=== PATIENT | female | born 1945 | race Caucasian/White ===

== ENCOUNTER → 2016-12-06 | Outpatient (CLI) | payer MEDICARE | LOC: RAD 08:20 | PROVIDERS: ATTEND Physician Assistant | DX: M25.511 Pain in right shoulder (principal) ==

== ENCOUNTER → 2017-01-04 | Day surgery (SDC) | payer MEDICARE | LOC: RAD 14:47 | PROVIDERS: ATTEND Orthopaedic Surgery | PROC: 0R9J3ZZ Drainage of Right Shoulder Joint, Percutaneous Approach (ICD-10-PCS; principal; 2017-01-04) | DX: M87.811 Other osteonecrosis, right shoulder (principal) | CPT/HCPCS: 20610; 77002; 87070; 87075; 87205 ==

== ENCOUNTER 2017-01-29 04:39 | Inpatient (IN) | payer OTHER, MEDICARE ==
[2017-01-29] MEDS ORDERED: NORMAL SALINE 1000 ML 500 ML IV ONE (05:29)
--- NOTE | 2017-01-29 05:32 | ER Document Report ---
Doctor's Note Notes: 01/29/17 05:30 I performed a quick triage evaluation the patient. Patient is a 71-year-old female presents with flulike symptoms. Her has had the same symptoms. She's had some vomiting. She's not been eating or drinking. She's had a lot of coughing congestion. She has body aches throughout. In triage her blood pressure was 80 systolic. They brought her back immediately. We immediately rechecked her blood pressure and it is 116/76. Patient is nontoxic-appearing. I will order blood work as well as chest x-ray in urine. I will give her some IV fluids being that she has been vomiting over last will days. She has no pain to palpation or abdomen. Her lung parmar are clear. She has a dry cough on exam. Dictation of this chart was performed using voice recognition software; therefore, there may be some unintended grammatical errors.
[2017-01-29 06:46] LABS: ABSOLUTE EOSINOPHILS # (AUTO) 0.1 10^3/uL (0.0-0.6); ABSOLUTE LYMPHOCYTES (AUTO) 1.3 10^3/uL (0.5-4.7); ABSOLUTE MONOCYTES (AUTO) 1.3 10^3/uL (0.1-1.4); ABSOLUTE NEUT (AUTO) 13.7 10^3/uL (1.7-8.2); BASOPHILS % (AUTO) 0.2 % (0-2); EOSINOPHILS % (AUTO) 0.6 % (0-6); HEMATOCRIT 33.2 % (36.0-47.0); HEMOGLOBIN 11.4 g/dL (12.0-15.5); LYMPHOCYTES % (AUTO) 7.8 % (13-45); MEAN CORPUSCULAR HEMOGLOBIN 29.3 pg (27.0-33.4); MEAN CORPUSCULAR HGB CONC 34.3 g/dL (32.0-36.0); MEAN CORPUSCULAR VOLUME 86 fl (80-97); MONOCYTES % (AUTO) 8.1 % (3-13); RED BLOOD COUNT 3.88 10^6/uL (3.72-5.28); RED CELL DISTRIBUTION WIDTH 13.6 % (11.5-14.0); SEGMENTED NEUTROPHILS % (AUTO) 83.3 % (42-78); WHITE BLOOD COUNT 16.4 10^3/uL (4.0-10.5)
[2017-01-29] MEDS ORDERED: IPRATROPIUM/ALBUTEROL 0.5-2.5 MG/3 ML AMPUL NEB ONE (06:46)
[2017-01-29] MEDS ORDERED: LEVOFLOXACIN 500 MG/D5W RTU 100 ML IV ONE (07:17)
[2017-01-29 07:41] LABS: ANION GAP 15 (5-19); BLOOD UREA NITROGEN 35 mg/dL (7-20); CALCIUM 8.7 mg/dL (8.4-10.2); CARBON DIOXIDE 24 mmol/L (22-30); CHLORIDE 82 mmol/L (98-107); CREATININE RESULT 1.79 mg/dL (0.52-1.25); GLUCOSE 103 mg/dL (75-110); SODIUM 121.3 mmol/L (137-145)
[2017-01-29 08:14] LABS: POTASSIUM 2.9 mmol/L (3.6-5.0)
[2017-01-29] MEDS ORDERED: MAGNESIUM SULFATE/D5W 100 ML IV ONE (09:06)
[2017-01-29 09:51] LABS: APPEARANCE,URINE CLEAR; BILIRUBIN,URINE NEGATIVE (NEGATIVE); GLUCOSE, URINE NEGATIVE (NEGATIVE); KETONES,URINE NEGATIVE (NEGATIVE); LEUKOCYTE ESTERASE,URINE NEGATIVE (NEGATIVE); NITRITE,URINE NEGATIVE (NEGATIVE); PROTEIN,URINE NEGATIVE (NEGATIVE); URINE SPECIFIC GRAVITY 1.004; UROBILINOGEN,URINE NEGATIVE mg/dL (<2.0)
[2017-01-29 10:11] LABS: URINE BARBITURATES SCREEN NEGATIVE; URINE METHADONE SCREEN NEGATIVE; URINE OPIATES LOW NEGATIVE; URINE PHENCYCLIDINE SCREEN NEGATIVE
--- NOTE | 2017-01-29 10:18 | ER Document Report ---
ED General - General Chief Complaint: Flu Symptoms Stated Complaint: COUGH,FEVER TRAVEL OUTSIDE OF THE [place] IN LAST 30 DAYS: No - HPI Patient complains to provider of: fevers cough Notes: Patient coming in for evaluation of fevers call feeling well for approximately 2 weeks. Patient also your been seen with her . States that was recently treated for fluid to Tamiflu with no relief. Patient states she does smoke patient upon further evaluation does have a history of marijuana abuse and cocaine use. Patient denies this at this time. Patient denies any pain. Upon initial evaluation as noted patient was mildly hypotensive however whenever checked by the night provider blood pressure a normal. Patient denies chest pain abdominal pain nausea vomiting diarrhea at this time. - Related Data Allergies/Adverse Reactions: No Known Allergies Allergy (Verified 01/29/17 06:55) Past Medical History - Social History Smoking Status: Current Every Day Smoker Chew tobacco use (# tins/day): No Frequency of alcohol use: None Drug Abuse: None Family History: Reviewed & Not Pertinent Patient has suicidal ideation: No Patient has homicidal ideation: No - Past Medical History Cardiac Medical History: Reports: Hx Hypertension Pulmonary Medical History: Denies: Hx Tuberculosis Renal/ Medical History: Denies: Hx Peritoneal Dialysis Musculoskeltal Medical History: Reports Hx Arthritis Psychiatric Medical History: Reports: Hx Depression Past Surgical History: Reports: Hx Breast Surgery - left breast, Hx Hysterectomy , Hx Orthopedic Surgery - back, neck - Immunizations Immunizations up to date: No Hx Diphtheria, Pertussis, Tetanus Vaccination: No Hx Pneumococcal Vaccination: 11/20/12 Review of Systems - Review of Systems Constitutional: Fever EENT: No symptoms reported Cardiovascular: No symptoms reported Respiratory: Cough, Short of breath, Wheezing Gastrointestinal: No symptoms reported Genitourinary: No symptoms reported Female Genitourinary: No symptoms reported Musculoskeletal: No symptoms reported Skin: No symptoms reported Hematologic/Lymphatic: No symptoms reported Neurological/Psychological: No symptoms reported -: Yes All other systems reviewed and negative Physical Exam - Vital signs Vitals: Temp Pulse Resp BP Pulse Ox 97.5 F 60 20 80/56 L 93 01/29/17 04:52 01/29/17 04:52 01/29/17 04:52 01/29/17 04:52 01/29/17 04:52 Interpretation: Normal - General General appearance: Appears well, Alert - HEENT Head: Normocephalic, Atraumatic Eyes: Normal Pupils: PERRL - Respiratory Respiratory status: No respiratory distress Chest status: Nontender Breath sounds: Rhonchi, Wheezing Chest palpation: Normal - Cardiovascular Rhythm: Regular Heart sounds: Normal auscultation Murmur: No - Abdominal Inspection: Normal Distension: No distension Bowel sounds: Normal Tenderness: Nontender Organomegaly: No organomegaly - Back Back: Normal, Nontender - Extremities General upper extremity: Normal inspection, Nontender, Normal color, Normal ROM , Normal temperature General lower extremity: Normal inspection, Nontender, Normal color, Normal ROM , Normal temperature, Normal weight bearing. No: Vladimir's sign - Neurological Neuro grossly intact: Yes Cognition: Normal Orientation: AAOx4 [place] Coma Scale Eye Opening: Spontaneous [place] Coma Scale Verbal: Oriented Dayana Coma Scale Motor: Obeys Commands Dayana Coma Scale Total: 15 Speech: Normal Motor strength normal: LUE, RUE, LLE, RLE Sensory: Normal - Psychological Associated symptoms: Normal affect, Normal mood - Skin Skin Temperature: Warm Skin Moisture: Dry Skin Color: Normal Course - Re-evaluation Re-evalutation: 01/29/17 13:22 Patient lab for studies showed hypomagnesemia hypokalemia dehydration with hyponatremia positive for cocaine leukocytosis with signs of pneumonia. Patient was given a dose of Levaquin. Patient is a large clots were replaced here in ER. Patient's case was referred to hospitals for further evaluation and admission. - Vital Signs Vital signs: Temp Pulse Resp BP Pulse Ox 98.8 F 82 20 146/97 H 98 01/29/17 11:18 01/29/17 07:56 01/29/17 12:01 01/29/17 12:01 01/29/17 12:01 - Laboratory Result Diagrams: 01/29/17 05:57 01/29/17 07:00 Laboratory results interpreted by me: 01/29/17 01/29/17 01/29/17 05:57 07:00 07:00 WBC 16.4 H Hgb 11.4 L Hct 33.2 L Seg Neutrophils % 83.3 H Lymphocytes % 7.8 L Absolute Neutrophils 13.7 H Sodium 121.3 L Potassium 2.9 L* Chloride 82 L BUN 35 H Creatinine 1.79 H Est GFR ( Amer) 34 L Est GFR (Non-Af Amer) 28 L Magnesium 1.5 L Critical Care Note - Critical Care Note Total time excluding time spent on procedures (mins): 35 Comments: Multiple evaluations for abnormal lab values Discharge - Discharge Clinical Impression: Cocaine abuse, Hypokalemia, Hypomagnesemia, Hyponatremia Pneumonia Qualifiers: Pneumonia type: due to unspecified organism Laterality: unspecified laterality Lung location: unspecified part of lung Qualified Code(s): J18.9 - Pneumonia, unspecified organism Acute renal failure Qualifiers: Acute renal failure type: unspecified Qualified Code(s): N17.9 - Acute kidney failure, unspecified Condition: Fair Disposition: ADMITTED INPATIENT Admitting Provider: Bee Mccracken Unit Admitted: Telemetry
[2017-01-29] MEDS ORDERED: LEVALBUTEROL HCL NEB 1.25 MG/3 ML AMPUL NEB PRN (11:53)
[2017-01-29] MEDS: NORMAL SALINE 1000 ML 1,000 ML IV PRN (13:18)
[2017-01-29] MEDS: METHYLPREDNISOLONE INJ 125 MG/2 ML SDV IV SCH ×2 (13:19→22:35)
[2017-01-29] MEDS: POTASSI CL 20 MEQ/50 ML RIDER 20 MEQ/50 ML RTUPB IV SCH ×3 (13:27→16:39)
[2017-01-29] MEDS ORDERED: CEFEPIME 2 GM/D5W RTU 2 GM/50 ML RTUPB IV SCH (14:00)
[2017-01-29] MEDS: IPRATROPIUM BROMIDE 0.02% NEB 0.5 MG/2.5 ML AMPUL NEB SCH ×2 (14:22→19:49)
[2017-01-29] MEDS: LEVALBUTEROL HCL NEB 1.25 MG/3 ML AMPUL NEB SCH ×2 (14:22→19:49)
[2017-01-29] MEDS: NORMAL SALINE 1000 ML 1,000 ML with THIAMINE HCL 100 MG, MVI, ADULT NO.1 WITH VIT K 10 ... IV PRN ×4 (14:39)
--- NOTE | 2017-01-29 16:14 | PDOC H&P ---
History of Present Illness Admission Date/PCP: 01/29/17 11:53 Patient complains of: Fever, shortness of breath History of Present Illness: NARENDRA ALBERT is a 71 year old female, chronic smoker, chronic alcoholic beverage drinker, last drink was about 1 week ago presents to the hospital because of shortness of breath of about 1 week duration. Patient reports started feeling sick and unwell about a week ago with cough and yellowish phlegm , low-grade fever, and mild shortness of breath. There is likewise associated intermittent wheezing. Symptoms were only mild so no consultation was made and patient took [id number] medication with some relief of symptoms. Patient started to progressively getting weak. She is a chronic smoker and continues to smoke and her symptoms started to get worse and therefore she stopped smoking yesterday. Earlier today her shortness of breath got worse as well as the wheezing and coughing therefore she presents to the hospital for evaluation. Serum sodium was low as well as potassium, WBC was elevated. Chest x-ray shows infiltrate retrocardiac area. Patient was given antibiotic and referred for admission. Patient however is a very poor historian. Past Medical History Past Medical History: Medication reconcillation pending verification, from the patient's pharmacist. Cardiac Medical History: Reports: Hypertension Pulmonary Medical History: Denies: Tuberculosis GI Medical History: Reports: Peptic Ulcer Disease Musculoskeltal Medical History: Reports: Arthritis, Other - Chronic pain syndrome Psychiatric Medical History: Reports: Depression, Substance Abuse - Cocaine and alcohol, Tobacco Dependency Past Surgical History Past Surgical History: Reports: Hysterectomy, Orthopedic Surgery - back, neck, Other - Lumpectomy, Exploratory laparotomy, Social History Information Source: Patient Smoking Status: Current Every Day Smoker Number of Years Smokin Last Time Smoked: COUPLE OF DAYS AGO Frequency of Alcohol Use: Heavy Hx Recreational Drug Use: Yes Drugs: Cocaine, Marijuana Hx Prescription Drug Abuse: No - Advance Directive Resuscitation Status: - Exploratory laparotomy,lumpectomy Family History Family History: CAD Parental Family History Reviewed: Yes Children Family History Reviewed: Yes Sibling(s) Family History Reviewed.: Yes Medication/Allergy Home Medications: Esomeprazole Magnesium [Nexium] 40 mg PO DAILY 01/29/17 Hydralazine HCl [Apresoline 50 mg Tablet] 100 mg PO Q8 01/29/17 Losartan/Hydrochlorothiazide [Hyzaar 100-25 Tablet] 1 each PO DAILY 01/29/17 Oxycodone HCl/Acetaminophen [Endocet 5-325 Tablet] 1 each PO TIDP PRN 01/29/17 Tizanidine HCl [Zanaflex 4 mg Tablet] 4 mg PO TIDP PRN 01/29/17 Allergies/Adverse Reactions: No Known Allergies Allergy (Verified 01/29/17 06:55) Review of Systems Constitutional: PRESENT: chills, fever(s), weakness - Generalized. ABSENT: headache(s), weight gain, weight loss Eyes: ABSENT: visual disturbances Ears: ABSENT: hearing changes Nose, Mouth, and Throat: PRESENT: sore throat. ABSENT: mouth pain Cardiovascular: PRESENT: chest pain - Pleuritic, dyspnea on exertion. ABSENT: edema, orthropnea, palpitations Respiratory: PRESENT: cough, dyspnea. ABSENT: hemoptysis Gastrointestinal: PRESENT: constipation. ABSENT: abdominal pain, diarrhea, hematemesis, hematochezia, melena, nausea, vomiting Genitourinary: ABSENT: dysuria, hematuria Musculoskeletal: ABSENT: joint swelling Integumentary: ABSENT: pruritus, rash, wounds Neurological: ABSENT: abnormal gait, abnormal speech, confusion, dizziness, focal weakness, syncope Psychiatric: ABSENT: anxiety, depression, homidical ideation, suicidal ideation Endocrine: ABSENT: cold intolerance, heat intolerance, polydipsia, polyuria Hematologic/Lymphatic: ABSENT: easy bleeding, easy bruising Physical Exam Vital Signs: Temp Pulse Resp BP Pulse Ox 98.8 F 89 20 152/83 H 21 L 01/29/17 11:18 01/29/17 14:22 01/29/17 15:01 01/29/17 15:01 01/29/17 15:12 General appearance: PRESENT: cooperative, mild distress Head exam: PRESENT: atraumatic, normocephalic Eye exam: PRESENT: conjunctiva pink, EOMI, PERRLA. ABSENT: scleral icterus Ear exam: PRESENT: normal external ear exam. ABSENT: drainage Mouth exam: PRESENT: dry mucosa, neck supple, tongue midline Throat exam: ABSENT: post pharyngeal erythema, tonsillar erythema, tonsillar exudate Neck exam: ABSENT: carotid bruit, JVD, lymphadenopathy, thyromegaly Respiratory exam: PRESENT: decreased breath sounds - Anteriorly bilateral, wheezes - Mild posteriorly bilateral, expiratory. ABSENT: rales, rhonchi Cardiovascular exam: PRESENT: RRR, +S1, +S2. ABSENT: diastolic murmur, gallop, rubs, systolic murmur Pulses: PRESENT: normal dorsalis pedis pul Vascular exam: PRESENT: normal capillary refill GI/Abdominal exam: PRESENT: normal bowel sounds, soft. ABSENT: distended, guarding, mass, organolmegaly, rebound, tenderness Rectal exam: PRESENT: deferred Extremities exam: PRESENT: full ROM. ABSENT: calf tenderness, clubbing, pedal edema Neurological exam: PRESENT: alert, awake, oriented to situation Psychiatric exam: PRESENT: appropriate affect, normal mood. ABSENT: agitated, homicidal ideation, suicidal ideation Focused psych exam: ABSENT: restlessness Skin exam: PRESENT: dry, intact, warm. ABSENT: cyanosis, rash Results Impressions: Chest X-Ray 01/29/17 05:29 IMPRESSION: Findings suggestive underlying COPD. There appear to be chronic parenchymal changes noted in both lung bases. There is increased density seen in the retrocardiac region which could represent atelectasis, superimposed infiltrate, or edema. Correlate clinically. Assessment & Plan - Diagnosis (1) Pneumonia Qualifiers: Pneumonia type: due to unspecified organism Laterality: unspecified laterality Lung location: unspecified part of lung Qualified Code(s): J18.9 - Pneumonia, unspecified organism Is this a current diagnosis for this admission?: Yes (2) COPD exacerbation Is this a current diagnosis for this admission?: Yes (3) Hypomagnesemia Is this a current diagnosis for this admission?: Yes (4) Hyponatremia Is this a current diagnosis for this admission?: Yes (5) Cocaine abuse Is this a current diagnosis for this admission?: Yes (6) Alcohol abuse Is this a current diagnosis for this admission?: Yes (7) Anemia of chronic disease Is this a current diagnosis for this admission?: Yes (8) Peptic ulcer disease Is this a current diagnosis for this admission?: Yes (9) Essential hypertension Is this a current diagnosis for this admission?: Yes (10) Depression Qualifiers: Depression Type: unspecified Qualified Code(s): F32.9 - Major depressive disorder, single episode, unspecified Is this a current diagnosis for this admission?: Yes (11) Bipolar disorder Qualifiers: Active/Remission status: remission status unspecified Qualified Code (s): F31.9 - Bipolar disorder, unspecified Is this a current diagnosis for this admission?: Yes (12) Chronic pain Qualifiers: Chronic pain type: other chronic pain Qualified Code(s): G89.29 - Other chronic pain Is this a current diagnosis for this admission?: Yes - Time Time Spent: 50 to 70 Minutes - Inpatient Certification Based on my medical assessment, after consideration of the patient's comorbidities, presenting symptoms, or acuity I expect that the services needed warrant INPATIENT care.: Yes I certify that my determination is in accordance with my understanding of Medicare's requirements for reasonable and necessary INPATIENT services [42 CFR 412.3e].: Yes Medical Necessity: Significant Comorbidiites Make Outpatient Treatment Too Risky , Need For IV Fluids, Need for Nebulizer Therapy and Monitoring of Response, Need for IV Antibiotics, Risk of Diagnosis Which Will Require Inpatient Eval/ Care/Monitoring Post 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 We will culture the blood in the sputum. We will replace electrolytes and monitor accordingly. Begin broad- spectrum antibiotic and give supplemental oxygen. DVT prophylaxis with Lovenox will be placed. We will hydrate the patient with normal saline. We will monitor creatinine. Patient counseled about substance abuse with cocaine and alcohol and she understood. We will give supplemental thiamine and folic acid and multivitamin. As needed Ativan for withdrawal symptoms if it occurs. Patient reports that she has not drank alcohol since last week.
[2017-01-29] MEDS: LORAZEPAM INJ 2 MG/1 ML VIAL IV PRN (16:56)
[2017-01-29] MEDS: LANSOPRAZOLE 30 MG TAB.RAP.DR PO SCH (16:57)
--- NOTE | 2017-01-29 20:05 | EKG REPORT ---
SEVERITY:- ABNORMAL ECG - SINUS RHYTHM PROBABLE LEFT ATRIAL ABNORMALITY LEFT VENTRICULAR HYPERTROPHY ST DEPRESSION, CONSIDER ISCHEMIA, LAT LEADS ABNORMAL T, CONSIDER ISCHEMIA, LATERAL LEADS : Confirmed by: Luther Oliveros 29-Jan-2017 20:05:23
[2017-01-29] MEDS ORDERED: CEFEPIME 2 GM/D5W RTU 50 ML IV SCH (22:00)
[2017-01-29] MEDS: GUAIFENESIN 600 MG TABLET.SA PO SCH (22:36)
[2017-01-30] MEDS: LEVALBUTEROL HCL NEB 1.25 MG/3 ML AMPUL NEB SCH ×4 (02:12→19:30)
[2017-01-30] MEDS: IPRATROPIUM BROMIDE 0.02% NEB 0.5 MG/2.5 ML AMPUL NEB SCH ×4 (02:12→19:30)
[2017-01-30] MEDS: LANSOPRAZOLE 30 MG TAB.RAP.DR PO SCH ×2 (05:08→17:15)
[2017-01-30] MEDS: ACETAMINOPHEN 325 MG TABLET PO PRN ×3 (05:08→18:06)
[2017-01-30] MEDS: METHYLPREDNISOLONE INJ 125 MG/2 ML SDV IV SCH ×3 (05:09→22:16)
[2017-01-30 07:43] LABS: HEMOGLOBIN 9.9 g/dL (12.0-15.5); HGB HCT DIFFERENCE 0.7; MEAN CORPUSCULAR HEMOGLOBIN 29.3 pg (27.0-33.4); MEAN CORPUSCULAR HGB CONC 34.1 g/dL (32.0-36.0); MEAN CORPUSCULAR VOLUME 86 fl (80-97); RED BLOOD COUNT 3.36 10^6/uL (3.72-5.28); RED CELL DISTRIBUTION WIDTH 13.8 % (11.5-14.0); WHITE BLOOD COUNT 13.8 10^3/uL (4.0-10.5)
[2017-01-30] MEDS ORDERED: ENOXAPARIN SODIUM INJ 40 MG/0.4 ML DISP.SYRIN SUBCUT SCH (08:00)
[2017-01-30 08:03] LABS: ANION GAP 17 (5-19); BLOOD UREA NITROGEN 19 mg/dL (7-20); CALCIUM 8.6 mg/dL (8.4-10.2); CARBON DIOXIDE 19 mmol/L (22-30); CHLORIDE 92 mmol/L (98-107); CREATININE RESULT 0.86 mg/dL (0.52-1.25); GLUCOSE 217 mg/dL (75-110); MAGNESIUM 1.6 mg/dL (1.6-2.3); SODIUM 127.8 mmol/L (137-145)
[2017-01-30 08:08] LABS: POTASSIUM 2.9 mmol/L (3.6-5.0)
[2017-01-30 08:13] LABS: BASOPHILS % (MANUAL) 0 % (0-2); EOSINOPHILS % (MANUAL) 0 % (0-6); LYMPHOCYTES % (MANUAL) 2 % (13-45); TOTAL CELLS COUNTED 100
[2017-01-30 08:14] LABS: HYPOCHROMASIA SLIGHT; TOXIC GRANULATION SLIGHT
[2017-01-30] MEDS: ENOXAPARIN SODIUM INJ 30 MG/0.3 ML DISP.SYRIN SUBCUT SCH (09:33)
[2017-01-30] MEDS: POTASSIUM CHLORIDE 10 MEQ TABLET.SA PO SCH ×2 (09:34→14:30)
[2017-01-30] MEDS: GUAIFENESIN 600 MG TABLET.SA PO SCH ×2 (09:35→22:13)
[2017-01-30] MEDS ORDERED: LEVOFLOXACIN 750 MG/D5W RTU 150 ML IV SCH (10:00)
--- NOTE | 2017-01-30 13:00 | PDOC PROGRESS REPORT ---
Subjective Progress Note for:: 01/30/17 Subjective:: Patient is feeling better this morning. Coughing is less, shortness of breath is better, wheezing is less. No diarrhea. Patient reports that pain medication and muscle relaxant make her drowsy and therefore she does not want to take them. Denies any aches and pain at this time. Physical Exam Vital Signs: Temp Pulse Resp BP Pulse Ox 98.5 F 88 28 H 157/78 H 98 01/30/17 10:49 01/30/17 10:49 01/30/17 10:49 01/30/17 10:49 01/30/17 10:49 Intake & Output 01/29/17 01/30/17 01/31/17 06:59 06:59 06:59 Intake Total 980 Output Total 900 Balance 80 Weight 51.4 kg General appearance: PRESENT: no acute distress, cooperative Head exam: PRESENT: normocephalic Mouth exam: PRESENT: neck supple Neck exam: ABSENT: JVD Respiratory exam: PRESENT: decreased breath sounds - Bilateral, rhonchi - few bilateral. ABSENT: wheezes Cardiovascular exam: PRESENT: RRR. ABSENT: gallop GI/Abdominal exam: PRESENT: soft. ABSENT: distended, tenderness Extremities exam: ABSENT: pedal edema Neurological exam: PRESENT: alert, awake, oriented to situation Skin exam: PRESENT: dry, warm. ABSENT: cyanosis Results Laboratory Results: 01/30/17 06:42 01/30/17 06:42 01/30/17 01/30/17 06:42 06:42 WBC 13.8 H RBC 3.36 L Hgb 9.9 L Hct 29.0 L MCV 86 MCH 29.3 MCHC 34.1 RDW 13.8 Plt Count 374 Seg Neutrophils % Not Reportable Lymphocytes % Not Reportable Monocytes % Not Reportable Eosinophils % Not Reportable Basophils % Not Reportable Absolute Neutrophils Not Reportable Absolute Lymphocytes Not Reportable Absolute Monocytes Not Reportable Absolute Eosinophils Not Reportable Absolute Basophils Not Reportable Sodium 127.8 L Potassium 2.9 L* Chloride 92 L Carbon Dioxide 19 L Anion Gap 17 BUN 19 Creatinine 0.86 Est GFR ( Amer) > 60 Est GFR (Non-Af Amer) > 60 Glucose 217 H Calcium 8.6 Magnesium 1.6 Impressions: Chest X-Ray 01/29/17 05:29 IMPRESSION: Findings suggestive underlying COPD. There appear to be chronic parenchymal changes noted in both lung bases. There is increased density seen in the retrocardiac region which could represent atelectasis, superimposed infiltrate, or edema. Correlate clinically. Assessment & Plan - Diagnosis (1) Pneumonia Qualifiers: Pneumonia type: due to unspecified organism Laterality: unspecified laterality Lung location: unspecified part of lung Qualified Code(s): J18.9 - Pneumonia, unspecified organism Is this a current diagnosis for this admission?: Yes (2) COPD exacerbation Is this a current diagnosis for this admission?: Yes (3) Hypomagnesemia Is this a current diagnosis for this admission?: Yes (4) Hyponatremia Is this a current diagnosis for this admission?: Yes (5) Cocaine abuse Is this a current diagnosis for this admission?: Yes (6) Alcohol abuse Is this a current diagnosis for this admission?: Yes (7) Anemia of chronic disease Is this a current diagnosis for this admission?: Yes (8) Peptic ulcer disease Is this a current diagnosis for this admission?: Yes (9) Essential hypertension Is this a current diagnosis for this admission?: Yes (10) Depression Qualifiers: Depression Type: unspecified Qualified Code(s): F32.9 - Major depressive disorder, single episode, unspecified Is this a current diagnosis for this admission?: Yes (11) Bipolar disorder Qualifiers: Active/Remission status: remission status unspecified Qualified Code (s): F31.9 - Bipolar disorder, unspecified Is this a current diagnosis for this admission?: Yes (12) Chronic pain Qualifiers: Chronic pain type: other chronic pain Qualified Code(s): G89.29 - Other chronic pain Is this a current diagnosis for this admission?: Yes - Time Time Spent with patient: 25-34 minutes - Plan Summary Plan Summary: Continue steroids, nebulizers, and Levaquin intravenously. Discontinue cefepime. Sputum culture growing Haemophilus influenza. Replace electrolytes and recheck level in the morning. We will resume the patient's antihypertensive medication as blood pressure started to increase. We will continue to monitor.
[2017-01-30] MEDS ORDERED: CEFEPIME HCL 2 GM in DEXTROSE 5%-WATER 50 ML IV SCH (14:00)
[2017-01-30] MEDS: NORMAL SALINE 1000 ML 1,000 ML IV PRN (14:31)
[2017-01-30] MEDS: NORMAL SALINE 1000 ML 1,000 ML with THIAMINE HCL 100 MG, MVI, ADULT NO.1 WITH VIT K 10 ... IV PRN ×4 (17:24)
[2017-01-31] MEDS: IPRATROPIUM BROMIDE 0.02% NEB 0.5 MG/2.5 ML AMPUL NEB SCH ×4 (01:59→19:43)
[2017-01-31] MEDS: LEVALBUTEROL HCL NEB 1.25 MG/3 ML AMPUL NEB SCH ×4 (01:59→19:43)
[2017-01-31] MEDS: NORMAL SALINE 1000 ML 1,000 ML IV PRN (03:55)
[2017-01-31] MEDS: LORAZEPAM INJ 2 MG/1 ML VIAL IV PRN (05:14)
[2017-01-31] MEDS: LANSOPRAZOLE 30 MG TAB.RAP.DR PO SCH ×2 (05:14→17:28)
[2017-01-31] MEDS: METHYLPREDNISOLONE INJ 125 MG/2 ML SDV IV SCH ×3 (05:15→22:32)
[2017-01-31 05:47] LABS: ANION GAP 13 (5-19); BLOOD UREA NITROGEN 15 mg/dL (7-20); CALCIUM 8.9 mg/dL (8.4-10.2); CARBON DIOXIDE 21 mmol/L (22-30); CHLORIDE 97 mmol/L (98-107); CREATININE RESULT 0.61 mg/dL (0.52-1.25); GLUCOSE 131 mg/dL (75-110); POTASSIUM 3.6 mmol/L (3.6-5.0); SODIUM 130.9 mmol/L (137-145)
[2017-01-31] MEDS ORDERED: (PENDING PHARMACY ID) (Losartan/Hydrochlorothiazide [Hyzaar 100-25 Tablet] 1 EACH) PO SCH (10:00)
[2017-01-31] MEDS ORDERED: LEVOFLOXACIN 750 MG/D5W RTU 750 MG/150 ML RTUPB IV SCH (10:00)
[2017-01-31] MEDS: ENOXAPARIN SODIUM INJ 30 MG/0.3 ML DISP.SYRIN SUBCUT SCH (10:31)
[2017-01-31] MEDS: GUAIFENESIN 600 MG TABLET.SA PO SCH ×2 (10:32→22:32)
[2017-01-31] MEDS: HYDROCHLOROTHIAZIDE 25 MG TABLET PO SCH (10:33)
[2017-01-31] MEDS: OXYCODONE HCL IR 5 MG TABLET PO PRN ×2 (10:33→22:32)
[2017-01-31] MEDS: LOSARTAN POTASSIUM 50 MG TABLET PO SCH (10:33)
--- NOTE | 2017-01-31 15:40 | PDOC PROGRESS REPORT ---
Subjective Progress Note for:: 01/31/17 Subjective:: Patient complains of cough. Physical Exam Vital Signs: Temp Pulse Resp BP Pulse Ox 98.1 F 93 20 151/84 H 100 01/31/17 11:23 01/31/17 14:00 01/31/17 13:29 01/31/17 11:23 01/31/17 13:29 Intake & Output 01/30/17 01/31/17 02/01/17 06:59 06:59 06:59 Intake Total 980 3313 330 Output Total 900 2102 1000 Balance 80 1211 -670 Weight 51.4 kg 57.1 kg General appearance: PRESENT: no acute distress Eye exam: PRESENT: conjunctiva pink. ABSENT: scleral icterus Teeth exam: PRESENT: poor dentation Neck exam: ABSENT: JVD Respiratory exam: PRESENT: rhonchi - Coarse rhonchi bilaterally., wheezes - A few scattered respiratory wheezes. ABSENT: rales Cardiovascular exam: PRESENT: RRR. ABSENT: diastolic murmur, rubs, systolic murmur GI/Abdominal exam: PRESENT: normal bowel sounds, soft. ABSENT: distended, guarding, mass, organolmegaly, rebound, tenderness Extremities exam: ABSENT: calf tenderness, clubbing, pedal edema Neurological exam: PRESENT: alert, awake, oriented to person, oriented to place , oriented to time, oriented to situation Psychiatric exam: PRESENT: appropriate affect Skin exam: PRESENT: dry, intact, warm. ABSENT: cyanosis, rash Results Laboratory Results: 01/30/17 06:42 01/31/17 04:23 01/31/17 04:23 Sodium 130.9 L Potassium 3.6 Chloride 97 L Carbon Dioxide 21 L Anion Gap 13 BUN 15 Creatinine 0.61 Est GFR ( Amer) > 60 Est GFR (Non-Af Amer) > 60 Glucose 131 H Calcium 8.9 Impressions: Chest X-Ray 01/29/17 05:29 IMPRESSION: Findings suggestive underlying COPD. There appear to be chronic parenchymal changes noted in both lung bases. There is increased density seen in the retrocardiac region which could represent atelectasis, superimposed infiltrate, or edema. Correlate clinically. Assessment & Plan - Diagnosis (1) Pneumonia Qualifiers: Pneumonia type: due to unspecified organism Laterality: unspecified laterality Lung location: unspecified part of lung Qualified Code(s): J18.9 - Pneumonia, unspecified organism Is this a current diagnosis for this admission?: YesPlan: Patient is growing Haemophilus influenza from her sputum culture. We'll continue with the Levaquin. (2) COPD exacerbation Is this a current diagnosis for this admission?: YesPlan: Continue with steroids and nebulizers. (3) Hypomagnesemia Is this a current diagnosis for this admission?: YesPlan: Resolved (4) Hyponatremia Is this a current diagnosis for this admission?: YesPlan: Improving with IV fluids. (5) Anemia of chronic disease Is this a current diagnosis for this admission?: YesPlan: Hemoglobin has remained stable (6) Peptic ulcer disease Is this a current diagnosis for this admission?: YesPlan: Continue with Prevacid (7) HTN (hypertension) Is this a current diagnosis for this admission?: YesPlan: Continue hydrochlorothiazide (8) Depression Qualifiers: Depression Type: unspecified Qualified Code(s): F32.9 - Major depressive disorder, single episode, unspecified Is this a current diagnosis for this admission?: Yes (9) Bipolar disorder Qualifiers: Active/Remission status: remission status unspecified Qualified Code (s): F31.9 - Bipolar disorder, unspecified Is this a current diagnosis for this admission?: Yes (10) Chronic pain Qualifiers: Chronic pain type: other chronic pain Qualified Code(s): G89.29 - Other chronic pain Is this a current diagnosis for this admission?: YesPlan: Patient has been restarted on oxycodone. (11) Cocaine abuse Is this a current diagnosis for this admission?: Yes (12) Alcohol abuse Is this a current diagnosis for this admission?: YesPlan: No evidence for delirium tremens - Time Time Spent with patient: 25-34 minutes - Inpatient Certification Medical Necessity: Need Close Monitoring Due to Risk of Patient Decompensation
[2017-01-31] MEDS: NORMAL SALINE 1000 ML 1,000 ML with THIAMINE HCL 100 MG, MVI, ADULT NO.1 WITH VIT K 10 ... IV PRN ×4 (15:56)
[2017-02-01] MEDS: LEVALBUTEROL HCL NEB 1.25 MG/3 ML AMPUL NEB SCH ×4 (02:29→20:12)
[2017-02-01] MEDS: IPRATROPIUM BROMIDE 0.02% NEB 0.5 MG/2.5 ML AMPUL NEB SCH ×4 (02:29→20:11)
[2017-02-01] MEDS: NORMAL SALINE 1000 ML 1,000 ML IV PRN (02:49)
[2017-02-01 04:55] LABS: HEMATOCRIT 25.4 % (36.0-47.0); HEMOGLOBIN 8.7 g/dL (12.0-15.5); HGB HCT DIFFERENCE 0.7; MEAN CORPUSCULAR HEMOGLOBIN 29.4 pg (27.0-33.4); MEAN CORPUSCULAR HGB CONC 34.5 g/dL (32.0-36.0); MEAN CORPUSCULAR VOLUME 85 fl (80-97); RED BLOOD COUNT 2.97 10^6/uL (3.72-5.28); RED CELL DISTRIBUTION WIDTH 14.1 % (11.5-14.0); WHITE BLOOD COUNT 17.2 10^3/uL (4.0-10.5)
[2017-02-01 05:20] LABS: ANION GAP 14 (5-19); BLOOD UREA NITROGEN 15 mg/dL (7-20); CALCIUM 8.6 mg/dL (8.4-10.2); CARBON DIOXIDE 22 mmol/L (22-30); CHLORIDE 93 mmol/L (98-107); CREATININE RESULT 0.61 mg/dL (0.52-1.25); GLUCOSE 149 mg/dL (75-110); SODIUM 128.8 mmol/L (137-145)
[2017-02-01 05:23] LABS: BAND NEUTROPHILS % (MANUAL) 3 % (3-5); BASOPHILS % (MANUAL) 0 % (0-2); EOSINOPHILS % (MANUAL) 0 % (0-6); LYMPHOCYTES % (MANUAL) 3 % (13-45); TOTAL CELLS COUNTED 100
[2017-02-01 05:24] LABS: ROULEAUX SLIGHT; TOXIC GRANULATION SLIGHT; TOXIC VACUOLATION PRESENT
[2017-02-01 05:34] LABS: MAGNESIUM 1.2 mg/dL (1.6-2.3)
[2017-02-01] MEDS: METHYLPREDNISOLONE INJ 125 MG/2 ML SDV IV SCH ×3 (06:37→22:25)
[2017-02-01] MEDS: LANSOPRAZOLE 30 MG TAB.RAP.DR PO SCH ×2 (06:37→16:54)
[2017-02-01] MEDS: ENOXAPARIN SODIUM INJ 30 MG/0.3 ML DISP.SYRIN SUBCUT SCH (08:12)
[2017-02-01] MEDS: GUAIFENESIN 600 MG TABLET.SA PO SCH ×2 (10:17→22:25)
[2017-02-01] MEDS: HYDROCHLOROTHIAZIDE 25 MG TABLET PO SCH (10:18)
[2017-02-01] MEDS: LOSARTAN POTASSIUM 50 MG TABLET PO SCH (10:20)
[2017-02-01] MEDS: OXYCODONE HCL IR 5 MG TABLET PO PRN ×2 (10:22→20:20)
[2017-02-01] MEDS ORDERED: MAGNESIUM SULFATE/D5W 1 GM/100 ML RTUPB IV SCH (11:00)
[2017-02-01] MEDS ORDERED: LIDOCAINE 5% (700 MG) TRANSDERMAL ADH..PATCH TP ONE (11:00)
--- NOTE | 2017-02-01 11:22 | PDOC PROGRESS REPORT ---
Subjective Progress Note for:: 02/01/17 Subjective:: Complaints of pain in her right shoulder and right neck. Physical Exam Vital Signs: Temp Pulse Resp BP Pulse Ox 98.2 F 94 30 H 158/97 H 99 02/01/17 11:04 02/01/17 11:04 02/01/17 11:04 02/01/17 11:04 02/01/17 11:04 Intake & Output 01/31/17 02/01/17 02/02/17 06:59 06:59 06:59 Intake Total 3313 3754 450 Output Total 2102 1950 550 Balance 1211 1804 -100 Weight 57.1 kg 58.4 kg General appearance: PRESENT: no acute distress Eye exam: PRESENT: conjunctiva pink. ABSENT: scleral icterus Mouth exam: PRESENT: moist, tongue midline Teeth exam: PRESENT: poor dentation Neck exam: ABSENT: JVD Respiratory exam: PRESENT: rhonchi - Coarse rhonchi on the left.. ABSENT: rales , wheezes Cardiovascular exam: PRESENT: RRR. ABSENT: diastolic murmur, rubs, systolic murmur GI/Abdominal exam: PRESENT: normal bowel sounds, soft. ABSENT: distended, guarding, mass, organolmegaly, rebound, tenderness Extremities exam: ABSENT: calf tenderness, clubbing, pedal edema Neurological exam: PRESENT: alert, awake, oriented to person, oriented to place , oriented to time, oriented to situation Psychiatric exam: PRESENT: appropriate affect Skin exam: PRESENT: dry, intact, warm. ABSENT: cyanosis, rash Results Laboratory Results: 02/01/17 03:53 02/01/17 03:53 02/01/17 02/01/17 03:53 03:53 WBC 17.2 H RBC 2.97 L Hgb 8.7 L Hct 25.4 L MCV 85 MCH 29.4 MCHC 34.5 RDW 14.1 H Plt Count 394 Seg Neutrophils % Not Reportable Lymphocytes % Not Reportable Monocytes % Not Reportable Eosinophils % Not Reportable Basophils % Not Reportable Absolute Neutrophils Not Reportable Absolute Lymphocytes Not Reportable Absolute Monocytes Not Reportable Absolute Eosinophils Not Reportable Absolute Basophils Not Reportable Sodium 128.8 L Potassium 3.0 L* Chloride 93 L Carbon Dioxide 22 Anion Gap 14 BUN 15 Creatinine 0.61 Est GFR ( Amer) > 60 Est GFR (Non-Af Amer) > 60 Glucose 149 H Calcium 8.6 Magnesium 1.2 L* Impressions: Chest X-Ray 01/29/17 05:29 IMPRESSION: Findings suggestive underlying COPD. There appear to be chronic parenchymal changes noted in both lung bases. There is increased density seen in the retrocardiac region which could represent atelectasis, superimposed infiltrate, or edema. Correlate clinically. Assessment & Plan - Diagnosis (1) Pneumonia Qualifiers: Pneumonia type: due to unspecified organism Laterality: unspecified laterality Lung location: unspecified part of lung Qualified Code(s): J18.9 - Pneumonia, unspecified organism Is this a current diagnosis for this admission?: YesPlan: Patient is growing Haemophilus influenza from her sputum culture. We'll continue with the Levaquin. (2) COPD exacerbation Is this a current diagnosis for this admission?: YesPlan: Continue with steroids and nebulizers. (3) Hypomagnesemia Is this a current diagnosis for this admission?: YesPlan: We'll give IV magnesium today. (4) Hyponatremia Is this a current diagnosis for this admission?: YesPlan: Improving with IV fluids. (5) Anemia of chronic disease Is this a current diagnosis for this admission?: YesPlan: Hemoglobin has decreased somewhat however there is no evidence for active bleeding. (6) Peptic ulcer disease Is this a current diagnosis for this admission?: YesPlan: Continue with Prevacid (7) HTN (hypertension) Is this a current diagnosis for this admission?: YesPlan: Continue hydrochlorothiazide (8) Depression Qualifiers: Depression Type: unspecified Qualified Code(s): F32.9 - Major depressive disorder, single episode, unspecified Is this a current diagnosis for this admission?: Yes (9) Bipolar disorder Qualifiers: Active/Remission status: remission status unspecified Qualified Code (s): F31.9 - Bipolar disorder, unspecified Is this a current diagnosis for this admission?: Yes (10) Chronic pain Qualifiers: Chronic pain type: other chronic pain Qualified Code(s): G89.29 - Other chronic pain Is this a current diagnosis for this admission?: YesPlan: Patient has been restarted on oxycodone. She also has complaints of shoulder and neck pain and we will try a Lidoderm patch. (11) Cocaine abuse Is this a current diagnosis for this admission?: Yes (12) Alcohol abuse Is this a current diagnosis for this admission?: YesPlan: No evidence for delirium tremens - Time Time Spent with patient: 25-34 minutes - Inpatient Certification Medical Necessity: Need Close Monitoring Due to Risk of Patient Decompensation, Need for IV Antibiotics
[2017-02-01] MEDS ORDERED: LEVOFLOXACIN 750 MG/D5W RTU 750 MG/150 ML RTUPB IV ONE (11:30)
[2017-02-01] MEDS: MAGNESIUM SULFATE/D5W 1 GM/100 ML RTUPB IV SCH ×3 (14:11→16:53)
[2017-02-01] MEDS: NORMAL SALINE 1000 ML 1,000 ML with THIAMINE HCL 100 MG, MVI, ADULT NO.1 WITH VIT K 10 ... IV PRN ×4 (17:37)
[2017-02-01] MEDS: POTASSIUM CHLORIDE 10 MEQ TABLET.SA PO SCH (22:25)
[2017-02-02] MEDS: IPRATROPIUM BROMIDE 0.02% NEB 0.5 MG/2.5 ML AMPUL NEB SCH ×4 (02:19→20:22)
[2017-02-02] MEDS: LEVALBUTEROL HCL NEB 1.25 MG/3 ML AMPUL NEB SCH ×4 (02:19→20:22)
[2017-02-02 05:31] LABS: ANION GAP 11 (5-19); BLOOD UREA NITROGEN 17 mg/dL (7-20); CALCIUM 8.8 mg/dL (8.4-10.2); CARBON DIOXIDE 28 mmol/L (22-30); CHLORIDE 89 mmol/L (98-107); CREATININE RESULT 0.52 mg/dL (0.52-1.25); GLUCOSE 127 mg/dL (75-110); MAGNESIUM 1.7 mg/dL (1.6-2.3); POTASSIUM 3.1 mmol/L (3.6-5.0); SODIUM 128.2 mmol/L (137-145)
[2017-02-02 05:48] LABS: HEMATOCRIT 29.4 % (36.0-47.0); HGB HCT DIFFERENCE 0.6; MEAN CORPUSCULAR VOLUME 85 fl (80-97); RED BLOOD COUNT 3.45 10^6/uL (3.72-5.28); RED CELL DISTRIBUTION WIDTH 13.9 % (11.5-14.0); WHITE BLOOD COUNT 14.5 10^3/uL (4.0-10.5)
[2017-02-02 05:57] LABS: BAND NEUTROPHILS % (MANUAL) 3 % (3-5); BASOPHILS % (MANUAL) 0 % (0-2); BURR CELLS SLIGHT; EOSINOPHILS % (MANUAL) 0 % (0-6); LYMPHOCYTES % (MANUAL) 4 % (13-45); OVALOCYTES SLIGHT; POIKILOCYTOSIS SLIGHT; SCHISTOCYTES SLIGHT; TOTAL CELLS COUNTED 100; TOXIC GRANULATION SLIGHT; TOXIC VACUOLATION PRESENT
[2017-02-02] MEDS: METHYLPREDNISOLONE INJ 125 MG/2 ML SDV IV SCH ×3 (06:40→21:49)
[2017-02-02] MEDS: LANSOPRAZOLE 30 MG TAB.RAP.DR PO SCH ×2 (06:40→17:05)
[2017-02-02] MEDS: NORMAL SALINE 1000 ML 1,000 ML IV PRN (06:44)
[2017-02-02] MEDS ORDERED: ONDANSETRON HCL INJ/PF 4 MG/2 ML SDV IV PRN (08:48)
[2017-02-02] MEDS: ENOXAPARIN SODIUM INJ 30 MG/0.3 ML DISP.SYRIN SUBCUT SCH (08:50)
[2017-02-02] MEDS: POTASSI CL 20 MEQ/50 ML RIDER 20 MEQ/50 ML RTUPB IV SCH ×2 (08:54→10:35)
[2017-02-02] MEDS: GUAIFENESIN 600 MG TABLET.SA PO SCH ×2 (10:33→21:49)
[2017-02-02] MEDS: MULTIVITAMIN TABLET PO SCH (10:33)
[2017-02-02] MEDS: HYDROCHLOROTHIAZIDE 25 MG TABLET PO SCH (10:34)
[2017-02-02] MEDS: THIAMINE HCL 100 MG TABLET PO SCH (10:34)
[2017-02-02] MEDS: LOSARTAN POTASSIUM 50 MG TABLET PO SCH (10:34)
[2017-02-02] MEDS: FOLIC ACID 1 MG TABLET PO SCH (10:34)
[2017-02-02] MEDS: LIDOCAINE 5% (700 MG) TRANSDERMAL ADH..PATCH TP SCH (10:35)
[2017-02-02] MEDS: POTASSIUM CHLORIDE 10 MEQ TABLET.SA PO SCH ×2 (10:35→21:49)
[2017-02-02] MEDS: LEVOFLOXACIN 750 MG/D5W RTU 750 MG/150 ML RTUPB IV SCH (13:11)
--- NOTE | 2017-02-02 14:12 | PDOC PROGRESS REPORT ---
Subjective Progress Note for:: 02/02/17 Subjective:: Complains of generalized aches and pains Physical Exam Vital Signs: Temp Pulse Resp BP Pulse Ox 97.3 F 87 20 172/90 H 100 02/02/17 11:23 02/02/17 11:23 02/02/17 11:23 02/02/17 11:23 02/02/17 11:23 Intake & Output 02/01/17 02/02/17 02/03/17 06:59 06:59 06:59 Intake Total 3754 2185 400 Output Total 1950 1950 Balance 1804 235 400 Weight 58.4 kg 56.6 kg General appearance: PRESENT: no acute distress Eye exam: PRESENT: conjunctiva pink. ABSENT: scleral icterus Mouth exam: PRESENT: moist, tongue midline Neck exam: ABSENT: carotid bruit, JVD, lymphadenopathy, thyromegaly Respiratory exam: PRESENT: rhonchi - Coarse rhonchi in the bases especially on the left.. ABSENT: rales, wheezes Cardiovascular exam: PRESENT: RRR. ABSENT: diastolic murmur, rubs, systolic murmur GI/Abdominal exam: PRESENT: normal bowel sounds, soft. ABSENT: distended, guarding, mass, organolmegaly, rebound, tenderness Extremities exam: ABSENT: calf tenderness, clubbing, pedal edema Neurological exam: PRESENT: alert, awake, oriented to person, oriented to place , oriented to time, oriented to situation, CN II-XII grossly intact. ABSENT: motor sensory deficit Psychiatric exam: PRESENT: appropriate affect Skin exam: PRESENT: dry, intact, warm. ABSENT: cyanosis, rash Results Laboratory Results: 02/02/17 03:54 02/02/17 03:54 02/02/17 02/02/17 03:54 03:54 WBC 14.5 H RBC 3.45 L Hgb 10.0 L Hct 29.4 L MCV 85 MCH 29.0 MCHC 34.0 RDW 13.9 Plt Count 459 H Seg Neutrophils % Not Reportable Lymphocytes % Not Reportable Monocytes % Not Reportable Eosinophils % Not Reportable Basophils % Not Reportable Absolute Neutrophils Not Reportable Absolute Lymphocytes Not Reportable Absolute Monocytes Not Reportable Absolute Eosinophils Not Reportable Absolute Basophils Not Reportable Sodium 128.2 L Potassium 3.1 L Chloride 89 L Carbon Dioxide 28 Anion Gap 11 BUN 17 Creatinine 0.52 Est GFR ( Amer) > 60 Est GFR (Non-Af Amer) > 60 Glucose 127 H Calcium 8.8 Magnesium 1.7 Impressions: Chest X-Ray 01/29/17 05:29 IMPRESSION: Findings suggestive underlying COPD. There appear to be chronic parenchymal changes noted in both lung bases. There is increased density seen in the retrocardiac region which could represent atelectasis, superimposed infiltrate, or edema. Correlate clinically. Assessment & Plan - Diagnosis (1) Pneumonia Qualifiers: Pneumonia type: due to unspecified organism Laterality: unspecified laterality Lung location: unspecified part of lung Qualified Code(s): J18.9 - Pneumonia, unspecified organism Is this a current diagnosis for this admission?: YesPlan: Patient is growing Haemophilus influenza from her sputum culture. We'll continue with the Levaquin. (2) COPD exacerbation Is this a current diagnosis for this admission?: YesPlan: Continue with steroids and nebulizers. (3) Hypomagnesemia Is this a current diagnosis for this admission?: YesPlan: Continue to monitor and replace as needed (4) Hyponatremia Is this a current diagnosis for this admission?: YesPlan: Improving with IV fluids. (5) Anemia of chronic disease Is this a current diagnosis for this admission?: YesPlan: Hemoglobin has decreased somewhat however there is no evidence for active bleeding. (6) Peptic ulcer disease Is this a current diagnosis for this admission?: YesPlan: Continue with Prevacid (7) HTN (hypertension) Is this a current diagnosis for this admission?: YesPlan: Continue hydrochlorothiazide (8) Depression Qualifiers: Depression Type: unspecified Qualified Code(s): F32.9 - Major depressive disorder, single episode, unspecified Is this a current diagnosis for this admission?: Yes (9) Bipolar disorder Qualifiers: Active/Remission status: remission status unspecified Qualified Code (s): F31.9 - Bipolar disorder, unspecified Is this a current diagnosis for this admission?: Yes (10) Chronic pain Qualifiers: Chronic pain type: other chronic pain Qualified Code(s): G89.29 - Other chronic pain Is this a current diagnosis for this admission?: YesPlan: Patient improving with oxycodone and lidocaine patch (11) Cocaine abuse Is this a current diagnosis for this admission?: Yes (12) Alcohol abuse Is this a current diagnosis for this admission?: YesPlan: No evidence for delirium tremens - Time Time Spent with patient: 25-34 minutes - Inpatient Certification Medical Necessity: Need Close Monitoring Due to Risk of Patient Decompensation
[2017-02-02] MEDS: OXYCODONE HCL IR 5 MG TABLET PO PRN ×2 (14:59→21:48)
[2017-02-02] MEDS: METOPROLOL TARTRATE 25 MG TABLET PO SCH (17:04)
[2017-02-03] MEDS: LEVALBUTEROL HCL NEB 1.25 MG/3 ML AMPUL NEB SCH ×4 (02:02→20:11)
[2017-02-03] MEDS: IPRATROPIUM BROMIDE 0.02% NEB 0.5 MG/2.5 ML AMPUL NEB SCH ×4 (02:02→20:10)
[2017-02-03] MEDS: METHYLPREDNISOLONE INJ 125 MG/2 ML SDV IV SCH (05:11)
[2017-02-03] MEDS: LANSOPRAZOLE 30 MG TAB.RAP.DR PO SCH ×2 (05:11→16:29)
[2017-02-03] MEDS: METOPROLOL TARTRATE 25 MG TABLET PO SCH ×2 (05:11→17:15)
[2017-02-03] MEDS: NORMAL SALINE 1000 ML 1,000 ML IV PRN (05:57)
[2017-02-03 06:50] LABS: ANION GAP 14 (5-19); BLOOD UREA NITROGEN 19 mg/dL (7-20); CALCIUM 8.4 mg/dL (8.4-10.2); CARBON DIOXIDE 29 mmol/L (22-30); CHLORIDE 85 mmol/L (98-107); CREATININE RESULT 0.54 mg/dL (0.52-1.25); GLUCOSE 122 mg/dL (75-110); MAGNESIUM 1.3 mg/dL (1.6-2.3); POTASSIUM 3.3 mmol/L (3.6-5.0); SODIUM 127.9 mmol/L (137-145)
[2017-02-03 07:02] LABS: HEMATOCRIT 33.2 % (36.0-47.0); HEMOGLOBIN 11.1 g/dL (12.0-15.5); HGB HCT DIFFERENCE 0.1; MEAN CORPUSCULAR HEMOGLOBIN 28.6 pg (27.0-33.4); MEAN CORPUSCULAR HGB CONC 33.3 g/dL (32.0-36.0); MEAN CORPUSCULAR VOLUME 86 fl (80-97); RED BLOOD COUNT 3.86 10^6/uL (3.72-5.28)
[2017-02-03 07:09] LABS: BAND NEUTROPHILS % (MANUAL) 1 % (3-5); BASOPHILS % (MANUAL) 0 % (0-2); EOSINOPHILS % (MANUAL) 0 % (0-6); LYMPHOCYTES % (MANUAL) 8 % (13-45); TOTAL CELLS COUNTED 100
[2017-02-03 07:11] LABS: ANISOCYTOSIS SLIGHT; HYPOCHROMASIA SLIGHT; POLYCHROMASIA SLIGHT; TARGET CELLS 1+; TOXIC GRANULATION SLIGHT; TOXIC VACUOLATION PRESENT
[2017-02-03] MEDS: ENOXAPARIN SODIUM INJ 30 MG/0.3 ML DISP.SYRIN SUBCUT SCH (07:53)
[2017-02-03] MEDS: MAGNESIUM SULFATE/D5W 1 GM/100 ML RTUPB IV SCH ×2 (08:21→12:55)
[2017-02-03] MEDS: MULTIVITAMIN TABLET PO SCH (09:13)
[2017-02-03] MEDS: LEVOFLOXACIN 750 MG/D5W RTU 750 MG/150 ML RTUPB IV SCH (09:13)
[2017-02-03] MEDS: LOSARTAN POTASSIUM 50 MG TABLET PO SCH (09:13)
[2017-02-03] MEDS: FOLIC ACID 1 MG TABLET PO SCH (09:13)
[2017-02-03] MEDS: HYDROCHLOROTHIAZIDE 25 MG TABLET PO SCH (09:13)
[2017-02-03] MEDS: GUAIFENESIN 600 MG TABLET.SA PO SCH ×2 (09:13→21:45)
[2017-02-03] MEDS: THIAMINE HCL 100 MG TABLET PO SCH (09:13)
[2017-02-03] MEDS: POTASSIUM CHLORIDE 10 MEQ TABLET.SA PO SCH ×2 (09:14→21:45)
[2017-02-03] MEDS: OXYCODONE HCL IR 5 MG TABLET PO PRN ×2 (09:17→16:30)
[2017-02-03] MEDS: LIDOCAINE 5% (700 MG) TRANSDERMAL ADH..PATCH TP SCH (09:18)
[2017-02-03] MEDS: POTASSI CL 20 MEQ/50 ML RIDER 20 MEQ/50 ML RTUPB IV SCH ×2 (11:11→14:04)
[2017-02-03] MEDS: HALOPERIDOL 2 MG TABLET PO PRN ×2 (11:37→21:45)
--- NOTE | 2017-02-03 13:55 | PDOC PROGRESS REPORT ---
Subjective Progress Note for:: 02/03/17 Subjective:: Reports she feels much better but does feel anxious. Physical Exam Vital Signs: Temp Pulse Resp BP Pulse Ox 97.7 F 82 22 H 133/85 H 100 02/03/17 12:08 02/03/17 12:08 02/03/17 12:08 02/03/17 12:08 02/03/17 12:08 Intake & Output 02/02/17 02/03/17 02/04/17 06:59 06:59 06:59 Intake Total 2185 2738 Output Total 1950 2300 Balance 235 438 Weight 56.6 kg 56.8 kg General appearance: PRESENT: no acute distress Eye exam: PRESENT: conjunctiva pink. ABSENT: scleral icterus Mouth exam: PRESENT: moist, tongue midline Neck exam: ABSENT: carotid bruit, JVD, lymphadenopathy, thyromegaly Respiratory exam: PRESENT: clear to auscultation waylon. ABSENT: rales, rhonchi, wheezes Cardiovascular exam: PRESENT: RRR. ABSENT: diastolic murmur, rubs, systolic murmur GI/Abdominal exam: PRESENT: normal bowel sounds, soft. ABSENT: distended, guarding, mass, organolmegaly, rebound, tenderness Extremities exam: ABSENT: calf tenderness, clubbing, pedal edema Neurological exam: PRESENT: alert, awake, oriented to person, oriented to place , oriented to time, oriented to situation, CN II-XII grossly intact. ABSENT: motor sensory deficit Psychiatric exam: PRESENT: appropriate affect Skin exam: PRESENT: dry, intact, warm. ABSENT: cyanosis, rash Results Laboratory Results: 02/03/17 05:30 02/03/17 05:30 02/03/17 02/03/17 05:30 05:30 WBC 13.0 H RBC 3.86 Hgb 11.1 L Hct 33.2 L MCV 86 MCH 28.6 MCHC 33.3 RDW 14.0 Plt Count 532 H Seg Neutrophils % Not Reportable Lymphocytes % Not Reportable Monocytes % Not Reportable Eosinophils % Not Reportable Basophils % Not Reportable Absolute Neutrophils Not Reportable Absolute Lymphocytes Not Reportable Absolute Monocytes Not Reportable Absolute Eosinophils Not Reportable Absolute Basophils Not Reportable Sodium 127.9 L Potassium 3.3 L Chloride 85 L Carbon Dioxide 29 Anion Gap 14 BUN 19 Creatinine 0.54 Est GFR ( Amer) > 60 Est GFR (Non-Af Amer) > 60 Glucose 122 H Calcium 8.4 Magnesium 1.3 L Impressions: Chest X-Ray 01/29/17 05:29 IMPRESSION: Findings suggestive underlying COPD. There appear to be chronic parenchymal changes noted in both lung bases. There is increased density seen in the retrocardiac region which could represent atelectasis, superimposed infiltrate, or edema. Correlate clinically. Assessment & Plan - Diagnosis (1) Pneumonia Qualifiers: Pneumonia type: due to unspecified organism Laterality: unspecified laterality Lung location: unspecified part of lung Qualified Code(s): J18.9 - Pneumonia, unspecified organism Is this a current diagnosis for this admission?: YesPlan: Patient is growing Haemophilus influenza from her sputum culture. Will change the Levaquin to by mouth she is improving. (2) COPD exacerbation Is this a current diagnosis for this admission?: YesPlan: Continue with steroids and nebulizers. Will change to oral prednisone. (3) Hypomagnesemia Is this a current diagnosis for this admission?: YesPlan: Continue to monitor and replace as needed (4) Hyponatremia Is this a current diagnosis for this admission?: YesPlan: Stable (5) Anemia of chronic disease Is this a current diagnosis for this admission?: YesPlan: Hemoglobin has decreased somewhat however there is no evidence for active bleeding. (6) Peptic ulcer disease Is this a current diagnosis for this admission?: YesPlan: Continue with Prevacid (7) HTN (hypertension) Is this a current diagnosis for this admission?: YesPlan: Continue hydrochlorothiazide (8) Depression Qualifiers: Depression Type: unspecified Qualified Code(s): F32.9 - Major depressive disorder, single episode, unspecified Is this a current diagnosis for this admission?: Yes (9) Bipolar disorder Qualifiers: Active/Remission status: remission status unspecified Qualified Code (s): F31.9 - Bipolar disorder, unspecified Is this a current diagnosis for this admission?: Yes (10) Chronic pain Qualifiers: Chronic pain type: other chronic pain Qualified Code(s): G89.29 - Other chronic pain Is this a current diagnosis for this admission?: YesPlan: Patient improving with oxycodone and lidocaine patch (11) Cocaine abuse Is this a current diagnosis for this admission?: Yes (12) Alcohol abuse Is this a current diagnosis for this admission?: YesPlan: No evidence for delirium tremens. We'll give Haldol as needed for anxiety. - Time Time Spent with patient: 25-34 minutes - Plan Summary Plan Summary: If she continues to improve we will hopefully discharge home tomorrow.
[2017-02-03] MEDS ORDERED: MAGNESIUM SULFATE/D5W 1 GM/100 ML RTUPB IV ONE (15:45)
[2017-02-04] MEDS: LEVALBUTEROL HCL NEB 1.25 MG/3 ML AMPUL NEB SCH ×3 (02:19→15:04)
[2017-02-04] MEDS: IPRATROPIUM BROMIDE 0.02% NEB 0.5 MG/2.5 ML AMPUL NEB SCH ×3 (02:20→15:04)
[2017-02-04 05:38] LABS: HEMOGLOBIN 10.9 g/dL (12.0-15.5); HGB HCT DIFFERENCE 0.7; MEAN CORPUSCULAR HEMOGLOBIN 28.9 pg (27.0-33.4); MEAN CORPUSCULAR VOLUME 85 fl (80-97); RED BLOOD COUNT 3.77 10^6/uL (3.72-5.28); RED CELL DISTRIBUTION WIDTH 13.8 % (11.5-14.0); WHITE BLOOD COUNT 13.4 10^3/uL (4.0-10.5)
[2017-02-04 05:54] LABS: ANION GAP 12 (5-19); BLOOD UREA NITROGEN 19 mg/dL (7-20); CALCIUM 8.5 mg/dL (8.4-10.2); CARBON DIOXIDE 29 mmol/L (22-30); CHLORIDE 87 mmol/L (98-107); CREATININE RESULT 0.61 mg/dL (0.52-1.25); GLUCOSE 86 mg/dL (75-110); POTASSIUM 3.3 mmol/L (3.6-5.0); SODIUM 128.4 mmol/L (137-145)
[2017-02-04] MEDS: LANSOPRAZOLE 30 MG TAB.RAP.DR PO SCH ×2 (05:55→16:15)
[2017-02-04] MEDS: METOPROLOL TARTRATE 25 MG TABLET PO SCH (05:55)
[2017-02-04 06:21] LABS: BASOPHILS % (MANUAL) 0 % (0-2); EOSINOPHILS % (MANUAL) 0 % (0-6); LYMPHOCYTES % (MANUAL) 8 % (13-45); TOTAL CELLS COUNTED 100
[2017-02-04 06:27] LABS: OVALOCYTES 1+; POIKILOCYTOSIS 1+; POLYCHROMASIA SLIGHT; TARGET CELLS SLIGHT; TOXIC GRANULATION 1+; TOXIC VACUOLATION PRESENT
[2017-02-04] MEDS: HYDROCHLOROTHIAZIDE 25 MG TABLET PO SCH (09:16)
[2017-02-04] MEDS: GUAIFENESIN 600 MG TABLET.SA PO SCH (09:16)
[2017-02-04] MEDS: THIAMINE HCL 100 MG TABLET PO SCH (09:16)
[2017-02-04] MEDS: LOSARTAN POTASSIUM 50 MG TABLET PO SCH (09:17)
[2017-02-04] MEDS: FOLIC ACID 1 MG TABLET PO SCH (09:17)
[2017-02-04] MEDS: MULTIVITAMIN TABLET PO SCH (09:17)
[2017-02-04] MEDS: OXYCODONE HCL IR 5 MG TABLET PO PRN (09:18)
[2017-02-04] MEDS: POTASSIUM CHLORIDE 10 MEQ TABLET.SA PO SCH (09:18)
[2017-02-04] MEDS: LIDOCAINE 5% (700 MG) TRANSDERMAL ADH..PATCH TP SCH (09:19)
[2017-02-04] MEDS: ENOXAPARIN SODIUM INJ 30 MG/0.3 ML DISP.SYRIN SUBCUT SCH (09:23)
[2017-02-04] MEDS ORDERED: PREDNISONE 20 MG TABLET PO SCH (10:00)
[2017-02-04] MEDS ORDERED: LEVOFLOXACIN 750 MG TABLET PO SCH (10:00)
[2017-02-04 13:59] VITALS: BP 155/100
--- NOTE | 2017-02-04 16:03 | PDOC DISCHARGE SUMMARY ---
General - Admit/Disc Date/PCP Admission Date/Primary Care Provider: 01/29/17 11:53 Discharge Date: 02/04/17 - Discharge Diagnosis (1) Pneumonia Is this a current diagnosis for this admission?: YesSummary: Secondary to Haemophilus influenza recovered from cultures. (2) COPD exacerbation Is this a current diagnosis for this admission?: Yes (3) Hypomagnesemia Is this a current diagnosis for this admission?: Yes (4) Hyponatremia Is this a current diagnosis for this admission?: Yes (5) Anemia of chronic disease Is this a current diagnosis for this admission?: Yes (6) Peptic ulcer disease Is this a current diagnosis for this admission?: Yes (7) HTN (hypertension) Is this a current diagnosis for this admission?: Yes (8) Depression Is this a current diagnosis for this admission?: Yes (9) Bipolar disorder Is this a current diagnosis for this admission?: Yes (10) Chronic pain Is this a current diagnosis for this admission?: Yes (11) Cocaine abuse Is this a current diagnosis for this admission?: YesSummary: Has been encouraged to quit using cocaine (12) Alcohol abuse Is this a current diagnosis for this admission?: Yes - Additional Information Resuscitation Status: Full Code Discharge Diet: Cardiac Discharge Activity: Activity As Tolerated Home Medications: Esomeprazole Magnesium [Nexium] 40 mg PO DAILY 01/29/17 Hydralazine HCl [Apresoline 50 mg Tablet] 100 mg PO Q8 01/29/17 Losartan/Hydrochlorothiazide [Hyzaar 100-25 Tablet] 1 each PO DAILY 01/29/17 Oxycodone HCl/Acetaminophen [Endocet 5-325 Tablet] 1 each PO TIDP PRN 01/29/17 Tizanidine HCl [Zanaflex 4 mg Tablet] 4 mg PO TIDP PRN 01/29/17 Levofloxacin [Levaquin 750 mg Tablet] 750 mg PO DAILY #4 tablet 02/04/17 Lidocaine [Lidoderm 5% (700 mg) Transdermal Patch] 1 patch TP DAILY #30 adh..patch 02/04/17 Metoprolol Tartrate [Lopressor 25 mg Tablet] 25 mg PO Q12A #60 tablet 02/04/17 Potassium Chloride [Klor-Con 10 Meq Tablet.sa] 20 meq PO Q12 #60 tablet.sa 02/04 Prednisone [Deltasone 20 mg Tablet] 40 mg PO DAILY #21 tablet 02/04/17 History of Present Illness History of Present Illness: NARENDRA ALBERT is a 71 year old female who has been a chronic smoker as well as heavy alcohol drinker who presents with a one-week history shortness of breath as well as cough and low-grade fever and sputum. The patient was found to have hyponatremia as well as pneumonia. Patient also had a COPD exacerbation associated with her smoking. Hospital Course Hospital Course: 71-year-old female who has a history of alcohol, smoking as well as cocaine use who presented with a two-week history shortness of breath sound have pneumonia as well as an acute COPD exacerbation. Patient was treated with IV Levaquin and eventually grew out Haemophilus influenza from her sputum culture. The patient respiratory standpoint improved and she also was initially treated with IV steroids because of her acute COPD exacerbation. The patient's respiratory status improved and she was switched over to oral antibiotics as well as steroids and discharged home. She also was noted have elevated blood pressures and her antihypertensives were increased. Patient reports that she is not going to be doing cocaine anymore. The patient also had complaints of neck and shoulder pain and was started on lidocaine patch. The patient because the pain did have some elevation of blood pressures are blood pressure the time discharge is 150/100. Physical Exam Vital Signs: Temp Pulse Resp BP Pulse Ox 97.4 F 91 16 155/100 H 98 02/04/17 13:47 02/04/17 13:47 02/04/17 13:47 02/04/17 13:59 02/04/17 13:47 Intake & Output 02/03/17 02/04/17 02/05/17 06:59 06:59 06:59 Intake Total 2738 985 Output Total 2300 200 Balance 438 785 Weight 56.8 kg 54 kg General appearance: PRESENT: no acute distress Eye exam: PRESENT: conjunctiva pink. ABSENT: scleral icterus Mouth exam: PRESENT: moist, tongue midline Neck exam: ABSENT: carotid bruit, JVD, lymphadenopathy, thyromegaly Respiratory exam: PRESENT: clear to auscultation waylon. ABSENT: rales, rhonchi, wheezes Cardiovascular exam: PRESENT: RRR. ABSENT: diastolic murmur, rubs, systolic murmur GI/Abdominal exam: PRESENT: normal bowel sounds, soft. ABSENT: distended, guarding, mass, organolmegaly, rebound, tenderness Extremities exam: ABSENT: calf tenderness, clubbing, pedal edema Neurological exam: PRESENT: alert, awake, oriented to person, oriented to place , oriented to time, oriented to situation, CN II-XII grossly intact. ABSENT: motor sensory deficit Psychiatric exam: PRESENT: appropriate affect Skin exam: PRESENT: dry, intact, warm. ABSENT: cyanosis, rash Results Laboratory Results: 02/04/17 05:07 02/04/17 05:07 02/04/17 02/04/17 05:07 05:07 WBC 13.4 H RBC 3.77 Hgb 10.9 L Hct 32.0 L MCV 85 MCH 28.9 MCHC 34.0 RDW 13.8 Plt Count 490 H Seg Neutrophils % Not Reportable Lymphocytes % Not Reportable Monocytes % Not Reportable Eosinophils % Not Reportable Basophils % Not Reportable Absolute Neutrophils Not Reportable Absolute Lymphocytes Not Reportable Absolute Monocytes Not Reportable Absolute Eosinophils Not Reportable Absolute Basophils Not Reportable Sodium 128.4 L Potassium 3.3 L Chloride 87 L Carbon Dioxide 29 Anion Gap 12 BUN 19 Creatinine 0.61 Est GFR ( Amer) > 60 Est GFR (Non-Af Amer) > 60 Glucose 86 Calcium 8.5 Impressions: Chest X-Ray 01/29/17 05:29 IMPRESSION: Findings suggestive underlying COPD. There appear to be chronic parenchymal changes noted in both lung bases. There is increased density seen in the retrocardiac region which could represent atelectasis, superimposed infiltrate, or edema. Correlate clinically. Qualifiers PATEINT BEING DISCHARGED WITH ANY OF THE FOLLOWING DIAGNOSIS?: No Plan Discharge Plan: Patient is discharged home in stable condition with follow-up with her primary care doctor in 1 week. Time Spent: Greater than 30 Minutes
== END 2017-02-04 15:00 | disposition home or self-care (01) | DRG 190 ==
LOC: ER 04:39 → EH 10:33 → UNDOADMIN 10:33 → EH 11:53 → 4N 18:40
PROC: 3E0F73Z Introduction of Anti-inflammatory into Respiratory Tract, Via Natural or Artificial Opening (ICD-10-PCS; principal; 2017-01-29)
DX: J44.0 Chronic obstructive pulmonary disease with (acute) lower respiratory infection (principal); J18.9 Pneumonia, unspecified organism; E87.1 Hypo-osmolality and hyponatremia; N17.9 Acute kidney failure, unspecified; J44.1 Chronic obstructive pulmonary disease with (acute) exacerbation; E83.42 Hypomagnesemia; D63.8 Anemia in other chronic diseases classified elsewhere; K27.9 Peptic ulcer, site unspecified, unspecified as acute or chronic, without hemorrhage or perforation; I10 Essential (primary) hypertension; F31.9 Bipolar disorder, unspecified; F10.20 Alcohol dependence, uncomplicated; F14.10 Cocaine abuse, uncomplicated; F17.210 Nicotine dependence, cigarettes, uncomplicated; B96.3 Hemophilus influenzae [H. influenzae] as the cause of diseases classified elsewhere; G89.4 Chronic pain syndrome; M19.90 Unspecified osteoarthritis, unspecified site; E86.0 Dehydration; Z90.710 Acquired absence of both cervix and uterus; Z79.899 Other long term (current) drug therapy; Z82.49 Family history of ischemic heart disease and other diseases of the circulatory system
CPT/HCPCS: 36415; 71010; 80048; 80307; 81001; 82962; 83735; 85025; 87040; 87070; 87077; 87205; 87804; 93005; 93010; 94640; 96365; 96367; 99291; J0692; J1650; J1956; J2060; J2930; J3411; J3475; J3480; J3490; J7030; J7512; J7620

== ENCOUNTER 2017-02-25 09:54 | Inpatient (IN) | payer OTHER, MEDICARE ==
--- NOTE | 2017-02-25 10:07 | ER Document Report ---
ED Medical Screen (RME) - General Chief Complaint: Shortness Of Breath Stated Complaint: DIFFICULTY BREATHING TRAVEL OUTSIDE OF THE [place] IN LAST 30 DAYS: No - HPI Patient complains to provider of: shortness of breath Notes: 02/25/17 10:06 Patient with a history of COPD drug abuse recent admission to the hospital for pneumonia coming in for shortness of breath. Patient's current PCP is Dr. Lagunas , - Related Data Allergies/Adverse Reactions: No Known Allergies Allergy (Verified 02/25/17 10:03) Past Medical History - Past Medical History Cardiac Medical History: Reports: Hx Hypertension Pulmonary Medical History: Denies: Hx Tuberculosis Renal/ Medical History: Denies: Hx Peritoneal Dialysis Musculoskeltal Medical History: Reports Hx Arthritis Psychiatric Medical History: Reports: Hx Depression Past Surgical History: Reports: Hx Breast Surgery - left breast, Hx Hysterectomy , Hx Orthopedic Surgery - back, neck, Other - Lumpectomy, Exploratory laparotomy , - Immunizations Immunizations up to date: No Hx Diphtheria, Pertussis, Tetanus Vaccination: No Review of Systems - Review of Systems Respiratory: Short of breath Physical Exam - Vital signs Vitals: Temp Pulse Resp BP Pulse Ox 99 F 79 24 H 200/109 H 95 02/25/17 10:03 02/25/17 10:03 02/25/17 10:03 02/25/17 10:03 02/25/17 10:03 Interpretation: Hypertensive - Respiratory Breath sounds: Wheezing Course - Vital Signs Vital signs: Temp Pulse Resp BP Pulse Ox 99 F 79 24 H 200/109 H 95 02/25/17 10:03 02/25/17 10:03 02/25/17 10:03 02/25/17 10:03 02/25/17 10:03
--- NOTE | 2017-02-25 10:21 | ER Document Report ---
ED Respiratory Problem <LINCOLN BOWER - Last Filed: 02/25/17 14:14> - General Time seen by provider: 10:20 Mode of Arrival: Ambulatory Information source: Patient, Relative - spouse TRAVEL OUTSIDE OF THE [place] IN LAST 30 DAYS: No - HPI Patient complains to provider of: COPD, Short of breath Onset: Other - see HPI note Context: Hx COPD Short of Breath: Moderate Associated symptoms: Cough, Difficulty breathing, Short of breath Similar symptoms previously: Yes Recently seen / treated by doctor: Yes - ED and PCP <JORGE LUIS BENITEZ - Last Filed: 02/25/17 14:37> - General Chief Complaint: Shortness Of Breath Stated Complaint: DIFFICULTY BREATHING Notes: Patient is a 71 year old female presenting to the emergency department for difficulty breathing. Patient has COPD and was recently discharged from [facility] for COPD and pneumonia. Patient states that she was doing better with her pneumonia until this morning when her breathing got worse. Patient's spouse states that he was sick with cold symptoms and passed it on to the patient. Patient states she has a slight cough. Patient saw Dr. Lira this week. Patient also complains of some shoulder pain however, the patient has chronic shoulder pain resulting from a fall and previous surgery. Patient uses marijuana and cocaine as well as heavy amounts of alcohol. Patient also complains of a ventral hernia and she has discussed treatment options for this with Dr. Lira; patient is being referred to a surgeon in [place] for her hernia. Patient has no known drug allergies. (JORGE LUIS BENITEZ) - Related Data Allergies/Adverse Reactions: No Known Allergies Allergy (Verified 02/25/17 14:32) Past Medical History - General Information source: Patient, Relative - spouse - Social History Smoking Status: Never Smoker Cigarette use (# per day): No Chew tobacco use (# tins/day): No Frequency of alcohol use: Heavy Drug Abuse: Cocaine, Marijuana Lives with: Spouse/Significant other Family History: CAD Patient has suicidal ideation: No Patient has homicidal ideation: No - Past Medical History Cardiac Medical History: Reports: Hx Hypertension Pulmonary Medical History: Reports: Hx COPD, Hx Pneumonia GI Medical History: Reports: Other - ventral hernia Musculoskeltal Medical History: Reports Hx Arthritis Psychiatric Medical History: Reports: Hx Depression Past Surgical History: Reports: Hx Breast Surgery - left breast, Hx Hysterectomy , Hx Orthopedic Surgery - back, neck, shoulder (03/24/15), Other - Lumpectomy, Exploratory laparotomy, - Immunizations Immunizations up to date: No Hx Diphtheria, Pertussis, Tetanus Vaccination: No Hx Pneumococcal Vaccination: 11/20/12 <JORGE LUIS BENITEZ - Last Filed: 02/25/17 14:37> Review of Systems - Review of Systems Constitutional: No symptoms reported EENT: No symptoms reported Cardiovascular: No symptoms reported Respiratory: See HPI, Cough, Short of breath Gastrointestinal: No symptoms reported Genitourinary: No symptoms reported Female Genitourinary: No symptoms reported Musculoskeletal: See HPI Skin: No symptoms reported Hematologic/Lymphatic: No symptoms reported Neurological/Psychological: No symptoms reported -: Yes All other systems reviewed and negative <JORGE LUIS BENITEZ - Last Filed: 02/25/17 14:37> Physical Exam <LINCOLN BOWER - Last Filed: 02/25/17 14:14> - Vital signs Interpretation: Hypertensive <JORGE LUIS BENITEZ - Last Filed: 02/25/17 14:37> - Vital signs Vitals: Temp Pulse Resp BP Pulse Ox 99 F 79 24 H 200/109 H 95 02/25/17 10:03 02/25/17 10:03 02/25/17 10:03 02/25/17 10:03 02/25/17 10:03 - Notes Notes: GENERAL: Well-appearing, well-nourished, mild-moderate respiratory distress. HEAD: Atraumatic, normocephalic. EYES: Pupils equal round and reactive to light, extraocular movements intact, sclera anicteric, conjunctiva are normal. ENT: Nares patent. Moist mucous membranes. Patent airway. NECK: Normal range of motion, supple without lymphadenopathy. LUNGS: Mild to moderate respiratory distress, expiratory grunting, coarse breath sounds bilaterally. HEART: Tachycardia, regular rhythm without murmurs. ABDOMEN: Soft, reproducible ventral hernia and associated tenderness, no guarding, no rebound. EXTREMITIES: Normal range of motion, no pitting or edema. NEUROLOGICAL: No focal neurological deficits. Moves all extremities spontaneously and on command. PSYCH: Normal affect. Normal mood. SKIN: Warm, Dry, normal turgor, no rashes or lesions noted. (JORGE LUIS BENITEZ) Course - Laboratory Result Diagrams: 02/25/17 10:40 02/25/17 10:40 - Diagnostic Test Radiology reviewed: Image reviewed, Reports reviewed - Small bilateral pleural effusions, CHF - EKG Interpretation by Me EKG shows normal: Sinus rhythm Rate: Normal Rhythm: NSR P Waves: No: SLIM, LAE, Absent, AV Dissociation, Other When compared to previous EKG there are: No significant change <LINCOLN BOWER - Last Filed: 02/25/17 14:14> - Laboratory Result Diagrams: 02/25/17 10:40 02/25/17 10:40 - Consults Dr. Lomax Time consulted: 14:10 <JORGE LUIS BENITEZ - Last Filed: 02/25/17 14:37> - Re-evaluation Re-evalutation: 02/25/17 12:24 Patient has continued elevated blood pressure so we will attempt to improve this with medication as she has already taken her home medications. She does continue cocaine abuse. With her elevated beta natruretic peptide there is consideration as well for CHF as well. She has become a little progressively more anemic as well. (LINCOLN BOWER) - Vital Signs Vital signs: Temp Pulse Resp BP Pulse Ox 98.6 F 84 36 H 196/100 H 97 02/25/17 13:32 02/25/17 13:32 02/25/17 14:31 02/25/17 14:31 02/25/17 14:31 - Laboratory Laboratory results interpreted by me: 02/25/17 02/25/17 02/25/17 10:40 10:40 10:40 RBC 3.34 L Hgb 9.6 L Hct 29.0 L RDW 15.3 H Sodium 133.3 L Magnesium 1.5 L Direct Bilirubin 0.5 H NT-Pro-B Natriuret Pep 5090 H - EKG Interpretation by Me Additional EKG results interpreted by me: 02/25/17 11:21 Similar to 01/29/2017 with persisting slightly peaked T waves (LINCOLN BOWER) - Consults Dr. Lomax Reason for consultation: 02/25/17 14:[address] Lomax for possible admission, patient will be admitted. (JORGE LUIS BENITEZ) Discharge - Discharge Admitting Provider: Hospitalist - Dr. Lomax Unit Admitted: IMCU <LINCOLN BOWER - Last Filed: 02/25/17 14:14> <JORGE LUIS BENITEZ - Last Filed: 02/25/17 14:37> - Discharge Clinical Impression: Dyspnea and respiratory abnormalities, Cocaine abuse, Anemia, Ventral hernia, Hypertensive emergency, CHF (congestive heart failure) Condition: Fair Disposition: ADMITTED INPATIENT Referrals: STEFFEN LIRA MD [Primary Care Provider] - Follow up as needed Scribe Documentation - Scribe Written by Scribe:: Jorge Luis Benitez 02/25/17 10:33 acting as scribe for :: Allyn <JORGE LUIS BENITEZ - Last Filed: 02/25/17 14:37>
[2017-02-25] MEDS ORDERED: IPRATROPIUM/ALBUTEROL 0.5-2.5 MG/3 ML AMPUL NEB ONE (10:31)
[2017-02-25] MEDS ORDERED: METHYLPREDNISOLONE INJ 125 MG/2 ML SDV IV ONE (10:31)
[2017-02-25 11:03] LABS: ABSOLUTE BASOPHILS # (AUTO) 0.1 10^3/uL (0.0-0.2); ABSOLUTE EOSINOPHILS # (AUTO) 0.4 10^3/uL (0.0-0.6); ABSOLUTE LYMPHOCYTES (AUTO) 1.3 10^3/uL (0.5-4.7); ABSOLUTE NEUT (AUTO) 7.1 10^3/uL (1.7-8.2); BASOPHILS % (AUTO) 0.9 % (0-2); EOSINOPHILS % (AUTO) 4.1 % (0-6); HEMOGLOBIN 9.6 g/dL (12.0-15.5); HGB HCT DIFFERENCE -0.2; LYMPHOCYTES % (AUTO) 13.3 % (13-45); MEAN CORPUSCULAR HEMOGLOBIN 28.7 pg (27.0-33.4); MEAN CORPUSCULAR HGB CONC 33.1 g/dL (32.0-36.0); MEAN CORPUSCULAR VOLUME 87 fl (80-97); RED BLOOD COUNT 3.34 10^6/uL (3.72-5.28); RED CELL DISTRIBUTION WIDTH 15.3 % (11.5-14.0); SEGMENTED NEUTROPHILS % (AUTO) 71.7 % (42-78); WHITE BLOOD COUNT 9.9 10^3/uL (4.0-10.5)
[2017-02-25 11:19] LABS: PROTHROMBIN TIME 12.6 SEC (11.4-15.4)
[2017-02-25] MEDS ORDERED: LABETALOL HCL INJ 20 MG/4 ML DISP.SYRIN IV ONE (11:21)
[2017-02-25 11:32] LABS: APPEARANCE,URINE CLEAR; BILIRUBIN,URINE NEGATIVE (NEGATIVE); GLUCOSE, URINE NEGATIVE (NEGATIVE); KETONES,URINE NEGATIVE (NEGATIVE); LEUKOCYTE ESTERASE,URINE NEGATIVE (NEGATIVE); NITRITE,URINE NEGATIVE (NEGATIVE); PROTEIN,URINE NEGATIVE (NEGATIVE); URINE SPECIFIC GRAVITY 1.005; UROBILINOGEN,URINE NEGATIVE mg/dL (<2.0)
[2017-02-25 11:34] LABS: ALANINE AMINOTRANSFERASE 32 U/L (9-52); ALBUMIN 4.1 g/dL (3.5-5.0); ALKALINE PHOSPHATASE 86 U/L (38-126); ANION GAP 10 (5-19); ASPARTATE AMINO TRANSFERASE 27 U/L (14-36); BILIRUBIN,DIRECT 0.5 mg/dL (0.0-0.4); BILIRUBIN,TOTAL 0.5 mg/dL (0.2-1.3); BLOOD UREA NITROGEN 13 mg/dL (7-20); CALCIUM 9.2 mg/dL (8.4-10.2); CARBON DIOXIDE 24 mmol/L (22-30); CHLORIDE 99 mmol/L (98-107); CREATINE KINASE 36 U/L (30-135); CREATININE RESULT 0.82 mg/dL (0.52-1.25); GLUCOSE 95 mg/dL (75-110); LIPASE 34.1 U/L (23-300); MAGNESIUM 1.5 mg/dL (1.6-2.3); SODIUM 133.3 mmol/L (137-145); TOTAL PROTEIN 7.2 g/dL (6.3-8.2)
[2017-02-25 11:36] LABS: ALCOHOL < 10 mg/dL (NONE DETECTED)
[2017-02-25 11:45] LABS: CREATINE KINASE MB 0.75 ng/mL (<4.55); TROPONIN I 0.012 ng/mL
[2017-02-25 11:56] LABS: URINE BARBITURATES SCREEN NEGATIVE; URINE METHADONE SCREEN NEGATIVE; URINE OPIATES LOW NEGATIVE; URINE PHENCYCLIDINE SCREEN NEGATIVE
[2017-02-25] MEDS ORDERED: HYDRALAZINE HCL INJ/PF 20 MG/1 ML SDV IV ONE (12:03)
[2017-02-25] MEDS ORDERED: HYDROCODONE/ACETAMINOPHEN 7.5-325 MG TABLET PO ONE (12:18)
[2017-02-25 12:20] LABS: VENOUS BLOOD BASE EXCESS -2.6 mmol/L; VENOUS BLOOD HCO3 22.2 mmol/L (20-32); VENOUS BLOOD PCO2 38.7 mmHg (35-63); VENOUS BLOOD PH 7.38 (7.30-7.42)
[2017-02-25] MEDS ORDERED: FUROSEMIDE INJ/PF 20 MG/2 ML SDV IV ONE (13:27)
[2017-02-25] MEDS ORDERED: ONDANSETRON HCL INJ/PF 4 MG/2 ML SDV IV PRN (14:32)
[2017-02-25] MEDS ORDERED: LORAZEPAM INJ 2 MG/1 ML VIAL IV PRN (14:37)
[2017-02-25] MEDS ORDERED: HYDRALAZINE HCL INJ/PF 20 MG/1 ML SDV IV PRN (14:40)
[2017-02-25] MEDS ORDERED: MORPHINE SULFATE 10 MG/ML INJ IV PRN (14:55)
--- NOTE | 2017-02-25 15:08 | PDOC H&P ---
History of Present Illness Admission Date/PCP: 02/25/17 14:32 STEFFEN LIRA Patient complains of: Shortness of breath History of Present Illness: LYN ALBERT is a 71 year old female with past medical history of polysubstance abuse, bipolar disorder, hypertension, chronic pain, peptic ulcer disease presents with several weeks swelling in both feet and increasing shortness of breath. She is also concerned about pain at the site of a hernia she has developed around previous exploratory laparotomy incision and mid upper abdomen. She has no prior cardiac history. She does not take any regular medications for blood pressure. She was recently hospitalized for pneumonia from 01/29/2017 317. Past Medical History Cardiac Medical History: Reports: Hypertension Pulmonary Medical History: Reports: Chronic Obstructive Pulmonary Disease (COPD) , Pneumonia Denies: Tuberculosis GI Medical History: Reports: Other - ventral hernia Musculoskeltal Medical History: Reports: Arthritis Psychiatric Medical History: Reports: Bipolar Disorder, Depression, Substance Abuse, Tobacco Dependency Past Surgical History Past Surgical History: Reports: Hysterectomy, Orthopedic Surgery - back, neck, shoulder (03/24/15), Other - Lumpectomy, Exploratory laparotomy, Social History Information Source: Patient Lives with: Spouse/Significant other Smoking Status: Never Smoker Frequency of Alcohol Use: Heavy Hx Recreational Drug Use: Yes Drugs: Cocaine, Marijuana Hx Prescription Drug Abuse: No - Advance Directive Resuscitation Status: Full Code Family History Family History: CAD Parental Family History Reviewed: Yes Children Family History Reviewed: Yes Sibling(s) Family History Reviewed.: Yes Medication/Allergy Allergies/Adverse Reactions: No Known Allergies Allergy (Verified 02/25/17 14:32) Review of Systems Constitutional: ABSENT: chills, fever(s), headache(s), weight gain, weight loss Eyes: ABSENT: visual disturbances Ears: ABSENT: hearing changes Cardiovascular: PRESENT: dyspnea on exertion, edema, orthropnea. ABSENT: chest pain, palpitations Respiratory: ABSENT: cough, hemoptysis Gastrointestinal: PRESENT: abdominal pain, other - Mid-upper abdominal hernia. ABSENT: constipation, diarrhea, hematemesis, hematochezia, nausea, vomiting Genitourinary: ABSENT: dysuria, hematuria Musculoskeletal: ABSENT: joint swelling Integumentary: ABSENT: rash, wounds Neurological: ABSENT: abnormal gait, abnormal speech, confusion, dizziness, focal weakness, syncope Psychiatric: ABSENT: anxiety, depression, homidical ideation, suicidal ideation Endocrine: ABSENT: cold intolerance, heat intolerance, polydipsia, polyuria Hematologic/Lymphatic: ABSENT: easy bleeding, easy bruising Physical Exam Vital Signs: Temp Pulse Resp BP Pulse Ox 98.6 F 84 36 H 196/100 H 97 02/25/17 13:32 02/25/17 13:32 02/25/17 14:31 02/25/17 14:31 02/25/17 14:31 PHYSICAL EXAM: GENERAL: Appears well, no acute distress, anxious and mildly agitated HEENT: Normocephalic, no scleral icterus, conjunctiva clear, EOEM intact, PERRLA , moist mucous membranes NECK: trachea midline, no thyromegally RESPIRATORY: Bilateral crackles CARDIAC: Regular rate and rhythm, no murmur/haja/rub ABDOMEN: Soft, mid-upper abdominal incisional hernia that is nonreducible, no guarding, normal bowel sounds, negative Millan sign RECTAL: deferred : deferred EXTREMITIES: Trace pedal edema. No cyanosis, clubbing MUSCULOSKELETAL: No joint swelling or deformity VASCULAR: normal peripheral pulses NEUROLOGIC: Alert, oriented to person/place/time, normal speech, cranial nerves grossly intact, 5/5 strength in all extremities, tactile sensation intact in all extremities SKIN: No rash, no wounds, no worrisome skin lesions PSYCHIATRIC: Unusual affect Results Laboratory Results: Labs- All tests 24 hr 02/25/17 02/25/17 02/25/17 10:40 10:40 10:40 WBC 9.9 RBC 3.34 L Hgb 9.6 L Hct 29.0 L MCV 87 MCH 28.7 MCHC 33.1 RDW 15.3 H Plt Count 434 Seg Neutrophils % 71.7 Lymphocytes % 13.3 Monocytes % 10.0 Eosinophils % 4.1 Basophils % 0.9 Absolute Neutrophils 7.1 Absolute Lymphocytes 1.3 Absolute Monocytes 1.0 Absolute Eosinophils 0.4 Absolute Basophils 0.1 PT 12.6 INR 0.92 VBG pH VBG pCO2 VBG HCO3 VBG Base Excess Sodium 133.3 L Potassium 5.0 Chloride 99 Carbon Dioxide 24 Anion Gap 10 BUN 13 Creatinine 0.82 Est GFR ( Amer) > 60 Est GFR (Non-Af Amer) > 60 Glucose 95 Lactic Acid Calcium 9.2 Magnesium 1.5 L Total Bilirubin 0.5 Direct Bilirubin 0.5 H Indirect Bilirubin Not Reportable Neonat Total Bilirubin Not Reportable AST 27 ALT 32 Alkaline Phosphatase 86 Creatine Kinase 36 CK-MB (CK-2) Troponin I NT-Pro-B Natriuret Pep Total Protein 7.2 Albumin 4.1 Lipase 34.1 Urine Color Urine Appearance Urine pH Ur Specific [place] Urine Protein Urine Glucose (UA) Urine Ketones Urine Blood Urine Nitrite Urine Bilirubin Urine Urobilinogen Ur Leukocyte Esterase Urine WBC (Auto) Squamous Epi Cells Auto Urine Ascorbic Acid Urine Opiates Screen Urine Methadone Screen Ur Barbiturates Screen Ur Phencyclidine Scrn Ur Amphetamines Screen U Benzodiazepines Scrn Urine Cocaine Screen U Marijuana (THC) Screen Serum Alcohol < 10 02/25/17 02/25/17 02/25/17 10:40 11:00 11:00 WBC RBC Hgb Hct MCV MCH MCHC RDW Plt Count Seg Neutrophils % Lymphocytes % Monocytes % Eosinophils % Basophils % Absolute Neutrophils Absolute Lymphocytes Absolute Monocytes Absolute Eosinophils Absolute Basophils PT INR VBG pH VBG pCO2 VBG HCO3 VBG Base Excess Sodium Potassium Chloride Carbon Dioxide Anion Gap BUN Creatinine Est GFR ( Amer) Est GFR (Non-Af Amer) Glucose Lactic Acid Calcium Magnesium Total Bilirubin Direct Bilirubin Indirect Bilirubin Neonat Total Bilirubin AST ALT Alkaline Phosphatase Creatine Kinase CK-MB (CK-2) 0.75 Troponin I 0.012 NT-Pro-B Natriuret Pep 5090 H Total Protein Albumin Lipase Urine Color STRAW Urine Appearance CLEAR Urine pH 8.0 Ur Specific [place] 1.005 Urine Protein NEGATIVE Urine Glucose (UA) NEGATIVE Urine Ketones NEGATIVE Urine Blood NEGATIVE Urine Nitrite NEGATIVE Urine Bilirubin NEGATIVE Urine Urobilinogen NEGATIVE Ur Leukocyte Esterase NEGATIVE Urine WBC (Auto) 1 Squamous Epi Cells Auto <1 Urine Ascorbic Acid NEGATIVE Urine Opiates Screen NEGATIVE Urine Methadone Screen NEGATIVE Ur Barbiturates Screen NEGATIVE Ur Phencyclidine Scrn NEGATIVE Ur Amphetamines Screen NEGATIVE U Benzodiazepines Scrn NEGATIVE Urine Cocaine Screen UNCONFIRMED POSITIVE U Marijuana (THC) Screen NEGATIVE Serum Alcohol 02/25/17 02/25/17 11:56 11:56 WBC RBC Hgb Hct MCV MCH MCHC RDW Plt Count Seg Neutrophils % Lymphocytes % Monocytes % Eosinophils % Basophils % Absolute Neutrophils Absolute Lymphocytes Absolute Monocytes Absolute Eosinophils Absolute Basophils PT INR VBG pH 7.38 VBG pCO2 38.7 VBG HCO3 22.2 VBG Base Excess -2.6 Sodium Potassium Chloride Carbon Dioxide Anion Gap BUN Creatinine Est GFR ( Amer) Est GFR (Non-Af Amer) Glucose Lactic Acid 1.1 Calcium Magnesium Total Bilirubin Direct Bilirubin Indirect Bilirubin Neonat Total Bilirubin AST ALT Alkaline Phosphatase Creatine Kinase CK-MB (CK-2) Troponin I NT-Pro-B Natriuret Pep Total Protein Albumin Lipase Urine Color Urine Appearance Urine pH Ur Specific [place] Urine Protein Urine Glucose (UA) Urine Ketones Urine Blood Urine Nitrite Urine Bilirubin Urine Urobilinogen Ur Leukocyte Esterase Urine WBC (Auto) Squamous Epi Cells Auto Urine Ascorbic Acid Urine Opiates Screen Urine Methadone Screen Ur Barbiturates Screen Ur Phencyclidine Scrn Ur Amphetamines Screen U Benzodiazepines Scrn Urine Cocaine Screen U Marijuana (THC) Screen Serum Alcohol Impressions: Chest X-Ray 02/25/17 10:03 IMPRESSION: CHF. Chest/Abdomen CTA 02/25/17 12:27 IMPRESSION: 1. Congestive heart failure. 2. No PE. Assessment & Plan - Diagnosis (1) Hypertensive emergency Is this a current diagnosis for this admission?: YesPlan: Polysubstance abuse not helping. Start nitroglycerin paste. Start Norvasc 5 mg daily. When necessary IV hydralazine. (2) CHF (congestive heart failure) Qualifiers: Congestive heart failure type: unspecified congestive heart failure type Congestive heart failure chronicity: acute Qualified Code(s): I50.9 - Heart failure, unspecified Is this a current diagnosis for this admission?: YesPlan: Patient has acutely decompensated congestive heart failure with unknown ejection fraction. She will be admitted to [facility]. Telemetry monitoring. Serial cardiac enzymes. Check echocardiogram. Start nitroglycerin paste. Start Lasix 20 mg IV every 12 hours. (3) Anemia Is this a current diagnosis for this admission?: YesPlan: Check Hemoccult of stool and iron studies. Monitor H&H for stability. (4) Ventral hernia Is this a current diagnosis for this admission?: YesPlan: I cannot reduce hernia on exam. I will consult surgery for their opinion. (5) Alcohol abuse Is this a current diagnosis for this admission?: YesPlan: Start IV thiamine. When necessary IV Ativan for signs or symptoms of withdrawal. (6) Bipolar disorder Qualifiers: Active/Remission status: remission status unspecified Qualified Code (s): F31.9 - Bipolar disorder, unspecified Is this a current diagnosis for this admission?: YesPlan: Polysubstance abuse not helping. Patient does not take routine psychiatric medications. (7) Hypomagnesemia Is this a current diagnosis for this admission?: YesPlan: Replace. Follow-up labs. (8) Peptic ulcer disease Is this a current diagnosis for this admission?: YesPlan: IV Protonix. (9) Tobacco abuse Is this a current diagnosis for this admission?: Yes (10) Cocaine abuse Is this a current diagnosis for this admission?: Yes - Time Time Spent: Greater than 70 Minutes - Inpatient Certification Based on my medical assessment, after consideration of the patient's comorbidities, presenting symptoms, or acuity I expect that the services needed warrant INPATIENT care.: Yes I certify that my determination is in accordance with my understanding of Medicare's requirements for reasonable and necessary INPATIENT services [42 CFR 412.3e].: Yes Medical Necessity: Need Close Monitoring Due to Risk of Patient Decompensation, Need For Continuous Telemetry Monitoring
[2017-02-25 15:38] LABS: CREATINE KINASE MB 0.71 ng/mL (<4.55); TROPONIN I 0.019 ng/mL
[2017-02-25] MEDS: NITROGLYCERIN 2% OINTMENT 1 GM PACKET TP SCH ×2 (15:53→23:17)
[2017-02-25] MEDS ORDERED: AMLODIPINE BESYLATE 5 MG TABLET PO ONE (16:00)
[2017-02-25] MEDS ORDERED: MAGNESIUM SULFATE/D5W 1 GM/100 ML RTUPB IV ONE (16:00)
[2017-02-25] MEDS: THIAMINE HCL 100 MG, FOLIC ACID 1 MG in NORMAL SALINE 50 ML IV SCH (18:25)
[2017-02-25 19:03] LABS: FOLATE > 20.00 ng/mL (>2.76)
--- NOTE | 2017-02-25 20:45 | EKG REPORT ---
SEVERITY:- NORMAL ECG - SINUS RHYTHM : Confirmed by: Luther Oliveros 25-Feb-2017 20:44:42
[2017-02-25 22:23] LABS: CREATINE KINASE MB 0.83 ng/mL (<4.55); TROPONIN I 0.016 ng/mL
[2017-02-25] MEDS: PANTOPRAZOLE SODIUM 40 MG VIAL IV SCH (23:16)
[2017-02-25] MEDS: HEPARIN SOD (PORCINE) 5,000 UNIT/ML 1 ML SYRINGE SUBCUT SCH (23:16)
[2017-02-25] MEDS: FUROSEMIDE INJ/PF 20 MG/2 ML SDV IV SCH (23:18)
[2017-02-26] MEDS: NITROGLYCERIN 2% OINTMENT 1 GM PACKET TP SCH ×4 (03:20→21:16)
[2017-02-26 03:43] LABS: ABSOLUTE LYMPHOCYTES (AUTO) 0.9 10^3/uL (0.5-4.7); ABSOLUTE MONOCYTES (AUTO) 0.5 10^3/uL (0.1-1.4); ABSOLUTE NEUT (AUTO) 5.2 10^3/uL (1.7-8.2); BASOPHILS % (AUTO) 0.4 % (0-2); EOSINOPHILS % (AUTO) 0.1 % (0-6); HEMATOCRIT 26.8 % (36.0-47.0); HEMOGLOBIN 9.2 g/dL (12.0-15.5); HGB HCT DIFFERENCE 0.8; LYMPHOCYTES % (AUTO) 13.4 % (13-45); MEAN CORPUSCULAR HEMOGLOBIN 29.4 pg (27.0-33.4); MEAN CORPUSCULAR HGB CONC 34.5 g/dL (32.0-36.0); MEAN CORPUSCULAR VOLUME 85 fl (80-97); MONOCYTES % (AUTO) 8.1 % (3-13); RED BLOOD COUNT 3.14 10^6/uL (3.72-5.28); RED CELL DISTRIBUTION WIDTH 15.2 % (11.5-14.0); WHITE BLOOD COUNT 6.7 10^3/uL (4.0-10.5)
[2017-02-26 03:57] LABS: ANION GAP 14 (5-19); BLOOD UREA NITROGEN 16 mg/dL (7-20); CARBON DIOXIDE 23 mmol/L (22-30); CHLORIDE 96 mmol/L (98-107); CHOLESTEROL 195.07 mg/dL (0-200); CREATINE KINASE 29 U/L (30-135); CREATININE RESULT 0.87 mg/dL (0.52-1.25); Direct HDL 70 mg/dL (>40); GLUCOSE 153 mg/dL (75-110); MAGNESIUM 1.4 mg/dL (1.6-2.3); SODIUM 132.8 mmol/L (137-145); TRIGLYCERIDES 56 mg/dL (<150)
[2017-02-26 04:09] LABS: DIRECT LDL 106 mg/dL (<100)
[2017-02-26 04:11] LABS: CREATINE KINASE MB 0.94 ng/mL (<4.55); TROPONIN I 0.015 ng/mL
[2017-02-26 04:24] LABS: POTASSIUM 3.7 mmol/L (3.6-5.0)
[2017-02-26 04:40] LABS: FREE T3 2.26 pg/mL (2.77-5.27)
[2017-02-26 04:54] LABS: THYROID STIMULATING HORMONE 0.48 uIU/mL (0.47-4.68)
[2017-02-26] MEDS: HEPARIN SOD (PORCINE) 5,000 UNIT/ML 1 ML SYRINGE SUBCUT SCH ×3 (06:36→21:17)
[2017-02-26] MEDS: ACETAMINOPHEN 325 MG TABLET PO PRN ×3 (06:38→21:17)
[2017-02-26] MEDS ORDERED: AMLODIPINE BESYLATE 5 MG TABLET PO SCH (10:00)
[2017-02-26] MEDS: FUROSEMIDE INJ/PF 20 MG/2 ML SDV IV SCH ×2 (10:35→21:16)
[2017-02-26] MEDS: FERROUS SULFATE 325 MG TABLET PO SCH (10:38)
[2017-02-26] MEDS: AMLODIPINE BESYLATE 5 MG TABLET PO SCH ×2 (10:38→21:16)
[2017-02-26] MEDS: PANTOPRAZOLE SODIUM 40 MG VIAL IV SCH ×2 (10:39→21:16)
--- NOTE | 2017-02-26 14:19 | PDOC PROGRESS REPORT ---
Subjective Progress Note for:: 02/26/17 Subjective:: No abd pain Physical Exam Vital Signs: Temp Pulse Resp BP Pulse Ox 98.3 F 87 16 174/91 H 99 02/26/17 11:48 02/26/17 11:48 02/26/17 11:48 02/26/17 11:48 02/26/17 11:48 Intake & Output 02/25/17 02/26/17 02/27/17 06:59 06:59 06:59 Intake Total 705 Output Total 1600 Balance -895 Weight 54.7 kg GI/Abdominal exam: PRESENT: other - Has incisional hernia reducible uncomplicated Results Laboratory Results: 02/26/17 03:14 02/26/17 03:14 02/26/17 02/26/17 02/26/17 03:14 03:14 03:14 WBC 6.7 RBC 3.14 L Hgb 9.2 L Hct 26.8 L MCV 85 MCH 29.4 MCHC 34.5 RDW 15.2 H Plt Count 374 Seg Neutrophils % 78.0 Lymphocytes % 13.4 Monocytes % 8.1 Eosinophils % 0.1 Basophils % 0.4 Absolute Neutrophils 5.2 Absolute Lymphocytes 0.9 Absolute Monocytes 0.5 Absolute Eosinophils 0.0 Absolute Basophils 0.0 Sodium 132.8 L Potassium 3.7 D Chloride 96 L Carbon Dioxide 23 Anion Gap 14 BUN 16 Creatinine 0.87 Est GFR ( Amer) > 60 Est GFR (Non-Af Amer) > 60 Glucose 153 H Calcium 9.0 Magnesium 1.4 L Triglycerides 56 Cholesterol 195.07 LDL Cholesterol Direct 106 H VLDL Cholesterol 11.0 HDL Cholesterol 70 TSH 0.48 Free T4 1.27 Free T3 pg/mL 2.26 L 02/25/17 02/25/17 02/25/17 14:52 14:52 21:26 Creatine Kinase 36 35 CK-MB (CK-2) 0.71 Troponin I 0.019 02/25/17 02/26/17 02/26/17 21:26 03:14 03:14 Creatine Kinase 29 L CK-MB (CK-2) 0.83 0.94 Troponin I 0.016 0.015 Impressions: Chest/Abdomen CTA 02/25/17 12:27 IMPRESSION: 1. Congestive heart failure. 2. No PE. Chest X-Ray 02/26/17 06:00 IMPRESSION: Minimally improved. Persistent findings as above. Assessment & Plan - Plan Summary Plan Summary: Patient admitted for SOB, CHF, COPD Exacerbation Incisional hernia - uncomplicated , no surgical intervention at this time Follow up in surgical clinia as out patient.
--- NOTE | 2017-02-26 15:25 | PDOC PROGRESS REPORT ---
Subjective Progress Note for:: 02/26/17 Subjective:: Patient's shortness of breath is a little bit better today. In discussion of her hypertension today she states that she normally takes medication for this prescribed by Dr. Lagunas and she is this medication filled at [facility] pharmacy. Medication reconciliation as well as hospital computer feet show the patient in fact has oxycodone, Zanaflex, and Mobic filled but does not have blood pressure medications filled. Patient denies fever, chills, headache, new focal weakness, chest pain, abdominal pain, nausea, vomiting, diarrhea, constipation. Physical Exam Vital Signs: Temp Pulse Resp BP Pulse Ox 98.3 F 87 16 174/91 H 99 02/26/17 11:48 02/26/17 11:48 02/26/17 11:48 02/26/17 11:48 02/26/17 11:48 Intake & Output 02/25/17 02/26/17 02/27/17 06:59 06:59 06:59 Intake Total 705 Output Total 1600 Balance -895 Weight 54.7 kg GENERAL: No acute distress HEENT: Conjunctiva clear, nonicteric, moist mucous membranes, no JVD, midline trachea RESPIRATORY: Clear to auscultation bilaterally, no wheezes, no rhonchi CARDIAC: Regular rate and rhythm, no murmurs/gallops/rubs ABDOMEN: Soft, nondistended, nontender, positive bowel sounds, no rebound, no guarding. Ventral hernia noted to be reducible EXTREMETIES: No edema, cyanosis, clubbing NEUROLOGIC: Alert, oriented to person/place/time, CN's grossly intact, no focal deficits SKIN: No rash, wounds PSYCH: Normal mood, normal affect Results Laboratory Results: 02/26/17 03:14 02/26/17 03:14 02/26/17 02/26/17 02/26/17 03:14 03:14 03:14 WBC 6.7 RBC 3.14 L Hgb 9.2 L Hct 26.8 L MCV 85 MCH 29.4 MCHC 34.5 RDW 15.2 H Plt Count 374 Seg Neutrophils % 78.0 Lymphocytes % 13.4 Monocytes % 8.1 Eosinophils % 0.1 Basophils % 0.4 Absolute Neutrophils 5.2 Absolute Lymphocytes 0.9 Absolute Monocytes 0.5 Absolute Eosinophils 0.0 Absolute Basophils 0.0 Sodium 132.8 L Potassium 3.7 D Chloride 96 L Carbon Dioxide 23 Anion Gap 14 BUN 16 Creatinine 0.87 Est GFR ( Amer) > 60 Est GFR (Non-Af Amer) > 60 Glucose 153 H Calcium 9.0 Magnesium 1.4 L Triglycerides 56 Cholesterol 195.07 LDL Cholesterol Direct 106 H VLDL Cholesterol 11.0 HDL Cholesterol 70 TSH 0.48 Free T4 1.27 Free T3 pg/mL 2.26 L 02/25/17 02/25/17 02/25/17 14:52 14:52 21:26 Creatine Kinase 36 35 CK-MB (CK-2) 0.71 Troponin I 0.019 02/25/17 02/26/17 02/26/17 21:26 03:14 03:14 Creatine Kinase 29 L CK-MB (CK-2) 0.83 0.94 Troponin I 0.016 0.015 Impressions: Chest/Abdomen CTA 02/25/17 12:27 IMPRESSION: 1. Congestive heart failure. 2. No PE. Chest X-Ray 02/26/17 06:00 IMPRESSION: Minimally improved. Persistent findings as above. Assessment & Plan - Diagnosis (1) Hypertensive emergency Is this a current diagnosis for this admission?: YesPlan: Polysubstance abuse not helping. Continue nitroglycerin paste. Increase Norvasc to 5 mg twice daily. When necessary IV hydralazine. (2) CHF (congestive heart failure) Qualifiers: Congestive heart failure type: unspecified congestive heart failure type Congestive heart failure chronicity: acute Qualified Code(s): I50.9 - Heart failure, unspecified Is this a current diagnosis for this admission?: YesPlan: Patient has acutely decompensated congestive heart failure with unknown ejection fraction. Serial cardiac enzymes negative. Check echocardiogram. Continue Lasix 20 mg IV every 12 hours. Hold off on beta cristi secondary to cocaine abuse. (3) Anemia Is this a current diagnosis for this admission?: YesPlan: Iron deficiency. Start iron supplementation. Check Hemoccult of stool. Patient does have history of peptic ulcer disease. (4) Ventral hernia Is this a current diagnosis for this admission?: YesPlan: Surgical evaluation appreciated. Hernia is reducible. This can be managed with outpatient surgical follow-up. (5) Alcohol abuse Is this a current diagnosis for this admission?: Yes (6) Bipolar disorder Qualifiers: Active/Remission status: remission status unspecified Qualified Code (s): F31.9 - Bipolar disorder, unspecified Is this a current diagnosis for this admission?: Yes (7) Hypomagnesemia Is this a current diagnosis for this admission?: Yes (8) Peptic ulcer disease Is this a current diagnosis for this admission?: Yes (9) Tobacco abuse Is this a current diagnosis for this admission?: Yes (10) Cocaine abuse Is this a current diagnosis for this admission?: Yes - Time Time Spent with patient: 35 or more minutes
--- NOTE | 2017-02-26 15:29 | CONSULTATION REPORT E ---
Consultation Report NAME: LYN ALBERT : 1945 AGE: 71Y DATE: 305 A TO: GENIE RODRIGUEZ M.D. FROM: VERONICA MCKNIGHT Requesting Physician HISTORY OF PRESENT ILLNESS: A 71-year-old female patient, consultation from hospitalist group or evaluation and management of possible recurrent ventral hernia or incisional hernia. The patient is being primarily admitted for history of shortness of breath, possible congestive cardiac failure and exacerbation of COPD, and also existing hernia which was felt during examination by the hospitalist. They want to evaluate whether it is incarcerated or not. The patient, at this point, does not complain of abdominal pain. She has no complaints whatsoever regarding her hernia. She is primarily concerned about her breathing and shortness of breath. PAST MEDICAL PROBLEMS: Significant for: 1. History of COPD. 2. Hypertension. 3. Bipolar disorder. 4. History of substance abuse. 5. History of congestive cardiac failure. 6. Arthritis. SURGICAL HISTORY: 1. History of C-sections. 2. Orthopedic surgery. 3. Also has a history of laparotomy in the past. PHYSICAL EXAMINATION: GENERAL: Does appear to be short of breath and mildly irritated. HEAD AND NECK: No lymphadenopathy, no masses, no thyromegaly. Normocephalic. RESPIRATORY: Both lungs with good air entry, but wheezes present bilaterally. CARDIOVASCULAR: Both heart sounds regular. ABDOMEN: No distention, soft. She has a long midline incision and upper midline incision supra-epigastric area. There is a palpable incisional hernia which is easily reducible. Abdomen has no other tenderness. EXTREMITIES: Warm and well perfused. 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 No acute complication, no incarceration, no obstruction. PLAN: Due to her medical problems, no intervention at this point necessary, and she needs more of a medical management of all exacerbation of shortness of breath, cardiac failure, COPD. From a surgical point of view, will follow as needed in the future. Thank you for allowing me to participate in the care of this patient. DICTATING PHYSICIAN: GENIE RODRIGUEZ M.D. [id number] PHY#: [id number] ID: [id number] JOB#: [id number] ACCT: [id number] cc:GENIE RODRIGUEZ M.D. >
[2017-02-26] MEDS: THIAMINE HCL 100 MG, FOLIC ACID 1 MG in NORMAL SALINE 50 ML IV SCH (17:25)
[2017-02-27] MEDS: NITROGLYCERIN 2% OINTMENT 1 GM PACKET TP SCH ×4 (03:32→21:25)
[2017-02-27 05:00] LABS: ABSOLUTE BASOPHILS # (AUTO) 0.1 10^3/uL (0.0-0.2); ABSOLUTE EOSINOPHILS # (AUTO) 0.2 10^3/uL (0.0-0.6); ABSOLUTE LYMPHOCYTES (AUTO) 1.8 10^3/uL (0.5-4.7); ABSOLUTE MONOCYTES (AUTO) 1.3 10^3/uL (0.1-1.4); ABSOLUTE NEUT (AUTO) 6.9 10^3/uL (1.7-8.2); BASOPHILS % (AUTO) 0.8 % (0-2); EOSINOPHILS % (AUTO) 2.1 % (0-6); HEMATOCRIT 27.7 % (36.0-47.0); HEMOGLOBIN 9.3 g/dL (12.0-15.5); HGB HCT DIFFERENCE 0.2; LYMPHOCYTES % (AUTO) 17.4 % (13-45); MEAN CORPUSCULAR HEMOGLOBIN 28.6 pg (27.0-33.4); MEAN CORPUSCULAR HGB CONC 33.4 g/dL (32.0-36.0); MEAN CORPUSCULAR VOLUME 86 fl (80-97); MONOCYTES % (AUTO) 12.4 % (3-13); RED BLOOD COUNT 3.23 10^6/uL (3.72-5.28); RED CELL DISTRIBUTION WIDTH 15.2 % (11.5-14.0); SEGMENTED NEUTROPHILS % (AUTO) 67.3 % (42-78); WHITE BLOOD COUNT 10.2 10^3/uL (4.0-10.5)
[2017-02-27 05:59] LABS: ANION GAP 13 (5-19); BLOOD UREA NITROGEN 15 mg/dL (7-20); CALCIUM 8.5 mg/dL (8.4-10.2); CARBON DIOXIDE 26 mmol/L (22-30); CHLORIDE 96 mmol/L (98-107); GLUCOSE 88 mg/dL (75-110); POTASSIUM 3.2 mmol/L (3.6-5.0); SODIUM 135.4 mmol/L (137-145)
[2017-02-27] MEDS: HEPARIN SOD (PORCINE) 5,000 UNIT/ML 1 ML SYRINGE SUBCUT SCH ×3 (06:00→21:23)
[2017-02-27] MEDS: ACETAMINOPHEN 325 MG TABLET PO PRN ×2 (06:03→19:46)
[2017-02-27] MEDS: FUROSEMIDE INJ/PF 20 MG/2 ML SDV IV SCH ×2 (09:13→22:04)
[2017-02-27] MEDS: FERROUS SULFATE 325 MG TABLET PO SCH (09:13)
[2017-02-27] MEDS: PANTOPRAZOLE SODIUM 40 MG VIAL IV SCH (09:13)
[2017-02-27] MEDS: AMLODIPINE BESYLATE 5 MG TABLET PO SCH (09:13)
--- NOTE | 2017-02-27 17:19 | PDOC PROGRESS REPORT ---
Subjective Progress Note for:: 02/27/17 Subjective:: She is is feeling better and less dyspnea. Her Potassium is 3.2.We will give her KCL 20 MEQ pox1. She had ECHO today. For possible discharge tomorrow. Physical Exam Vital Signs: Temp Pulse Resp BP Pulse Ox 97.4 F 101 H 18 148/87 H 92 02/27/17 12:00 02/27/17 14:00 02/27/17 12:00 02/27/17 12:00 02/27/17 12:00 Intake & Output 02/26/17 02/27/17 02/28/17 06:59 06:59 06:59 Intake Total 705 1075 1006 Output Total 1600 600 900 Balance -895 475 106 Weight 54.7 kg 54.4 kg General appearance: PRESENT: no acute distress, well-developed, well-nourished Head exam: PRESENT: atraumatic, normocephalic Eye exam: PRESENT: EOMI, PERRLA Ear exam: PRESENT: TM's normal bilaterally Mouth exam: PRESENT: moist, neck supple Respiratory exam: PRESENT: decreased breath sounds Cardiovascular exam: PRESENT: +S1, +S2 Pulses: PRESENT: +2 pedal pulses bilateral GI/Abdominal exam: PRESENT: normal bowel sounds, soft Rectal exam: PRESENT: deferred Extremities exam: PRESENT: full ROM Musculoskeletal exam: PRESENT: normal inspection Neurological exam: PRESENT: alert, oriented to person, oriented to place, oriented to time, CN II-XII grossly intact Psychiatric exam: PRESENT: normal mood Results Laboratory Results: 02/27/17 04:03 02/27/17 04:03 02/27/17 02/27/17 04:03 04:03 WBC 10.2 RBC 3.23 L Hgb 9.3 L Hct 27.7 L MCV 86 MCH 28.6 MCHC 33.4 RDW 15.2 H Plt Count 464 H Seg Neutrophils % 67.3 Lymphocytes % 17.4 Monocytes % 12.4 Eosinophils % 2.1 Basophils % 0.8 Absolute Neutrophils 6.9 Absolute Lymphocytes 1.8 Absolute Monocytes 1.3 Absolute Eosinophils 0.2 Absolute Basophils 0.1 Sodium 135.4 L Potassium 3.2 L Chloride 96 L Carbon Dioxide 26 Anion Gap 13 BUN 15 Creatinine 0.90 Est GFR ( Amer) > 60 Est GFR (Non-Af Amer) > 60 Glucose 88 Calcium 8.5 02/25/17 02/25/17 02/25/17 14:52 14:52 21:26 Creatine Kinase 36 35 CK-MB (CK-2) 0.71 Troponin I 0.019 NT-Pro-B Natriuret Pep 02/25/17 02/26/17 02/26/17 21:26 03:14 03:14 Creatine Kinase 29 L CK-MB (CK-2) 0.83 0.94 Troponin I 0.016 0.015 NT-Pro-B Natriuret Pep 02/27/17 04:03 Creatine Kinase CK-MB (CK-2) Troponin I NT-Pro-B Natriuret Pep 2130 H Impressions: Chest/Abdomen CTA 02/25/17 12:27 IMPRESSION: 1. Congestive heart failure. 2. No PE. Chest X-Ray 02/27/17 06:00 IMPRESSION: Cardiac enlargement. Resolution of the basilar opacities. Assessment & Plan - Diagnosis (1) Hypertensive emergency Is this a current diagnosis for this admission?: YesPlan: Ct with Norvasc 5 mg BID po; Losartan 100 mg qd po; NTG patch 1 g q6h; Hydralazine 10 mg q6h IV prn SBP>150 or DBP>100. 2 g sodium diet. (2) CHF (congestive heart failure) Qualifiers: Congestive heart failure type: unspecified congestive heart failure type Congestive heart failure chronicity: acute Qualified Code(s): I50.9 - Heart failure, unspecified Is this a current diagnosis for this admission?: YesPlan: Ct with Lasix 20 mg q12h IV; Daily weight; strict input/output chart; Monitor chemistry daily. (3) Hypokalemia Is this a current diagnosis for this admission?: YesPlan: KCL 20 MEQ POx1; Monitor chemistry daily. (4) Anemia Is this a current diagnosis for this admission?: YesPlan: Ct with FESO4 325 mg qd po. Monitor CBC daily. (5) Peptic ulcer disease Is this a current diagnosis for this admission?: YesPlan: Ct with Protonix 40 mg Q12H. (6) Cocaine abuse Is this a current diagnosis for this admission?: YesPlan: Pt was counseled on use of cocaine and risk/consequences of use of drugs.Hold Metoprolol due to use of cocaine. (7) Alcohol abuse Is this a current diagnosis for this admission?: YesPlan: Counseling on use of alcohol. (8) Tobacco abuse Is this a current diagnosis for this admission?: YesPlan: Counseling on smoking cessation (9) Bipolar disorder Qualifiers: Active/Remission status: remission status unspecified Qualified Code (s): F31.9 - Bipolar disorder, unspecified Is this a current diagnosis for this admission?: YesPlan: Ct with present mgt. (10) Depression Qualifiers: Depression Type: unspecified Qualified Code(s): F32.9 - Major depressive disorder, single episode, unspecified Is this a current diagnosis for this admission?: YesPlan: Ct with conservative mgt. (11) Anxiety disorder Is this a current diagnosis for this admission?: YesPlan: Ct with Ativan 1 mg Q4H prn IV. - Time Time Spent with patient: 35 or more minutes Smoking Cessation Education: 3 to 10 minutes Medications reviewed and adjusted accordingly: Yes Anticipated discharge: Home Within: within 36 hours
[2017-02-27] MEDS ORDERED: POTASSIUM CHLORIDE 20 MEQ/15 ML UDCUP PO ONE (17:30)
[2017-02-27] MEDS ORDERED: POTASSI CL 20 MEQ/50 ML RIDER 20 MEQ/50 ML RTUPB IV ONE (17:30)
[2017-02-27] MEDS: THIAMINE HCL 100 MG, FOLIC ACID 1 MG in NORMAL SALINE 50 ML IV SCH (18:03)
[2017-02-28] MEDS: OXYCODONE-ACETAMINOPHEN 5-325 MG TABLET PO SCH ×4 (00:45→21:06)
[2017-02-28] MEDS: POTASSIUM CHLORIDE 10 MEQ TABLET.SA PO SCH ×3 (00:45→21:06)
[2017-02-28] MEDS: AMLODIPINE BESYLATE 5 MG TABLET PO SCH ×3 (00:45→21:05)
[2017-02-28] MEDS: NITROGLYCERIN 2% OINTMENT 1 GM PACKET TP SCH ×4 (04:28→21:05)
[2017-02-28] MEDS: HEPARIN SOD (PORCINE) 5,000 UNIT/ML 1 ML SYRINGE SUBCUT SCH ×3 (05:49→21:07)
[2017-02-28 07:49] LABS: ABSOLUTE BASOPHILS # (AUTO) 0.1 10^3/uL (0.0-0.2); ABSOLUTE EOSINOPHILS # (AUTO) 0.5 10^3/uL (0.0-0.6); ABSOLUTE LYMPHOCYTES (AUTO) 1.5 10^3/uL (0.5-4.7); ABSOLUTE MONOCYTES (AUTO) 1.1 10^3/uL (0.1-1.4); ABSOLUTE NEUT (AUTO) 4.7 10^3/uL (1.7-8.2); BASOPHILS % (AUTO) 0.7 % (0-2); EOSINOPHILS % (AUTO) 6.1 % (0-6); HEMATOCRIT 26.9 % (36.0-47.0); HEMOGLOBIN 9.3 g/dL (12.0-15.5); LYMPHOCYTES % (AUTO) 19.6 % (13-45); MEAN CORPUSCULAR HEMOGLOBIN 29.4 pg (27.0-33.4); MEAN CORPUSCULAR HGB CONC 34.6 g/dL (32.0-36.0); MEAN CORPUSCULAR VOLUME 85 fl (80-97); MONOCYTES % (AUTO) 14.2 % (3-13); RED BLOOD COUNT 3.16 10^6/uL (3.72-5.28); RED CELL DISTRIBUTION WIDTH 15.2 % (11.5-14.0); SEGMENTED NEUTROPHILS % (AUTO) 59.4 % (42-78); WHITE BLOOD COUNT 7.9 10^3/uL (4.0-10.5)
[2017-02-28 08:08] LABS: ALANINE AMINOTRANSFERASE 31 U/L (9-52); ALBUMIN 3.3 g/dL (3.5-5.0); ALKALINE PHOSPHATASE 72 U/L (38-126); ANION GAP 12 (5-19); ASPARTATE AMINO TRANSFERASE 29 U/L (14-36); BILIRUBIN,DIRECT 0.1 mg/dL (0.0-0.4); BILIRUBIN,TOTAL 0.2 mg/dL (0.2-1.3); BLOOD UREA NITROGEN 16 mg/dL (7-20); CALCIUM 8.4 mg/dL (8.4-10.2); CARBON DIOXIDE 26 mmol/L (22-30); CHLORIDE 95 mmol/L (98-107); GLUCOSE 82 mg/dL (75-110); SODIUM 132.5 mmol/L (137-145); TOTAL PROTEIN 5.5 g/dL (6.3-8.2)
[2017-02-28 08:18] LABS: MAGNESIUM 1.1 mg/dL (1.6-2.3)
[2017-02-28] MEDS: LOSARTAN POTASSIUM 50 MG TABLET PO SCH (09:25)
[2017-02-28] MEDS: HYDRALAZINE HCL 50 MG TABLET PO SCH ×3 (09:26→21:06)
[2017-02-28] MEDS: FUROSEMIDE INJ/PF 20 MG/2 ML SDV IV SCH ×2 (09:26→21:05)
[2017-02-28] MEDS: MELOXICAM 7.5 MG TABLET PO SCH (09:27)
[2017-02-28] MEDS: FERROUS SULFATE 325 MG TABLET PO SCH (09:27)
[2017-02-28] MEDS: LANSOPRAZOLE 30 MG TAB.RAP.DR PO SCH (09:27)
[2017-02-28] MEDS: LIDOCAINE 5% (700 MG) TRANSDERMAL ADH..PATCH TOP SCH (09:28)
[2017-02-28] MEDS ORDERED: MAGNESIUM SULFATE INJ 8 MEQ/2 ML IM ONE (14:00)
--- NOTE | 2017-02-28 14:15 | XCELERA REPORT ---
[address] [address] Transthoracic Echocardiogram Report Name: LYN ALBERT Age: 71 yrs Gender: Female : 1945 Patient Status: Inpatient Patient Location: [id number]\305\S\A Study Date: 02/27/2017 09:58 AM Height: 64 in Weight: 123 lb BSA: 1.6 m2 Procedure: A two-dimensional transthoracic echocardiogram with color flow and Doppler was performed. Study Quality: Fair. Reason For Study: CHF History: CHF. Ordering Physician: VERONICA MCKNIGHT Performed By: Estefania Carrillo Interpretation Summary The left ventricle is normal in size. There is normal left ventricular wall thickness. LV EF is 60% Left ventricular systolic function is normal. Doppler measurements suggest impaired left ventricular relaxation, which is associated with grade I/IV or mild diastolic dysfunction The left ventricular wall motion is normal. There is no thrombus. There is no ventricular septal defect visualized. The right ventricle is normal in size and function. The left atrial size is normal. The interatrial septum is intact with no evidence for an atrial septal defect. There is mild mitral annular calcification. There is no evidence of mitral valve prolapse. There is no vegetation seen on the mitral valve. There is no mitral valve stenosis. There is a trace amount of mitral regurgitation There is no aortic valvular vegetation. There is no aortic valve stenosis There is no LVOT obstruction. There is a mild amount of aortic regurgitation There is no tricuspid stenosis. There is a trace to mild amount of tricuspid regurgitation Right ventricular systolic pressure is normal. RVSP is 28 mm of Hg , with RA mean of 5. There is no pulmonic valvular stenosis. There is a mild amount of pulmonic regurgitation The aortic root is mildly dilated There is no pericardial effusion. MMode/2D Measurements \T\ Calculations RVDd: 2.7 cm LVIDd: 4.4 cm FS: 33.0 % Ao root diam: 3.9 cm IVSd: 0.97 cm LVIDs: 3.0 cm EDV(Teich): 89.7 ml LVPWd: 0.96 cmESV(Teich): 34.3 mlAo root area: 11.8 cm2 EF(Teich): 61.7 % LA dimension: 3.2 cm LVOT diam: 2.2 cm LVOT area: 3.9 cm2 Doppler Measurements \T\ Calculations MV E max yadiel: MV P1/2t max yadiel: Ao V2 max: AI max yadiel: 42.3 cm/sec 42.0 cm/sec 167.7 cm/sec 512.9 cm/sec MV A max yadiel: MV P1/2t: 41.1 msec Ao max PG: AI max P.9 cm/sec MVA(P1/2t): 5.4 cm2 11.3 mmHg 105.3 mmHg MV E/A: 0.72 MV dec slope: NEVAEH(V,D): 3.3 cm2 AI dec slope: 299.2 cm/sec2 303.9 cm/sec2 AI P1/2t: 494.2 msec LV V1 max PG: PA V2 max: TR max yadiel: 8.2 mmHg 136.5 cm/sec 238.5 cm/sec LV V1 max: PA max P.5 mmHg TR max P.1 cm/sec 22.8 mmHg Left Ventricle The left ventricle is normal in size. There is normal left ventricular wall thickness. LV EF is 60%. Left ventricular systolic function is normal. Doppler measurements suggest impaired left ventricular relaxation, which is associated with grade I/IV or mild diastolic dysfunction. The left ventricular wall motion is normal. There is no thrombus. There is no ventricular septal defect visualized. Right Ventricle The right ventricle is normal in size and function. Atria The right atrium is normal. The left atrial size is normal. The interatrial septum is intact with no evidence for an atrial septal defect. Mitral Valve There is mild mitral annular calcification. There is no evidence of mitral valve prolapse. There is no vegetation seen on the mitral valve. There is no mitral valve stenosis. There is a trace amount of mitral regurgitation. Aortic Valve There is no aortic valvular vegetation. There is no aortic valve stenosis. There is no LVOT obstruction. There is a mild amount of aortic regurgitation. Tricuspid Valve There is no tricuspid stenosis. There is a trace to mild amount of tricuspid regurgitation. Right ventricular systolic pressure is normal. RVSP is 28 mm of Hg , with RA mean of 5. Pulmonic Valve There is no pulmonic valvular stenosis. There is a mild amount of pulmonic regurgitation. Great Vessels The aortic root is mildly dilated. Effusions There is no pericardial effusion. : VERONICA MCKNIGHT > Morenita Tariq
--- NOTE | 2017-02-28 15:17 | PDOC PROGRESS REPORT ---
Subjective Progress Note for:: 02/28/17 Subjective:: She is is feeling better and less dyspnea. Her Potassium is back to normal- 4.2. Her Magnesium is 1.1; she was given Mg sulfate 2 g IMx1; Mg oxide 400 mg BID po. Her ECHO showed EF of 60% and no regional wall abnormality. For possible discharge home tomorrow. Physical Exam Vital Signs: Temp Pulse Resp BP Pulse Ox 98.2 F 94 20 141/88 H 100 02/28/17 11:34 02/28/17 11:34 02/28/17 11:34 02/28/17 11:34 02/28/17 11:34 Intake & Output 02/27/17 02/28/17 03/01/17 06:59 06:59 06:59 Intake Total 1075 1516 250 Output Total 600 1600 1050 Balance 475 -84 -800 Weight 54.4 kg 55.8 kg General appearance: PRESENT: no acute distress, well-developed, well-nourished Head exam: PRESENT: atraumatic, normocephalic Eye exam: PRESENT: EOMI, PERRLA Ear exam: PRESENT: TM's normal bilaterally Mouth exam: PRESENT: neck supple, tongue midline Neck exam: PRESENT: full ROM Respiratory exam: PRESENT: decreased breath sounds, symmetrical Cardiovascular exam: PRESENT: +S1, +S2 Pulses: PRESENT: +2 pedal pulses bilateral Vascular exam: PRESENT: normal capillary refill GI/Abdominal exam: PRESENT: normal bowel sounds, soft Rectal exam: PRESENT: deferred Extremities exam: PRESENT: full ROM Neurological exam: PRESENT: alert, awake, oriented to person, oriented to place , oriented to time Psychiatric exam: PRESENT: normal mood Results Laboratory Results: 02/28/17 06:51 02/28/17 06:51 02/28/17 02/28/17 06:51 06:51 WBC 7.9 RBC 3.16 L Hgb 9.3 L Hct 26.9 L MCV 85 MCH 29.4 MCHC 34.6 RDW 15.2 H Plt Count 460 H Seg Neutrophils % 59.4 Lymphocytes % 19.6 Monocytes % 14.2 H Eosinophils % 6.1 H Basophils % 0.7 Absolute Neutrophils 4.7 Absolute Lymphocytes 1.5 Absolute Monocytes 1.1 Absolute Eosinophils 0.5 Absolute Basophils 0.1 Sodium 132.5 L Potassium 4.0 Chloride 95 L Carbon Dioxide 26 Anion Gap 12 BUN 16 Creatinine 0.90 Est GFR ( Amer) > 60 Est GFR (Non-Af Amer) > 60 Glucose 82 Calcium 8.4 Magnesium 1.1 L* Total Bilirubin 0.2 AST 29 ALT 31 Alkaline Phosphatase 72 Total Protein 5.5 L Albumin 3.3 L 02/25/17 02/25/17 02/25/17 14:52 14:52 21:26 Creatine Kinase 36 35 CK-MB (CK-2) 0.71 Troponin I 0.019 NT-Pro-B Natriuret Pep 02/25/17 02/26/17 02/26/17 21:26 03:14 03:14 Creatine Kinase 29 L CK-MB (CK-2) 0.83 0.94 Troponin I 0.016 0.015 NT-Pro-B Natriuret Pep 02/27/17 04:03 Creatine Kinase CK-MB (CK-2) Troponin I NT-Pro-B Natriuret Pep 2130 H Impressions: Chest/Abdomen CTA 02/25/17 12:27 IMPRESSION: 1. Congestive heart failure. 2. No PE. Chest X-Ray 02/28/17 06:00 IMPRESSION: NO ACUTE RADIOGRAPHIC FINDING IN THE CHEST. Assessment & Plan - Diagnosis (1) Hypertensive emergency Is this a current diagnosis for this admission?: YesPlan: Ct with Norvasc 5 mg BID po; Losartan 100 mg qd po; Hydralazine 50mg q8h po; NTG patch 1 g q6h; Hydralazine 10 mg q6h IV prn SBP>150 or DBP>100. 2 g sodium diet. (2) CHF (congestive heart failure) Qualifiers: Congestive heart failure type: diastolic Congestive heart failure chronicity: acute Qualified Code(s): I50.31 - Acute diastolic (congestive ) heart failure Is this a current diagnosis for this admission?: YesPlan: Ct with Lasix 20 mg q12h IV; Daily weight; strict input/output chart; Monitor chemistry daily. (3) Hypokalemia Is this a current diagnosis for this admission?: YesPlan: KCL 20 MEQ BID po; Monitor chemistry daily. (4) Hypomagnesemia Is this a current diagnosis for this admission?: YesPlan: Mg sulfate 2 g IMx1; ct with Mg oxide 400 mg BID po; F/u repeat mg level in am. (5) Lumbago Qualifiers: Chronicity: chronic Is this a current diagnosis for this admission?: YesPlan: Ct with Percocet 5/325 1 q8h po; Meloxicam 15 mg qd po; Zanaflex 4 mg q8h po prn (6) Anemia Is this a current diagnosis for this admission?: YesPlan: Ct with FESO4 325 mg qd po. Monitor CBC daily. (7) Peptic ulcer disease Is this a current diagnosis for this admission?: YesPlan: Ct with Protonix 40 mg Q12H. (8) Cocaine abuse Is this a current diagnosis for this admission?: YesPlan: Pt was counseled on use of cocaine and risk/consequences of use of drugs.Hold Metoprolol due to use of cocaine. (9) Alcohol abuse Is this a current diagnosis for this admission?: YesPlan: Counseling on use of alcohol. (10) Tobacco abuse Is this a current diagnosis for this admission?: YesPlan: Counseling on smoking cessation (11) Depression Qualifiers: Depression Type: unspecified Qualified Code(s): F32.9 - Major depressive disorder, single episode, unspecified Is this a current diagnosis for this admission?: YesPlan: Ct with conservative mgt. (12) Bipolar disorder Qualifiers: Active/Remission status: remission status unspecified Qualified Code (s): F31.9 - Bipolar disorder, unspecified Is this a current diagnosis for this admission?: YesPlan: Ct with present mgt. (13) Anxiety disorder Is this a current diagnosis for this admission?: YesPlan: Ct with Ativan 1 mg Q4H prn IV. (14) DVT prophylaxis Is this a current diagnosis for this admission?: YesPlan: Ct with Heparin 5000iu subcut q8h. - Time Time Spent with patient: 35 or more minutes Smoking Cessation Education: 3 to 10 minutes Medications reviewed and adjusted accordingly: Yes Anticipated discharge: Home Within: within 24 hours
[2017-02-28] MEDS: THIAMINE HCL 100 MG, FOLIC ACID 1 MG in NORMAL SALINE 50 ML IV SCH (18:34)
[2017-02-28] MEDS: MAGNESIUM OXIDE 400 MG TABLET PO SCH (18:34)
[2017-02-28] MEDS: TIZANIDINE HCL 4 MG TABLET PO PRN (22:25)
[2017-03-01] MEDS: NITROGLYCERIN 2% OINTMENT 1 GM PACKET TP SCH ×2 (03:31→08:57)
[2017-03-01] MEDS: ACETAMINOPHEN 325 MG TABLET PO PRN (03:31)
[2017-03-01 04:48] LABS: ABSOLUTE BASOPHILS # (AUTO) 0.1 10^3/uL (0.0-0.2); ABSOLUTE EOSINOPHILS # (AUTO) 0.5 10^3/uL (0.0-0.6); ABSOLUTE LYMPHOCYTES (AUTO) 1.2 10^3/uL (0.5-4.7); ABSOLUTE NEUT (AUTO) 4.3 10^3/uL (1.7-8.2); EOSINOPHILS % (AUTO) 6.8 % (0-6); HEMOGLOBIN 9.3 g/dL (12.0-15.5); HGB HCT DIFFERENCE 0.9; LYMPHOCYTES % (AUTO) 16.6 % (13-45); MEAN CORPUSCULAR HEMOGLOBIN 29.4 pg (27.0-33.4); MEAN CORPUSCULAR HGB CONC 34.6 g/dL (32.0-36.0); MEAN CORPUSCULAR VOLUME 85 fl (80-97); MONOCYTES % (AUTO) 13.9 % (3-13); RED BLOOD COUNT 3.17 10^6/uL (3.72-5.28); SEGMENTED NEUTROPHILS % (AUTO) 61.7 % (42-78)
[2017-03-01 05:08] LABS: ALANINE AMINOTRANSFERASE 26 U/L (9-52); ALBUMIN 3.3 g/dL (3.5-5.0); ALKALINE PHOSPHATASE 61 U/L (38-126); ANION GAP 11 (5-19); ASPARTATE AMINO TRANSFERASE 27 U/L (14-36); BILIRUBIN,DIRECT 0.2 mg/dL (0.0-0.4); BILIRUBIN,TOTAL 0.3 mg/dL (0.2-1.3); BLOOD UREA NITROGEN 22 mg/dL (7-20); CALCIUM 8.4 mg/dL (8.4-10.2); CARBON DIOXIDE 26 mmol/L (22-30); CHLORIDE 92 mmol/L (98-107); CREATININE RESULT 1.29 mg/dL (0.52-1.25); GLUCOSE 85 mg/dL (75-110); MAGNESIUM 1.8 mg/dL (1.6-2.3); POTASSIUM 4.7 mmol/L (3.6-5.0); SODIUM 129.4 mmol/L (137-145); TOTAL PROTEIN 5.4 g/dL (6.3-8.2)
[2017-03-01] MEDS: HEPARIN SOD (PORCINE) 5,000 UNIT/ML 1 ML SYRINGE SUBCUT SCH ×2 (06:42→13:10)
[2017-03-01] MEDS: HYDRALAZINE HCL 50 MG TABLET PO SCH ×2 (06:42→13:08)
[2017-03-01] MEDS: OXYCODONE-ACETAMINOPHEN 5-325 MG TABLET PO SCH ×2 (06:42→13:09)
[2017-03-01] MEDS: TIZANIDINE HCL 4 MG TABLET PO PRN (07:34)
[2017-03-01] MEDS: FUROSEMIDE INJ/PF 20 MG/2 ML SDV IV SCH (09:08)
[2017-03-01] MEDS: POTASSIUM CHLORIDE 10 MEQ TABLET.SA PO SCH (09:11)
[2017-03-01] MEDS: AMLODIPINE BESYLATE 5 MG TABLET PO SCH (09:12)
[2017-03-01] MEDS: LOSARTAN POTASSIUM 50 MG TABLET PO SCH (09:12)
[2017-03-01] MEDS: LANSOPRAZOLE 30 MG TAB.RAP.DR PO SCH (09:12)
[2017-03-01] MEDS: FERROUS SULFATE 325 MG TABLET PO SCH (09:12)
[2017-03-01] MEDS: MAGNESIUM OXIDE 400 MG TABLET PO SCH (09:12)
[2017-03-01] MEDS: MELOXICAM 7.5 MG TABLET PO SCH (09:13)
[2017-03-01] MEDS: LIDOCAINE 5% (700 MG) TRANSDERMAL ADH..PATCH TOP SCH (09:15)
--- NOTE | 2017-03-01 09:35 | PDOC DISCHARGE SUMMARY ---
General - Admit/Disc Date/PCP Admission Date/Primary Care Provider: 02/25/17 14:32 STEFFEN LIRA Discharge Date: 03/01/17 - Discharge Diagnosis (1) Hypertensive emergency Is this a current diagnosis for this admission?: Yes (2) CHF (congestive heart failure) Is this a current diagnosis for this admission?: Yes (3) Hypokalemia Is this a current diagnosis for this admission?: Yes (4) Hypomagnesemia Is this a current diagnosis for this admission?: Yes (5) Lumbago Is this a current diagnosis for this admission?: Yes (6) Anemia Is this a current diagnosis for this admission?: Yes (7) Peptic ulcer disease Is this a current diagnosis for this admission?: Yes (8) Cocaine abuse Is this a current diagnosis for this admission?: Yes (9) Alcohol abuse Is this a current diagnosis for this admission?: Yes (10) Tobacco abuse Is this a current diagnosis for this admission?: Yes (11) Depression Is this a current diagnosis for this admission?: Yes (12) Bipolar disorder Is this a current diagnosis for this admission?: Yes (13) Anxiety disorder Is this a current diagnosis for this admission?: Yes (14) DVT prophylaxis Is this a current diagnosis for this admission?: Yes - Additional Information Resuscitation Status: Full Code Discharge Activity: Activity As Tolerated, Balance Activity w/Rest, Weigh Daily Home Medications: Esomeprazole Magnesium [Nexium] 40 mg PO DAILY 02/27/17 Hydralazine HCl [Apresoline 50 mg Tablet] 50 mg PO MEALS 02/27/17 Lidocaine [Lidoderm 5% (700 mg) Transdermal Patch] 1 patch TOP DAILY 02/27/17 Meloxicam [Mobic 7.5 mg Tablet] 15 mg PO DAILY 02/27/17 Oxycodone HCl/Acetaminophen [Oxycodone-Acetaminophen 5-325] 1 each PO TID Potassium Chloride [Klor-Con 10 Meq Tablet.sa] 20 meq PO Q12 02/27/17 Tizanidine HCl [Zanaflex 4 mg Tablet] 4 mg PO TIDP PRN 02/27/17 History of Present Illness Patient complains of: Dyspnea. History of Present Illness: LYN ALBERT is a 71 year old female who was admitted by hospitalist.History and physical as on hospitalist domain. Hospital Course Hospital Course: 71 year old woman who was admitted for HTN emergency/ Acute CHF decompensation- diastolic dysfunction Vs acute pulmonary edema-resolved/ Polysubstance abuse( cocaine and alcohol). She was admitted at [facility] and had serial EKG and cardiac enzymes- normal; had ECHO- EF of 60% and no regional wall motion abnormalities. Had hypomagnesemia and hypokalemia that were corrected. She had extensive counseling on substance abuse and her BP as controlled. She is stable now and back to her baseline.She will be discharged home today to f/u with PCP within 1 week for transition of care. Physical Exam Vital Signs: Temp Pulse Resp BP Pulse Ox 97.5 F 81 18 155/77 H 100 03/01/17 07:17 03/01/17 07:17 03/01/17 07:17 03/01/17 07:17 03/01/17 07:17 Intake & Output 02/28/17 03/01/17 03/02/17 06:59 06:59 06:59 Intake Total 1516 1230 Output Total 1600 1050 Balance -84 180 Weight 55.8 kg 55.3 kg General appearance: PRESENT: no acute distress, well-developed, well-nourished Head exam: PRESENT: atraumatic, normocephalic Eye exam: PRESENT: EOMI, PERRLA Ear exam: PRESENT: TM's normal bilaterally Mouth exam: PRESENT: moist, tongue midline Neck exam: PRESENT: full ROM Respiratory exam: PRESENT: clear to auscultation waylon, symmetrical Cardiovascular exam: PRESENT: +S1, +S2 Pulses: PRESENT: +2 pedal pulses bilateral GI/Abdominal exam: PRESENT: normal bowel sounds, soft Rectal exam: PRESENT: deferred Extremities exam: PRESENT: full ROM Neurological exam: PRESENT: alert, oriented to person, oriented to place, oriented to time Psychiatric exam: PRESENT: normal mood Results Laboratory Results: 03/01/17 03:55 03/01/17 03:55 03/01/17 03/01/17 03:55 03:55 WBC 7.0 RBC 3.17 L Hgb 9.3 L Hct 27.0 L MCV 85 MCH 29.4 MCHC 34.6 RDW 15.0 H Plt Count 431 Seg Neutrophils % 61.7 Lymphocytes % 16.6 Monocytes % 13.9 H Eosinophils % 6.8 H Basophils % 1.0 Absolute Neutrophils 4.3 Absolute Lymphocytes 1.2 Absolute Monocytes 1.0 Absolute Eosinophils 0.5 Absolute Basophils 0.1 Sodium 129.4 L Potassium 4.7 Chloride 92 L Carbon Dioxide 26 Anion Gap 11 BUN 22 H Creatinine 1.29 H Est GFR ( Amer) 50 L Est GFR (Non-Af Amer) 41 L Glucose 85 Calcium 8.4 Magnesium 1.8 Total Bilirubin 0.3 AST 27 ALT 26 Alkaline Phosphatase 61 Total Protein 5.4 L Albumin 3.3 L 02/25/17 02/25/17 02/25/17 14:52 14:52 21:26 Creatine Kinase 36 35 CK-MB (CK-2) 0.71 Troponin I 0.019 NT-Pro-B Natriuret Pep 02/25/17 02/26/17 02/26/17 21:26 03:14 03:14 Creatine Kinase 29 L CK-MB (CK-2) 0.83 0.94 Troponin I 0.016 0.015 NT-Pro-B Natriuret Pep 02/27/17 04:03 Creatine Kinase CK-MB (CK-2) Troponin I NT-Pro-B Natriuret Pep 2130 H Impressions: Chest/Abdomen CTA 02/25/17 12:27 IMPRESSION: 1. Congestive heart failure. 2. No PE. Chest X-Ray 02/28/17 06:00 IMPRESSION: NO ACUTE RADIOGRAPHIC FINDING IN THE CHEST.
[2017-03-01 12:34] VITALS: BP 134/83
== END 2017-03-01 14:07 | disposition home or self-care (01) | DRG 304 ==
LOC: ER 09:54 → EH 14:32 → UNDOADMIN 14:32 → 3N 21:05
PROVIDERS: ADMIT Internal Medicine; ATTEND Internal Medicine
DX: I16.1 Hypertensive emergency (principal); I50.31 Acute diastolic (congestive) heart failure; I10 Essential (primary) hypertension; F14.10 Cocaine abuse, uncomplicated; F12.10 Cannabis abuse, uncomplicated; F10.10 Alcohol abuse, uncomplicated; E83.42 Hypomagnesemia; E87.6 Hypokalemia; J44.9 Chronic obstructive pulmonary disease, unspecified; D64.9 Anemia, unspecified; K43.9 Ventral hernia without obstruction or gangrene; F31.9 Bipolar disorder, unspecified; M54.5 Low back pain; F17.210 Nicotine dependence, cigarettes, uncomplicated; Y90.9 Presence of alcohol in blood, level not specified; Z72.89 Other problems related to lifestyle
CPT/HCPCS: 36415; 71010; 71275; 80048; 80053; 80061; 80307; 81001; 82550; 82553; 82607; 82728; 82746; 82803; 83540; 83550; 83605; 83690; 83735; 83880; 84439; 84443; 84466; 84481; 84484; 85025; 85045; 85610; 93005; 93010; 93306; 94640; 96374; 96375; 99285; J0360; J1644; J1940; J2060; J2930; J3411; J3475; J3490; J7620; S0164

== ENCOUNTER → 2017-03-07 | Outpatient (CLI) | payer OTHER, MEDICARE | LOC: SP 09:58 | PROVIDERS: ATTEND Internal Medicine | DX: R42 Dizziness and giddiness (principal) | CPT/HCPCS: 93880 ==

== ENCOUNTER → 2017-03-20 | Outpatient (CLI) | payer MEDICARE | LOC: RAD 20:10 | PROVIDERS: ATTEND Physician Assistant | DX: M25.511 Pain in right shoulder (principal) ==

== ENCOUNTER 2017-11-17 08:17 | Emergency (ER) | payer OTHER, MEDICARE ==
[2017-11-17 09:21] LABS: APPEARANCE,URINE CLEAR; BILIRUBIN,URINE NEGATIVE (NEGATIVE); COLOR,URINE YELLOW; GLUCOSE, URINE NEGATIVE (NEGATIVE); KETONES,URINE NEGATIVE (NEGATIVE); LEUKOCYTE ESTERASE,URINE NEGATIVE (NEGATIVE); NITRITE,URINE NEGATIVE (NEGATIVE); PROTEIN,URINE NEGATIVE (NEGATIVE); UROBILINOGEN,URINE NEGATIVE mg/dL (<2.0)
--- NOTE | 2017-11-17 09:22 | RADIOLOGY REPORT (SQ) ---
EXAM DESCRIPTION: KUB/ABDOMEN (SINGLE VIEW) COMPLETED DATE/TIME: 11/17/2017 9:05 am REASON FOR STUDY: constipation COMPARISON: KUB 10/03/2014 NUMBER OF VIEWS: One view. TECHNIQUE: Supine radiographic image of the abdomen acquired. LIMITATIONS: None. FINDINGS: BOWEL GAS PATTERN: Large amount of stool throughout the colon. No dilated small bowel loo ps worrisome for small bowel obstruction or ileus. Stomach decompressed. CALCIFICATIONS: No suspicious calcifications. SOFT TISSUES: No gross mass or suggestion of organomegaly. HARDWARE: None in the abdomen. BONES: Osteoporotic. No acute findings OTHER: No other significant finding. IMPRESSION: CONSTIPATION TECHNICAL DOCUMENTATION: JOB ID: [id number] [employer]- All Rights Reserved
[2017-11-17 09:28] LABS: ABSOLUTE BASOPHILS # (AUTO) 0.1 10^3/uL (0.0-0.2); ABSOLUTE EOSINOPHILS # (AUTO) 0.2 10^3/uL (0.0-0.6); ABSOLUTE LYMPHOCYTES (AUTO) 1.2 10^3/uL (0.5-4.7); ABSOLUTE MONOCYTES (AUTO) 1.1 10^3/uL (0.1-1.4); ABSOLUTE NEUT (AUTO) 11.7 10^3/uL (1.7-8.2); BASOPHILS % (AUTO) 0.9 % (0-2); EOSINOPHILS % (AUTO) 1.5 % (0-6); HEMATOCRIT 26.3 % (36.0-47.0); HEMOGLOBIN 8.8 g/dL (12.0-15.5); LYMPHOCYTES % (AUTO) 8.5 % (13-45); MEAN CORPUSCULAR HEMOGLOBIN 28.6 pg (27.0-33.4); MEAN CORPUSCULAR HGB CONC 33.3 g/dL (32.0-36.0); MEAN CORPUSCULAR VOLUME 86 fl (80-97); MONOCYTES % (AUTO) 7.6 % (3-13); PLATELET COUNT 633 10^3/uL (150-450); RED BLOOD COUNT 3.06 10^6/uL (3.72-5.28); RED CELL DISTRIBUTION WIDTH 13.4 % (11.5-14.0); SEGMENTED NEUTROPHILS % (AUTO) 81.5 % (42-78); TOTAL CELLS COUNTED % (AUTO) 100 %; WHITE BLOOD COUNT 14.4 10^3/uL (4.0-10.5)
[2017-11-17 09:57] LABS: ALANINE AMINOTRANSFERASE 18 U/L (9-52); ALBUMIN 3.7 g/dL (3.5-5.0); ALKALINE PHOSPHATASE 81 U/L (38-126); ANION GAP 16 (5-19); ASPARTATE AMINO TRANSFERASE 19 U/L (14-36); BILIRUBIN,DIRECT 0.4 mg/dL (0.0-0.4); BILIRUBIN,TOTAL 0.4 mg/dL (0.2-1.3); BLOOD UREA NITROGEN 31 mg/dL (7-20); CALCIUM 9.5 mg/dL (8.4-10.2); CARBON DIOXIDE 26 mmol/L (22-30); CHLORIDE 89 mmol/L (98-107); GLUCOSE 95 mg/dL (75-110); LIPASE 124.4 U/L (23-300); SODIUM 131.2 mmol/L (137-145); TOTAL PROTEIN 6.5 g/dL (6.3-8.2)
[2017-11-17 10:00] LABS: POTASSIUM 2.8 mmol/L (3.6-5.0)
--- NOTE | 2017-11-17 10:00 | ER Document Report ---
ED General - General Chief Complaint: Abdominal Pain Stated Complaint: ABDOMINAL PAIN Time Seen by Provider: 11/17/17 08:45 Mode of Arrival: Ambulatory Information source: Patient Notes: 72 yr old female with extremely poor diet reported by presents with complaints of constipation of 1 week. pt denies any vomiting, denies any signifcant abdominal pain. pt noted ot have history of hernia TRAVEL OUTSIDE OF THE [place] IN LAST 30 DAYS: No - HPI Onset: Last week Onset/Duration: Persistent Quality of pain: Cramping Severity: Mild Pain Level: 1 Associated symptoms: Other Exacerbated by: Denies Relieved by: Denies Similar symptoms previously: No Recently seen / treated by doctor: No - Related Data Allergies/Adverse Reactions: No Known Allergies Allergy (Verified 02/25/17 14:32) Past Medical History - Social History Smoking Status: Current Every Day Smoker Cigarette use (# per day): Yes Chew tobacco use (# tins/day): No Smoking Education Provided: No Frequency of alcohol use: Heavy Lives with: Spouse/Significant other Family History: CAD - Past Medical History Cardiac Medical History: Reports: Hx Hypertension Pulmonary Medical History: Reports: Hx COPD, Hx Pneumonia Denies: Hx Tuberculosis Renal/ Medical History: Denies: Hx Peritoneal Dialysis Musculoskeltal Medical History: Reports Hx Arthritis Psychiatric Medical History: Reports: Hx Bipolar Disorder, Hx Depression Past Surgical History: Reports: Hx Breast Surgery - left breast, Hx Hysterectomy , Hx Orthopedic Surgery - back, neck, shoulder (03/24/15), Other - Lumpectomy, Exploratory laparotomy, - Immunizations Immunizations up to date: No Hx Diphtheria, Pertussis, Tetanus Vaccination: No Hx Pneumococcal Vaccination: 11/20/12 Review of Systems - Review of Systems Notes: REVIEW OF SYSTEMS: CONSTITUTIONAL : Denies fever, chills, or sweats. Denies recent illness. EENT: Denies eye, ear, throat, or mouth pain or symptoms. Denies nasal or sinus congestion or discharge. Denies throat, tongue, or mouth swelling or difficulty swallowing. CARDIOVASCULAR: Denies chest pain. Denies palpitations or racing or irregular heart beat. Denies ankle edema. RESPIRATORY: Denies cough, cold, or chest congestion. Denies shortness of breath, difficulty breathing, or wheezing. GASTROINTESTINAL: Denies abdominal pain or distention. Denies nausea, vomiting , or diarrhea. Denies blood in vomitus, stools, or per rectum. Denies black, tarry stools. Denies constipation. GENITOURINARY: Denies difficulty urinating, painful urination, burning, frequency, blood in urine, or discharge. FEMALE GENITOURINARY: Denies vaginal bleeding, heavy or abnormal periods, irregular periods. Denies vaginal discharge or odor. MUSCULOSKELETAL: Denies back or neck pain or stiffness. Denies joint pain or swelling. SKIN: Denies rash, lesions or sores. HEMATOLOGIC : Denies easy bruising or bleeding. LYMPHATIC: Denies swollen, enlarged glands. NEUROLOGICAL: Denies confusion or altered mental status. Denies passing out or loss of consciousness. Denies dizziness or lightheadedness. Denies headache. Denies weakness or paralysis or loss of use of either side. Denies problems with gait or speech. Denies sensory loss, numbness, or tingling. Denies seizures. PSYCHIATRIC: Denies anxiety or stress. Denies depression, suicidal ideation, or homicidal ideation. ALL OTHER SYSTEMS REVIEWED AND NEGATIVE. PHYSICAL EXAMINATION: GENERAL: Well-appearing, well-nourished and in no acute distress. HEAD: Atraumatic, normocephalic. EYES: Pupils equal round and reactive to light, extraocular movements intact, conjunctiva are normal. ENT: Nares patent, oropharynx clear without exudates. Moist mucous membranes. NECK: Normal range of motion, supple without lymphadenopathy LUNGS: Breath sounds clear to auscultation bilaterally and equal. No wheezes rales or rhonchi. HEART: Regular rate and rhythm without murmurs ABDOMEN: Soft, nontender, nondistended abdomen. No guarding, no rebound. No masses appreciated. hernia noted Female : deferred Musculoskeletal: Normal range of motion, no pitting or edema. No cyanosis. NEUROLOGICAL: Cranial nerves grossly intact. Normal speech, normal gait. Normal sensory, motor exams PSYCH: Normal mood, normal affect. SKIN: Warm, Dry, normal turgor, no rashes or lesions noted. Dictation was performed using [employer] voice recognition software Physical Exam - Vital signs Vitals: Temp Pulse Resp BP Pulse Ox 97.6 F 68 20 107/62 99 11/17/17 08:26 11/17/17 08:26 11/17/17 08:26 11/17/17 08:26 11/17/17 08:26 Course - Re-evaluation Re-evalutation: 11/17/17 11:15 xray noted constipation, pt noted to have chronic anemia, no actve bleeding, pt will be treated with golytly. Patient is otherwise well-appearing no distress will be discharged home with very close follow-up After performing a Medical Screening Examination, I estimate there is LOW risk for ACUTE APPENDICITIS, BOWEL OBSTRUCTION, ACUTE CHOLECYSTITIS, PERFORATED DIVERTICULITIS, INCARCERATED HERNIA, PANCREATITIS, PELVIC INFLAMMATORY DISEASE, PERFORATED ULCER, ECTOPIC , or TUBO-OVARIAN ABSCESS, thus I consider the discharge disposition reasonable. Also, there is no evidence or peritonitis , sepsis, or toxicity. I have reevaluated this patient multiple times and no significant life threatening changes are noted. The patient and I have discussed the diagnosis and risks, and we agree with discharging home with close follow-up with the understanding that symptoms and presentations can change. We also discussed returning to the Emergency Department immediately if new or worsening symptoms occur. We have discussed the symptoms which are most concerning (e.g., bloody stool, fever, changing or worsening pain, vomiting) that necessitate immediate return. - Vital Signs Vital signs: Temp Pulse Resp BP Pulse Ox 97.9 F 56 L 16 96/56 L 95 11/17/17 10:17 11/17/17 10:17 11/17/17 10:17 11/17/17 10:17 11/17/17 10:17 - Laboratory Result Diagrams: 11/17/17 09:18 11/17/17 09:18 Laboratory results interpreted by me: 11/17/17 11/17/17 09:18 09:18 WBC 14.4 H RBC 3.06 L Hgb 8.8 L Hct 26.3 L Plt Count 633 H Seg Neutrophils % 81.5 H Lymphocytes % 8.5 L Absolute Neutrophils 11.7 H Sodium 131.2 L Potassium 2.8 L* Chloride 89 L BUN 31 H Creatinine 1.50 H Est GFR ( Amer) 42 L Est GFR (Non-Af Amer) 34 L - Diagnostic Test Radiology reviewed: Image reviewed, Reports reviewed Discharge - Discharge Clinical Impression: Hypokalemia, Peptic ulcer disease Constipation Qualifiers: Constipation type: unspecified constipation type Qualified Code(s): K59.00 - Constipation, unspecified Condition: Stable Disposition: HOME, SELF-CARE Instructions: Antispasmodics ([facility]) Prescriptions: Dicyclomine HCl [Bentyl 20 mg Tablet] 20 mg PO QID #40 tablet Peg 3350/Na Sulf,Bicarb,Cl/KCl [Golytely Solution 4000 ml] 4,000 ml PO DAILY #1 bottle Referrals: SADIA DORSEY PA [Primary Care Provider] - Follow up as needed
[2017-11-17] MEDS ORDERED: POTASSIUM CHLORIDE 10 MEQ TABLET.SA PO ONE (10:01)
[2017-11-17 10:19] VITALS: BP 96/56
--- NOTE | 2017-11-18 12:12 | EKG REPORT ---
SEVERITY:- NORMAL ECG - SINUS RHYTHM : Confirmed by: Morenita Tariq MD 18-Nov-2017 12:11:49
== END 2017-11-17 10:17 | disposition home or self-care (01) ==
LOC: ER 08:17
DX: K59.00 Constipation, unspecified (principal); K27.9 Peptic ulcer, site unspecified, unspecified as acute or chronic, without hemorrhage or perforation; D64.9 Anemia, unspecified; E87.6 Hypokalemia; I10 Essential (primary) hypertension; J44.9 Chronic obstructive pulmonary disease, unspecified; F17.210 Nicotine dependence, cigarettes, uncomplicated
CPT/HCPCS: 36415; 74000; 80053; 81001; 83690; 85025; 93005; 93010; 99284

== ENCOUNTER 2017-12-26 08:39 | Inpatient (IN) | payer OTHER, MEDICARE ==
[2017-12-26] MEDS ORDERED: NORMAL SALINE 500 ML IV ONE (09:03)
[2017-12-26 09:57] LABS: VENOUS BLOOD BASE EXCESS -4.1 mmol/L; VENOUS BLOOD HCO3 20.3 mmol/L (20-32); VENOUS BLOOD PCO2 33.8 mmHg (35-63); VENOUS BLOOD PH 7.4 (7.30-7.42)
--- NOTE | 2017-12-26 10:01 | RADIOLOGY REPORT (SQ) ---
EXAM DESCRIPTION: CHEST SINGLE VIEW COMPLETED DATE/TIME: 12/26/2017 9:45 am REASON FOR STUDY: hypotension COMPARISON: 2017. NUMBER OF VIEWS: One view. TECHNIQUE: Single frontal radiographic view of the chest acquired. LIMITATIONS: None. FINDINGS: LUNGS AND PLEURA: Slight hyperinflation with flattening of the hemidiaphragms. Generally clear lungs, however. No evidence of infiltrates, nodules or failure. MEDIASTINUM AND HILAR STRUCTURES: Stable contours. HEART AND VASCULAR STRUCTURES: Heart normal in size. Normal vasculature. BONES: Chronic deformity medial right humeral head with loss of the subacromial space. Scoliosis and spondylosis as before. Old right healed rib fractures. HARDWARE: None in the chest. OTHER: No other significant finding. IMPRESSION: 1. Stable chest. No acute cardiopulmonary disease. TECHNICAL DOCUMENTATION: JOB ID: [id number] [employer]- All Rights Reserved
[2017-12-26 10:06] LABS: INTERNATIONAL RATION (INR) 0.98; PROTHROMBIN TIME 13.6 SEC (11.4-15.4)
[2017-12-26 10:15] LABS: ALANINE AMINOTRANSFERASE 22 U/L (9-52); ALBUMIN 3.7 g/dL (3.5-5.0); ALKALINE PHOSPHATASE 62 U/L (38-126); ANION GAP 15 (5-19); ASPARTATE AMINO TRANSFERASE 17 U/L (14-36); BILIRUBIN,DIRECT 0.2 mg/dL (0.0-0.4); BILIRUBIN,TOTAL 0.2 mg/dL (0.2-1.3); BLOOD UREA NITROGEN 44 mg/dL (7-20); CALCIUM 9.5 mg/dL (8.4-10.2); CARBON DIOXIDE 22 mmol/L (22-30); CHLORIDE 90 mmol/L (98-107); CREATINE KINASE 63 U/L (30-135); GLUCOSE 103 mg/dL (75-110); LIPASE 186.7 U/L (23-300); SODIUM 126.5 mmol/L (137-145); TOTAL PROTEIN 6.3 g/dL (6.3-8.2)
[2017-12-26 10:26] LABS: APPEARANCE,URINE CLEAR; BILIRUBIN,URINE NEGATIVE (NEGATIVE); COLOR,URINE STRAW; GLUCOSE, URINE NEGATIVE (NEGATIVE); KETONES,URINE NEGATIVE (NEGATIVE); LEUKOCYTE ESTERASE,URINE NEGATIVE (NEGATIVE); NITRITE,URINE NEGATIVE (NEGATIVE); PROTEIN,URINE NEGATIVE (NEGATIVE); UROBILINOGEN,URINE NEGATIVE mg/dL (<2.0)
[2017-12-26 10:27] LABS: CREATINE KINASE MB 0.81 ng/mL (<4.55); NT PRO BNP 888 pg/mL (5-900); POTASSIUM 2.7 mmol/L (3.6-5.0)
[2017-12-26 10:29] LABS: TROPONIN I < 0.012 ng/mL
[2017-12-26] MEDS ORDERED: NORMAL SALINE 1000 ML 1,000 ML IV ONE (10:29)
[2017-12-26 10:37] LABS: A TYPE INFLUENZA AG NEGATIVE (NEGATIVE); B INFLUENZA AG NEGATIVE (NEGATIVE)
[2017-12-26 10:43] LABS: URINE AMPHETAMINES SCREEN NEGATIVE; URINE BARBITURATES SCREEN NEGATIVE; URINE BENZODIAZEPINES SCREEN NEGATIVE; URINE COCAINE SCREEN UNCONFIRMED POSITIVE; URINE MARIJUANA (THC) SCREEN UNCONFIRMED POSITIVE; URINE METHADONE SCREEN NEGATIVE; URINE PHENCYCLIDINE SCREEN NEGATIVE
[2017-12-26] MEDS: POTASSI CL 20 MEQ/50 ML RIDER 20 MEQ/50 ML RTUPB IV SCH ×2 (10:53→13:04)
[2017-12-26 10:59] LABS: MEAN CORPUSCULAR HGB CONC 33.8 g/dL (32.0-36.0); MEAN CORPUSCULAR VOLUME 83 fl (80-97); PLATELET COUNT 544 10^3/uL (150-450); RED BLOOD COUNT 1.56 10^6/uL (3.72-5.28); RED CELL DISTRIBUTION WIDTH 14.5 % (11.5-14.0); WHITE BLOOD COUNT 14.3 10^3/uL (4.0-10.5)
[2017-12-26 11:20] LABS: HEMOGLOBIN 4.4 g/dL (12.0-15.5)
[2017-12-26 11:28] LABS: ABSOLUTE LYMPHOCYTES# (MANUAL) 0.7 10^3/uL (0.5-4.7); ABSOLUTE MONOCYTES # (MANUAL) 0.7 10^3/uL (0.1-1.4); ABSOLUTE NEUTROPHILS# (MANUAL) 12.9 10^3/uL (1.7-8.2); BASOPHILS % (MANUAL) 0 % (0-2); EOSINOPHILS % (MANUAL) 0 % (0-6); HYPOCHROMASIA 2+; LYMPHOCYTES % (MANUAL) 5 % (13-45); MONOCYTES % (MANUAL) 5 % (3-13); PLATELET COMMENT INCREASED; POLYCHROMASIA 1+; ROULEAUX 1+; SEGMENTED NEUTROPHILS % (MAN) 90 % (42-78); TOTAL CELLS COUNTED 100; TOXIC GRANULATION 1+
[2017-12-26] MEDS ORDERED: NORMAL SALINE 250 ML IV PRN ×2 (11:29)
[2017-12-26] MEDS ORDERED: FUROSEMIDE INJ/PF 20 MG/2 ML SDV IV PRN ×2 (11:29→18:45)
[2017-12-26 12:15] LABS: ABSOLUTE RETICS # 0.101 10^6/uL (0.028-0.122); RETICULOCYTE COUNT (AUTO) 6.27 % (0.66-2.85)
[2017-12-26] MEDS ORDERED: PANTOPRAZOLE SODIUM 40 MG VIAL IV ONE ×2 (12:32→15:45)
--- NOTE | 2017-12-26 12:51 | ER Document Report ---
ED General - General Chief Complaint: Syncope Stated Complaint: POSSIBLE SYNCOPE Time Seen by Provider: 12/26/17 09:01 TRAVEL OUTSIDE OF THE [place] IN LAST 30 DAYS: No - HPI Patient complains to provider of: Multiple syncopal episodes Notes: Patient coming in for multiple syncopal episodes. states is been going on for quite some time is followed up with Dr. Lagunas 6 patient is on numerous blood pressure medications which she is taking approximately 2-3 times a day. Denies any head trauma with syncopal episodes. Patient upon triage found to have a blood pressure 97 her heart rate normal. Upon my evaluation patient does look pale however states no complaints except for some nausea and intermittent abdominal pain. Patient does have a history of COPD and admissions for pneumonia in the past. Patient also has a history of cocaine and marijuana abuse. Patient states she still uses cocaine and marijuana but nothing recently. Denies any opiates. Denies any other smoking denies any alcohol - Related Data Allergies/Adverse Reactions: No Known Allergies Allergy (Verified 12/26/17 08:40) Past Medical History - Social History Smoking Status: Unknown if Ever Smoked Chew tobacco use (# tins/day): No Drug Abuse: Cocaine, Marijuana Family History: CAD Patient has suicidal ideation: No Patient has homicidal ideation: No - Past Medical History Cardiac Medical History: Reports: Hx Hypertension Pulmonary Medical History: Reports: Hx COPD, Hx Pneumonia Denies: Hx Tuberculosis Renal/ Medical History: Denies: Hx Peritoneal Dialysis Musculoskeltal Medical History: Reports Hx Arthritis Psychiatric Medical History: Reports: Hx Bipolar Disorder, Hx Depression Past Surgical History: Reports: Hx Breast Surgery - left breast, Hx Hysterectomy , Hx Orthopedic Surgery - back, neck, shoulder (03/24/15), Other - Lumpectomy, Exploratory laparotomy, - Immunizations Immunizations up to date: No Hx Diphtheria, Pertussis, Tetanus Vaccination: No Hx Pneumococcal Vaccination: 11/20/12 Review of Systems - Review of Systems Constitutional: No symptoms reported EENT: No symptoms reported Cardiovascular: Syncope Respiratory: No symptoms reported Gastrointestinal: No symptoms reported Genitourinary: No symptoms reported Female Genitourinary: No symptoms reported Musculoskeletal: No symptoms reported Skin: No symptoms reported Hematologic/Lymphatic: No symptoms reported Neurological/Psychological: No symptoms reported -: Yes All other systems reviewed and negative Physical Exam - Vital signs Vitals: Temp Pulse Resp BP Pulse Ox 98.4 F 77 16 95/54 L 100 12/26/17 08:52 12/26/17 08:52 12/26/17 08:52 12/26/17 08:52 12/26/17 08:52 Interpretation: Hypotensive - General General appearance: Appears well, Alert - HEENT Head: Normocephalic, Atraumatic Eyes: Normal Pupils: PERRL - Respiratory Respiratory status: No respiratory distress Chest status: Nontender Breath sounds: Normal Chest palpation: Normal - Cardiovascular Rhythm: Regular Heart sounds: Normal auscultation Murmur: No - Abdominal Inspection: Normal Distension: No distension Bowel sounds: Normal Tenderness: Other - Patient with 2 incisional hernias that are easily reducible on examination. Organomegaly: No organomegaly - Rectal Stool: Heme positive, Black Hemorrhoids: External - Back Back: Normal, Nontender - Extremities General upper extremity: Normal inspection, Nontender, Normal color, Normal ROM , Normal temperature General lower extremity: Normal inspection, Nontender, Normal color, Normal ROM , Normal temperature, Normal weight bearing. No: Vladimir's sign - Neurological Neuro grossly intact: Yes Cognition: Normal Orientation: AAOx4 Dayana Coma Scale Eye Opening: Spontaneous Dayana Coma Scale Verbal: Oriented Dayana Coma Scale Motor: Obeys Commands Dayana Coma Scale Total: 15 Speech: Normal Motor strength normal: LUE, RUE, LLE, RLE Sensory: Normal - Psychological Associated symptoms: Normal affect, Normal mood - Skin Skin Temperature: Warm Skin Moisture: Dry Skin Color: Pale Course - Re-evaluation Re-evalutation: 12/26/17 12:48 Patient laboratory studies initially returned showing anemia rectal exam was performed showing black stool. Patient upon further questioning denies any bloody stools or black stool prior to the rectal examination. Low potassium which was replaced via IV. Patient does have 2 reducible incisional hernias on her abdomen. Otherwise abdominal exam is benign. Laboratory studies do show significant anemia slightly elevated BUN. More likely GI bleed. Rectal examination does show dark stool guaiac positive. Patient was given blood transfusion will transfuse 2 units with Lasix in between. Blood pressure has improved to a systolic of 107 at this time. I did discuss with Dr. Lagunas for admission requested I discussed with Dr. Ingram before putting admission, and if Dr. Ingram agrees with scoping and following the patient on consult to admit the patient to IMCU discussed with Dr. Ingram at this time agrees with the plan and also agrees with current treatment and agrees with following to scope. Per Dr. Lagunas after speaking with Dr. Ingram I did not return his phone call but I did admit the patient per our plan. 12/26/17 14:49 - Vital Signs Vital signs: Temp Pulse Resp BP Pulse Ox 98.3 F 77 20 102/57 L 100 12/26/17 12:15 12/26/17 08:52 12/26/17 14:31 12/26/17 14:31 12/26/17 13:46 - Laboratory Result Diagrams: 12/26/17 10:41 12/26/17 09:40 Laboratory results interpreted by me: 12/26/17 12/26/17 12/26/17 09:40 09:40 09:40 WBC RBC Hgb Hct RDW Plt Count Seg Neuts % (Manual) Lymphocytes % (Manual) Abs Neuts (Manual) Retic Count (auto) VBG pCO2 33.8 L Sodium 126.5 L Potassium 2.7 L* Chloride 90 L BUN 44 H Creatinine 1.37 H Est GFR ( Amer) 46 L Est GFR (Non-Af Amer) 38 L Iron Crossmatch See Detail 12/26/17 12/26/17 12/26/17 09:40 10:41 10:41 WBC 14.3 H RBC 1.56 L Hgb 4.4 L* Hct 13.0 L* RDW 14.5 H Plt Count 544 H Seg Neuts % (Manual) 90 H Lymphocytes % (Manual) 5 L Abs Neuts (Manual) 12.9 H Retic Count (auto) 6.27 H VBG pCO2 Sodium Potassium Chloride BUN Creatinine Est GFR ( Amer) Est GFR (Non-Af Amer) Iron < 10.1 L Crossmatch Critical Care Note - Critical Care Note Total time excluding time spent on procedures (mins): 35 Comments: Multiple evaluation patient with a GI bleed requiring blood transfusions Discharge - Discharge Clinical Impression: Cocaine abuse, Hypokalemia, Anemia requiring transfusions GI bleed Qualifiers: GI bleed type/associated pathology: unspecified gastrointestinal hemorrhage type Qualified Code(s): K92.2 - Gastrointestinal hemorrhage, unspecified Hypotension Qualifiers: Hypotension type: unspecified hypotension type Qualified Code(s): I95.9 - Hypotension, unspecified Condition: Stable Disposition: ADMITTED INPATIENT Admitting Provider: Janneth Unit Admitted: MILLIE
[2017-12-26 13:16] LABS: IRON(TIBC) < 10.1 ug/dL (37-170)
[2017-12-26] MEDS ORDERED: GLUCAGON,HUMAN RECOMB 1 MG INJ SUBCUT PRN (16:18)
[2017-12-26] MEDS ORDERED: ACETAMINOPHEN 325 MG TABLET PO PRN (16:18)
[2017-12-26] MEDS ORDERED: ZOLPIDEM TARTRATE 5 MG TABLET PO PRN (16:18)
[2017-12-26] MEDS ORDERED: DEXTROSE 50%-WATER 25 GM/50 ML DISP.SYRIN IV PRN ×2 (16:18)
[2017-12-26] MEDS ORDERED: DEXTROSE 40% GEL 15 GM TUBE PO PRN ×2 (16:18)
[2017-12-26] MEDS ORDERED: DEXTROSE 5%-NORMAL SALINE 1,000 ML IV PRN (16:18)
[2017-12-26] MEDS ORDERED: INFLUENZA ADLT QUAD (36MOS+) 2017-18 VAC 0.5 ML SYR IM PRN (16:48)
--- NOTE | 2017-12-26 17:06 | PDOC H&P ---
History of Present Illness Admission Date/PCP: 12/26/17 13:17 STEFFEN LIRA Patient complains of: Recurerrent syncopal episodes for the past couple of days. History of Present Illness: LYN ALBERT is a 72 year old female with hx of HTN/ chronic CHF- diastolic dysfunction/COPD/GERD/PUD/Fe def. anemia/Backpain/Osteoarthritis/ Right rotator cuff tear/Incisional hernia/Depression/Anxiety disorder/Chronic ETOH and substance abuse/Chronic smoker.She was D/C fro [facility], [facility] in 02/2017 for CHF decompensation. She has continued with cocaine, cannabis and ETOH abuse despite repeated outpatient REHAB and counseling. She started having recurrent syncopal episodes in the past couple of days.She denied abdominal pain, nausea/vomiting, hematemesis, hematochezia or passing darl stool or bright red blood per stool. On account of this persistent symptom, she was brought to ER by her . At ER, her BP was 95/54 despite not mumtaz taking her BP meds; HB/HCT - 4.4/13; K- 2.7 and Na- 126 ; WBC- 14; BUN/Cr- 44/1.37. She was started on IV fluids, transfusion of 2 units of PRBC, IV potassium and GI consult. She is being admitted to [facility]. Past Medical History Cardiac Medical History: Reports: Hypertension Pulmonary Medical History: Reports: Chronic Obstructive Pulmonary Disease (COPD) , Pneumonia Denies: Tuberculosis Musculoskeltal Medical History: Reports: Arthritis Psychiatric Medical History: Reports: Bipolar Disorder, Depression Past Surgical History Past Surgical History: Reports: Hysterectomy, Orthopedic Surgery - back, neck, shoulder (03/24/15), Other - Lumpectomy, Exploratory laparotomy, Social History Smoking Status: Unknown if Ever Smoked Frequency of Alcohol Use: Heavy Hx Recreational Drug Use: Yes Drugs: Cocaine, Marijuana Hx Prescription Drug Abuse: No - Advance Directive Resuscitation Status: Full Code Family History Family History: CAD Parental Family History Reviewed: Yes Children Family History Reviewed: Yes Sibling(s) Family History Reviewed.: Yes Medication/Allergy Home Medications: Amlodipine Besylate [Norvasc 10 mg Tablet] 10 mg PO DAILY 12/26/17 Ergocalciferol (Vitamin D2) [Vitamin D2] 50,000 unit PO MARINO@1000 12/26/17 Ferrous Sulfate [Feosol 325 mg Tablet] 325 mg PO DAILY 12/26/17 Furosemide [Lasix 40 mg Tablet] 40 mg PO DAILY 12/26/17 Hydralazine HCl [Apresoline 50 mg Tablet] 50 mg PO TID 12/26/17 Losartan/Hydrochlorothiazide [Losartan-Hctz 100-25 mg Tab] 1 tab PO DAILY Magnesium Oxide [Mag-Ox 400 mg Tablet] 400 mg PO DAILY 12/26/17 Metoprolol Tartrate [Lopressor 25 mg Tablet] 25 mg PO Q12 12/26/17 Potassium Chloride [Klor-Con 10 Meq Tablet.sa] 10 meq PO DAILY 12/26/17 Allergies/Adverse Reactions: No Known Allergies Allergy (Verified 12/26/17 08:40) Review of Systems All systems: as per PMH Constitutional: PRESENT: weakness Eyes: PRESENT: as per HPI Ears: PRESENT: as per HPI Nose, Mouth, and Throat: PRESENT: as per HPI Breasts: PRESENT: as per HPI Cardiovascular: PRESENT: as per HPI Respiratory: PRESENT: as per HPI Gastrointestinal: PRESENT: as per HPI Genitourinary: PRESENT: as per HPI Musculoskeletal: PRESENT: as per HPI Integumentary: PRESENT: as per HPI Neurological: PRESENT: as per HPI, syncope Psychiatric: PRESENT: as per HPI Endocrine: PRESENT: as per HPI Hematologic/Lymphatic: PRESENT: as per HPI Physical Exam Vital Signs: Temp Pulse Resp BP Pulse Ox 98.6 F 80 20 120/84 100 12/26/17 14:50 12/26/17 15:50 12/26/17 15:50 12/26/17 15:46 12/26/17 15:50 Intake & Output 12/25/17 12/26/17 12/27/17 06:59 06:59 06:59 Intake Total 300 Balance 300 General appearance: PRESENT: no acute distress, well-developed, well-nourished Additional Comments: Pale++ Eye exam: PRESENT: EOMI, PERRLA Ear exam: PRESENT: normal external ear exam, TM's normal bilaterally Mouth exam: PRESENT: moist, neck supple, tongue midline Neck exam: PRESENT: full ROM Respiratory exam: PRESENT: clear to auscultation waylon, symmetrical Cardiovascular exam: PRESENT: +S1, +S2 Pulses: PRESENT: +2 pedal pulses bilateral GI/Abdominal exam: PRESENT: normal bowel sounds, soft Rectal exam: PRESENT: heme (+) stool Extremities exam: PRESENT: full ROM Musculoskeletal exam: PRESENT: full ROM Neurological exam: PRESENT: alert, awake, oriented to person, oriented to place , oriented to time Psychiatric exam: PRESENT: normal mood Results Laboratory Results: 12/26/17 15:00 Troponin I < 0.012 Impressions: Chest X-Ray 12/26/17 09:02 IMPRESSION: 1. Stable chest. No acute cardiopulmonary disease. Assessment & Plan - Diagnosis (1) GI bleed Qualifiers: GI bleed type/associated pathology: unspecified gastrointestinal hemorrhage type Qualified Code(s): K92.2 - Gastrointestinal hemorrhage, unspecified Is this a current diagnosis for this admission?: Yes Plan: Ct with IV fluids D5 in saline at 125 cc/hr; Transfuse 2-3 units of PRBC and give Lasix 20 mg IV after each unit of PRBC. Protonix 40 mg q12H IV; F/u GI consult with Dr Brown. (2) Acute kidney injury Is this a current diagnosis for this admission?: Yes Plan: Ct with IV fluids D5 saline at 125 cc/hour; Strict input/output chart; Daily weight; avoid nephrotoxics. (3) Hypokalemia Is this a current diagnosis for this admission?: Yes Plan: Replace with KCL IV 20 MEQ x2 doses; check chemistries daily. (4) Hyponatremia Is this a current diagnosis for this admission?: Yes Plan: Ct with IV fluids D5 saline at 125cc/hour; Monitor chemistries daily. (5) CHF (congestive heart failure) Qualifiers: Congestive heart failure type: diastolic Congestive heart failure chronicity: chronic Qualified Code(s): I50.32 - Chronic diastolic (congestive ) heart failure Is this a current diagnosis for this admission?: Yes Plan: Hold Lasix 20 mg qd due to acute kidney injury.Strict input/output chart; Daily weight.Monitor chemistries daily. (6) COPD (chronic obstructive pulmonary disease) Qualifiers: COPD type: unspecified COPD Qualified Code(s): J44.9 - Chronic obstructive pulmonary disease, unspecified Is this a current diagnosis for this admission?: Yes Plan: Ct with Duonebs q6h prn; Smoking cessation counseling. (7) Essential hypertension Plan: Hold Amlodipine 10 mg qd; Hydralazine 50 mg TID; Losartan/HCTZ 100/25 1 qd; Metoprolol 25 mg BID; 2 G sodium when NPO is D/C. (8) Lumbago Qualifiers: Chronicity: chronic Is this a current diagnosis for this admission?: Yes Plan: Ct wit Tylenol 650 mg q6h prn po. (9) Cocaine abuse Is this a current diagnosis for this admission?: Yes Plan: Counseling on drug abuse. (10) Alcohol abuse Is this a current diagnosis for this admission?: Yes Plan: Counseling on ETOH abuse. (11) Anxiety disorder Is this a current diagnosis for this admission?: Yes Plan: Ct with Ativan 0.5 mg qd prn po. (12) DVT prophylaxis Is this a current diagnosis for this admission?: Yes Plan: Ct with SCD; Hold Lovenox due to GI bleed. (13) Tobacco abuse Is this a current diagnosis for this admission?: Yes Plan: Smoking cessation counseling; Nicotine patch 14 mg qd. - Time Time Spent: 30 to 50 Minutes Smoking Cessation Education: 3 to 10 minutes Medications reviewed and adjusted accordingly: Yes Anticipated discharge: Home Within: within 72 hours - Inpatient Certification Medical Necessity: Failure to Improve With Outpatient Therapy, Significant Comorbidiites Make Outpatient Treatment Too Risky, Need Close Monitoring Due to Risk of Patient Decompensation, Need For IV Fluids, Risk of Complication if Not Cared For in Hospital, Risk of Diagnosis Which Will Require Inpatient Eval/Care/ Monitoring
[2017-12-26] MEDS ORDERED: LORAZEPAM 0.5 MG TABLET PO PRN (17:07)
--- NOTE | 2017-12-26 18:56 | PDOC CONSULTATION ---
Consultation Consult Date: 12/26/17 Attending physician:: RANDY ETIENNE Consult reason:: chronic anemia History of Present Illness Admission Date/PCP: 12/26/17 13:17 STEFFEN LIRA History of Present Illness: asked to see this patient following admission from the ED with a Hgb of 4.4 patient states has been feeling very fatigued denies any chest pain or shortness of breath patient states does not any blood in urine has had a hysterectomy apparently patient may have history of possible illicit drug use denies any blood in her stools however has never had a GI work up in the past denies any nausea or vomiting there is no unintended weight loss denies any early satiety patient states she does not see any blood in her stool Past Medical History Cardiac Medical History: Reports: Hypertension Pulmonary Medical History: Reports: Chronic Obstructive Pulmonary Disease (COPD) , Pneumonia Denies: Tuberculosis Musculoskeltal Medical History: Reports: Arthritis Psychiatric Medical History: Reports: Bipolar Disorder, Depression Past Surgical History Past Surgical History: Reports: Hysterectomy, Orthopedic Surgery - back, neck, shoulder (03/24/15), Other - Lumpectomy, Exploratory laparotomy, Social History Smoking Status: Unknown if Ever Smoked Number of Years Smokin Last Time Smoked: 05/20/2017 Frequency of Alcohol Use: Heavy Hx Recreational Drug Use: Yes Drugs: Cocaine, Marijuana Hx Prescription Drug Abuse: No - Advance Directive Resuscitation Status: Full Code Family History Family History: CAD Parental Family History Reviewed: Yes Children Family History Reviewed: Unknown Sibling(s) Family History Reviewed.: Unknown Medication/Allergy Home Medications: Amlodipine Besylate [Norvasc 10 mg Tablet] 10 mg PO DAILY 12/26/17 Ergocalciferol (Vitamin D2) [Vitamin D2] 50,000 unit PO MARINO@1000 12/26/17 Ferrous Sulfate [Feosol 325 mg Tablet] 325 mg PO DAILY 12/26/17 Furosemide [Lasix 40 mg Tablet] 40 mg PO DAILY 12/26/17 Hydralazine HCl [Apresoline 50 mg Tablet] 50 mg PO TID 12/26/17 Losartan/Hydrochlorothiazide [Losartan-Hctz 100-25 mg Tab] 1 tab PO DAILY Magnesium Oxide [Mag-Ox 400 mg Tablet] 400 mg PO DAILY 12/26/17 Metoprolol Tartrate [Lopressor 25 mg Tablet] 25 mg PO Q12 02/06/18 Potassium Chloride [Klor-Con 10 Meq Tablet.sa] 10 meq PO DAILY 12/26/17 Allergies/Adverse Reactions: No Known Allergies Allergy (Verified 12/26/17 08:40) Review of Systems Constitutional: PRESENT: weakness. ABSENT: fever(s), headache(s), night sweats Eyes: ABSENT: visual disturbances Ears: ABSENT: hearing changes Nose, Mouth, and Throat: ABSENT: mouth pain, sore throat Cardiovascular: ABSENT: edema, orthropnea, palpitations Respiratory: ABSENT: dyspnea, hemoptysis Gastrointestinal: ABSENT: dysphagia, hematemesis, hematochezia, melena Genitourinary: ABSENT: dysuria, hematuria Integumentary: ABSENT: lesions, pruritus Neurological: PRESENT: weakness, other. ABSENT: syncope, tingling, tremor(s), vertigo Endocrine: ABSENT: polydipsia, polyphagia, polyuria Hematologic/Lymphatic: ABSENT: easy bruising Physical Exam Vital Signs: Temp Pulse Resp BP Pulse Ox 98.5 F 87 20 118/63 99 12/26/17 17:52 12/26/17 17:52 12/26/17 17:52 12/26/17 17:52 12/26/17 17:52 Intake & Output 12/25/17 12/26/17 12/27/17 06:59 06:59 06:59 Intake Total 310 Balance 310 Weight 51.9 kg General appearance: PRESENT: no acute distress, well-developed, well-nourished Head exam: PRESENT: atraumatic, normocephalic Eye exam: PRESENT: EOMI, PERRLA. ABSENT: nystagmus, periorbital swelling, scleral icterus Mouth exam: PRESENT: moist Throat exam: ABSENT: tonsillar exudate, tonsillogmegaly Neck exam: ABSENT: meningismus, tenderness, thyromegaly Respiratory exam: PRESENT: symmetrical, unlabored. ABSENT: tachypnea, wheezes Cardiovascular exam: PRESENT: RRR, +S1, +S2 GI/Abdominal exam: PRESENT: soft. ABSENT: rebound, rigid, tenderness Extremities exam: ABSENT: joint swelling Musculoskeletal exam: PRESENT: full ROM Neurological exam: PRESENT: alert, awake, oriented to time, oriented to situation, CN II-XII grossly intact Focused psych exam: ABSENT: restlessness Skin exam: PRESENT: normal color. ABSENT: mottled, pallor, urticaria, vesicles Results Laboratory Results: 12/26/17 15:00 Troponin I < 0.012 Impressions: Chest X-Ray 12/26/17 09:02 IMPRESSION: 1. Stable chest. No acute cardiopulmonary disease. Assessment & Plan - Diagnosis (1) GI bleed Qualifiers: GI bleed type/associated pathology: unspecified gastrointestinal hemorrhage type Qualified Code(s): K92.2 - Gastrointestinal hemorrhage, unspecified Is this a current diagnosis for this admission?: Yes Plan: associated with chronic anemia will need GI work up will need both EGD and colonoscopy would benefit from Propofol sedation Risks, benefits and alternatives are discussed with the patient in detail will proceed in the am will need to have PRBC transfusion supplement K patient is willing to proceed - Time Time Spent: 50 to 70 Minutes
[2017-12-26] MEDS ORDERED: PEG 3350/NA SULF,BICARB,CL/KCL 4000 ML PO PRN (19:00)
[2017-12-26] MEDS: IPRATROPIUM/ALBUTEROL 0.5-2.5 MG/3 ML AMPUL NEB SCH (19:51)
[2017-12-26] MEDS: PANTOPRAZOLE SODIUM 40 MG VIAL IV SCH (22:12)
--- NOTE | 2017-12-26 22:37 | EKG REPORT ---
SEVERITY:- ABNORMAL ECG - SINUS RHYTHM PROBABLE LVH WITH SECONDARY REPOL ABNRM ST DEPRESSION, CONSIDER ISCHEMIA, ANT-LAT LDS : Confirmed by: Luther Oliveros 26-Dec-2017 22:36:11
[2017-12-27] MEDS: FUROSEMIDE INJ/PF 20 MG/2 ML SDV IV PRN ×2 (01:58→05:10)
[2017-12-27 06:56] LABS: ABSOLUTE BASOPHILS # (AUTO) 0.1 10^3/uL (0.0-0.2); ABSOLUTE EOSINOPHILS # (AUTO) 0.1 10^3/uL (0.0-0.6); ABSOLUTE LYMPHOCYTES (AUTO) 1.1 10^3/uL (0.5-4.7); ABSOLUTE MONOCYTES (AUTO) 0.7 10^3/uL (0.1-1.4); ABSOLUTE NEUT (AUTO) 7.4 10^3/uL (1.7-8.2); BASOPHILS % (AUTO) 0.9 % (0-2); EOSINOPHILS % (AUTO) 0.7 % (0-6); HEMATOCRIT 30.5 % (36.0-47.0); LYMPHOCYTES % (AUTO) 11.5 % (13-45); MEAN CORPUSCULAR HEMOGLOBIN 29.7 pg (27.0-33.4); MEAN CORPUSCULAR HGB CONC 35.7 g/dL (32.0-36.0); MEAN CORPUSCULAR VOLUME 83 fl (80-97); MONOCYTES % (AUTO) 7.7 % (3-13); PLATELET COUNT 417 10^3/uL (150-450); RED BLOOD COUNT 3.66 10^6/uL (3.72-5.28); RED CELL DISTRIBUTION WIDTH 14.4 % (11.5-14.0); SEGMENTED NEUTROPHILS % (AUTO) 79.2 % (42-78); TOTAL CELLS COUNTED % (AUTO) 100 %; WHITE BLOOD COUNT 9.4 10^3/uL (4.0-10.5)
[2017-12-27 06:59] LABS: HEMOGLOBIN 10.9 g/dL (12.0-15.5)
[2017-12-27 07:04] LABS: ALANINE AMINOTRANSFERASE 18 U/L (9-52); ALBUMIN 3.8 g/dL (3.5-5.0); ALKALINE PHOSPHATASE 63 U/L (38-126); ANION GAP 15 (5-19); ASPARTATE AMINO TRANSFERASE 20 U/L (14-36); BILIRUBIN,DIRECT 0.1 mg/dL (0.0-0.4); BILIRUBIN,TOTAL 1.1 mg/dL (0.2-1.3); CALCIUM 8.9 mg/dL (8.4-10.2); CARBON DIOXIDE 25 mmol/L (22-30); CHLORIDE 94 mmol/L (98-107); CHOLESTEROL 180.44 mg/dL (0-200); GLUCOSE 96 mg/dL (75-110); MAGNESIUM 1.4 mg/dL (1.6-2.3); SODIUM 133.9 mmol/L (137-145); TRIGLYCERIDES 82 mg/dL (<150)
[2017-12-27 07:15] LABS: DIRECT LDL 117 mg/dL (<100)
[2017-12-27 07:32] LABS: BLOOD UREA NITROGEN 19 mg/dL (7-20)
[2017-12-27 07:33] LABS: POTASSIUM 2.7 mmol/L (3.6-5.0)
[2017-12-27] MEDS: IPRATROPIUM/ALBUTEROL 0.5-2.5 MG/3 ML AMPUL NEB SCH ×3 (08:37→19:28)
[2017-12-27] MEDS: POTASSIUM CHLORIDE 20 MEQ/50 ML RTU IV SCH ×4 (09:03→19:43)
[2017-12-27] MEDS ORDERED: PROPOFOL INJ 200 MG/20 ML VIAL IV ONE (09:53)
[2017-12-27] MEDS ORDERED: POTASSIUM CHLORIDE 10 MEQ TABLET.SA PO SCH (10:00)
[2017-12-27] MEDS: PANTOPRAZOLE SODIUM 40 MG VIAL IV SCH ×2 (10:39→21:51)
--- NOTE | 2017-12-27 11:20 | PDOC PROGRESS REPORT ---
Subjective Progress Note for:: 12/27/17 Subjective:: Pt is feeling better today; her Hb/HCT is 10.9/30.5 after 4 units of PRBC; Her potassium is 2.7 and we will give her KCL 20 MEQ IV x 2 doses and add KCL 20 MED qd po. The EGD and colonoscopy will be done tomorrow by Dr Brown and they were held due to hypokalemia.Pt has been on chronic use of Advil PM to help her sleep; she was counseled to discontinue that and never to use any NSAIDs again. Reason For Visit: GI BLEED,ACUTE KIDNEY INJURY,HYPOKALEMIA, Physical Exam Vital Signs: Temp Pulse Resp BP Pulse Ox 98.9 F 76 20 99/59 L 98 12/27/17 08:33 12/27/17 08:34 12/27/17 08:34 12/27/17 08:33 12/27/17 08:34 Intake & Output 12/26/17 12/27/17 12/28/17 06:59 06:59 06:59 Intake Total 1960 Output Total 4000 Balance -2039 Weight 52.3 kg General appearance: PRESENT: no acute distress, cooperative, well-developed, well-nourished Head exam: PRESENT: atraumatic, normocephalic Eye exam: PRESENT: conjunctiva pale, EOMI, PERRLA Ear exam: PRESENT: normal external ear exam, TM's normal bilaterally Mouth exam: PRESENT: moist, neck supple Respiratory exam: PRESENT: clear to auscultation waylon, symmetrical Cardiovascular exam: PRESENT: +S1, +S2 Pulses: PRESENT: +2 pedal pulses bilateral GI/Abdominal exam: PRESENT: normal bowel sounds, soft, tenderness Rectal exam: PRESENT: heme (+) stool Extremities exam: PRESENT: full ROM Musculoskeletal exam: PRESENT: full ROM Neurological exam: PRESENT: alert, awake, oriented to person, oriented to place , oriented to time Psychiatric exam: PRESENT: normal mood Results Laboratory Results: 12/27/17 06:22 12/27/17 06:22 12/27/17 12/27/17 12/27/17 06:22 06:22 06:22 WBC 9.4 RBC 3.66 L Hgb 10.9 L D Hct 30.5 L MCV 83 MCH 29.7 MCHC 35.7 RDW 14.4 H Plt Count 417 Seg Neutrophils % 79.2 H Lymphocytes % 11.5 L Monocytes % 7.7 Eosinophils % 0.7 Basophils % 0.9 Absolute Neutrophils 7.4 Absolute Lymphocytes 1.1 Absolute Monocytes 0.7 Absolute Eosinophils 0.1 Absolute Basophils 0.1 Sodium 133.9 L Potassium 2.7 L* Chloride 94 L Carbon Dioxide 25 Anion Gap 15 BUN 19 D Creatinine 0.85 Est GFR ( Amer) > 60 Est GFR (Non-Af Amer) > 60 Glucose 96 Calcium 8.9 Magnesium 1.4 L Total Bilirubin 1.1 AST 20 ALT 18 Alkaline Phosphatase 63 Total Protein 6.0 L Albumin 3.8 Triglycerides 82 Cholesterol 180.44 LDL Cholesterol Direct 117 H VLDL Cholesterol 16.0 HDL Cholesterol 45 TSH 3.18 12/26/17 15:00 Troponin I < 0.012 Impressions: Chest X-Ray 12/26/17 09:02 IMPRESSION: 1. Stable chest. No acute cardiopulmonary disease. Assessment & Plan - Diagnosis (1) GI bleed Qualifiers: GI bleed type/associated pathology: unspecified gastrointestinal hemorrhage type Qualified Code(s): K92.2 - Gastrointestinal hemorrhage, unspecified Is this a current diagnosis for this admission?: Yes Plan: Ct with IV fluids D5 in saline at 125 cc/hr; Transfuse 4 units of PRBC and give Lasix 20 mg IV after each unit of PRBC. Protonix 40 mg q12H IV; F/u GI consult with Dr Brown for EGD/Colonoscopy. (2) Acute kidney injury Is this a current diagnosis for this admission?: Yes Plan: Ct with IV fluids D5 saline at 125 cc/hour; Strict input/output chart; Daily weight; avoid nephrotoxics. (3) Hypokalemia Is this a current diagnosis for this admission?: Yes Plan: Replace with KCL IV 20 MEQ x2 doses again today; Add KCL 20 MEQ qd po; check chemistries daily. (4) Hyponatremia Is this a current diagnosis for this admission?: Yes Plan: Ct with IV fluids D5 saline at 125cc/hour; Monitor chemistries daily. (5) CHF (congestive heart failure) Qualifiers: Congestive heart failure type: diastolic Congestive heart failure chronicity: chronic Qualified Code(s): I50.32 - Chronic diastolic (congestive ) heart failure Is this a current diagnosis for this admission?: Yes Plan: Hold Lasix 20 mg qd due to acute kidney injury.Strict input/output chart; Daily weight.Monitor chemistries daily. (6) COPD (chronic obstructive pulmonary disease) Qualifiers: COPD type: unspecified COPD Qualified Code(s): J44.9 - Chronic obstructive pulmonary disease, unspecified Is this a current diagnosis for this admission?: Yes Plan: Ct with Duonebs q6h prn; Ct with oxygen by N/C 2 L/min to keep saturation >92% . Smoking cessation counseling. (7) Essential hypertension Plan: Hold Amlodipine 10 mg qd; Hydralazine 50 mg TID; Losartan/HCTZ 100/25 1 qd; Metoprolol 25 mg BID; 2 G sodium when NPO is D/C. (8) Lumbago Qualifiers: Chronicity: chronic Is this a current diagnosis for this admission?: Yes Plan: Ct wit Tylenol 650 mg q6h prn po. (9) Cocaine abuse Is this a current diagnosis for this admission?: Yes Plan: Counseling on drug abuse. (10) Alcohol abuse Is this a current diagnosis for this admission?: Yes Plan: Counseling on ETOH abuse. (11) Anxiety disorder Is this a current diagnosis for this admission?: Yes Plan: Ct with Ativan 0.5 mg qd prn po. (12) DVT prophylaxis Is this a current diagnosis for this admission?: Yes Plan: Ct with SCD; Hold Lovenox due to GI bleed. (13) Tobacco abuse Is this a current diagnosis for this admission?: Yes Plan: Smoking cessation counseling; Nicotine patch 14 mg qd.
[2017-12-27] MEDS: MAGNESIUM OXIDE 400 MG TABLET PO SCH (11:49)
[2017-12-27] MEDS: NICOTINE 14 MG/24 HR PATCH.TD24 TD SCH (11:50)
[2017-12-27] MEDS: FERROUS SULFATE 325 MG TABLET PO SCH (11:50)
[2017-12-27 12:43] LABS: PATH REVIEW PATHOLOGIST REVIEWED
--- NOTE | 2017-12-27 13:11 | PDOC PROGRESS REPORT ---
Subjective Progress Note for:: 12/27/17 Subjective:: Patient had been scheduled for EGD and colonoscopy today. However her hypokalemia had not been adequately treated yet. Anesthesia saw the patient for was not safe to proceed. She is getting potassium supplementation at this point. We will keep on clear liquids at this point and reschedule the procedure for tomorrow. She will probably need propofol sedation. No active bleeding noted. She has had blood transfusions. She denies any melena. Reason For Visit: GI BLEED,ACUTE KIDNEY INJURY,HYPOKALEMIA, Physical Exam Vital Signs: Temp Pulse Resp BP Pulse Ox 98.9 F 76 20 99/59 L 98 12/27/17 08:33 12/27/17 08:34 12/27/17 08:34 12/27/17 08:33 12/27/17 08:34 Intake & Output 12/26/17 12/27/17 12/28/17 06:59 06:59 06:59 Intake Total 1960 Output Total 4000 Balance -204 Weight 52.3 kg General appearance: PRESENT: no acute distress, well-developed, well-nourished Head exam: PRESENT: atraumatic, normocephalic Eye exam: PRESENT: EOMI, PERRLA. ABSENT: nystagmus, periorbital swelling, scleral icterus Mouth exam: PRESENT: moist, neck supple Throat exam: ABSENT: tonsillar exudate, tonsillogmegaly Neck exam: ABSENT: meningismus, tenderness, thyromegaly Respiratory exam: PRESENT: symmetrical, unlabored. ABSENT: tachypnea, wheezes Cardiovascular exam: PRESENT: RRR, +S1, +S2 GI/Abdominal exam: PRESENT: soft. ABSENT: rebound, rigid, tenderness Extremities exam: ABSENT: joint swelling Musculoskeletal exam: PRESENT: full ROM Neurological exam: PRESENT: alert, awake, oriented to time, oriented to situation, CN II-XII grossly intact Focused psych exam: ABSENT: restlessness Skin exam: PRESENT: normal color. ABSENT: mottled, pallor, petechiae, urticaria , vesicles Results Laboratory Results: 12/27/17 06:22 12/27/17 06:22 12/27/17 12/27/17 12/27/17 06:22 06:22 06:22 WBC 9.4 RBC 3.66 L Hgb 10.9 L D Hct 30.5 L MCV 83 MCH 29.7 MCHC 35.7 RDW 14.4 H Plt Count 417 Seg Neutrophils % 79.2 H Lymphocytes % 11.5 L Monocytes % 7.7 Eosinophils % 0.7 Basophils % 0.9 Absolute Neutrophils 7.4 Absolute Lymphocytes 1.1 Absolute Monocytes 0.7 Absolute Eosinophils 0.1 Absolute Basophils 0.1 Sodium 133.9 L Potassium 2.7 L* Chloride 94 L Carbon Dioxide 25 Anion Gap 15 BUN 19 D Creatinine 0.85 Est GFR ( Amer) > 60 Est GFR (Non-Af Amer) > 60 Glucose 96 Calcium 8.9 Magnesium 1.4 L Total Bilirubin 1.1 AST 20 ALT 18 Alkaline Phosphatase 63 Total Protein 6.0 L Albumin 3.8 Triglycerides 82 Cholesterol 180.44 LDL Cholesterol Direct 117 H VLDL Cholesterol 16.0 HDL Cholesterol 45 TSH 3.18 12/26/17 15:00 Troponin I < 0.012 Impressions: Chest X-Ray 12/26/17 09:02 IMPRESSION: 1. Stable chest. No acute cardiopulmonary disease. Assessment & Plan - Diagnosis (1) GI bleed Qualifiers: GI bleed type/associated pathology: unspecified gastrointestinal hemorrhage type Qualified Code(s): K92.2 - Gastrointestinal hemorrhage, unspecified Is this a current diagnosis for this admission?: Yes Plan: We will continue to supplement potassium. This will need correction prior to proceeding with GI workup. She will need propofol sedation. She will be kept on clear liquids today. If she is not clear will give her a little bit more prep. Spoke with nursing regarding her potassium levels and checking of a potassium level.
--- NOTE | 2017-12-27 14:09 | Physician Advisory Note ---
Physician Advisor ProgressNote .: Pursuant to the plan for [facility], I have reviewed the medical record for this patient. Physician Advisor Statement: great documentation of chronic diastolic CHF. Please consider documenting, if you agree: 1. "Acute GI Bleed, likely due to " 2. "SADAF, suspect due to " 3. "Anemia of acute blood loss, due to GI Bleed" 4. "Acute hyponatremia, suspect due to " Thanks! CK
[2017-12-27] MEDS ORDERED: POTASSIUM CHLORIDE 10 MEQ TABLET.SA PO ONE (16:30)
[2017-12-27] MEDS: POTASSI CL 20 MEQ/D5NS 1L 1000 ML IV PRN (16:31)
[2017-12-28] MEDS: POTASSI CL 20 MEQ/D5NS 1L 1000 ML IV PRN (00:27)
[2017-12-28 04:59] LABS: ABSOLUTE BASOPHILS # (AUTO) 0.1 10^3/uL (0.0-0.2); ABSOLUTE EOSINOPHILS # (AUTO) 0.2 10^3/uL (0.0-0.6); ABSOLUTE LYMPHOCYTES (AUTO) 1.2 10^3/uL (0.5-4.7); ABSOLUTE MONOCYTES (AUTO) 0.9 10^3/uL (0.1-1.4); ABSOLUTE NEUT (AUTO) 7.9 10^3/uL (1.7-8.2); BASOPHILS % (AUTO) 0.8 % (0-2); EOSINOPHILS % (AUTO) 1.5 % (0-6); HEMATOCRIT 26.7 % (36.0-47.0); HEMOGLOBIN 9.4 g/dL (12.0-15.5); LYMPHOCYTES % (AUTO) 11.7 % (13-45); MEAN CORPUSCULAR HEMOGLOBIN 29.7 pg (27.0-33.4); MEAN CORPUSCULAR HGB CONC 35.1 g/dL (32.0-36.0); MEAN CORPUSCULAR VOLUME 85 fl (80-97); MONOCYTES % (AUTO) 8.9 % (3-13); PLATELET COUNT 402 10^3/uL (150-450); RED BLOOD COUNT 3.16 10^6/uL (3.72-5.28); RED CELL DISTRIBUTION WIDTH 14.9 % (11.5-14.0); SEGMENTED NEUTROPHILS % (AUTO) 77.1 % (42-78); TOTAL CELLS COUNTED % (AUTO) 100 %; WHITE BLOOD COUNT 10.3 10^3/uL (4.0-10.5)
[2017-12-28] MEDS: POTASSIUM CHLORIDE 10 MEQ TABLET.SA PO SCH ×2 (05:15→17:54)
[2017-12-28 05:21] LABS: ALANINE AMINOTRANSFERASE 17 U/L (9-52); ALBUMIN 3.1 g/dL (3.5-5.0); ALKALINE PHOSPHATASE 50 U/L (38-126); ANION GAP 10 (5-19); ASPARTATE AMINO TRANSFERASE 18 U/L (14-36); BILIRUBIN,DIRECT 0.1 mg/dL (0.0-0.4); BILIRUBIN,TOTAL 0.3 mg/dL (0.2-1.3); BLOOD UREA NITROGEN 8 mg/dL (7-20); CARBON DIOXIDE 19 mmol/L (22-30); CHLORIDE 106 mmol/L (98-107); GLUCOSE 119 mg/dL (75-110); SODIUM 135.3 mmol/L (137-145); TOTAL PROTEIN 5.2 g/dL (6.3-8.2)
[2017-12-28] MEDS: IPRATROPIUM/ALBUTEROL 0.5-2.5 MG/3 ML AMPUL NEB SCH ×3 (08:33→19:35)
[2017-12-28] MEDS: NICOTINE 14 MG/24 HR PATCH.TD24 TD SCH (10:27)
[2017-12-28] MEDS: FERROUS SULFATE 325 MG TABLET PO SCH ×2 (10:27→17:54)
[2017-12-28] MEDS: MAGNESIUM OXIDE 400 MG TABLET PO SCH (10:27)
[2017-12-28] MEDS: PANTOPRAZOLE SODIUM 40 MG VIAL IV SCH ×2 (10:27→21:16)
[2017-12-28] MEDS ORDERED: PROPOFOL INJ 200 MG/20 ML VIAL IV ONE ×2 (11:12→12:39)
[2017-12-28] MEDS ORDERED: LIDOCAINE 2% INJ-PF (20 MG/ML) 10 ML AMPUL ONE (11:12)
[2017-12-28] MEDS ORDERED: MIDAZOLAM 2 MG/2 ML INJ ONE (11:12)
[2017-12-28] MEDS ORDERED: DIPHENHYDRAMINE HCL 50 MG/ML VIAL IV PRN (12:22)
[2017-12-28] MEDS ORDERED: MEPERIDINE HCL/PF INJ 25 MG/1 ML DISP.SYRIN IV PRN (12:22)
[2017-12-28] MEDS ORDERED: PROMETHAZINE HCL INJ 25 MG/1 ML VIAL IV PRN ×2 (12:22)
[2017-12-28] MEDS ORDERED: OXYCODONE-ACETAMINOPHEN 5-325 MG TABLET PO PRN ×2 (12:22)
[2017-12-28] MEDS ORDERED: ONDANSETRON HCL INJ/PF 4 MG/2 ML SDV IV PRN (12:22)
[2017-12-28] MEDS ORDERED: MORPHINE SULFATE 10 MG/ML INJ IV PRN (12:22)
[2017-12-28] MEDS ORDERED: FENTANYL CITRATE INJ/PF 100 MCG/2 ML AMPUL IV PRN ×3 (12:22)
--- NOTE | 2017-12-28 12:57 | PDOC PROGRESS REPORT ---
Subjective Progress Note for:: 12/28/17 Subjective:: Pt had EGD and colonoscopy today by Dr Brown.EGD showed peptic ulcer and hiatal hernia while colonoscopy showed hemorrhoids. The acute kidney injury has resolved. We will monitor her closely at [facility] and for possible discharge tomorrow if she is stable. Reason For Visit: GI BLEED,ACUTE KIDNEY INJURY,HYPOKALEMIA, Physical Exam Vital Signs: Temp Pulse Resp BP Pulse Ox 97.8 F 96 16 134/79 H 100 12/28/17 11:19 12/28/17 11:19 12/28/17 11:19 12/28/17 11:19 12/28/17 11:19 Intake & Output 12/27/17 12/28/17 12/29/17 06:59 06:59 06:59 Intake Total 1960 4740 Output Total 4000 800 Balance -2040 3940 Weight 52.3 kg 56.4 kg General appearance: PRESENT: no acute distress, cooperative, well-developed, well-nourished Head exam: PRESENT: atraumatic, normocephalic Eye exam: PRESENT: conjunctiva pale, EOMI, PERRLA Ear exam: PRESENT: normal external ear exam, TM's normal bilaterally Mouth exam: PRESENT: moist, neck supple Neck exam: PRESENT: full ROM Respiratory exam: PRESENT: clear to auscultation waylon, symmetrical Cardiovascular exam: PRESENT: +S1, +S2 Pulses: PRESENT: +2 pedal pulses bilateral GI/Abdominal exam: PRESENT: normal bowel sounds, soft, tenderness Rectal exam: PRESENT: heme (+) stool Extremities exam: PRESENT: full ROM Musculoskeletal exam: PRESENT: full ROM Neurological exam: PRESENT: alert, awake, oriented to person, oriented to place , oriented to time Psychiatric exam: PRESENT: normal mood Results Laboratory Results: 12/28/17 04:46 12/28/17 04:46 12/27/17 12/27/17 12/28/17 14:27 23:49 04:46 WBC 10.3 RBC 3.16 L Hgb 9.4 L Hct 26.7 L MCV 85 MCH 29.7 MCHC 35.1 RDW 14.9 H Plt Count 402 Seg Neutrophils % 77.1 Lymphocytes % 11.7 L Monocytes % 8.9 Eosinophils % 1.5 Basophils % 0.8 Absolute Neutrophils 7.9 Absolute Lymphocytes 1.2 Absolute Monocytes 0.9 Absolute Eosinophils 0.2 Absolute Basophils 0.1 Sodium Potassium 2.9 L* 3.8 Chloride Carbon Dioxide Anion Gap BUN Creatinine Est GFR ( Amer) Est GFR (Non-Af Amer) Glucose Calcium Total Bilirubin AST ALT Alkaline Phosphatase Total Protein Albumin 12/28/17 04:46 WBC RBC Hgb Hct MCV MCH MCHC RDW Plt Count Seg Neutrophils % Lymphocytes % Monocytes % Eosinophils % Basophils % Absolute Neutrophils Absolute Lymphocytes Absolute Monocytes Absolute Eosinophils Absolute Basophils Sodium 135.3 L Potassium 4.0 Chloride 106 Carbon Dioxide 19 L Anion Gap 10 BUN 8 Creatinine 0.66 Est GFR ( Amer) > 60 Est GFR (Non-Af Amer) > 60 Glucose 119 H Calcium 8.0 L Total Bilirubin 0.3 AST 18 ALT 17 Alkaline Phosphatase 50 Total Protein 5.2 L Albumin 3.1 L 12/26/17 15:00 Troponin I < 0.012 Impressions: Chest X-Ray 12/26/17 09:02 IMPRESSION: 1. Stable chest. No acute cardiopulmonary disease. Assessment & Plan - Diagnosis (1) GI bleed Qualifiers: GI bleed type/associated pathology: duodenal ulcer Qualified Code(s): K26.4 - Chronic or unspecified duodenal ulcer with hemorrhage Is this a current diagnosis for this admission?: Yes Plan: Ct with IV fluids D5 in saline at 125 cc/hr; Transfuse 4 units of PRBC and give Lasix 20 mg IV after each unit of PRBC. Protonix 40 mg q12H IV; She is s.p EGD/ colonoscopy by Dr Brown. (2) Acute blood loss anemia Is this a current diagnosis for this admission?: Yes Plan: This is due to acute GI bleed; she received 4 units of PRBC; we will add Ferrous sulfate 325 mg BID po; monitor CBC daily. (3) Acute kidney injury Is this a current diagnosis for this admission?: Yes Plan: Ct with IV fluids D5 saline at 50 cc/hour; Strict input/output chart; Daily weight; avoid nephrotoxics. (4) Hypokalemia Is this a current diagnosis for this admission?: Yes Plan: Replace with KCL IV 20 MEQ x4 doses again today; Add KCL 20 MEQ qd po; check chemistries daily. (5) Hyponatremia Is this a current diagnosis for this admission?: Yes Plan: Ct with IV fluids D5 saline at 125cc/hour; Monitor chemistries daily. (6) CHF (congestive heart failure) Qualifiers: Congestive heart failure type: diastolic Congestive heart failure chronicity: chronic Qualified Code(s): I50.32 - Chronic diastolic (congestive ) heart failure Is this a current diagnosis for this admission?: Yes Plan: Hold Lasix 20 mg qd due to acute kidney injury.Strict input/output chart; Daily weight.Monitor chemistries daily. (7) COPD (chronic obstructive pulmonary disease) Qualifiers: COPD type: unspecified COPD Qualified Code(s): J44.9 - Chronic obstructive pulmonary disease, unspecified Is this a current diagnosis for this admission?: Yes Plan: Ct with Duonebs q6h prn; Ct with oxygen by N/C 2 L/min to keep saturation >92% . Smoking cessation counseling. (8) Essential hypertension Plan: Hold Amlodipine 10 mg qd; Hydralazine 50 mg TID; Losartan/HCTZ 100/25 1 qd; Metoprolol 25 mg BID; 2 G sodium when NPO is D/C. (9) Lumbago Qualifiers: Chronicity: chronic Is this a current diagnosis for this admission?: Yes Plan: Ct wit Tylenol 650 mg q6h prn po. (10) Cocaine abuse Is this a current diagnosis for this admission?: Yes Plan: Counseling on drug abuse. (11) Alcohol abuse Is this a current diagnosis for this admission?: Yes Plan: Counseling on ETOH abuse. (12) Anxiety disorder Is this a current diagnosis for this admission?: Yes Plan: Ct with Ativan 0.5 mg qd prn po. (13) DVT prophylaxis Is this a current diagnosis for this admission?: Yes Plan: Ct with SCD; Hold Lovenox due to GI bleed. (14) Tobacco abuse Is this a current diagnosis for this admission?: Yes Plan: Smoking cessation counseling; Nicotine patch 14 mg qd.
[2017-12-28] MEDS ORDERED: DEXTROSE 5%-NORMAL SALINE 1,000 ML IV PRN (12:59)
--- NOTE | 2017-12-28 13:46 | Operative Report ---
Operative Report DATE OF SURGERY: 12/28/17 Operative Report: The risks, benefits and alternatives of the procedure including risks of bleeding, perforation requiring surgery are explained to the patient detail and informed consent was obtained. Patient was taken to the operating room and placed in the left, lateral decubital position. Timeout was called. Propofol medications administered. A rectal examination is done which did not reveal any masses, tears or fissures. An Olympus videoscope was inserted patient's rectum. It was carefully advanced all the way to the cecum. Prep was good. Cecum was identified by the usual anatomical landmarks including the ileocecal valve as well as appendiceal office. Photodocumentation is obtained. Scope was then sequentially pulled back via the various segments of the colon including the ascending colon, hepatic flexure, transverse colon, splenic flexure, descending colon and finding to the rectosigmoid portions of the colon. Retroflexion maneuvers performed. The risks benefits and alternatives of the procedure explained to the patient in detail and informed consent is obtained.A GIF Olympus video scope was inserted into the patient's mouth and hypopharynx, the esophagus is identified intubated and insufflated, the scope was then advanced through the esophagus stomach and duodenum, retroflexion maneuver is done, the esophagus stomach and first and second portions of the duodenum examined PREOPERATIVE DIAGNOSIS: Chronic anemia rule out GI bleed POSTOPERATIVE DIAGNOSIS: Mild right-sided inflammation status post biopsy. Internal hemorrhoids. Gastric mass/nodule status post biopsy. Large duodenal ulcer. Ulcers not actively bleeding. OPERATION: Colonoscopy with biopsy. EGD with biopsy SURGEON: RANDY ETIENNE ANESTHESIA: LMAC TISSUE REMOVED OR ALTERED: As noted above. COMPLICATIONS: None. ESTIMATED BLOOD LOSS: None. INTRAOPERATIVE FINDINGS: As described above. PROCEDURE: Patient.the procedure well. No immediate postprocedure complications are noted. Patient discharged back to her room in good condition. Monitor H&H. We will wait on biopsies. Continue PPI. Resume regular diet as tolerated. Resume previous activity level.
[2017-12-29] MEDS: POTASSIUM CHLORIDE 10 MEQ TABLET.SA PO SCH (05:12)
[2017-12-29 06:33] LABS: ABSOLUTE BASOPHILS # (AUTO) 0.1 10^3/uL (0.0-0.2); ABSOLUTE EOSINOPHILS # (AUTO) 0.3 10^3/uL (0.0-0.6); ABSOLUTE LYMPHOCYTES (AUTO) 1.4 10^3/uL (0.5-4.7); ABSOLUTE MONOCYTES (AUTO) 0.9 10^3/uL (0.1-1.4); ABSOLUTE NEUT (AUTO) 7.4 10^3/uL (1.7-8.2); BASOPHILS % (AUTO) 1.3 % (0-2); HEMATOCRIT 27.8 % (36.0-47.0); HEMOGLOBIN 9.5 g/dL (12.0-15.5); LYMPHOCYTES % (AUTO) 14.2 % (13-45); MEAN CORPUSCULAR HEMOGLOBIN 29.7 pg (27.0-33.4); MEAN CORPUSCULAR HGB CONC 34.3 g/dL (32.0-36.0); MEAN CORPUSCULAR VOLUME 87 fl (80-97); MONOCYTES % (AUTO) 8.6 % (3-13); PLATELET COUNT 438 10^3/uL (150-450); RED BLOOD COUNT 3.21 10^6/uL (3.72-5.28); RED CELL DISTRIBUTION WIDTH 15.6 % (11.5-14.0); SEGMENTED NEUTROPHILS % (AUTO) 72.9 % (42-78); TOTAL CELLS COUNTED % (AUTO) 100 %; WHITE BLOOD COUNT 10.2 10^3/uL (4.0-10.5)
[2017-12-29 06:56] LABS: ALANINE AMINOTRANSFERASE 25 U/L (9-52); ALKALINE PHOSPHATASE 52 U/L (38-126); ANION GAP 9 (5-19); ASPARTATE AMINO TRANSFERASE 28 U/L (14-36); BILIRUBIN,DIRECT 0.1 mg/dL (0.0-0.4); BILIRUBIN,TOTAL 0.4 mg/dL (0.2-1.3); BLOOD UREA NITROGEN 5 mg/dL (7-20); CALCIUM 8.2 mg/dL (8.4-10.2); CARBON DIOXIDE 20 mmol/L (22-30); CHLORIDE 104 mmol/L (98-107); GLUCOSE 85 mg/dL (75-110); POTASSIUM 4.7 mmol/L (3.6-5.0); SODIUM 132.6 mmol/L (137-145); TOTAL PROTEIN 5.2 g/dL (6.3-8.2)
[2017-12-29] MEDS: IPRATROPIUM/ALBUTEROL 0.5-2.5 MG/3 ML AMPUL NEB SCH ×2 (09:00→14:20)
[2017-12-29] MEDS: PANTOPRAZOLE SODIUM 40 MG VIAL IV SCH (10:17)
[2017-12-29] MEDS: FERROUS SULFATE 325 MG TABLET PO SCH (10:17)
[2017-12-29] MEDS: MAGNESIUM OXIDE 400 MG TABLET PO SCH (10:17)
--- NOTE | 2017-12-29 10:17 | PDOC PROGRESS REPORT ---
Subjective Progress Note for:: 12/29/17 Subjective:: Patient underwent EGD and colonoscopy yesterday. She required propofol sedation. Of concern is the large duodenal ulcer that likely bled in the past that caused her anemia. However it is not actively bleeding at this point in time However there is also a gastric lesion; whether or not it is part of the same process is unclear we are awaiting biopsies She is also being checked for Helicobacter pylori She should avoid all NSAIDs. She should be on a PPI. If negative she will need follow-up EGD in 6-8 weeks to document healing. No postprocedure complications. Awaiting biopsies at this point in time. Reason For Visit: GI BLEED,ACUTE KIDNEY INJURY,HYPOKALEMIA, Physical Exam Vital Signs: Temp Pulse Resp BP Pulse Ox 98.4 F 86 16 135/93 H 100 12/29/17 07:28 12/29/17 07:28 12/29/17 07:28 12/29/17 07:28 12/29/17 07:28 Intake & Output 12/28/17 12/29/17 12/30/17 06:59 06:59 06:59 Intake Total 4740 3201 Output Total 800 699 Balance 3940 2502 Weight 56.4 kg 59.2 kg General appearance: PRESENT: no acute distress, well-developed, well-nourished Head exam: PRESENT: atraumatic, normocephalic Eye exam: PRESENT: EOMI, PERRLA. ABSENT: nystagmus, periorbital swelling, scleral icterus Mouth exam: PRESENT: moist, neck supple Throat exam: ABSENT: tonsillar exudate, tonsillogmegaly Neck exam: ABSENT: meningismus, tenderness, thyromegaly Respiratory exam: PRESENT: symmetrical, unlabored. ABSENT: tachypnea, wheezes Cardiovascular exam: PRESENT: RRR, +S1, +S2 GI/Abdominal exam: PRESENT: soft. ABSENT: rebound, rigid, tenderness Extremities exam: ABSENT: joint swelling, tenderness Musculoskeletal exam: PRESENT: full ROM Neurological exam: PRESENT: alert, awake, oriented to time, oriented to situation, CN II-XII grossly intact Psychiatric exam: PRESENT: appropriate affect Focused psych exam: ABSENT: restlessness Skin exam: PRESENT: normal color. ABSENT: mottled, pallor, urticaria, vesicles Results Laboratory Results: 12/29/17 06:17 12/29/17 06:17 12/29/17 12/29/17 06:17 06:17 WBC 10.2 RBC 3.21 L Hgb 9.5 L Hct 27.8 L MCV 87 MCH 29.7 MCHC 34.3 RDW 15.6 H Plt Count 438 Seg Neutrophils % 72.9 Lymphocytes % 14.2 Monocytes % 8.6 Eosinophils % 3.0 Basophils % 1.3 Absolute Neutrophils 7.4 Absolute Lymphocytes 1.4 Absolute Monocytes 0.9 Absolute Eosinophils 0.3 Absolute Basophils 0.1 Sodium 132.6 L Potassium 4.7 Chloride 104 Carbon Dioxide 20 L Anion Gap 9 BUN 5 L Creatinine 0.64 Est GFR ( Amer) > 60 Est GFR (Non-Af Amer) > 60 Glucose 85 Calcium 8.2 L Total Bilirubin 0.4 AST 28 ALT 25 Alkaline Phosphatase 52 Total Protein 5.2 L Albumin 3.0 L 12/26/17 15:00 Troponin I < 0.012 Impressions: Chest X-Ray 12/26/17 09:02 IMPRESSION: 1. Stable chest. No acute cardiopulmonary disease. Assessment & Plan - Diagnosis (1) GI bleed Qualifiers: GI bleed type/associated pathology: duodenal ulcer Qualified Code(s): K26.4 - Chronic or unspecified duodenal ulcer with hemorrhage Is this a current diagnosis for this admission?: Yes Plan: This is due to the duodenal ulcer that was noted. We will wait on biopsies. Follow H&H. Transfuse if necessary. PPI as an inpatient and to continue indefinitely as an outpatient. We will need follow-up EGD to document healing If there is any significant repeat, this is a type of bleeding that cannot be controlled endoscopically and she would need to be transferred to a tertiary institution for interventional radiology and embolization. It appears that the supplying blood vessel as part of the gastroduodenal artery. Continue to follow.
[2017-12-29] MEDS: NICOTINE 14 MG/24 HR PATCH.TD24 TD SCH (10:20)
--- NOTE | 2017-12-29 13:09 | PDOC DISCHARGE SUMMARY ---
General - Admit/Disc Date/PCP Admission Date/Primary Care Provider: 12/26/17 13:17 STEFFEN LIRA Discharge Date: 12/29/17 - Discharge Diagnosis (1) GI bleed Is this a current diagnosis for this admission?: Yes (2) Acute blood loss anemia Is this a current diagnosis for this admission?: Yes (3) Acute kidney injury Is this a current diagnosis for this admission?: Yes (4) Hypokalemia Is this a current diagnosis for this admission?: Yes (5) Hyponatremia Is this a current diagnosis for this admission?: Yes (6) CHF (congestive heart failure) Is this a current diagnosis for this admission?: Yes (7) COPD (chronic obstructive pulmonary disease) Is this a current diagnosis for this admission?: Yes (9) Lumbago Is this a current diagnosis for this admission?: Yes (10) Cocaine abuse Is this a current diagnosis for this admission?: Yes (11) Alcohol abuse Is this a current diagnosis for this admission?: Yes (12) Anxiety disorder Is this a current diagnosis for this admission?: Yes (13) DVT prophylaxis Is this a current diagnosis for this admission?: Yes (14) Tobacco abuse Is this a current diagnosis for this admission?: Yes - Additional Information Resuscitation Status: Full Code Prescriptions: Pantoprazole Sodium 40 mg PO BID #60 tablet.dr Barahona Medications: Ergocalciferol (Vitamin D2) [Vitamin D2] 50,000 unit PO MARINO@1000 12/26/17 Magnesium Oxide [Mag-Ox 400 mg Tablet] 400 mg PO DAILY 12/26/17 Metoprolol Tartrate [Lopressor 25 mg Tablet] 25 mg PO Q12 12/26/17 Potassium Chloride [Klor-Con 10 Meq Tablet.sa] 10 meq PO DAILY 12/26/17 Ferrous Sulfate [Feosol 325 mg Tablet] 325 mg PO BID #60 12/29/17 Furosemide [Lasix 40 mg Tablet] 20 mg PO DAILY #0 12/29/17 Pantoprazole Sodium 40 mg PO BID #60 tablet. 12/29/17 History of Present Illness History of Present Illness: LYN ALBERT is a 72 year old female with hx of HTN/ chronic CHF- diastolic dysfunction/COPD/GERD/PUD/Fe def. anemia/Backpain/Osteoarthritis/ Right rotator cuff tear/Incisional hernia/Depression/Anxiety disorder/Chronic ETOH and substance abuse/Chronic smoker.She was D/C fro [facility] in 02/2017 for CHF decompensation. She has continued with cocaine, cannabis and ETOH abuse despite repeated outpatient REHAB and counseling. She started having recurrent syncopal episodes in the past couple of days.She denied abdominal pain, nausea/vomiting, hematemesis, hematochezia or passing darl stool or bright red blood per stool. On account of this persistent symptom, she was brought to ER by her . At ER, her BP was 95/54 despite not mumtaz taking her BP meds; HB/HCT - 4.4/13; K- 2.7 and Na- 126 ; WBC- 14; BUN/Cr- 44/1.37. She was started on IV fluids, transfusion of 2 units of PRBC, IV potassium and GI consult. She is being admitted to [facility]. Hospital Course Hospital Course: 72 year old woman wh was admitted for acute GI bleed secondary to duodenal ulcer /Acute blood loss anemia/Acute kidney injury/Hypokalemia/Hyponatremia/ Polysubstance abuse- cocaine, cannabis and alcohol. She was admitted to [facility] and had EGD/Colonoscopy by Dr Brown and findings were- non-actively bleeding duodenal ulcer and gastric lesion that was biopsied on EGD and colonoscopy showed internal hemorrhoids and right colon inflammation that was biopsied as well. She had a total of 4 units of PRBC and IV Fluids, Protonix IVand Potassium replacement. Her HB/HCT is stable and BUN/cr and potassium are back to normal. Counseling for polysubstance abuse was done. H.pylori result is pending. She is stable and will be discharged home today to follow up with her PCP, Dr Lira and her GI, Dr Brown within 1 week.She will have repeat EGD in 6 weeks as recommended by Dr Brown. Physical Exam Vital Signs: Temp Pulse Resp BP Pulse Ox 98.4 F 86 16 135/93 H 100 12/29/17 07:28 12/29/17 07:28 12/29/17 07:28 12/29/17 07:28 12/29/17 07:28 Intake & Output 12/28/17 12/29/17 12/30/17 06:59 06:59 06:59 Intake Total 4740 3201 Output Total 800 699 Balance 3940 2502 Weight 56.4 kg 59.2 kg General appearance: PRESENT: no acute distress, cooperative, well-developed, well-nourished Head exam: PRESENT: atraumatic, normocephalic Eye exam: PRESENT: EOMI, PERRLA Ear exam: PRESENT: normal external ear exam, TM's normal bilaterally Mouth exam: PRESENT: neck supple, tongue midline Respiratory exam: PRESENT: clear to auscultation waylon, symmetrical Cardiovascular exam: PRESENT: +S1, +S2 Pulses: PRESENT: +2 pedal pulses bilateral GI/Abdominal exam: PRESENT: normal bowel sounds, soft Rectal exam: PRESENT: deferred Extremities exam: PRESENT: full ROM Musculoskeletal exam: PRESENT: full ROM Neurological exam: PRESENT: alert, awake, oriented to person, oriented to place , oriented to time, CN II-XII grossly intact Psychiatric exam: PRESENT: normal mood Results Laboratory Results: 12/29/17 06:17 12/29/17 06:17 12/29/17 12/29/17 06:17 06:17 WBC 10.2 RBC 3.21 L Hgb 9.5 L Hct 27.8 L MCV 87 MCH 29.7 MCHC 34.3 RDW 15.6 H Plt Count 438 Seg Neutrophils % 72.9 Lymphocytes % 14.2 Monocytes % 8.6 Eosinophils % 3.0 Basophils % 1.3 Absolute Neutrophils 7.4 Absolute Lymphocytes 1.4 Absolute Monocytes 0.9 Absolute Eosinophils 0.3 Absolute Basophils 0.1 Sodium 132.6 L Potassium 4.7 Chloride 104 Carbon Dioxide 20 L Anion Gap 9 BUN 5 L Creatinine 0.64 Est GFR ( Amer) > 60 Est GFR (Non-Af Amer) > 60 Glucose 85 Calcium 8.2 L Total Bilirubin 0.4 AST 28 ALT 25 Alkaline Phosphatase 52 Total Protein 5.2 L Albumin 3.0 L 12/26/17 15:00 Troponin I < 0.012 Impressions: Chest X-Ray 12/26/17 09:02 IMPRESSION: 1. Stable chest. No acute cardiopulmonary disease.
[2017-12-29 14:47] VITALS: BP 110/56
[2017-12-31] MEDS ORDERED: ERGOCALCIFEROL (VITAMIN D2) 50000 UNIT (1.25 MG) CAPSULE PO SCH (10:00)
== END 2017-12-29 15:21 | disposition home or self-care (01) | DRG 378 ==
LOC: ER 08:39 → EH 13:17 → 3N 16:20
PROVIDERS: ADMIT Emergency Medicine; ATTEND Internal Medicine
PROC: 30233N1 Transfusion of Nonautologous Red Blood Cells into Peripheral Vein, Percutaneous Approach (ICD-10-PCS; 2017-12-26)
PROC: 0DBF8ZX Excision of Right Large Intestine, Via Natural or Artificial Opening Endoscopic, Diagnostic (ICD-10-PCS; principal; 2017-12-28 13:45)
PROC: 0DB68ZX Excision of Stomach, Via Natural or Artificial Opening Endoscopic, Diagnostic (ICD-10-PCS; 2017-12-28 13:45)
PROC: 3E0234Z Introduction of Serum, Toxoid and Vaccine into Muscle, Percutaneous Approach (ICD-10-PCS; 2017-12-29)
DX: K26.4 Chronic or unspecified duodenal ulcer with hemorrhage (principal); D62 Acute posthemorrhagic anemia; E87.1 Hypo-osmolality and hyponatremia; I50.32 Chronic diastolic (congestive) heart failure; N17.9 Acute kidney failure, unspecified; K25.9 Gastric ulcer, unspecified as acute or chronic, without hemorrhage or perforation; E87.6 Hypokalemia; M54.5 Low back pain; K64.8 Other hemorrhoids; K44.9 Diaphragmatic hernia without obstruction or gangrene; F14.10 Cocaine abuse, uncomplicated; F12.10 Cannabis abuse, uncomplicated; F17.200 Nicotine dependence, unspecified, uncomplicated; I95.9 Hypotension, unspecified; I11.0 Hypertensive heart disease with heart failure; J44.9 Chronic obstructive pulmonary disease, unspecified; K21.9 Gastro-esophageal reflux disease without esophagitis; D50.9 Iron deficiency anemia, unspecified; M19.90 Unspecified osteoarthritis, unspecified site; F41.9 Anxiety disorder, unspecified; F10.10 Alcohol abuse, uncomplicated; Z90.710 Acquired absence of both cervix and uterus; Z82.49 Family history of ischemic heart disease and other diseases of the circulatory system; Z79.899 Other long term (current) drug therapy; Z23 Encounter for immunization
CPT/HCPCS: 00813; 36415; 36430; 43239; 45380; 71045; 80053; 80061; 80307; 81001; 82272; 82550; 82553; 82607; 82728; 82746; 82803; 82962; 83540; 83550; 83605; 83690; 83735; 83880; 84132; 84443; 84466; 84484; 85025; 85045; 85610; 86850; 86900; 86901; 86920; 87040; 87804; 88305; 88342; 90686; 93005; 93010; 94640; 96361; 96365; 96366; 96376; 99291; G8987-GO; G8988-GO; J1940; J2250; J2704; J3480; J3490; J7030; J7040; J7620; P9016; S0164

== ENCOUNTER → 2018-01-12 | Outpatient (CLI) | payer OTHER, MEDICARE ==
--- NOTE | 2018-01-12 17:15 | RADIOLOGY REPORT (SQ) ---
EXAM DESCRIPTION: CT RT UPPER EXTREMITY WITHOUT COMPLETED DATE/TIME: 01/12/2018 1:41 pm REASON FOR STUDY: M87.811 OTHER OSTEONECROSIS, RIGHT SHOULDER M87.811 OTHER OSTEONECROSIS, RIGHT SH OULDER COMPARISON: MRI right shoulder 01/29/2016 CT right shoulder 08/15/2016, 09/14/2016, 12/06/2016 Bone scan 08/15/2016 TECHNIQUE: [facility] with reformatted oblique coronal and ob lique sagittal imaging windowed for bone and soft tissues. All CT scanners at this facility use dose modulation, iterative reconstruction, and/or weight based d osing when appropriate to reduce radiation dose to as low as reasonably achievable (ALARA). [facility]: Dose Right [facility]: CareDose [facility]: Dose Right [facility]: Teradose 4D [facility]: [employer] RADIATION DOSE: CT Rad equipment meets quality standard of care and radiation dose reduction techniq ues were employed. CTDIvol: 4.9 mGy. DLP: 129 mGy-cm. mGy. LIMITATIONS: None. FINDINGS: Again, the right shoulder joint is markedly abnormal. No acute fracture. No glenohumeral dislocation or acromioclavicular joint widening. There is a erosion of the articular surface right humeral head which has a concave articular surface. This articulates with the markedly eroded bony glenoid. [id number] appearance. Large right shoulder joint effusion with distention of the shoulder capsule. Humeral head abuts the undersurface of the acromion with [id number] appearance. There may still be minimal residual anterior rotator cuff tendon present. There are old tack tracks from rotator cuff remote prior surgery. Right upper ribs, visualized thoracic spine, right lung in the field of view unremarkable. IMPRESSION: No change in appearance of the right shoulder compared to CT exams 12/06/2016, 09/14/2016 , 08/15/2016. TECHNICAL DOCUMENTATION: JOB ID: [id number] Quality ID # [id number]: Final reports with documentation of one or more dose reduction techniques (e.g., Au tomated exposure control, adjustment of the mA and/or kV according to patient size, use of iterative reconstruction technique) 2010 [employer]- All Rights Reserved Reading location - IP/workstation name: [email or web address]
== END ==
LOC: RAD 13:39
PROVIDERS: ATTEND Physician Assistant
DX: M87.811 Other osteonecrosis, right shoulder (principal)

== ENCOUNTER → 2018-01-27 | Outpatient (CLI) | payer OTHER, MEDICARE ==
--- NOTE | 2018-01-27 09:04 | RADIOLOGY REPORT (SQ) ---
EXAM DESCRIPTION: CT RT UPPER EXTREMITY WITHOUT COMPLETED DATE/TIME: 01/27/2018 8:22 am REASON FOR STUDY: EVALUATION FOR SURGERY Z01.818 ENCOUNTER FOR OTHER PREPROCEDURAL EXAMINATION COMPARISON: 01/12/2018 TECHNIQUE: Axial imaging performed through the right shoulder with reformatted coronal and sagittal imaging windowed for bone and soft tissues. Images saved to PACS. 3D IMAGING: Were 3D images as MIP, SSD, or volume rendering performed at the work station? Yes All CT scanners at this facility use dose modulation, iterative reconstruction, and/or weight based d osing when appropriate to reduce radiation dose to as low as reasonably achievable (ALARA). [facility]: Dose Right [facility]: CareDose [facility]: Dose Right [facility]: Teradose 4D [facility]: [employer] LIMITATIONS: None. RADIATION DOSE: CT Rad equipment meets quality standard of care and radiation dose reduction techniq ues were employed. CTDIvol: 4.6 mGy. DLP: 109 mGy-cm. mGy. FINDINGS: Stable appearance of the shoulder. Dysmorphic appearing diminutive glenoid with chronical ly impacted flattened appearance of the humeral head. Loss of the subacromial space. Clear visualiz ed right lung. Small retro pectoral lymph nodes. Joint effusion and probable chronic scar and synov itis in the right shoulder. IMPRESSION: Appearance of the right shoulder looks grossly unchanged, glenohumeral deformity and los s of the subacromial space as before. TECHNICAL DOCUMENTATION: JOB ID: [id number] Quality ID # [id number]: Final reports with documentation of one or more dose reduction techniques (e.g., Au tomated exposure control, adjustment of the mA and/or kV according to patient size, use of iterative reconstruction technique) 2010 [employer]- All Rights Reserved Reading location - IP/workstation name: [email or web address]
== END ==
LOC: RAD 07:34
PROVIDERS: ATTEND Physician Assistant
DX: Z01.818 Encounter for other preprocedural examination (principal); M25.411 Effusion, right shoulder

== ENCOUNTER 2018-04-03 11:28 | Emergency (ER) | payer OTHER, MEDICARE ==
[2018-04-03] MEDS ORDERED: ACETAMINOPHEN 325 MG TABLET PO ONE (12:05)
--- NOTE | 2018-04-03 12:06 | ER Document Report ---
ED Medical Screen (RME) - General Chief Complaint: Hand Pain Stated Complaint: FINGER PAIN Time Seen by Provider: 04/03/18 11:50 Notes: RAPID MEDICAL EVALUATION DISCLOSURE I have seen this patient as part of a Rapid Medical Evaluation and, if applicable, placed any initially appropriate orders. The patient will be seen and fully evaluated, including a full history and physical exam, by a provider ( in Main ED or Fast Track) when a room becomes available. 9-year-old female here with complaints of right thumb pain and swelling ongoing for the past few weeks. The pain and swelling has been progressively worsening. Recently, she has started experiencing drainage of yellow/green purulent material. EXAM Right thumb deformity Fluctuance but no active drainage TRAVEL OUTSIDE OF THE [place] IN LAST 30 DAYS: No - Related Data Allergies/Adverse Reactions: No Known Allergies Allergy (Verified 04/03/18 11:50) Past Medical History - Past Medical History Cardiac Medical History: Reports: Hx Hypertension Pulmonary Medical History: Reports: Hx COPD, Hx Pneumonia Denies: Hx Tuberculosis Renal/ Medical History: Denies: Hx Peritoneal Dialysis Musculoskeltal Medical History: Reports Hx Arthritis Psychiatric Medical History: Reports: Hx Bipolar Disorder, Hx Depression Past Surgical History: Reports: Hx Breast Surgery - left breast, Hx Hysterectomy , Hx Orthopedic Surgery - back, neck, shoulder (03/24/15), Other - Lumpectomy, Exploratory laparotomy, - Immunizations Immunizations up to date: No Hx Diphtheria, Pertussis, Tetanus Vaccination: No History of Influenza Vaccine for 08/2017 - 01/2018 Season: No Physical Exam - Vital signs Vitals: Temp Pulse Resp BP Pulse Ox 98.3 F 59 L 15 121/63 99 04/03/18 11:38 04/03/18 11:38 04/03/18 11:38 04/03/18 11:38 04/03/18 11:38 Course - Vital Signs Vital signs: Temp Pulse Resp BP Pulse Ox 98.3 F 59 L 15 121/63 99 04/03/18 11:38 04/03/18 11:38 04/03/18 11:38 04/03/18 11:38 04/03/18 11:38
[2018-04-03] MEDS ORDERED: LIDOCAINE 1% INJ-PF (10 MG/ML) 30 ML SDV INJ ONE (12:28)
--- NOTE | 2018-04-03 12:44 | ER Document Report ---
ED General - General Chief Complaint: Hand Pain Stated Complaint: FINGER PAIN Time Seen by Provider: 04/03/18 11:50 Mode of Arrival: Ambulatory Information source: Patient Notes: 72-year-old female presents with complaints of right hand first digit pain. Patient notes to is been some seeping drainage from the medial aspect of the finger. Denies any fevers or chills notes that she has chronic arthritis in her finger has been angulated for years TRAVEL OUTSIDE OF THE [place] IN LAST 30 DAYS: No - HPI Onset: Last week Onset/Duration: Persistent Quality of pain: Achy Severity: Mild Pain Level: 1 Associated symptoms: Other Exacerbated by: Movement Relieved by: Denies Similar symptoms previously: Yes Recently seen / treated by doctor: Yes - Patient follows up with orthopedic physician at [facility] - Related Data Allergies/Adverse Reactions: No Known Allergies Allergy (Verified 04/03/18 11:50) Past Medical History - Social History Smoking Status: Current Every Day Smoker Cigarette use (# per day): Yes Chew tobacco use (# tins/day): No Smoking Education Provided: No Frequency of alcohol use: Social Drug Abuse: Cocaine, Marijuana Family History: CAD Patient has suicidal ideation: No Patient has homicidal ideation: No - Past Medical History Cardiac Medical History: Reports: Hx Congestive Heart Failure, Hx Hypertension Pulmonary Medical History: Reports: Hx COPD, Hx Pneumonia Denies: Hx Tuberculosis Renal/ Medical History: Denies: Hx Peritoneal Dialysis Musculoskeltal Medical History: Reports Hx Arthritis Psychiatric Medical History: Reports: Hx Bipolar Disorder, Hx Depression Past Surgical History: Reports: Hx Breast Surgery - left breast, Hx Hysterectomy , Hx Orthopedic Surgery - back, neck, shoulder (03/24/15), Other - Lumpectomy, Exploratory laparotomy, - Immunizations Immunizations up to date: No Hx Diphtheria, Pertussis, Tetanus Vaccination: No Hx Pneumococcal Vaccination: 11/20/12 Review of Systems - Review of Systems Notes: REVIEW OF SYSTEMS: CONSTITUTIONAL : Denies fever, chills, or sweats. Denies recent illness. EENT: Denies eye, ear, throat, or mouth pain or symptoms. Denies nasal or sinus congestion or discharge. Denies throat, tongue, or mouth swelling or difficulty swallowing. CARDIOVASCULAR: Denies chest pain. Denies palpitations or racing or irregular heart beat. Denies ankle edema. RESPIRATORY: Denies cough, cold, or chest congestion. Denies shortness of breath, difficulty breathing, or wheezing. GASTROINTESTINAL: Denies abdominal pain or distention. Denies nausea, vomiting , or diarrhea. Denies blood in vomitus, stools, or per rectum. Denies black, tarry stools. Denies constipation. GENITOURINARY: Denies difficulty urinating, painful urination, burning, frequency, blood in urine, or discharge. FEMALE GENITOURINARY: Denies vaginal bleeding, heavy or abnormal periods, irregular periods. Denies vaginal discharge or odor. MUSCULOSKELETAL: Denies back or neck pain or stiffness. Denies joint pain or swelling. SKIN: Drainage cyst HEMATOLOGIC : Denies easy bruising or bleeding. LYMPHATIC: Denies swollen, enlarged glands. NEUROLOGICAL: Denies confusion or altered mental status. Denies passing out or loss of consciousness. Denies dizziness or lightheadedness. Denies headache. Denies weakness or paralysis or loss of use of either side. Denies problems with gait or speech. Denies sensory loss, numbness, or tingling. Denies seizures. PSYCHIATRIC: Denies anxiety or stress. Denies depression, suicidal ideation, or homicidal ideation. ALL OTHER SYSTEMS REVIEWED AND NEGATIVE. PHYSICAL EXAMINATION: GENERAL: Thin female HEAD: Atraumatic, normocephalic. EYES: Pupils equal round extraocular movements intact, conjunctiva are normal. ENT: Nares patent NECK: Normal range of motion LUNGS: No respiratory distress Musculoskeletal: Excessive arthritic changes on left hand angulation of right hand first digit laterally NEUROLOGICAL: Normal speech, normal gait. PSYCH: Normal mood, normal affect. SKIN: Cyst noted on the medial aspect of the first digit on the right hand Physical Exam - Vital signs Vitals: Temp Pulse Resp BP Pulse Ox 98.3 F 59 L 15 121/63 99 04/03/18 11:38 04/03/18 11:38 04/03/18 11:38 04/03/18 11:38 04/03/18 11:38 Course - Re-evaluation Re-evalutation: 04/03/18 19:22 X-ray is more consistent with a chronic dislocation, I did junk nerve blocks performed by myself I made an incision small amount of pus was drained from the digit patient will be placed on antibiotics, I will have the patient follow-up with her orthopedic physician regarding her dislocation After performing a Medical Screening Examination, I estimate there is LOW risk for OPEN FRACTURE, COMPARTMENT SYNDROME, TENDON RUPTURE, ACUTE NEUROVASCULAR INJURY, or RETAINED FOREIGN BODY, thus I consider the discharge disposition reasonable. Also, there is no evidence or peritonitis, sepsis, or toxicity. I have reevaluated this patient multiple times and no significant life threatening changes are noted. The patient and I have discussed the diagnosis and risks, and we agree with discharging home with close follow-up with the understanding that symptoms and presentations can change. We also discussed returning to the Emergency Department immediately if new or worsening symptoms occur. We have discussed the symptoms which are most concerning (e.g., changing or worsening pain, fever, numbness, weakness, cool or painful digits) that necessitate immediate return. 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 noted on 3 view hand x-ray, Reports reviewed Procedures - Incision and Drainage Right Thumb Time completed: 11:05 Type: Simple Anesthetic type: 1% Lidocaine mL's of anesthetic: 10 Blade size: 11 I&D procedure: Shurclens applied, Sterile dressing applied Incision Method: Incision made by scalpel Amount/type of drainage: Small amount of pus - Additional Procedures digital nerve block Time performed: 11:00 - Using 10 cc 1% lidocaine without epinephrine complete nerve block performed of the right hand first digit complication Discharge - Discharge Clinical Impression: Abscess, Chronic dislocation first digit right rome Condition: Stable Disposition: HOME, SELF-CARE Instructions: Post Incision and Drainage Additional Instructions: Please follow-up with the orthopedic physician for reevaluation return immediately if symptoms are worsening or any other concerns Prescriptions: Cephalexin Monohydrate [Keflex 500 mg Capsule] 500 mg PO QID #40 capsule Hydrocodone/Acetaminophen [[place] 5-325 mg Tablet] 1 tab PO Q6 #10 tablet Sulfamethoxazole/Trimethoprim [Bactrim Ds Tablet] 2 each PO BID #40 tablet Referrals: STEFFEN LIRA MD [Primary Care Provider] - Follow up as needed
--- NOTE | 2018-04-03 13:08 | RADIOLOGY REPORT (SQ) ---
EXAM DESCRIPTION: FINGER RIGHT COMPLETED DATE/TIME: 04/03/2018 12:24 pm REASON FOR STUDY: R thumb deformity swelling COMPARISON: None. NUMBER OF VIEWS: Three views. TECHNIQUE: AP, lateral, and oblique images acquired of the right thumb. LIMITATIONS: None. FINDINGS: MINERALIZATION: Normal. BONES: No acute fracture. Dislocation distal interphalangeal joint of the thumb with what appears to be old destructive changes of the articulating surfaces of the head of the proximal phalanx and ghazal cent distal phalanx. JOINTS: No erosions. No hollis-articular osteopenia. No chondrocalcinosis. SOFT TISSUES: Soft tissue swelling at the level of dislocation. No foreign body or air within the so ft tissue. OTHER: No other significant finding. IMPRESSION: Dislocation DIP joint of the thumb that may be all old based on radiographic appearance. No radiographic evidence of osteomyelitis. Adjacent soft tissue swelling. COMMENT: SITE OF TRAUMA/COMPLAINT MARKED/STAMP COMPLETED: NOT APPLICABLE. TECHNICAL DOCUMENTATION: JOB ID: [id number] [employer]- All Rights Reserved Reading location - IP/workstation name: [email or web address]
[2018-04-03 14:35] VITALS: BP 113/67
== END 2018-04-03 14:35 | disposition home or self-care (01) ==
LOC: ER 11:28
PROC: 0H9FXZZ Drainage of Right Hand Skin, External Approach (ICD-10-PCS; principal; 2018-04-03)
DX: L02.511 Cutaneous abscess of right hand (principal); M24.444 Recurrent dislocation, right finger; M79.641 Pain in right hand; F17.210 Nicotine dependence, cigarettes, uncomplicated; I50.9 Heart failure, unspecified; I11.0 Hypertensive heart disease with heart failure; J44.9 Chronic obstructive pulmonary disease, unspecified; Z90.710 Acquired absence of both cervix and uterus
CPT/HCPCS: 99283; 73140; 26010; J3490

== ENCOUNTER 2018-06-20 14:17 | Inpatient (IN) | payer OTHER, MEDICARE ==
--- NOTE | 2018-06-20 16:23 | ER Document Report ---
ED Extremity Problem, Upper - General Chief Complaint: Shoulder Pain Stated Complaint: R SHOULDER PAIN Time Seen by Provider: 06/20/18 16:11 Mode of Arrival: Wheelchair Information source: Patient, Relative Notes: 73 yo female presents to ed for right shoulder pain. Patient states she was supposed to have surgery on the shoulder 3 months ago but instead they did soak shoulder on her finger because it was infected. She states she went to the doctor's office today and he sent her to the emergency room. He states she states that she does not know why she was sent to the emergency room he just told her to go to the emergency room and they would take care of her. She states she has been seeing Dr. Mendiola for some time concerning this elbow and she is not sure why she has not had surgery yet. Nenita TRAVEL OUTSIDE OF THE [place] IN LAST 30 DAYS: No - HPI Patient complains to provider of: Pain, Right, Shoulder Onset: Other - According to 3 years Recent injury: No Quality of pain: Sharp, Stabbing, Throbbing Pain Level: 5 Context: Other - Right shoulder pain - Related Data Allergies/Adverse Reactions: No Known Allergies Allergy (Verified 06/20/18 14:19) Past Medical History - General Information source: Patient, Relative - Social History Smoking Status: Current Every Day Smoker Cigarette use (# per day): Yes Smoking Education Provided: Yes Frequency of alcohol use: Social Drug Abuse: Cocaine, Marijuana Lives with: Family Family History: CAD Patient has suicidal ideation: No Patient has homicidal ideation: No - Past Medical History Cardiac Medical History: Reports: Hx Congestive Heart Failure, Hx Hypertension Pulmonary Medical History: Reports: Hx COPD, Hx Pneumonia EENT Medical History: Reports: None Neurological Medical History: Reports: None Endocrine Medical History: Reports: None Renal/ Medical History: Reports: None Malignancy Medical History: Reports: None GI Medical History: Reports: None Musculoskeletal Medical History: Reports Hx Arthritis, Reports Hx Musculoskeletal Deformity, Reports Hx Musculoskeletal Trauma Skin Medical History: Reports None Psychiatric Medical History: Reports: Hx Bipolar Disorder, Hx Depression Traumatic Medical History: Reports: None Infectious Medical History: Reports: None Past Surgical History: Reports: Hx Breast Surgery - left breast, Hx Hysterectomy , Hx Orthopedic Surgery - back, neck, shoulder (03/24/15), Other - Lumpectomy, Exploratory laparotomy, - Immunizations Immunizations up to date: No Hx Diphtheria, Pertussis, Tetanus Vaccination: No Hx Pneumococcal Vaccination: 11/20/12 Review of Systems - Review of Systems Constitutional: No symptoms reported EENT: No symptoms reported Cardiovascular: No symptoms reported Respiratory: No symptoms reported Gastrointestinal: No symptoms reported Genitourinary: No symptoms reported Female Genitourinary: No symptoms reported Musculoskeletal: Joint pain - right shoulder pain Skin: No symptoms reported Hematologic/Lymphatic: No symptoms reported Neurological/Psychological: No symptoms reported -: Yes All other systems reviewed and negative Physical Exam - Vital signs Vitals: Temp Pulse Resp BP Pulse Ox 99.1 F 64 18 95/60 L 97 06/20/18 14:21 06/20/18 14:21 06/20/18 14:21 06/20/18 14:21 06/20/18 14:21 Interpretation: Normal - General General appearance: Appears well, Alert - HEENT Head: Normocephalic, Atraumatic Eyes: Normal Pupils: PERRL - Respiratory Respiratory status: No respiratory distress Chest status: Nontender Breath sounds: Normal Chest palpation: Normal - Cardiovascular Rhythm: Regular Heart sounds: Normal auscultation Murmur: No - Abdominal Inspection: Normal Distension: No distension Bowel sounds: Normal Tenderness: Nontender Organomegaly: No organomegaly - Back Back: Normal, Tender, Vertebra tenderness - Extremities General upper extremity: Normal color, Normal temperature General lower extremity: Normal inspection, Nontender, Normal color, Normal ROM , Normal temperature, Normal weight bearing. No: Vladimir's sign Shoulder: Tender, Limited ROM Arm: Tender - Neurological Neuro grossly intact: Yes Cognition: Normal Orientation: AAOx4 [place] Coma Scale Eye Opening: Spontaneous [place] Coma Scale Verbal: Oriented [place] Coma Scale Motor: Obeys Commands Dayana Coma Scale Total: 15 Speech: Normal Motor strength normal: LUE, RUE, LLE, RLE Sensory: Normal - Psychological Associated symptoms: Normal affect, Normal mood - Skin Skin Temperature: Warm Skin Moisture: Dry Skin Color: Normal Course - Re-evaluation Re-evalutation: 06/20/18 16:54 After several conversations with patient and I found out that the doctor was Que Amador at [facility]. I spoke with Que Goodson who stated that the patient came in today because she stated she was having severe neck pain and head pain and body pain. He states she usually does not Cry while in the office but she was in tears complaining about how horrible she felt all over and that she had a fever. He states he took x-rays of her shoulder and neck and both of which were stable from the last visit. He states the reason he sent her to the emergency room was because of the severe head pain and pain all over. Patient then stated that she only used cocaine this morning and none since then and she only had marijuana once today none since then. When I spoke with Nicolas Goodson he asked that I run blood work head CT and to be sure she was stable and then he would see her again tomorrow for her shoulder pain. Blood work urine and head CT have been ordered as well as 1 mg of Dilaudid for her pain. Will reevaluate after labs and CT completed. - Vital Signs Vital signs: Temp Pulse Resp BP Pulse Ox 99.2 F 64 22 H 107/68 96 06/21/18 00:00 06/20/18 14:21 06/21/18 00:14 06/21/18 00:01 06/21/18 00:14 - Laboratory Result Diagrams: 06/20/18 18:47 06/20/18 23:52 Laboratory results interpreted by me: 06/20/18 06/20/18 06/20/18 16:58 18:47 18:47 WBC 22.0 H RBC 3.18 L Hgb 9.8 L Hct 28.7 L Seg Neuts % (Manual) 95 H Lymphocytes % (Manual) 3 L Monocytes % (Manual) 2 L Abs Neuts (Manual) 20.9 H Sodium 121.2 L Potassium 2.6 L* Chloride 83 L BUN 26 H Est GFR ( Amer) 59 L Est GFR (Non-Af Amer) 48 L Urine Blood SMALL H Discharge - Discharge Clinical Impression: Hyponatremia, Hypokalemia Disposition: ADMITTED INPATIENT [facility] Admitted: Telemetry
[2018-06-20] MEDS ORDERED: HYDROMORPHONE HCL INJ/PF 2 MG/ML AMPULE IM ONE (16:51)
[2018-06-20 17:30] LABS: APPEARANCE,URINE CLEAR; BILIRUBIN,URINE NEGATIVE (NEGATIVE); COLOR,URINE COLORLESS; GLUCOSE, URINE NEGATIVE (NEGATIVE); KETONES,URINE NEGATIVE (NEGATIVE); LEUKOCYTE ESTERASE,URINE NEGATIVE (NEGATIVE); NITRITE,URINE NEGATIVE (NEGATIVE); PROTEIN,URINE NEGATIVE (NEGATIVE); URINE SPECIFIC GRAVITY 1.005; UROBILINOGEN,URINE NEGATIVE mg/dL (<2.0)
[2018-06-20 17:43] LABS: URINE AMPHETAMINES SCREEN NEGATIVE; URINE BARBITURATES SCREEN NEGATIVE; URINE BENZODIAZEPINES SCREEN NEGATIVE; URINE COCAINE SCREEN UNCONFIRMED POSITIVE; URINE MARIJUANA (THC) SCREEN UNCONFIRMED POSITIVE; URINE METHADONE SCREEN NEGATIVE; URINE PHENCYCLIDINE SCREEN NEGATIVE
--- NOTE | 2018-06-20 18:16 | RADIOLOGY REPORT (SQ) ---
EXAM DESCRIPTION: CT HEAD WITHOUT COMPLETED DATE/TIME: 06/20/2018 5:59 pm REASON FOR STUDY: head pain COMPARISON: 09/30/2014 TECHNIQUE: Axial images acquired through the brain without intravenous contrast. Images reviewed wi th bone, brain and subdural windows. Images stored on PACS. All CT scanners at this facility use dose modulation, iterative reconstruction, and/or weight based d osing when appropriate to reduce radiation dose to as low as reasonably achievable (ALARA). [facility]: Dose Right [facility]: CareDose [facility]: Dose Right [facility]: Teradose 4D [facility]: Smart Z[employer] RADIATION DOSE: CT Rad equipment meets quality standard of care and radiation dose reduction techniq ues were employed. CTDIvol: 53.2 mGy. DLP: 991 mGy-cm. mGy. LIMITATIONS: None. FINDINGS: VENTRICLES: Stable. No significant dilatation. CEREBRUM: No masses. No hemorrhage. No midline shift. Areas of low density in the white matter mos t likely due to chronic micro-vascular ischemic change. No evidence for acute infarction. CEREBELLUM: No masses. No hemorrhage. No alteration of density. No evidence for acute infarction. EXTRAAXIAL SPACES: Mild age-related involutional change. No fluid collections. No masses. ORBITS AND GLOBE: No intra- or extraconal masses. Normal contour of globe without masses. CALVARIUM: No fracture. PARANASAL SINUSES: No fluid or mucosal thickening. SOFT TISSUES: No mass or hematoma. OTHER: No other significant finding. IMPRESSION: MILD CHRONIC CHANGES OF ATROPHY AND MICROVASCULAR ISCHEMIA. NO ACUTE PROCESS. EVIDENCE OF ACUTE STROKE: NO. TECHNICAL DOCUMENTATION: JOB ID: [id number] Quality ID # [id number]: Final reports with documentation of one or more dose reduction techniques (e.g., Au tomated exposure control, adjustment of the mA and/or kV according to patient size, use of iterative reconstruction technique) 2010 [employer]- All Rights Reserved Reading location - IP/workstation name: [email or web address]
[2018-06-20 18:59] LABS: HEMATOCRIT 28.7 % (36.0-47.0); HEMOGLOBIN 9.8 g/dL (12.0-15.5); MEAN CORPUSCULAR HEMOGLOBIN 30.8 pg (27.0-33.4); MEAN CORPUSCULAR HGB CONC 34.1 g/dL (32.0-36.0); MEAN CORPUSCULAR VOLUME 90 fl (80-97); PLATELET COUNT 394 10^3/uL (150-450); RED BLOOD COUNT 3.18 10^6/uL (3.72-5.28); RED CELL DISTRIBUTION WIDTH 13.7 % (11.5-14.0)
[2018-06-20 19:13] LABS: ALANINE AMINOTRANSFERASE 27 U/L (9-52); ALBUMIN 4.4 g/dL (3.5-5.0); ALKALINE PHOSPHATASE 42 U/L (38-126); ANION GAP 16 (5-19); ASPARTATE AMINO TRANSFERASE 24 U/L (14-36); BILIRUBIN,DIRECT 0.3 mg/dL (0.0-0.4); BILIRUBIN,TOTAL 0.5 mg/dL (0.2-1.3); BLOOD UREA NITROGEN 26 mg/dL (7-20); CALCIUM 9.6 mg/dL (8.4-10.2); CARBON DIOXIDE 22 mmol/L (22-30); CHLORIDE 83 mmol/L (98-107); GLUCOSE 88 mg/dL (75-110); SODIUM 121.2 mmol/L (137-145); TOTAL PROTEIN 7.1 g/dL (6.3-8.2)
[2018-06-20 19:15] LABS: POTASSIUM 2.6 mmol/L (3.6-5.0)
[2018-06-20 19:33] LABS: ABSOLUTE LYMPHOCYTES# (MANUAL) 0.7 10^3/uL (0.5-4.7); ABSOLUTE MONOCYTES # (MANUAL) 0.4 10^3/uL (0.1-1.4); ABSOLUTE NEUTROPHILS# (MANUAL) 20.9 10^3/uL (1.7-8.2); BASOPHILS % (MANUAL) 0 % (0-2); EOSINOPHILS % (MANUAL) 0 % (0-6); LYMPHOCYTES % (MANUAL) 3 % (13-45); MONOCYTES % (MANUAL) 2 % (3-13); SEGMENTED NEUTROPHILS % (MAN) 95 % (42-78); TOTAL CELLS COUNTED 100
[2018-06-20 19:34] LABS: TOXIC GRANULATION 2+; TOXIC VACUOLATION PRESENT
[2018-06-20 19:35] LABS: PLATELET COMMENT ADEQUATE
[2018-06-20] MEDS ORDERED: HYDROMORPHONE HCL INJ/PF 2 MG/ML AMPULE IV ONE (20:01)
[2018-06-20] MEDS ORDERED: POTASSI CL 20 MEQ/NS 1L 1,000 ML IV ONE (20:01)
[2018-06-20] MEDS ORDERED: ONDANSETRON HCL INJ/PF 4 MG/2 ML SDV IV PRN (20:33)
[2018-06-20] MEDS ORDERED: IPRATROPIUM/ALBUTEROL 0.5-2.5 MG/3 ML AMPUL NEB PRN (20:33)
[2018-06-20] MEDS ORDERED: OXYCODONE-ACETAMINOPHEN 5-325 MG TABLET PO PRN (20:33)
--- NOTE | 2018-06-20 21:02 | RADIOLOGY REPORT (SQ) ---
EXAM DESCRIPTION: CHEST SINGLE VIEW COMPLETED DATE/TIME: 06/20/2018 8:49 pm REASON FOR STUDY: leukocytosis COMPARISON: 12/26/2017 EXAM PARAMETERS: NUMBER OF VIEWS: One view. TECHNIQUE: Single frontal radiographic view of the chest acquired. RADIATION DOSE: NA LIMITATIONS: None. FINDINGS: LUNGS AND PLEURA: There is patchy opacification in the medial right base. Mild pulmonary vascular prominence is present. There is mild peribronchial cuffing. MEDIASTINUM AND HILAR STRUCTURES: No masses. Contour normal. HEART AND VASCULAR STRUCTURES: Heart normal in size. Normal vasculature. BONES: No acute findings. HARDWARE: Mild scoliosis. OTHER: No other significant finding. IMPRESSION: Cannot exclude limited right lower lobe pneumonia. Mild pulmonary edema is suggested. TECHNICAL DOCUMENTATION: JOB ID: [id number] [employer]- All Rights Reserved Reading location - IP/workstation name: [email or web address]
[2018-06-20] MEDS ORDERED: KETOROLAC TROMETHAMINE INJ/PF 30 MG/1 ML SDV IV ONE (21:15)
[2018-06-20] MEDS ORDERED: NORMAL SALINE 1000 ML 1,000 ML IV PRN (21:35)
[2018-06-20] MEDS ORDERED: CEFTRIAXONE 1 GM/D5W RTU 1 GM/50 ML RTUPB IV SCH (22:00)
[2018-06-20] MEDS: FAMOTIDINE 20 MG TABLET PO SCH (22:10)
[2018-06-20] MEDS: MORPHINE SULFATE 10 MG/ML INJ IV PRN (22:25)
--- NOTE | 2018-06-20 22:28 | PDOC H&P ---
History of Present Illness Admission Date/PCP: 06/20/18 20:06 STEFFEN LIRA Patient complains of: Shoulder pain, back pain History of Present Illness: LYN ALBERT is a 73 year old female with history of hypertension, COPD who is active smoker, substance abuse cocaine and marijuana, chronic arthritis, chronic shoulder pain presents to the emergency room of complain with increasing and worsening right-sided shoulder pain along with worsening back pain and generalized weakness. Patient has history of chronic arthritis and chronic back pain as well as shoulder pain. Patient reports worsening of pain for last couple of days. Patient has been scheduled for right shoulder surgery by orthopedics. Patient went to orthopedic office today and was sent to the emergency room. Patient denies fever or chills or cough but has baseline shortness of breath. Patient denies nausea vomiting or diarrhea. Patient denies urinary symptoms or chest pain or shortness of breath. On arrival to emergency room her vitals were stable except blood pressure was borderline 96/66. Her laboratory workup shows white count 22,000. Her chemistry shows potassium of 2.6 and sodium is 121. Creatinine is normal. UA is unremarkable. Urine tox is positive for cocaine and marijuana. Chest x-ray shows possible right lower lobe pneumonia. CT head is negative for acute process. Patient was referred to hospital service for admission. Past Medical History Cardiac Medical History: Reports: Congestive Heart Failure, Hypertension Pulmonary Medical History: Reports: Chronic Obstructive Pulmonary Disease (COPD) , Pneumonia Denies: Tuberculosis EENT Medical History: Reports: None Neurological Medical History: Reports: None Endocrine Medical History: Reports: None Renal/ Medical History: Reports: None Malignancy Medical History: Reports: None GI Medical History: Reports: None Musculoskeltal Medical History: Reports: Arthritis Skin Medical History: Reports: None Psychiatric Medical History: Reports: Bipolar Disorder, Depression Traumatic Medical History: Reports: None Hematology: Reports: Anemia Infectious Medical History: Reports: None Past Surgical History Past Surgical History: Reports: Hysterectomy, Orthopedic Surgery - back, neck, shoulder (03/24/15), Other - Lumpectomy, Exploratory laparotomy, Social History Information Source: Patient Lives with: Family Smoking Status: Current Every Day Smoker Frequency of Alcohol Use: Heavy Hx Recreational Drug Use: Yes Drugs: Cocaine, Marijuana Hx Prescription Drug Abuse: No Family History Family History: CAD Parental Family History Reviewed: No Children Family History Reviewed: No Sibling(s) Family History Reviewed.: No Medication/Allergy Home Medications: Amlodipine Besylate [Norvasc 10 mg Tablet] 10 mg PO DAILY 06/20/18 Ergocalciferol (Vitamin D2) [Drisdol 50,000 unit (1.25MG) Capsule] 50,000 unit PO MO@1000 06/20/18 Ferrous Sulfate [Feosol 325 mg Tablet] 325 mg PO BID 06/20/18 Furosemide [Lasix 20 mg Tablet] 20 mg PO DAILY 06/20/18 Hydralazine HCl [Apresoline 50 mg Tablet] 50 mg PO Q8 06/20/18 Losartan/Hydrochlorothiazide [Losartan-Hctz 100-25 mg Tab] 1 tab PO DAILY Magnesium Oxide [Mag-Ox 400 mg Tablet] 400 mg PO DAILY 06/20/18 Metoprolol Tartrate [Lopressor 25 mg Tablet] 25 mg PO Q12 06/20/18 Pantoprazole Sodium [Protonix] 40 mg PO BID 06/20/18 Potassium Chloride [Klor-Con 10 Meq Capsule ER] 10 meq PO DAILY 06/20/18 Allergies/Adverse Reactions: No Known Allergies Allergy (Verified 06/20/18 14:19) Review of Systems All systems: reviewed and no additional remarkable complaints except as stated Constitutional: ABSENT: fever(s) Physical Exam Vital Signs: Temp Pulse Resp BP Pulse Ox 99.1 F 64 18 95/60 L 97 06/20/18 14:21 06/20/18 14:21 06/20/18 14:21 06/20/18 14:21 06/20/18 14:21 General appearance: PRESENT: cooperative, disheveled, mild distress Head exam: PRESENT: atraumatic, normocephalic Mouth exam: PRESENT: dry mucosa, neck supple Neck exam: ABSENT: carotid bruit, JVD Respiratory exam: PRESENT: clear to auscultation waylon. ABSENT: crackles, rhonchi , wheezes Cardiovascular exam: PRESENT: RRR, +S1, +S2. ABSENT: rubs, systolic murmur GI/Abdominal exam: PRESENT: hernia, normal bowel sounds, soft. ABSENT: ascites , organolmegaly, tenderness Rectal exam: PRESENT: deferred Gentrourinary exam: ABSENT: ecchymosis, erythema, lacerations, lesions, scrotal swelling, testicular tenderness, urethral discharge, indwelling catheter, other Extremities exam: ABSENT: calf tenderness, clubbing, full ROM, joint swelling, pedal edema, tenderness, +1 edema, +2 edema, other Musculoskeletal exam: PRESENT: ambulatory Neurological exam: PRESENT: alert, altered, awake, oriented to person, oriented to place, oriented to time, oriented to situation. ABSENT: motor sensory deficit Psychiatric exam: ABSENT: homicidal ideation, suicidal ideation Skin exam: ABSENT: rash Results Laboratory Results: Labs reviewed. Impressions: Head CT 06/20/18 16:50 IMPRESSION: MILD CHRONIC CHANGES OF ATROPHY AND MICROVASCULAR ISCHEMIA. NO ACUTE PROCESS. EVIDENCE OF ACUTE STROKE: NO. Chest X-Ray 06/20/18 20:35 IMPRESSION: Cannot exclude limited right lower lobe pneumonia. Mild pulmonary edema is suggested. Status: Image reviewed by me Assessment & Plan - Diagnosis (1) Pneumonia Qualifiers: Pneumonia type: due to unspecified organism Laterality: right Lung location: lower lobe of lung Qualified Code(s): J18.1 - Lobar pneumonia, unspecified organism Is this a current diagnosis for this admission?: Yes Plan: Patient has a leukocytosis with right lower lobe pneumonia. Patient is not hypoxic but has borderline blood pressure. We will start patient on IV antibiotic and obtain sputum culture and follow blood culture. (2) Hypokalemia Is this a current diagnosis for this admission?: Yes Plan: Secondary to diuretic use. Patient has chronic hypokalemia. Currently on potassium supplement. We will continue supplement and recheck potassium. (3) Hyponatremia Is this a current diagnosis for this admission?: Yes Plan: Likely secondary to dehydration and diuretic use. Continue gentle IV fluid and recheck sodium every 4 hours. (4) COPD (chronic obstructive pulmonary disease) Qualifiers: COPD type: unspecified COPD Qualified Code(s): J44.9 - Chronic obstructive pulmonary disease, unspecified Plan: No signs of exacerbation. Will continue nebs as needed. (5) Shoulder pain, right Qualifiers: Chronicity: chronic Qualified Code(s): M25.511 - Pain in right shoulder; G89.29 - Other chronic pain; G89.29 - Other chronic pain Is this a current diagnosis for this admission?: No Plan: Patient with acute on chronic shoulder pain. Patient has severe arthritis. Continue pain medication. - Time Time Spent: 50 to 70 Minutes - Inpatient Certification Based on my medical assessment, after consideration of the patient's comorbidities, presenting symptoms, or acuity I expect that the services needed warrant INPATIENT care.: Yes I certify that my determination is in accordance with my understanding of Medicare's requirements for reasonable and necessary INPATIENT services [42 CFR 412.3e].: Yes Medical Necessity: Need For IV Fluids, Need for IV Antibiotics
[2018-06-20] MEDS ORDERED: CEFTRIAXONE 1 GM/D5W RTU 1 GM/50 ML RTUPB IV ONE (23:00)
[2018-06-20] MEDS ORDERED: AZITHROMYCIN 500 MG in DEXTROSE 5%-WATER 250 ML IV ONE (23:00)
[2018-06-20] MEDS ORDERED: AZITHROMYCIN INJ 500 MG VIAL IV PRN (23:00)
[2018-06-20] MEDS ORDERED: CEFTRIAXONE INJ 1000 MG VIAL ONE (23:06)
[2018-06-21] MEDS: MORPHINE SULFATE 10 MG/ML INJ IV PRN (06:32)
[2018-06-21 06:35] LABS: ALANINE AMINOTRANSFERASE 22 U/L (9-52); ALBUMIN 3.7 g/dL (3.5-5.0); ALKALINE PHOSPHATASE 46 U/L (38-126); ANION GAP 15 (5-19); ASPARTATE AMINO TRANSFERASE 21 U/L (14-36); BILIRUBIN,DIRECT 0.3 mg/dL (0.0-0.4); BILIRUBIN,TOTAL 0.4 mg/dL (0.2-1.3); BLOOD UREA NITROGEN 28 mg/dL (7-20); CALCIUM 8.9 mg/dL (8.4-10.2); CARBON DIOXIDE 21 mmol/L (22-30); CHLORIDE 85 mmol/L (98-107); GLUCOSE 82 mg/dL (75-110); TOTAL PROTEIN 6.2 g/dL (6.3-8.2)
[2018-06-21 06:42] LABS: POTASSIUM 2.6 mmol/L (3.6-5.0)
[2018-06-21] MEDS ORDERED: POTASSIUM CHLORIDE 10 MEQ CAPSULE.ER PO ONE ×5 (06:53→11:00)
[2018-06-21 07:31] LABS: HEMATOCRIT 27.5 % (36.0-47.0); HEMOGLOBIN 9.4 g/dL (12.0-15.5); MEAN CORPUSCULAR HEMOGLOBIN 30.8 pg (27.0-33.4); MEAN CORPUSCULAR HGB CONC 34.1 g/dL (32.0-36.0); MEAN CORPUSCULAR VOLUME 90 fl (80-97); PLATELET COUNT 364 10^3/uL (150-450); RED BLOOD COUNT 3.05 10^6/uL (3.72-5.28); WHITE BLOOD COUNT 22.1 10^3/uL (4.0-10.5)
[2018-06-21 08:09] LABS: ABSOLUTE LYMPHOCYTES# (MANUAL) 1.5 10^3/uL (0.5-4.7); ABSOLUTE MONOCYTES # (MANUAL) 0.4 10^3/uL (0.1-1.4); BASOPHILS % (MANUAL) 0 % (0-2); EOSINOPHILS % (MANUAL) 1 % (0-6); LYMPHOCYTES % (MANUAL) 7 % (13-45); MONOCYTES % (MANUAL) 2 % (3-13); SEGMENTED NEUTROPHILS % (MAN) 87 % (42-78); TOTAL CELLS COUNTED 100
[2018-06-21 08:11] LABS: ABSOLUTE NEUTROPHILS# (MANUAL) 19.9 10^3/uL (1.7-8.2); BAND NEUTROPHILS % (MANUAL) 3 % (3-5)
[2018-06-21 08:12] LABS: PLATELET COMMENT ADEQUATE; RBC MORPHOLOGY COMMENT NORMO-CYTIC/CHROMIC
[2018-06-21] MEDS: FERROUS SULFATE 325 MG TABLET PO SCH ×2 (09:32→18:51)
[2018-06-21] MEDS: MAGNESIUM OXIDE 400 MG TABLET PO SCH (09:33)
[2018-06-21] MEDS: FAMOTIDINE 20 MG TABLET PO SCH (09:34)
[2018-06-21] MEDS ORDERED: LOSARTAN POTASSIUM 50 MG TABLET PO SCH (10:00)
[2018-06-21] MEDS ORDERED: POTASSIUM CHLORIDE 10 MEQ CAPSULE.ER PO SCH (10:00)
[2018-06-21] MEDS ORDERED: HYDROCHLOROTHIAZIDE 25 MG TABLET PO SCH (10:00)
[2018-06-21] MEDS: LANSOPRAZOLE 30 MG TAB.RAP.DR PO SCH ×2 (15:31→21:05)
[2018-06-21] MEDS ORDERED: IPRATROPIUM/ALBUTEROL 0.5-2.5 MG/3 ML AMPUL NEB PRN (15:32)
--- NOTE | 2018-06-21 17:25 | PDOC PROGRESS REPORT ---
Subjective Progress Note for:: 06/21/18 Subjective:: Pt has received multiple doses of KCL IV and is on IV fluids and narcotics and body pains has decreased. Pt is still at ED waiting for bed. We will keep her on antibiotics and monitor her closely. Counseling on polysubstance abuse and smoking cessation. Reason For Visit: HYPONA, HYPOKALEMIA Physical Exam Vital Signs: Temp Pulse Resp BP Pulse Ox 98.4 F 79 25 H 88/57 L 93 06/21/18 15:00 06/21/18 12:46 06/21/18 15:01 06/21/18 15:00 06/21/18 15:01 Intake & Output 06/20/18 06/21/18 06/22/18 06:59 06:59 06:59 Intake Total 250 Balance 250 General appearance: PRESENT: no acute distress, cooperative, well-developed, well-nourished Head exam: PRESENT: atraumatic, normocephalic Eye exam: PRESENT: EOMI, PERRLA Ear exam: PRESENT: TM's normal bilaterally Mouth exam: PRESENT: neck supple, tongue midline Neck exam: PRESENT: full ROM Respiratory exam: PRESENT: crackles, decreased breath sounds, symmetrical Cardiovascular exam: PRESENT: +S1, +S2 Pulses: PRESENT: +2 pedal pulses bilateral GI/Abdominal exam: PRESENT: normal bowel sounds, soft Rectal exam: PRESENT: deferred Neurological exam: PRESENT: alert, awake, oriented to person, oriented to place , oriented to time Psychiatric exam: PRESENT: normal mood Results Laboratory Results: 06/21/18 06:00 06/21/18 11:40 06/20/18 06/21/18 06/21/18 23:52 06:00 06:00 WBC 22.1 H RBC 3.05 L Hgb 9.4 L Hct 27.5 L MCV 90 MCH 30.8 MCHC 34.1 RDW 14.0 Plt Count 364 Seg Neutrophils % Not Reportable Lymphocytes % Not Reportable Monocytes % Not Reportable Eosinophils % Not Reportable Basophils % Not Reportable Absolute Neutrophils Not Reportable Absolute Lymphocytes Not Reportable Absolute Monocytes Not Reportable Absolute Eosinophils Not Reportable Absolute Basophils Not Reportable Sodium 120.4 L* 121.0 L Potassium 2.6 L* Chloride 85 L Carbon Dioxide 21 L Anion Gap 15 BUN 28 H Creatinine 1.01 Est GFR ( Amer) > 60 Est GFR (Non-Af Amer) 54 L Glucose 82 Calcium 8.9 Total Bilirubin 0.4 AST 21 ALT 22 Alkaline Phosphatase 46 Total Protein 6.2 L Albumin 3.7 TSH 06/21/18 06/21/18 06:00 11:40 WBC RBC Hgb Hct MCV MCH MCHC RDW Plt Count Seg Neutrophils % Lymphocytes % Monocytes % Eosinophils % Basophils % Absolute Neutrophils Absolute Lymphocytes Absolute Monocytes Absolute Eosinophils Absolute Basophils Sodium 120.6 L* Potassium Chloride Carbon Dioxide Anion Gap BUN Creatinine Est GFR ( Amer) Est GFR (Non-Af Amer) Glucose Calcium Total Bilirubin AST ALT Alkaline Phosphatase Total Protein Albumin TSH 1.59 Impressions: Head CT 06/20/18 16:50 IMPRESSION: MILD CHRONIC CHANGES OF ATROPHY AND MICROVASCULAR ISCHEMIA. NO ACUTE PROCESS. EVIDENCE OF ACUTE STROKE: NO. Chest X-Ray 06/20/18 20:35 IMPRESSION: Cannot exclude limited right lower lobe pneumonia. Mild pulmonary edema is suggested. Assessment & Plan - Diagnosis (1) Pneumonia Qualifiers: Pneumonia type: due to unspecified organism Laterality: right Lung location: lower lobe of lung Qualified Code(s): J18.1 - Lobar pneumonia, unspecified organism Is this a current diagnosis for this admission?: Yes Plan: Ct with Rocephin 1 G qd IV; Azithromycin 500 mg qd IV; Tylenol 650 mg q6h prn po. (2) Hypokalemia Is this a current diagnosis for this admission?: Yes Plan: Ct with IV fluids normal saline with 20 MEQ of KCL at 100 cc/hr; ct with KCL 20 MEQ qd po; monitor chemistries daily. (3) Hyponatremia Is this a current diagnosis for this admission?: Yes Plan: Ct with IV fluids normal saline at 100 cc/hr; fluid restriction; D/C HCTZ. Monitor chemistries daily. (4) Shoulder pain, right Qualifiers: Chronicity: chronic Qualified Code(s): M25.511 - Pain in right shoulder; G89.29 - Other chronic pain; G89.29 - Other chronic pain Is this a current diagnosis for this admission?: Yes Plan: Ct with Morphine 2mg q4h IV prn; Percocet 5/325 1 q6h prn po. (5) COPD (chronic obstructive pulmonary disease) Qualifiers: COPD type: unspecified COPD Qualified Code(s): J44.9 - Chronic obstructive pulmonary disease, unspecified Is this a current diagnosis for this admission?: Yes Plan: Ct with Duonebs q6h prn. (6) CHF (congestive heart failure) Qualifiers: Qualified Code(s): I50.32 - Chronic diastolic (congestive) heart failure Is this a current diagnosis for this admission?: Yes Plan: Hold Lasix 20 mg qd due to hyponatremia and hypokalemia. Strict input/output chart; Monitor chemistries daily. (7) Hypomagnesemia Is this a current diagnosis for this admission?: Yes Plan: Ct with Mg oxide 400 mg qd po. (8) Peptic ulcer disease Is this a current diagnosis for this admission?: Yes Plan: Ct with Prevacid 30 mg qd po since we do not have Protonix po in our formulary. (9) Anemia Qualifiers: Anemia type: iron deficiency Is this a current diagnosis for this admission?: Yes Plan: Ct with FeSO4 325 mg BID po; monitor CBC daily. (10) Cocaine abuse Is this a current diagnosis for this admission?: Yes Plan: Counseling on polysubstance abuse. (11) Tobacco abuse Is this a current diagnosis for this admission?: Yes Plan: Smoking cessation counseling. (12) DVT prophylaxis Is this a current diagnosis for this admission?: Yes Plan: Ct with Lovenox 30 mg qd subcut; SCD.
[2018-06-21] MEDS: OXYCODONE-ACETAMINOPHEN 5-325 MG TABLET PO PRN (18:49)
[2018-06-21] MEDS: POTASSIUM CHLORIDE 10 MEQ CAPSULE.ER PO SCH (18:51)
[2018-06-21] MEDS: CEFTRIAXONE SODIUM 1,000 MG in DEXTROSE 5%-WATER 50 ML IV SCH (22:00)
[2018-06-21] MEDS: AZITHROMYCIN 500 MG in DEXTROSE 5%-WATER 250 ML IV SCH (22:00)
[2018-06-21] MEDS ORDERED: CEFTRIAXONE 1 GM/D5W RTU 1 GM/50 ML RTUPB IV SCH (22:00)
[2018-06-21] MEDS ORDERED: AZITHROMYCIN INJ 500 MG VIAL IV SCH (22:00)
[2018-06-21] MEDS: ENOXAPARIN SODIUM INJ 30 MG/0.3 ML DISP.SYRIN SUBCUT SCH (22:01)
[2018-06-21] MEDS: POTASSI CL 20 MEQ/NS 1L 1,000 ML IV PRN (23:16)
[2018-06-22] MEDS: OXYCODONE-ACETAMINOPHEN 5-325 MG TABLET PO PRN ×4 (04:07→23:30)
[2018-06-22] MEDS: LANSOPRAZOLE 30 MG TAB.RAP.DR PO SCH ×2 (05:25→17:28)
[2018-06-22 06:53] LABS: ABSOLUTE BASOPHILS # (AUTO) 0.1 10^3/uL (0.0-0.2); ABSOLUTE LYMPHOCYTES (AUTO) 1.4 10^3/uL (0.5-4.7); ABSOLUTE MONOCYTES (AUTO) 0.9 10^3/uL (0.1-1.4); ABSOLUTE NEUT (AUTO) 15.4 10^3/uL (1.7-8.2); BASOPHILS % (AUTO) 0.5 % (0-2); EOSINOPHILS % (AUTO) 0.2 % (0-6); HEMATOCRIT 26.7 % (36.0-47.0); HEMOGLOBIN 9.2 g/dL (12.0-15.5); LYMPHOCYTES % (AUTO) 7.6 % (13-45); MEAN CORPUSCULAR HEMOGLOBIN 31.4 pg (27.0-33.4); MEAN CORPUSCULAR HGB CONC 34.5 g/dL (32.0-36.0); MEAN CORPUSCULAR VOLUME 91 fl (80-97); MONOCYTES % (AUTO) 5.2 % (3-13); PLATELET COUNT 326 10^3/uL (150-450); RED BLOOD COUNT 2.93 10^6/uL (3.72-5.28); RED CELL DISTRIBUTION WIDTH 13.9 % (11.5-14.0); SEGMENTED NEUTROPHILS % (AUTO) 86.5 % (42-78); TOTAL CELLS COUNTED % (AUTO) 100 %; WHITE BLOOD COUNT 17.9 10^3/uL (4.0-10.5)
[2018-06-22 07:19] LABS: ALANINE AMINOTRANSFERASE 21 U/L (9-52); ALBUMIN 3.6 g/dL (3.5-5.0); ALKALINE PHOSPHATASE 60 U/L (38-126); ANION GAP 12 (5-19); ASPARTATE AMINO TRANSFERASE 18 U/L (14-36); BILIRUBIN,DIRECT 0.3 mg/dL (0.0-0.4); BILIRUBIN,TOTAL 0.4 mg/dL (0.2-1.3); BLOOD UREA NITROGEN 19 mg/dL (7-20); CARBON DIOXIDE 21 mmol/L (22-30); CHLORIDE 94 mmol/L (98-107); GLUCOSE 101 mg/dL (75-110); SODIUM 126.9 mmol/L (137-145); TOTAL PROTEIN 6.3 g/dL (6.3-8.2)
[2018-06-22 07:28] LABS: POTASSIUM 3.7 mmol/L (3.6-5.0)
[2018-06-22] MEDS: FERROUS SULFATE 325 MG TABLET PO SCH ×3 (09:55→17:27)
[2018-06-22] MEDS: MAGNESIUM OXIDE 400 MG TABLET PO SCH (09:55)
[2018-06-22] MEDS: ENOXAPARIN SODIUM INJ 30 MG/0.3 ML DISP.SYRIN SUBCUT SCH (09:57)
[2018-06-22] MEDS: POTASSI CL 20 MEQ/NS 1L 1,000 ML IV PRN ×2 (10:00→22:50)
[2018-06-22] MEDS: ACETAMINOPHEN 325 MG TABLET PO PRN ×2 (11:30→20:17)
[2018-06-22] MEDS: MORPHINE SULFATE 10 MG/ML INJ IV PRN (12:58)
--- NOTE | 2018-06-22 14:26 | PDOC PROGRESS REPORT ---
Subjective Progress Note for:: 06/22/18 Subjective:: Pt is feeling better, though she still complains of shoulder and neck pain.Her WBC is decreased to 17.9; her sodium increased to 126.8 and potassium is back to normal at 3.7. We will still keep her for the weekend and monitor her closely. Hospitalists will take over her care for the weekend. Reason For Visit: HYPONA, HYPOKALEMIA Physical Exam Vital Signs: Temp Pulse Resp BP Pulse Ox 98.5 F 85 16 131/76 H 99 06/22/18 07:44 06/22/18 10:33 06/22/18 10:33 06/22/18 07:44 06/22/18 10:33 Intake & Output 06/21/18 06/22/18 06/23/18 06:59 06:59 06:59 Intake Total 065 766 0579 Output Total 350 Balance 374 272 5555 Weight 53.2 kg General appearance: PRESENT: no acute distress, cooperative, well-developed, well-nourished Head exam: PRESENT: atraumatic, normocephalic Eye exam: PRESENT: EOMI, PERRLA Ear exam: PRESENT: normal external ear exam, TM's normal bilaterally Mouth exam: PRESENT: neck supple, tongue midline Respiratory exam: PRESENT: clear to auscultation waylon, decreased breath sounds, symmetrical Cardiovascular exam: PRESENT: +S1, +S2 GI/Abdominal exam: PRESENT: normal bowel sounds, soft Rectal exam: PRESENT: deferred Extremities exam: PRESENT: full ROM Musculoskeletal exam: PRESENT: full ROM Neurological exam: PRESENT: alert, awake, oriented to person, oriented to place , oriented to time Psychiatric exam: PRESENT: normal mood Results Laboratory Results: 06/22/18 05:59 06/22/18 05:59 06/21/18 06/22/18 06/22/18 18:11 05:59 05:59 WBC 17.9 H RBC 2.93 L Hgb 9.2 L Hct 26.7 L MCV 91 MCH 31.4 MCHC 34.5 RDW 13.9 Plt Count 326 Seg Neutrophils % 86.5 H Lymphocytes % 7.6 L Monocytes % 5.2 Eosinophils % 0.2 Basophils % 0.5 Absolute Neutrophils 15.4 H Absolute Lymphocytes 1.4 Absolute Monocytes 0.9 Absolute Eosinophils 0.0 Absolute Basophils 0.1 Sodium 121.5 L 126.9 L Potassium 3.7 D Chloride 94 L Carbon Dioxide 21 L Anion Gap 12 BUN 19 Creatinine 0.71 Est GFR ( Amer) > 60 Est GFR (Non-Af Amer) > 60 Glucose 101 Calcium 9.0 Magnesium 1.9 Total Bilirubin 0.4 AST 18 ALT 21 Alkaline Phosphatase 60 Total Protein 6.3 Albumin 3.6 Impressions: Head CT 06/20/18 16:50 IMPRESSION: MILD CHRONIC CHANGES OF ATROPHY AND MICROVASCULAR ISCHEMIA. NO ACUTE PROCESS. EVIDENCE OF ACUTE STROKE: NO. Chest X-Ray 06/20/18 20:35 IMPRESSION: Cannot exclude limited right lower lobe pneumonia. Mild pulmonary edema is suggested. Assessment & Plan - Diagnosis (1) Pneumonia Qualifiers: Pneumonia type: due to unspecified organism Laterality: right Lung location: lower lobe of lung Qualified Code(s): J18.1 - Lobar pneumonia, unspecified organism Is this a current diagnosis for this admission?: Yes Plan: Ct with Rocephin 1 G qd IV; Azithromycin 500 mg qd IV; Tylenol 650 mg q6h prn po. (2) Hypokalemia Is this a current diagnosis for this admission?: Yes Plan: Ct with IV fluids normal saline with 20 MEQ of KCL at 100 cc/hr; ct with KCL 20 MEQ qd po; monitor chemistries daily. (3) Hyponatremia Is this a current diagnosis for this admission?: Yes Plan: Ct with IV fluids normal saline at 100 cc/hr; fluid restriction; D/C HCTZ. Monitor chemistries daily. (4) Shoulder pain, right Qualifiers: Chronicity: chronic Qualified Code(s): M25.511 - Pain in right shoulder; G89.29 - Other chronic pain; G89.29 - Other chronic pain Is this a current diagnosis for this admission?: Yes Plan: Ct with Morphine 2mg q4h IV prn; Percocet 5/325 1 q6h prn po. (5) COPD (chronic obstructive pulmonary disease) Qualifiers: COPD type: unspecified COPD Qualified Code(s): J44.9 - Chronic obstructive pulmonary disease, unspecified Is this a current diagnosis for this admission?: Yes Plan: Ct with Duonebs q6h prn. (6) CHF (congestive heart failure) Qualifiers: Qualified Code(s): I50.32 - Chronic diastolic (congestive) heart failure Is this a current diagnosis for this admission?: Yes Plan: Hold Lasix 20 mg qd due to hyponatremia and hypokalemia. Strict input/output chart; Monitor chemistries daily. (7) Hypomagnesemia Is this a current diagnosis for this admission?: Yes Plan: Ct with Mg oxide 400 mg qd po. (8) Peptic ulcer disease Is this a current diagnosis for this admission?: Yes Plan: Ct with Prevacid 30 mg qd po since we do not have Protonix po in our formulary. (9) Anemia Qualifiers: Anemia type: iron deficiency Is this a current diagnosis for this admission?: Yes Plan: Ct with FeSO4 325 mg BID po; monitor CBC daily. (10) Cocaine abuse Is this a current diagnosis for this admission?: Yes Plan: Counseling on polysubstance abuse. (11) Tobacco abuse Is this a current diagnosis for this admission?: Yes Plan: Smoking cessation counseling. (12) DVT prophylaxis Is this a current diagnosis for this admission?: Yes Plan: Ct with Lovenox 30 mg qd subcut; SCD.
[2018-06-22] MEDS: POTASSIUM CHLORIDE 10 MEQ CAPSULE.ER PO SCH (17:27)
--- NOTE | 2018-06-22 17:29 | PDOC DISCHARGE SUMMARY ---
General - Admit/Disc Date/PCP Admission Date/Primary Care Provider: 06/20/18 20:06 STEFFEN LIRA Discharge Date: 06/22/18 - Discharge Diagnosis (1) Pneumonia Is this a current diagnosis for this admission?: Yes (2) Hypokalemia Is this a current diagnosis for this admission?: Yes (3) Hyponatremia Is this a current diagnosis for this admission?: Yes (4) Shoulder pain, right Is this a current diagnosis for this admission?: Yes (5) COPD (chronic obstructive pulmonary disease) Is this a current diagnosis for this admission?: Yes (6) CHF (congestive heart failure) Is this a current diagnosis for this admission?: Yes (7) Hypomagnesemia Is this a current diagnosis for this admission?: Yes (8) Peptic ulcer disease Is this a current diagnosis for this admission?: Yes (9) Anemia Is this a current diagnosis for this admission?: Yes (10) Cocaine abuse Is this a current diagnosis for this admission?: Yes (11) Tobacco abuse Is this a current diagnosis for this admission?: Yes (12) DVT prophylaxis Is this a current diagnosis for this admission?: Yes - Additional Information Resuscitation Status: Full Code Home Medications: Amlodipine Besylate [Norvasc 10 mg Tablet] 10 mg PO DAILY 06/20/18 Ergocalciferol (Vitamin D2) [Drisdol 50,000 unit (1.25MG) Capsule] 50,000 unit PO MO@1000 06/20/18 Ferrous Sulfate [Feosol 325 mg Tablet] 325 mg PO BID 06/20/18 Furosemide [Lasix 20 mg Tablet] 20 mg PO DAILY 06/20/18 Hydralazine HCl [Apresoline 50 mg Tablet] 50 mg PO Q8 06/20/18 Losartan/Hydrochlorothiazide [Losartan-Hctz 100-25 mg Tab] 1 tab PO DAILY Magnesium Oxide [Mag-Ox 400 mg Tablet] 400 mg PO DAILY 06/20/18 Metoprolol Tartrate [Lopressor 25 mg Tablet] 25 mg PO Q12 06/20/18 Pantoprazole Sodium [Protonix] 40 mg PO BID 06/20/18 Potassium Chloride [Klor-Con 10 Meq Capsule ER] 10 meq PO DAILY 06/20/18 History of Present Illness History of Present Illness: LYN ALBERT is a 73 year old female Hospital Course Hospital Course: 73 year old woman who was admitted for community acquired pneumonia/Hypokalemia/ Hyponatremia. She had KCL IV 20 MEQ multiple doses and was put on IV fluids normal saline on 100cc/hour and IV Rocephin 1 G daily IV, Azithromycin 500 mg daily IV.Her potassium is back to normal and both sodium and WBC are trending back to normal.She had counseling for polysubstance abuse and smoking cessation. Pt was given Morphine IV and Percocet for right shoulder pain and neck pain.Patient is requesting for discharge home. We will get repeat Chem. 7 and if sodium is more than 132, she will discharged home this evening, otherwise she will be discharged home tomorrow. Patient will follow up with me in the office within the next 1 week. Physical Exam Vital Signs: Temp Pulse Resp BP Pulse Ox 98.4 F 82 16 127/78 H 98 06/22/18 11:32 06/22/18 15:50 06/22/18 15:50 06/22/18 11:32 06/22/18 15:50 Intake & Output 06/21/18 06/22/18 06/23/18 06:59 06:59 06:59 Intake Total 096 677 2219 Output Total 350 Balance 633 779 6219 Weight 53.2 kg General appearance: PRESENT: no acute distress, cooperative, well-developed, well-nourished Head exam: PRESENT: atraumatic, normocephalic Eye exam: PRESENT: EOMI, PERRLA Ear exam: PRESENT: normal external ear exam, TM's normal bilaterally Mouth exam: PRESENT: neck supple Neck exam: PRESENT: full ROM Respiratory exam: PRESENT: clear to auscultation waylon, symmetrical Cardiovascular exam: PRESENT: +S1, +S2 Results Laboratory Results: 06/22/18 05:59 06/22/18 05:59 06/21/18 06/22/18 06/22/18 18:11 05:59 05:59 WBC 17.9 H RBC 2.93 L Hgb 9.2 L Hct 26.7 L MCV 91 MCH 31.4 MCHC 34.5 RDW 13.9 Plt Count 326 Seg Neutrophils % 86.5 H Lymphocytes % 7.6 L Monocytes % 5.2 Eosinophils % 0.2 Basophils % 0.5 Absolute Neutrophils 15.4 H Absolute Lymphocytes 1.4 Absolute Monocytes 0.9 Absolute Eosinophils 0.0 Absolute Basophils 0.1 Sodium 121.5 L 126.9 L Potassium 3.7 D Chloride 94 L Carbon Dioxide 21 L Anion Gap 12 BUN 19 Creatinine 0.71 Est GFR ( Amer) > 60 Est GFR (Non-Af Amer) > 60 Glucose 101 Calcium 9.0 Magnesium 1.9 Total Bilirubin 0.4 AST 18 ALT 21 Alkaline Phosphatase 60 Total Protein 6.3 Albumin 3.6 Impressions: Head CT 06/20/18 16:50 IMPRESSION: MILD CHRONIC CHANGES OF ATROPHY AND MICROVASCULAR ISCHEMIA. NO ACUTE PROCESS. EVIDENCE OF ACUTE STROKE: NO. Chest X-Ray 06/20/18 20:35 IMPRESSION: Cannot exclude limited right lower lobe pneumonia. Mild pulmonary edema is suggested. Qualifiers - * PATIENT BEING DISCHARGED WITH ANY OF THE FOLLOWING DIAGNOSIS: No
[2018-06-22 18:33] LABS: ANION GAP 14 (5-19); BLOOD UREA NITROGEN 14 mg/dL (7-20); CALCIUM 9.7 mg/dL (8.4-10.2); CARBON DIOXIDE 21 mmol/L (22-30); CHLORIDE 94 mmol/L (98-107); GLUCOSE 100 mg/dL (75-110); POTASSIUM 4.3 mmol/L (3.6-5.0); SODIUM 129.3 mmol/L (137-145)
[2018-06-22] MEDS: CEFTRIAXONE SODIUM 1,000 MG in DEXTROSE 5%-WATER 50 ML IV SCH (22:11)
[2018-06-22] MEDS: AZITHROMYCIN 500 MG in DEXTROSE 5%-WATER 250 ML IV SCH (22:51)
[2018-06-23 05:44] LABS: ABSOLUTE BASOPHILS # (AUTO) 0.1 10^3/uL (0.0-0.2); ABSOLUTE EOSINOPHILS # (AUTO) 0.1 10^3/uL (0.0-0.6); ABSOLUTE LYMPHOCYTES (AUTO) 1.2 10^3/uL (0.5-4.7); ABSOLUTE MONOCYTES (AUTO) 0.6 10^3/uL (0.1-1.4); ABSOLUTE NEUT (AUTO) 10.4 10^3/uL (1.7-8.2); BASOPHILS % (AUTO) 0.7 % (0-2); HEMATOCRIT 23.6 % (36.0-47.0); HEMOGLOBIN 8.1 g/dL (12.0-15.5); LYMPHOCYTES % (AUTO) 9.5 % (13-45); MEAN CORPUSCULAR HEMOGLOBIN 31.3 pg (27.0-33.4); MEAN CORPUSCULAR HGB CONC 34.4 g/dL (32.0-36.0); MEAN CORPUSCULAR VOLUME 91 fl (80-97); MONOCYTES % (AUTO) 5.1 % (3-13); PLATELET COUNT 336 10^3/uL (150-450); RED BLOOD COUNT 2.59 10^6/uL (3.72-5.28); RED CELL DISTRIBUTION WIDTH 13.9 % (11.5-14.0); SEGMENTED NEUTROPHILS % (AUTO) 83.7 % (42-78); TOTAL CELLS COUNTED % (AUTO) 100 %; WHITE BLOOD COUNT 12.4 10^3/uL (4.0-10.5)
[2018-06-23 06:15] LABS: ALANINE AMINOTRANSFERASE 22 U/L (9-52); ALBUMIN 3.1 g/dL (3.5-5.0); ALKALINE PHOSPHATASE 50 U/L (38-126); ANION GAP 11 (5-19); ASPARTATE AMINO TRANSFERASE 15 U/L (14-36); BILIRUBIN,DIRECT 0.3 mg/dL (0.0-0.4); BILIRUBIN,TOTAL 0.3 mg/dL (0.2-1.3); BLOOD UREA NITROGEN 9 mg/dL (7-20); CALCIUM 8.7 mg/dL (8.4-10.2); CARBON DIOXIDE 19 mmol/L (22-30); CHLORIDE 98 mmol/L (98-107); GLUCOSE 87 mg/dL (75-110); POTASSIUM 4.7 mmol/L (3.6-5.0); SODIUM 128.1 mmol/L (137-145); TOTAL PROTEIN 5.5 g/dL (6.3-8.2)
[2018-06-23] MEDS: LANSOPRAZOLE 30 MG TAB.RAP.DR PO SCH (06:17)
[2018-06-23 07:35] VITALS: BP 136/83
[2018-06-23] MEDS: OXYCODONE-ACETAMINOPHEN 5-325 MG TABLET PO PRN (07:50)
[2018-06-23] MEDS: ENOXAPARIN SODIUM INJ 30 MG/0.3 ML DISP.SYRIN SUBCUT SCH (09:18)
[2018-06-23] MEDS: FERROUS SULFATE 325 MG TABLET PO SCH (09:18)
[2018-06-23] MEDS: MAGNESIUM OXIDE 400 MG TABLET PO SCH (09:18)
== END 2018-06-23 09:58 | disposition home or self-care (01) | DRG 194 ==
LOC: ER 14:17 → EH 20:06 → 4N 06-21 20:47
PROVIDERS: ADMIT Internal Medicine; ATTEND Internal Medicine
DX: J18.9 Pneumonia, unspecified organism (principal); E87.1 Hypo-osmolality and hyponatremia; I50.32 Chronic diastolic (congestive) heart failure; F17.210 Nicotine dependence, cigarettes, uncomplicated; I11.0 Hypertensive heart disease with heart failure; F14.10 Cocaine abuse, uncomplicated; E83.42 Hypomagnesemia; J44.9 Chronic obstructive pulmonary disease, unspecified; E86.0 Dehydration; M19.90 Unspecified osteoarthritis, unspecified site; F31.9 Bipolar disorder, unspecified; Z90.710 Acquired absence of both cervix and uterus; F12.10 Cannabis abuse, uncomplicated; E87.6 Hypokalemia; G89.29 Other chronic pain; M25.511 Pain in right shoulder; K27.9 Peptic ulcer, site unspecified, unspecified as acute or chronic, without hemorrhage or perforation; D64.9 Anemia, unspecified
CPT/HCPCS: 36415; 70450; 71045; 80048; 80053; 80307; 81001; 83735; 84295; 84443; 85025; 87040; 87086; 94640; 96372; 99285; J0456; J0696; J1170; J1650; J1885; J2270; J3480; J7060; J7620

== ENCOUNTER 2019-08-11 12:30 | Inpatient (IN) | payer MEDICARE, BC ==
--- NOTE | 2019-08-11 12:50 | ER Document Report ---
ED Medical Screen (RME) - General Stated Complaint: BODY PAIN Time Seen by Provider: 08/11/19 12:44 Primary Care Provider: STEFFEN LIRA MD [Primary Care Provider] - Follow up as needed Mode of Arrival: Wheelchair Information source: Patient Notes: 74-year-old lady who presents emergency department with complaints of bilateral shoulder pain. Reports she is had chronic pain in her shoulders for over a month. Is taken Tylenol PM without relief of symptoms. Has history of arthritis. Also has a fractured ankle in a boot. Patient coughing seems short of breath, reports she has not smoked weed in 2 days. Denies EtOH. Difficult historian. I have greeted and performed a rapid initial assessment of this patient. A comprehensive ED assessment and evaluation of the patient, analysis of test results and completion of the medical decision making process will be conducted by additional ED providers. Dictation of this chart was performed using voice recognition software; therefore, there may be some unintended grammatical errors. TRAVEL OUTSIDE OF THE [place] IN LAST 30 DAYS: No - Related Data Allergies/Adverse Reactions: No Known Allergies Allergy (Verified 08/11/19 12:43) Past Medical History - Past Medical History Cardiac Medical History: Reports: Hx Congestive Heart Failure, Hx Hypertension Pulmonary Medical History: Reports: Hx COPD, Hx Pneumonia Denies: Hx Tuberculosis Renal/ Medical History: Denies: Hx Peritoneal Dialysis Musculoskeltal Medical History: Reports Hx Arthritis, Reports Hx Musculoskeletal Deformity, Reports Hx Musculoskeletal Trauma Psychiatric Medical History: Reports: Hx Bipolar Disorder, Hx Depression Past Surgical History: Reports: Hx Breast Surgery - left breast, Hx Hysterectomy, Hx Orthopedic Surgery - back, neck, shoulder (03/24/15), Other - Lumpectomy, Exploratory laparotomy, - Immunizations Immunizations up to date: No Hx Diphtheria, Pertussis, Tetanus Vaccination: No History of Influenza Vaccine for 08/2017 - 01/2018 Season: No Influenza Administration Date for 08/2017 - 01/2018 Season: 08/20/17 Doctor's Discharge - Discharge Referrals: STEFFEN LIRA MD [Primary Care Provider] - Follow up as needed
[2019-08-11 13:37] LABS: HEMATOCRIT 34.5 % (36.0-47.0); HEMOGLOBIN 11.9 g/dL (12.0-15.5); MEAN CORPUSCULAR HEMOGLOBIN 30.1 pg (27.0-33.4); MEAN CORPUSCULAR HGB CONC 34.5 g/dL (32.0-36.0); MEAN CORPUSCULAR VOLUME 87 fl (80-97); PLATELET COUNT 383 10^3/uL (150-450); RED BLOOD COUNT 3.94 10^6/uL (3.72-5.28); RED CELL DISTRIBUTION WIDTH 12.9 % (11.5-14.0); WHITE BLOOD COUNT 22.8 10^3/uL (4.0-10.5)
[2019-08-11 13:54] LABS: ALBUMIN 4.8 g/dL (3.5-5.0); ALKALINE PHOSPHATASE 65 U/L (38-126); ANION GAP 17 (5-19); ASPARTATE AMINO TRANSFERASE 37 U/L (14-36); BILIRUBIN,DIRECT 0.3 mg/dL (0.0-0.4); BILIRUBIN,TOTAL 0.7 mg/dL (0.2-1.3); BLOOD UREA NITROGEN 45 mg/dL (7-20); CALCIUM 9.6 mg/dL (8.4-10.2); CARBON DIOXIDE 24 mmol/L (22-30); CHLORIDE 79 mmol/L (98-107); CREATINE KINASE 192 U/L (30-135); GLUCOSE 86 mg/dL (75-110); TOTAL PROTEIN 7.9 g/dL (6.3-8.2)
[2019-08-11 13:58] LABS: POTASSIUM 2.9 mmol/L (3.6-5.0)
[2019-08-11 14:06] LABS: ABSOLUTE LYMPHOCYTES# (MANUAL) 1.8 10^3/uL (0.5-4.7); ABSOLUTE MONOCYTES # (MANUAL) 0.5 10^3/uL (0.1-1.4); BASOPHILS % (MANUAL) 0 % (0-2); EOSINOPHILS % (MANUAL) 0 % (0-6); LYMPHOCYTES % (MANUAL) 8 % (13-45); MONOCYTES % (MANUAL) 2 % (3-13); SEGMENTED NEUTROPHILS % (MAN) 90 % (42-78); TOTAL CELLS COUNTED 100
[2019-08-11 14:07] LABS: PLATELET COMMENT ADEQUATE; TOXIC GRANULATION 1+; TOXIC VACUOLATION PRESENT
--- NOTE | 2019-08-11 14:07 | ER Document Report ---
ED General - General Chief Complaint: Shoulder Pain Stated Complaint: BODY PAIN Time Seen by Provider: 08/11/19 12:44 Primary Care Provider: STEFFEN LIRA MD [Primary Care Provider] - Follow up as needed Mode of Arrival: Wheelchair Notes: 74-year-old female with history of chronic pain not seen by pain management presents to the emergency department with bilateral shoulder pain for over 1 month. Patient has tried to take Tylenol PM without resolution. Patient is a marijuana smoker has not smoked in 2 days. Patient denies any fevers or recent illness, denies any acute headache, denies any chest pain or acute shortness of breath, denies dyspnea on exertion, denies any recent weight gain, denies abdominal pain but states that she has a reducible umbilical hernia, denies any urinary symptoms. TRAVEL OUTSIDE OF THE [place] IN LAST 30 DAYS: No - Related Data Allergies/Adverse Reactions: No Known Allergies Allergy (Verified 08/11/19 12:43) Past Medical History - General Information source: Patient - Social History Smoking Status: Never Smoker Chew tobacco use (# tins/day): No Frequency of alcohol use: None Drug Abuse: Marijuana Family History: CAD Patient has suicidal ideation: No Patient has homicidal ideation: No - Past Medical History Cardiac Medical History: Reports: Hx Congestive Heart Failure, Hx Hypertension Pulmonary Medical History: Reports: Hx COPD, Hx Pneumonia Denies: Hx Tuberculosis Renal/ Medical History: Denies: Hx Peritoneal Dialysis Musculoskeletal Medical History: Reports Hx Arthritis, Reports Hx Musculoskeleta l Deformity, Reports Hx Musculoskeletal Trauma Psychiatric Medical History: Reports: Hx Bipolar Disorder, Hx Depression Past Surgical History: Reports: Hx Breast Surgery - left breast, Hx Hysterectomy, Hx Orthopedic Surgery - back, neck, shoulder (03/24/15), Other - Lumpectomy, Exploratory laparotomy, - Immunizations Immunizations up to date: No Hx Diphtheria, Pertussis, Tetanus Vaccination: No Hx Pneumococcal Vaccination: 11/20/12 Review of Systems - Review of Systems Constitutional: See HPI EENT: No symptoms reported Cardiovascular: See HPI Respiratory: See HPI Gastrointestinal: See HPI Genitourinary: See HPI Female Genitourinary: No symptoms reported Musculoskeletal: No symptoms reported Skin: No symptoms reported Hematologic/Lymphatic: No symptoms reported Neurological/Psychological: No symptoms reported Physical Exam - Vital signs Vitals: Temp 98.3 F 08/11/19 15:31 - Notes Notes: PHYSICAL EXAMINATION: Reviewed vital signs and charting by RN GENERAL: Alert, interacts well. No acute distress. HEAD: Normocephalic, atraumatic. EYES: Pupils equal and round. Extraocular movements intact. ENT: Oral mucosa moist, tongue midline. NECK: Full range of motion. Trachea midline. LUNGS: Clear to auscultation bilaterally, no wheezes, rales, or rhonchi. No respiratory distress. HEART: Regular rate and rhythm. No murmur ABDOMEN: soft, umbilical hernia that is easily reducible. Bowel sounds present EXTREMITIES: Moves all 4 extremities spontaneously. No edema, No cyanosis. PSYCH: Normal affect, normal mood. SKIN: Warm, dry, normal turgor. No rashes or lesions noted. Course - Re-evaluation Re-evalutation: 08/11/19 14:37 Patient presents with bilateral shoulder pain that is acute on chronic. Lab work was obtained which showed an incidental hyponatremia of 120.9 and hypokalemia of 2.9. I discussed with Dr. Coles, hospitalist, who states that the low sodium is chronic and most likely due to thiazide use. Also, plan is to replete her K and he does not feel that she meets admission criteria being asymptomatic at this time. Plan is to replete her potassium, I will get a repeat BMP, and give her some IV fluids. 08/11/19 17:[address] Morfin, hospitalist, after speaking with my attending, Dr. Dunlap. The bigger concern is the unexplained leukocytosis of 22,800. Patient was admitted last year for pneumonia and her white count was similar to that but did come down and she does not have a history of significant elevated white blood cell count. I explained this to Dr. Morfin who accepted the patient to the [facility] for sodium management and further evaluation - Vital Signs Vital signs: Temp Pulse Resp BP Pulse Ox 98.3 F 08/11/19 15:31 - Laboratory Result Diagrams: 08/11/19 13:00 08/11/19 13:00 Laboratory results interpreted by me: 08/11/19 08/11/19 13:00 13:00 WBC 22.8 H Hgb 11.9 L Hct 34.5 L Seg Neuts % (Manual) 90 H Lymphocytes % (Manual) 8 L Monocytes % (Manual) 2 L Abs Neuts (Manual) 20.5 H Sodium 120.2 L* Potassium 2.9 L* Chloride 79 L BUN 45 H Creatinine 1.35 H Est GFR ( Amer) 47 L Est GFR (MDRD) Non-Af 39 L AST 37 H Creatine Kinase 192 H Discharge - Discharge Clinical Impression: Hyponatremia, Hypokalemia Leukocytosis Qualifiers: Leukocytosis type: unspecified Qualified Code(s): D72.829 - Elevated white blood cell count, unspecified Condition: Stable Disposition: ADMITTED INPATIENT Admitting Provider: Shelbie (Hospitalist) Unit Admitted: IMCU Referrals: STEFFEN LIRA MD [Primary Care Provider] - Follow up as needed
[2019-08-11] MEDS ORDERED: NORMAL SALINE 1000 ML 1,000 ML IV ONE (14:08)
--- NOTE | 2019-08-11 14:09 | RADIOLOGY REPORT (SQ) ---
EXAM DESCRIPTION: CHEST 2 VIEWS COMPLETED DATE/TIME: 08/11/2019 1:53 pm REASON FOR STUDY: SOB COMPARISON: Chest film 06/20/2018, 02/28/2017 EXAM PARAMETERS: NUMBER OF VIEWS: two views TECHNIQUE: Digital Frontal and Lateral radiographic views of the chest acquired. RADIATION DOSE: NA LIMITATIONS: none FINDINGS: LUNGS AND PLEURA: No opacities, masses or pneumothorax. No pleural effusion. MEDIASTINUM AND HILAR STRUCTURES: No masses or contour abnormalities. HEART AND VASCULAR STRUCTURES: Heart normal size. No evidence for failure. BONES: Osteoporotic with index rightward thoracic curvature, stable lower thoracic compression deform ity and old right posterior rib fracture. Since the prior chest films patient has undergone right sh oulder replacement surgery HARDWARE: Right shoulder replacement OTHER: No other significant finding. IMPRESSION: No acute infiltrates TECHNICAL DOCUMENTATION: JOB ID: [id number]- All Rights Reserved Reading location - IP/workstation name: [email or web address]
[2019-08-11] MEDS ORDERED: POTASSIUM CHLORIDE 10 MEQ CAPSULE.ER PO ONE (14:39)
[2019-08-11] MEDS: POTASSI CL 20 MEQ/50 ML RIDER 20 MEQ/50 ML RTUPB IV SCH ×2 (14:55→17:03)
[2019-08-11 15:24] LABS: APPEARANCE,URINE CLEAR; BILIRUBIN,URINE NEGATIVE (NEGATIVE); COLOR,URINE STRAW; GLUCOSE, URINE NEGATIVE (NEGATIVE); KETONES,URINE NEGATIVE (NEGATIVE); LEUKOCYTE ESTERASE,URINE NEGATIVE (NEGATIVE); NITRITE,URINE NEGATIVE (NEGATIVE); PROTEIN,URINE NEGATIVE (NEGATIVE); URINE SPECIFIC GRAVITY 1.005; UROBILINOGEN,URINE NEGATIVE mg/dL (<2.0)
[2019-08-11 16:26] LABS: URINE AMPHETAMINES SCREEN NEGATIVE; URINE BARBITURATES SCREEN NEGATIVE; URINE BENZODIAZEPINES SCREEN NEGATIVE; URINE COCAINE SCREEN UNCONFIRMED POSITIVE; URINE MARIJUANA (THC) SCREEN UNCONFIRMED POSITIVE; URINE METHADONE SCREEN NEGATIVE; URINE PHENCYCLIDINE SCREEN NEGATIVE
[2019-08-11] MEDS ORDERED: ACETAMINOPHEN 325 MG TABLET PO PRN (16:56)
[2019-08-11] MEDS ORDERED: MAG HYDROX/AL HYDROX/SIMETH SUSP 30 ML UDCUP PO PRN (16:56)
[2019-08-11] MEDS ORDERED: ONDANSETRON HCL INJ/PF 4 MG/2 ML SDV IV PRN (16:56)
[2019-08-11] MEDS ORDERED: NORMAL SALINE 1000 ML 1,000 ML IV PRN (16:56)
[2019-08-11] MEDS ORDERED: PROMETHAZINE HCL INJ 25 MG/1 ML VIAL IV PRN (16:56)
[2019-08-11] MEDS ORDERED: HYDRALAZINE HCL INJ/PF 20 MG/1 ML SDV IV PRN (17:06)
[2019-08-11] MEDS ORDERED: (PENDING PHARMACY ID) (Ergocalciferol (Vitamin D2) [Vitamin D2] 50 MCG) PO SCH (17:15)
--- NOTE | 2019-08-11 17:36 | EKG REPORT ---
SEVERITY:- ABNORMAL ECG - SINUS RHYTHM FIRST DEGREE AV BLOCK REPOL ABNRM SUGGESTS ISCHEMIA, DIFFUSE LEADS PROLONGED QT INTERVAL : Confirmed by: Beni Rolle MD 11-Aug-2019 17:36:05
--- NOTE | 2019-08-11 17:53 | PDOC H&P ---
History of Present Illness Admission Date/PCP: STEFFEN LIRA History of Present Illness: NARENDRA ALBERT is a 74 year old female past medical history of cocaine abuse, hypertension, COPD, chronic musculoskeletal pain with multiple surgeries, anemia, presented to ED complaining of worsening bilateral shoulder pain for the last 3 months. Patient has had multiple surgeries in the past, was doing fine until 3 months ago her dog was running in front of her and she fell on her own landing on her right shoulder. She has been treating her pain with Tylenol and high doses of ibuprofen OTC. She also saw Dr. Grey pain specialist and had some steroid injection in her back a month ago. In ED she was found to have WBC of 22,000, sodium 120.2, potassium 2.9, creatinine of 1.35. UDS positive for cocaine and marijuana. Patient denies any recent medication changes, herbal medication ingestion, any fever, chills, nausea, vomiting, diarrhea, constipation, abdominal pain or any urinary symptoms. Past Medical History Cardiac Medical History: Reports: Congestive Heart Failure, Hypertension Pulmonary Medical History: Reports: Chronic Obstructive Pulmonary Disease (COPD), Pneumonia Denies: Tuberculosis Musculoskeltal Medical History: Reports: Arthritis Psychiatric Medical History: Reports: Bipolar Disorder, Depression Hematology: Reports: Anemia Past Surgical History Past Surgical History: Reports: Hysterectomy, Orthopedic Surgery - back, neck, shoulder (03/24/15), Other - Lumpectomy, Exploratory laparotomy, Social History Smoking Status: Never Smoker Frequency of Alcohol Use: Occasional Hx Recreational Drug Use: Yes Drugs: Marijuana Hx Prescription Drug Abuse: No Family History Family History: CAD Parental Family History Reviewed: Yes Children Family History Reviewed: Yes Sibling(s) Family History Reviewed.: Yes Medication/Allergy Home Medications: Amlodipine Besylate [Norvasc 10 mg Tablet] 10 mg PO DAILY 08/11/19 Ergocalciferol (Vitamin D2) [Vitamin D2] 50 mcg PO Q7D 08/11/19 Ferrous Sulfate 324 mg PO BID 08/11/19 Furosemide [Lasix] 20 mg PO DAILY 08/11/19 Hydralazine HCl [Apresoline 50 mg Tablet] 50 mg PO TID 08/11/19 Losartan/Hydrochlorothiazide [Losartan-Hctz 100-25 mg Tab] 1 each PO QAM 08/11/19 Magnesium Oxide 400 mg PO DAILY 08/11/19 Metoprolol Tartrate [Lopressor 25 mg Tablet] 25 mg PO BID 08/11/19 Pantoprazole Sodium 40 mg PO BID 08/11/19 Potassium Chloride 10 meq PO DAILY 08/11/19 Allergies/Adverse Reactions: No Known Allergies Allergy (Verified 08/11/19 12:43) Review of Systems Review of Systems: as per hpi Physical Exam Vital Signs: Temp Pulse Resp BP Pulse Ox 98.3 F 08/11/19 15:31 Intake & Output 08/10/19 08/11/19 08/12/19 06:59 06:59 06:59 Intake Total 50 Balance 50 General appearance: PRESENT: no acute distress, well-developed, well-nourished Respiratory exam: PRESENT: clear to auscultation waylon. ABSENT: rales, rhonchi, wheezes Cardiovascular exam: PRESENT: RRR. ABSENT: diastolic murmur, rubs, systolic murmur GI/Abdominal exam: PRESENT: normal bowel sounds, soft. ABSENT: distended, guarding, mass, organolmegaly, rebound, tenderness Musculoskeletal exam: PRESENT: other - Right bilateral upper extremity limited range of motion due to pain. Neurovascularly intact. Neurological exam: PRESENT: alert, awake, oriented to person, oriented to place, oriented to time, oriented to situation, CN II-XII grossly intact. ABSENT: motor sensory deficit Results Laboratory Results: 08/11/19 13:00 08/11/19 13:00 08/11/19 08/11/19 08/11/19 13:00 13:00 15:00 WBC 22.8 H RBC 3.94 Hgb 11.9 L Hct 34.5 L MCV 87 MCH 30.1 MCHC 34.5 RDW 12.9 Plt Count 383 Seg Neutrophils % Not Reportable Sodium 120.2 L* Potassium 2.9 L* Chloride 79 L Carbon Dioxide 24 Anion Gap 17 BUN 45 H Creatinine 1.35 H Est GFR ( Amer) 47 L Glucose 86 Calcium 9.6 Total Bilirubin 0.7 AST 37 H Alkaline Phosphatase 65 Total Protein 7.9 Albumin 4.8 Urine Color STRAW Urine Appearance CLEAR Urine pH 7.0 Ur Specific [place] 1.005 Urine Protein NEGATIVE Urine Glucose (UA) NEGATIVE Urine Ketones NEGATIVE Urine Blood NEGATIVE Urine Nitrite NEGATIVE Ur Leukocyte Esterase NEGATIVE Urine WBC (Auto) 0 Urine RBC (Auto) 0 08/11/19 08/11/19 13:00 13:00 Creatine Kinase 192 H Troponin I < 0.012 Impressions: Chest X-Ray 08/11/19 12:49 IMPRESSION: No acute infiltrates Assessment and Plan - Diagnosis (1) Hyponatremia Is this a current diagnosis for this admission?: Yes Plan: Euvolemic hyponatremia. Denies any vomiting or diarrhea. Multifactorial. Chronic hyponatremia likely caused by HCTZ acutely exacerbated by cocaine/marijuana abuse, high Tylenol and ibuprofen intake for chronic musculoskeletal pain. We will check urine osmolarity, urine creatinine, urine sodium. Admit to IMCU. Started on NS with a goal of correction 8 mEq in 24 hours with sodium level every 8 hours. Monitor for seizures Consult nephrology for further recommendation. (2) Hypokalemia Is this a current diagnosis for this admission?: Yes Plan: No acute EKG changes. Likely some reason for hyponatremia. Admit to telemetry, continue supplemental potassium, BMP every 8 hours. (3) Leukocytosis Qualifiers: Leukocytosis type: unspecified Qualified Code(s): D72.829 - Elevated white blood cell count, unspecified Is this a current diagnosis for this admission?: Yes Plan: Leukocytosis with normal differential. No history of leukemia. No sign of any underlying infection. Patient did receive steroids for her back a month ago and likely this is caused by steroids. Received 1 dose of ceftriaxone in ED. We will admit with daily CBC. If any sign of infection will restart on empiric antibiotics. (4) Cocaine abuse Is this a current diagnosis for this admission?: Yes Plan: History of chronic cocaine abuse. UDS positive for cocaine and marijuana. Denies chest pain. Troponins negative. EKG no no acute changes. Monitor for withdrawal, avoid beta-blockers. Counseled on abstinence. (5) HTN (hypertension) Is this a current diagnosis for this admission?: Yes Plan: Home meds are: Metoprolol 25 mg p.o. daily. Losartan/hydrochlorothiazide 100-25 mg p.o. daily. Lasix 20 mg p.o. daily. Hydralazine 50 mg p.o. 3 times daily. Amlodipine 10 mg p.o. daily. Hold metoprolol due to cocaine abuse. Hold HCTZ due to electrolyte abnormalities. Hold losartan due to recent SADAF. Hold Lasix due to electrolyte abnormalities. Continue amlodipine 10 mg p.o. daily, hydralazine 50 mg p.o. 3 times daily. Adjust meds as needed. (6) Acute renal failure Is this a current diagnosis for this admission?: Yes Plan: Acute on chronic renal failure. Likely caused by NSAID and Tylenol. Urine sodium, urine creatinine. Renal ultrasound. Cautious volume resuscitation guided by volume status and electrolytes. Avoid nephrotoxic meds. (7) Chronic pain Qualifiers: Is this a current diagnosis for this admission?: Yes Plan: Has had multiple shoulder and back surgery. Sees pain specialist outpatient. Not on chronic opiates. Recently had a steroid injection in the back. On low-dose Percocet, consult PT/OT. Avoid Tylenol, NSAIDs due to recent SADAF.
[2019-08-11] MEDS: FERROUS SULFATE 325 MG TABLET PO SCH (18:10)
[2019-08-11] MEDS: HYDRALAZINE HCL 50 MG TABLET PO SCH (18:10)
[2019-08-11] MEDS: DOCUSATE SODIUM 100 MG CAPSULE PO SCH (18:10)
[2019-08-11] MEDS: PANTOPRAZOLE SODIUM 40 MG TABLET.DR PO SCH (18:10)
[2019-08-11 19:54] LABS: URINE CREATININE < 3.2 mg/dL (15-278); URINE SODIUM 121 mmol/L (30-90)
[2019-08-11] MEDS: OXYCODONE-ACETAMINOPHEN 5-325 MG TABLET PO PRN (21:01)
[2019-08-12 06:23] LABS: ABSOLUTE LYMPHOCYTES (AUTO) 0.9 10^3/uL (0.5-4.7); ABSOLUTE MONOCYTES (AUTO) 0.8 10^3/uL (0.1-1.4); ABSOLUTE NEUT (AUTO) 14.5 10^3/uL (1.7-8.2); BASOPHILS % (AUTO) 0.3 % (0-2); EOSINOPHILS % (AUTO) 0.2 % (0-6); HEMOGLOBIN 10.1 g/dL (12.0-15.5); LYMPHOCYTES % (AUTO) 5.7 % (13-45); MEAN CORPUSCULAR HEMOGLOBIN 29.8 pg (27.0-33.4); MEAN CORPUSCULAR HGB CONC 33.6 g/dL (32.0-36.0); MEAN CORPUSCULAR VOLUME 89 fl (80-97); MONOCYTES % (AUTO) 5.2 % (3-13); PLATELET COUNT 342 10^3/uL (150-450); RED BLOOD COUNT 3.37 10^6/uL (3.72-5.28); RED CELL DISTRIBUTION WIDTH 12.9 % (11.5-14.0); SEGMENTED NEUTROPHILS % (AUTO) 88.6 % (42-78); TOTAL CELLS COUNTED % (AUTO) 100 %; WHITE BLOOD COUNT 16.3 10^3/uL (4.0-10.5)
[2019-08-12 06:43] LABS: ANION GAP 14 (5-19); BLOOD UREA NITROGEN 34 mg/dL (7-20); CALCIUM 8.9 mg/dL (8.4-10.2); CARBON DIOXIDE 22 mmol/L (22-30); CHLORIDE 88 mmol/L (98-107); GLUCOSE 155 mg/dL (75-110)
[2019-08-12 06:46] LABS: POTASSIUM 2.8 mmol/L (3.6-5.0)
[2019-08-12] MEDS: PANTOPRAZOLE SODIUM 40 MG TABLET.DR PO SCH ×2 (06:49→17:49)
[2019-08-12] MEDS ORDERED: NORMAL SALINE 1000 ML 1,000 ML IV PRN (08:06)
[2019-08-12] MEDS: AMLODIPINE BESYLATE 10 MG TABLET PO SCH (09:06)
[2019-08-12] MEDS: DOCUSATE SODIUM 100 MG CAPSULE PO SCH ×2 (09:06→17:49)
[2019-08-12] MEDS: POTASSIUM CHLORIDE 10 MEQ CAPSULE.ER PO SCH ×2 (09:06→17:49)
[2019-08-12] MEDS: ENOXAPARIN SODIUM INJ 40 MG/0.4 ML DISP.SYRIN SUBCUT SCH (09:06)
[2019-08-12] MEDS: FERROUS SULFATE 325 MG TABLET PO SCH ×2 (09:06→17:49)
[2019-08-12] MEDS: HYDRALAZINE HCL 50 MG TABLET PO SCH (09:06)
--- NOTE | 2019-08-12 09:33 | RADIOLOGY REPORT (SQ) ---
EXAM DESCRIPTION: U/S RETROPERITON (RENAL/AORTA) COMPLETED DATE/TIME: 08/11/2019 7:11 pm REASON FOR STUDY: SADAF COMPARISON: None. TECHNIQUE: Dynamic and static grayscale images acquired of the kidneys and bladder and recorded on P ACS. Additional selected color Doppler and spectral images recorded. LIMITATIONS: None. FINDINGS: RIGHT KIDNEY: Normal size. Normal echogenicity. No solid or suspicious masses. No hydronep hrosis. No calcifications. LEFT KIDNEY: Normal size. Normal echogenicity. No solid or suspicious masses. No hydronephrosis. No calcifications. BLADDER: Decompressed and poorly visualized. OTHER FINDINGS: No other significant finding. IMPRESSION: No ultrasound abnormality of the kidneys. No hydronephrosis. The urinary bladder is de compressed and poorly visualized. TECHNICAL DOCUMENTATION: JOB ID: [id number] [employer]- All Rights Reserved Reading location - IP/workstation name: [email or web address]
[2019-08-12] MEDS ORDERED: POTASSIUM CHLORIDE 20 MEQ PACKET PO SCH (10:00)
[2019-08-12] MEDS: IPRATROPIUM/ALBUTEROL 0.5-2.5 MG/3 ML AMPUL NEB PRN (10:30)
--- NOTE | 2019-08-12 12:12 | PDOC CONSULTATION ---
Consultation Consult Date: 08/12/19 Provider Consulted: Lilly BECERRA Consult reason:: Acute on chronic hyponatremia History of Present Illness Admission Date/PCP: 08/11/19 17:19 STEFFEN LIRA History of Present Illness: NARENDRA ALBERT is a 74 year old female with a past medical history of cocaine abuse, hypertension, COPD, chronic musculoskeletal pain with multiple surgeries, anemia, presented to ED complaining of worsening bilateral shoulder pain right more than left for the last 3 months. Patient has had multiple surgeries in the past. Is apparently also got some sort of contusion/sprain of her left ankle for which she is in a boot.Apparently she is got chronic pain issues and has been taking OTC pain medicines including Advil PM twice daily for the last many months. She is also admits to drinking excessive amounts of fluid which at times is close to a gallon a day. She chronically runs low sodium on review of her last many labs from the last couple of years and usually runs anywhere between 125 and 130. She has been treating her pain with Tylenol and high doses of ibuprofen OTC. She also saw pain specialist and had some steroid injection in her back a month ago.No apparent history of any seizures or focal deficits. No history of any severe headaches.Patient denies any fever, chills, nausea, vomiting, diarrhea, constipation, abdominal pain or any urinary symptoms. In ED she was found to have WBC of 22,000, sodium 120.2, potassium 2.9, creatinine of 1.35, Urine tox screen positive for cocaine and marijuana.Today when I see her she generally feeling better, including the pain in the right shoulder. She has been having some physical therapy.Sodium level is 123 today Potassium was 2.8 and is being replaced. Past Medical History Cardiac Medical History: Reports: Hypertension-primary Pulmonary Medical History: Reports: Chronic Obstructive Pulmonary Disease (COPD), Pneumonia Denies: Tuberculosis Renal/ Medical History: Reports: Hyponatremia Musculoskeltal Medical History: Reports: Arthritis Psychiatric Medical History: Reports: Bipolar Disorder, Depression Past Surgical History Past Surgical History: Reports: Hysterectomy, Orthopedic Surgery - back, neck, shoulder (03/24/15), Other - Lumpectomy, Exploratory laparotomy, Social History Smoking Status: Never Smoker Frequency of Alcohol Use: Occasional Hx Recreational Drug Use: Yes Drugs: Cocaine, Marijuana Hx Prescription Drug Abuse: No Family History Parental Family History Reviewed: Yes - Negative for CKD Children Family History Reviewed: No Sibling(s) Family History Reviewed.: No Medication/Allergy Home Medications: Amlodipine Besylate [Norvasc 10 mg Tablet] 10 mg PO DAILY 08/11/19 Ergocalciferol (Vitamin D2) [Vitamin D2] 50 mcg PO MO@1000 08/11/19 Ferrous Sulfate 324 mg PO BID 08/11/19 Furosemide [Lasix] 20 mg PO DAILY 08/11/19 Hydralazine HCl [Apresoline 50 mg Tablet] 50 mg PO TID 08/11/19 Losartan/Hydrochlorothiazide [Losartan-Hctz 100-25 mg Tab] 1 each PO QAM 08/11/19 Magnesium Oxide 400 mg PO DAILY 08/11/19 Metoprolol Tartrate [Lopressor 25 mg Tablet] 25 mg PO BID 08/11/19 Pantoprazole Sodium 40 mg PO BID 08/11/19 Potassium Chloride 10 meq PO DAILY 08/11/19 Cyclobenzaprine HCl [Flexeril 5 mg Tablet] 5 mg PO BIDP PRN 08/12/19 Allergies/Adverse Reactions: No Known Allergies Allergy (Verified 08/11/19 12:43) Review of Systems Constitutional: PRESENT: fatigue, weakness. ABSENT: anorexia, chills, fever(s), headache(s), night sweats Ears: PRESENT: hearing changes Nose, Mouth, and Throat: ABSENT: mouth pain, sore throat Cardiovascular: ABSENT: chest pain, dyspnea on exertion, edema, orthropnea, palpitations Gastrointestinal: ABSENT: abdominal pain, coffee ground emesis, diarrhea, dysphagia, heartburn, hematemesis, hematochezia, nausea, vomiting Genitourinary: ABSENT: difficulty urinating, dysuria, hematuria Integumentary: ABSENT: erythema, lesions, pruritus, rash Neurological: ABSENT: abnormal speech, confusion, convulsions, focal weakness, frequent falls, lack of coordination, numbness, paresthesias Psychiatric: ABSENT: anxiety, depression Hematologic/Lymphatic: ABSENT: easy bleeding, easy bruising, lymphadenopathy Physical Exam Vital Signs: Temp Pulse Resp BP Pulse Ox 97.9 F 82 16 152/82 H 97 08/12/19 07:35 08/12/19 10:33 08/12/19 10:33 08/12/19 07:35 08/12/19 10:33 Intake & Output 08/11/19 08/12/19 08/13/19 06:59 06:59 06:59 Intake Total 1050 1000 Balance 1050 1000 Weight 51.2 kg General appearance: PRESENT: no acute distress Eye exam: PRESENT: EOMI, PERRLA. ABSENT: scleral icterus Ear exam: PRESENT: normal external ear exam Mouth exam: PRESENT: neck supple. ABSENT: moist Neck exam: ABSENT: lymphadenopathy, meningismus, tenderness, thyromegaly, t milena deviation Respiratory exam: PRESENT: clear to auscultation waylon. ABSENT: crackles Cardiovascular exam: PRESENT: +S1, +S2 GI/Abdominal exam: PRESENT: normal bowel sounds, soft. ABSENT: organomegaly, tenderness Extremities exam: ABSENT: pedal edema Neurological exam: PRESENT: alert, awake, oriented to person, oriented to place, oriented to time Psychiatric exam: PRESENT: appropriate affect. ABSENT: anxious, depressed Skin exam: ABSENT: erythema, mottled, pallor, rash, skin tears Results Laboratory Results: 08/12/19 05:11 08/12/19 05:11 08/11/19 08/11/19 08/11/19 13:00 13:00 13:00 WBC 22.8 H RBC 3.94 Hgb 11.9 L Hct 34.5 L MCV 87 MCH 30.1 MCHC 34.5 RDW 12.9 Plt Count 383 Seg Neutrophils % Not Reportable Sodium 120.2 L* Potassium 2.9 L* Chloride 79 L Carbon Dioxide 24 Anion Gap 17 BUN 45 H Creatinine 1.35 H Est GFR ( Amer) 47 L Glucose 86 Calcium 9.6 Magnesium 1.9 Total Bilirubin 0.7 AST 37 H Alkaline Phosphatase 65 Total Protein 7.9 Albumin 4.8 Urine Color Urine Appearance Urine pH Ur Specific [place] Urine Protein Urine Glucose (UA) Urine Ketones Urine Blood Urine Nitrite Ur Leukocyte Esterase Urine WBC (Auto) Urine RBC (Auto) 08/11/19 08/12/19 08/12/19 15:00 05:11 05:11 WBC 16.3 H RBC 3.37 L Hgb 10.1 L Hct 30.0 L MCV 89 MCH 29.8 MCHC 33.6 RDW 12.9 Plt Count 342 Seg Neutrophils % 88.6 H Sodium 123.6 L Potassium 2.8 L* Chloride 88 L Carbon Dioxide 22 Anion Gap 14 BUN 34 H Creatinine 0.98 Est GFR ( Amer) > 60 Glucose 155 H Calcium 8.9 Magnesium 1.8 Total Bilirubin AST Alkaline Phosphatase Total Protein Albumin Urine Color STRAW Urine Appearance CLEAR Urine pH 7.0 Ur Specific [place] 1.005 Urine Protein NEGATIVE Urine Glucose (UA) NEGATIVE Urine Ketones NEGATIVE Urine Blood NEGATIVE Urine Nitrite NEGATIVE Ur Leukocyte Esterase NEGATIVE Urine WBC (Auto) 0 Urine RBC (Auto) 0 08/11/19 08/11/19 13:00 13:00 Creatine Kinase 192 H Troponin I < 0.012 Impressions: Chest X-Ray 08/11/19 12:49 IMPRESSION: No acute infiltrates Renal Ultrasound 08/11/19 17:11 IMPRESSION: No ultrasound abnormality of the kidneys. No hydronephrosis. The urinary bladder is decompressed and poorly visualized. Assessment & Plan - Diagnosis (1) Hypokalemia Is this a current diagnosis for this admission?: Yes Plan: In the face of polydipsia and patient was taking losartan/HCTZ at home. Replace accordingly. Magnesium normal. (2) Hyponatremia Is this a current diagnosis for this admission?: Yes Plan: Acute on chronic. 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 Compounded with the usage of hydrochlorothiazide. Agree with fluid resuscitation but needs to be on p.o. fluid restrictions. Will get additional labs to confirm the above diagnosis. Discussed patient that she needs to cut back on her fluids for obvious reasons. (3) Chronic pain Qualifiers: Is this a current diagnosis for this admission?: Yes Plan: As per hospitalist. (4) Cocaine abuse Is this a current diagnosis for this admission?: Yes Plan: Chronic. Positive tox screen. (5) HTN (hypertension) Is this a current diagnosis for this admission?: Yes Plan: Presently controlled. Monitor. (6) Acute kidney injury Plan: Admission creatinine was 1.3 and now is 0.9. Continue with gentle fluid hydration as we try to correct her hyponatremia.
[2019-08-12] MEDS: OXYCODONE-ACETAMINOPHEN 5-325 MG TABLET PO PRN ×2 (12:22→20:10)
--- NOTE | 2019-08-12 13:10 | PDOC PROGRESS REPORT ---
Subjective Progress Note for:: 08/12/19 Subjective:: NARENDRA ALBERT is a 74 year old female past medical history of cocaine abuse, hypertension, COPD, chronic musculoskeletal pain with multiple surgeries, anemia, presented to ED complaining of worsening bilateral shoulder pain for the last 3 months. Patient has had multiple surgeries in the past, was doing fine until 3 months ago her dog was running in front of her and she fell on her own landing on her right shoulder. She has been treating her pain with Tylenol and high doses of ibuprofen OTC. She also saw Dr. Grey pain specialist and had some steroid injection in her back a month ago. In ED she was found to have WBC of 22,000, sodium 120.2, potassium 2.9, creatinine of 1.35. UDS positive for cocaine and marijuana. Patient denies any recent medication changes, herbal medication ingestion, any fever, chills, nausea, vomiting, diarrhea, constipation, abdominal pain or any urinary symptoms 08/12/2019. No acute events overnight. Reason For Visit: HYPONATREMIA, HYPOKALEMIA Physical Exam Vital Signs: Temp Pulse Resp BP Pulse Ox 98.2 F 90 16 95/79 L 99 08/12/19 11:07 08/12/19 11:07 08/12/19 10:33 08/12/19 11:07 08/12/19 11:07 Intake & Output 08/11/19 08/12/19 08/13/19 06:59 06:59 06:59 Intake Total 1050 1000 Balance 1050 1000 Weight 51.2 kg Results Laboratory Results: 08/12/19 05:11 08/12/19 05:11 08/11/19 08/11/19 08/11/19 13:00 13:00 13:00 WBC 22.8 H RBC 3.94 Hgb 11.9 L Hct 34.5 L MCV 87 MCH 30.1 MCHC 34.5 RDW 12.9 Plt Count 383 Seg Neutrophils % Not Reportable Sodium 120.2 L* Potassium 2.9 L* Chloride 79 L Carbon Dioxide 24 Anion Gap 17 BUN 45 H Creatinine 1.35 H Est GFR ( Amer) 47 L Glucose 86 Calcium 9.6 Magnesium 1.9 Total Bilirubin 0.7 AST 37 H Alkaline Phosphatase 65 Total Protein 7.9 Albumin 4.8 Urine Color Urine Appearance Urine pH Ur Specific [place] Urine Protein Urine Glucose (UA) Urine Ketones Urine Blood Urine Nitrite Ur Leukocyte Esterase Urine WBC (Auto) Urine RBC (Auto) 08/11/19 08/12/19 08/12/19 15:00 05:11 05:11 WBC 16.3 H RBC 3.37 L Hgb 10.1 L Hct 30.0 L MCV 89 MCH 29.8 MCHC 33.6 RDW 12.9 Plt Count 342 Seg Neutrophils % 88.6 H Sodium 123.6 L Potassium 2.8 L* Chloride 88 L Carbon Dioxide 22 Anion Gap 14 BUN 34 H Creatinine 0.98 Est GFR ( Amer) > 60 Glucose 155 H Calcium 8.9 Magnesium 1.8 Total Bilirubin AST Alkaline Phosphatase Total Protein Albumin Urine Color STRAW Urine Appearance CLEAR Urine pH 7.0 Ur Specific [place] 1.005 Urine Protein NEGATIVE Urine Glucose (UA) NEGATIVE Urine Ketones NEGATIVE Urine Blood NEGATIVE Urine Nitrite NEGATIVE Ur Leukocyte Esterase NEGATIVE Urine WBC (Auto) 0 Urine RBC (Auto) 0 08/11/19 08/11/19 13:00 13:00 Creatine Kinase 192 H Troponin I < 0.012 Impressions: Chest X-Ray 08/11/19 12:49 IMPRESSION: No acute infiltrates Renal Ultrasound 08/11/19 17:11 IMPRESSION: No ultrasound abnormality of the kidneys. No hydronephrosis. The urinary bladder is decompressed and poorly visualized. Assessment and Plan - Diagnosis (1) Hyponatremia Is this a current diagnosis for this admission?: Yes Plan: Mild improvement. Sodium 123. Multifactorial. Acute on chronic. Likely a combination of excessive p.o. water intake, SIADH and HCTZ. Pending urine osmolarity, urine creatinine 3.2, urine sodium 121. Continue NS, with a goal of correction 8 mEq in 24 hours, p.o. water restriction, with sodium level every 8 hours. Monitor for seizures Nephrology consulted. Recommendations noted. (2) Hypokalemia Is this a current diagnosis for this admission?: Yes Plan: No acute EKG changes. Likely some reason for hyponatremia. Admit to telemetry, continue supplemental potassium, BMP every 8 hours. (3) Leukocytosis Qualifiers: Leukocytosis type: unspecified Qualified Code(s): D72.829 - Elevated white blood cell count, unspecified Is this a current diagnosis for this admission?: Yes Plan: Improving. WBC 16,000 [place] [id number] on admission. Leukocytosis with normal differential. No history of leukemia. No sign of any underlying infection. Patient did receive steroids for her back a month ago and likely this is caused by steroids. Received 1 dose of ceftriaxone in ED. We will admit with daily CBC. If any sign of infection will restart on empiric antibiotics. (4) Cocaine abuse Is this a current diagnosis for this admission?: Yes Plan: History of chronic cocaine abuse. UDS positive for cocaine and marijuana. Denies chest pain. Troponins negative. EKG no no acute changes. Monitor for withdrawal, avoid beta-blockers. Counseled on abstinence. (5) HTN (hypertension) Is this a current diagnosis for this admission?: Yes Plan: SBP's are low normal. Home meds are: Metoprolol 25 mg p.o. daily. Losartan/hydrochlorothiazide 100-25 mg p.o. daily. Lasix 20 mg p.o. daily. Hydralazine 50 mg p.o. 3 times daily. Amlodipine 10 mg p.o. daily. Hold metoprolol due to cocaine abuse. Hold HCTZ due to electrolyte abnormalities. Hold losartan due to recent SADAF. Hold Lasix due to electrolyte abnormalities. Continue amlodipine 10 mg p.o. daily, hydralazine 50 mg p.o. 3 times daily. Adjust meds as needed. (6) Acute renal failure Is this a current diagnosis for this admission?: Yes Plan: Resolved. Creatinine WNL. Acute on chronic renal failure. Likely caused by NSAID and Tylenol. Renal ultrasound unremarkable. Cautious volume resuscitation guided by volume status and electrolytes. Avoid nephrotoxic meds. (7) Chronic pain Qualifiers: Is this a current diagnosis for this admission?: Yes Plan: Has had multiple shoulder and back surgery. Sees pain specialist outpatient. Not on chronic opiates. Recently had a steroid injection in the back. On low-dose Percocet, consult PT/OT. Avoid Tylenol, NSAIDs due to recent SADAF.
[2019-08-12] MEDS ORDERED: HYDRALAZINE HCL 50 MG TABLET PO SCH (14:00)
[2019-08-12 14:23] LABS: ANION GAP 14 (5-19); BLOOD UREA NITROGEN 29 mg/dL (7-20); CARBON DIOXIDE 23 mmol/L (22-30); CHLORIDE 88 mmol/L (98-107); GLUCOSE 149 mg/dL (75-110); POTASSIUM 3.5 mmol/L (3.6-5.0)
[2019-08-12] MEDS: HYDRALAZINE HCL 25 MG TABLET PO SCH ×2 (15:15→21:56)
[2019-08-12 22:25] LABS: ANION GAP 13 (5-19); BLOOD UREA NITROGEN 21 mg/dL (7-20); CALCIUM 9.1 mg/dL (8.4-10.2); CARBON DIOXIDE 18 mmol/L (22-30); CHLORIDE 93 mmol/L (98-107); GLUCOSE 112 mg/dL (75-110); POTASSIUM 3.9 mmol/L (3.6-5.0)
[2019-08-13 05:46] LABS: ABSOLUTE BASOPHILS # (AUTO) 0.1 10^3/uL (0.0-0.2); ABSOLUTE EOSINOPHILS # (AUTO) 0.1 10^3/uL (0.0-0.6); ABSOLUTE LYMPHOCYTES (AUTO) 1.2 10^3/uL (0.5-4.7); ABSOLUTE MONOCYTES (AUTO) 0.8 10^3/uL (0.1-1.4); ABSOLUTE NEUT (AUTO) 10.9 10^3/uL (1.7-8.2); BASOPHILS % (AUTO) 0.6 % (0-2); EOSINOPHILS % (AUTO) 0.8 % (0-6); HEMATOCRIT 26.4 % (36.0-47.0); LYMPHOCYTES % (AUTO) 8.9 % (13-45); MEAN CORPUSCULAR HEMOGLOBIN 30.3 pg (27.0-33.4); MEAN CORPUSCULAR HGB CONC 34.2 g/dL (32.0-36.0); MEAN CORPUSCULAR VOLUME 89 fl (80-97); PLATELET COUNT 307 10^3/uL (150-450); RED BLOOD COUNT 2.97 10^6/uL (3.72-5.28); RED CELL DISTRIBUTION WIDTH 13.5 % (11.5-14.0); SEGMENTED NEUTROPHILS % (AUTO) 83.7 % (42-78); TOTAL CELLS COUNTED % (AUTO) 100 %
[2019-08-13] MEDS: HYDRALAZINE HCL 25 MG TABLET PO SCH ×3 (05:47→21:33)
[2019-08-13] MEDS: PANTOPRAZOLE SODIUM 40 MG TABLET.DR PO SCH ×2 (05:47→17:24)
[2019-08-13] MEDS ORDERED: NORMAL SALINE 1000 ML 1,000 ML IV PRN (08:05)
[2019-08-13] MEDS: AMLODIPINE BESYLATE 10 MG TABLET PO SCH (08:59)
[2019-08-13] MEDS: POTASSIUM CHLORIDE 10 MEQ CAPSULE.ER PO SCH ×2 (08:59→17:24)
[2019-08-13] MEDS: FERROUS SULFATE 325 MG TABLET PO SCH ×2 (08:59→17:24)
[2019-08-13] MEDS: DOCUSATE SODIUM 100 MG CAPSULE PO SCH ×2 (08:59→17:24)
[2019-08-13] MEDS: ENOXAPARIN SODIUM INJ 40 MG/0.4 ML DISP.SYRIN SUBCUT SCH (08:59)
[2019-08-13] MEDS: OXYCODONE-ACETAMINOPHEN 5-325 MG TABLET PO PRN ×2 (10:04→19:19)
[2019-08-13] MEDS: IPRATROPIUM/ALBUTEROL 0.5-2.5 MG/3 ML AMPUL NEB PRN ×2 (11:12→19:52)
--- NOTE | 2019-08-13 11:25 | PDOC PROGRESS REPORT ---
Subjective Progress Note for:: 08/13/19 Subjective:: NARENDRA ALBERT is a 74 year old female past medical history of cocaine abuse, hypertension, COPD, chronic musculoskeletal pain with multiple surgeries, anemia, presented to ED complaining of worsening bilateral shoulder pain for the last 3 months. Patient has had multiple surgeries in the past, was doing fine until 3 months ago her dog was running in front of her and she fell on her own landing on her right shoulder. She has been treating her pain with Tylenol and high doses of ibuprofen OTC. She also saw Dr. Grey pain specialist and had some steroid injection in her back a month ago. In ED she was found to have WBC of 22,000, sodium 120.2, potassium 2.9, creatinine of 1.35. UDS positive for cocaine and marijuana. Patient denies any recent medication changes, herbal medication ingestion, any fever, chills, nausea, vomiting, diarrhea, constipation, abdominal pain or any urinary symptoms 08/12/2019. No acute events overnight. 08/13/2019. No acute events overnight. Potassium corrected however sodium still not optimized. She denies any fever, chills, nausea, vomiting, diarrhea, constipation or any urinary symptoms. Reason For Visit: HYPONATREMIA, HYPOKALEMIA Physical Exam Vital Signs: Temp Pulse Resp BP Pulse Ox 97.9 F 94 18 139/78 H 98 08/13/19 07:24 08/13/19 07:24 08/13/19 07:24 08/13/19 07:24 08/13/19 07:24 Intake & Output 08/12/19 08/13/19 08/14/19 06:59 06:59 06:59 Intake Total 1050 1700 1000 Output Total 1400 Balance 2876 400 7241 Weight 51.2 kg 57.2 kg General appearance: PRESENT: no acute distress, well-developed, well-nourished Respiratory exam: PRESENT: clear to auscultation waylon. ABSENT: rales, rhonchi, wheezes Cardiovascular exam: PRESENT: RRR. ABSENT: diastolic murmur, rubs, systolic murmur GI/Abdominal exam: PRESENT: normal bowel sounds, soft. ABSENT: distended, guarding, mass, organolmegaly, rebound, tenderness Extremities exam: PRESENT: full ROM, other - Severe arthritic change in bilateral hands. LROM bilateral upper extremity due to pain.. ABSENT: calf tenderness, clubbing, pedal edema Results Laboratory Results: 08/13/19 05:02 08/12/19 21:59 08/12/19 08/12/19 08/12/19 00:20 05:11 13:48 WBC RBC Hgb Hct MCV MCH MCHC RDW Plt Count Seg Neutrophils % Sodium 125.2 L Potassium 3.5 L Chloride 88 L Carbon Dioxide 23 Anion Gap 14 BUN 29 H Creatinine 0.87 Est GFR ( Amer) > 60 Glucose 149 H Serum Osmolality 261 L Calcium 9.0 Magnesium Urine Osmolality 282 L 08/12/19 08/13/19 08/13/19 21:59 05:02 05:02 WBC 13.0 H RBC 2.97 L Hgb 9.0 L Hct 26.4 L MCV 89 MCH 30.3 MCHC 34.2 RDW 13.5 Plt Count 307 Seg Neutrophils % 83.7 H Sodium 124.3 L Potassium 3.9 Chloride 93 L Carbon Dioxide 18 L Anion Gap 13 BUN 21 H Creatinine 0.73 Est GFR ( Amer) > 60 Glucose 112 H Serum Osmolality Calcium 9.1 Magnesium 1.6 Urine Osmolality 08/11/19 08/11/19 13:00 13:00 Creatine Kinase 192 H Troponin I < 0.012 Impressions: Chest X-Ray 08/11/19 12:49 IMPRESSION: No acute infiltrates Renal Ultrasound 08/11/19 17:11 IMPRESSION: No ultrasound abnormality of the kidneys. No hydronephrosis. The urinary bladder is decompressed and poorly visualized. Assessment and Plan - Diagnosis (1) Hyponatremia Is this a current diagnosis for this admission?: Yes Plan: Mild improvement. Sodium 124. Multifactorial. Acute on chronic. Likely a combination of excessive p.o. water intake, SIADH and HCTZ. Urine osmolarity 282. Urine creatinine 3.2, urine sodium 121. Continue NS, with a goal of correction 8 mEq in 24 hours, p.o. water restriction, with sodium level every 8 hours. Monitor for seizures Nephrology consulted. Recommendations noted. (2) Hypokalemia Is this a current diagnosis for this admission?: Yes Plan: Resolved. Replace as needed. BMP tomorrow. (3) Leukocytosis Qualifiers: Leukocytosis type: unspecified Qualified Code(s): D72.829 - Elevated white blood cell count, unspecified Is this a current diagnosis for this admission?: Yes Plan: Improving. WBC 1300 down from 16,000. Leukocytosis with normal differential. No history of leukemia. No sign of any underlying infection. Patient did receive steroids for her back a month ago and likely this is caused by steroids. Received 1 dose of ceftriaxone in ED. We will admit with daily CBC. If any sign of infection will restart on empiric antibiotics. (4) Cocaine abuse Is this a current diagnosis for this admission?: Yes Plan: History of chronic cocaine abuse. UDS positive for cocaine and marijuana. Denies chest pain. Troponins negative. EKG no no acute changes. Monitor for withdrawal, avoid beta-blockers. Counseled on abstinence. (5) HTN (hypertension) Is this a current diagnosis for this admission?: Yes Plan: Normotensive. Home meds are: Metoprolol 25 mg p.o. daily. Losartan/hydrochlorothiazide 100-25 mg p.o. daily. Lasix 20 mg p.o. daily. Hydralazine 50 mg p.o. 3 times daily. Amlodipine 10 mg p.o. daily. Hold metoprolol due to cocaine abuse. Hold HCTZ due to electrolyte abnormalities. Hold losartan due to recent SADAF. Hold Lasix due to electrolyte abnormalities. Continue amlodipine 10 mg p.o. daily, hydralazine 25 mg p.o. 3 times daily. Adjust meds as needed. (6) Acute renal failure Is this a current diagnosis for this admission?: Yes Plan: Resolved. Creatinine WNL. Acute on chronic renal failure. Likely caused by NSAID and Tylenol. Renal ultrasound unremarkable. Cautious volume resuscitation guided by volume status and electrolytes. Avoid nephrotoxic meds. (7) Chronic pain Qualifiers: Is this a current diagnosis for this admission?: Yes Plan: Has had multiple shoulder and back surgery. Sees pain specialist outpatient. Not on chronic opiates. Recently had a steroid injection in the back. On low-dose Percocet, consult PT/OT. Avoid Tylenol, NSAIDs due to recent SADAF.
--- NOTE | 2019-08-13 15:02 | PDOC PROGRESS REPORT ---
Subjective Progress Note for:: 08/13/19 Reason For Visit: Patient seen today in the hospital. She is quite comfortable and resting comfortably. She denies any specific complaints of headaches, chest pain or shortness of breath. Labs and medications reviewed with her. Sodium was stable. Physical Exam Vital Signs: Temp Pulse Resp BP Pulse Ox 97.5 F 97 20 138/76 H 100 08/13/19 11:19 08/13/19 14:00 08/13/19 11:19 08/13/19 11:19 08/13/19 11:19 Intake & Output 08/12/19 08/13/19 08/14/19 06:59 06:59 06:59 Intake Total 1050 1700 1000 Output Total 1400 Balance 3921 773 5800 Weight 51.2 kg 57.2 kg General appearance: PRESENT: no acute distress Respiratory exam: PRESENT: clear to auscultation waylon. ABSENT: crackles Cardiovascular exam: PRESENT: +S1, +S2 GI/Abdominal exam: PRESENT: normal bowel sounds, soft. ABSENT: organomegaly, tenderness Extremities exam: ABSENT: pedal edema Neurological exam: PRESENT: alert, awake, oriented to person, oriented to place, oriented to time Psychiatric exam: PRESENT: appropriate affect Results Laboratory Results: 08/13/19 05:02 08/12/19 21:59 08/12/19 08/12/19 08/13/19 00:20 21:59 05:02 WBC 13.0 H RBC 2.97 L Hgb 9.0 L Hct 26.4 L MCV 89 MCH 30.3 MCHC 34.2 RDW 13.5 Plt Count 307 Seg Neutrophils % 83.7 H Sodium 124.3 L Potassium 3.9 Chloride 93 L Carbon Dioxide 18 L Anion Gap 13 BUN 21 H Creatinine 0.73 Est GFR ( Amer) > 60 Glucose 112 H Calcium 9.1 Magnesium Urine Osmolality 282 L 08/13/19 05:02 WBC RBC Hgb Hct MCV MCH MCHC RDW Plt Count Seg Neutrophils % Sodium Potassium Chloride Carbon Dioxide Anion Gap BUN Creatinine Est GFR ( Amer) Glucose Calcium Magnesium 1.6 Urine Osmolality 08/11/19 08/11/19 13:00 13:00 Creatine Kinase 192 H Troponin I < 0.012 Impressions: Chest X-Ray 08/11/19 12:49 IMPRESSION: No acute infiltrates Renal Ultrasound 09/22/19 17:11 IMPRESSION: No ultrasound abnormality of the kidneys. No hydronephrosis. The urinary bladder is decompressed and poorly visualized. Assessment & Plan - Diagnosis (1) Hypokalemia Is this a current diagnosis for this admission?: Yes Plan: Resolved with potassium today at 3.9. (2) Hyponatremia Is this a current diagnosis for this admission?: Yes Plan: Sodium stable at 124. Continue present lines of management including fluid restrictions. (3) Chronic pain Qualifiers: Is this a current diagnosis for this admission?: Yes Plan: Continue conservative management. (4) Cocaine abuse Is this a current diagnosis for this admission?: Yes Plan: Status quo. (5) HTN (hypertension) Is this a current diagnosis for this admission?: Yes Plan: Controlled. (6) Acute kidney injury Plan: Resolved.
[2019-08-14] MEDS: PANTOPRAZOLE SODIUM 40 MG TABLET.DR PO SCH (05:37)
[2019-08-14] MEDS: HYDRALAZINE HCL 25 MG TABLET PO SCH (05:37)
[2019-08-14] MEDS: OXYCODONE-ACETAMINOPHEN 5-325 MG TABLET PO PRN ×2 (05:38→12:33)
[2019-08-14 06:25] LABS: ABSOLUTE BASOPHILS # (AUTO) 0.1 10^3/uL (0.0-0.2); ABSOLUTE EOSINOPHILS # (AUTO) 0.1 10^3/uL (0.0-0.6); ABSOLUTE LYMPHOCYTES (AUTO) 1.3 10^3/uL (0.5-4.7); ABSOLUTE MONOCYTES (AUTO) 0.6 10^3/uL (0.1-1.4); ABSOLUTE NEUT (AUTO) 8.8 10^3/uL (1.7-8.2); BASOPHILS % (AUTO) 0.6 % (0-2); HEMOGLOBIN 9.8 g/dL (12.0-15.5); LYMPHOCYTES % (AUTO) 12.2 % (13-45); MEAN CORPUSCULAR HGB CONC 33.9 g/dL (32.0-36.0); MEAN CORPUSCULAR VOLUME 89 fl (80-97); MONOCYTES % (AUTO) 5.7 % (3-13); PLATELET COUNT 384 10^3/uL (150-450); RED BLOOD COUNT 3.27 10^6/uL (3.72-5.28); RED CELL DISTRIBUTION WIDTH 13.4 % (11.5-14.0); SEGMENTED NEUTROPHILS % (AUTO) 80.5 % (42-78); TOTAL CELLS COUNTED % (AUTO) 100 %; WHITE BLOOD COUNT 10.9 10^3/uL (4.0-10.5)
[2019-08-14] MEDS ORDERED: MAGNESIUM OXIDE 400 MG TABLET PO ONE (08:00)
[2019-08-14 09:36] LABS: ANION GAP 12 (5-19); BLOOD UREA NITROGEN 9 mg/dL (7-20); CALCIUM 10.3 mg/dL (8.4-10.2); CARBON DIOXIDE 23 mmol/L (22-30); CHLORIDE 100 mmol/L (98-107); GLUCOSE 93 mg/dL (75-110); POTASSIUM 4.2 mmol/L (3.6-5.0)
[2019-08-14] MEDS: AMLODIPINE BESYLATE 10 MG TABLET PO SCH (10:27)
[2019-08-14] MEDS: DOCUSATE SODIUM 100 MG CAPSULE PO SCH (10:27)
[2019-08-14] MEDS: FERROUS SULFATE 325 MG TABLET PO SCH (10:27)
[2019-08-14] MEDS: POTASSIUM CHLORIDE 10 MEQ CAPSULE.ER PO SCH (10:27)
[2019-08-14] MEDS: ENOXAPARIN SODIUM INJ 40 MG/0.4 ML DISP.SYRIN SUBCUT SCH (10:28)
[2019-08-14] MEDS: IPRATROPIUM/ALBUTEROL 0.5-2.5 MG/3 ML AMPUL NEB PRN (10:59)
[2019-08-14 12:55] VITALS: BP 125/75
--- NOTE | 2019-08-15 18:07 | PDOC DISCHARGE SUMMARY ---
Impression - Admit/DC Date/PCP Admission Date/Primary Care Provider: 08/11/19 17:19 STEFFEN LIRA Discharge Date: 08/14/19 - Discharge Diagnosis (1) Hyponatremia Is this a current diagnosis for this admission?: Yes (2) Hypokalemia Is this a current diagnosis for this admission?: Yes (3) Leukocytosis Is this a current diagnosis for this admission?: Yes (4) Cocaine abuse Is this a current diagnosis for this admission?: Yes (5) HTN (hypertension) Is this a current diagnosis for this admission?: Yes (6) Acute renal failure Is this a current diagnosis for this admission?: Yes (7) Chronic pain Is this a current diagnosis for this admission?: Yes (8) Chronic diastolic CHF (congestive heart failure) Is this a current diagnosis for this admission?: Yes - Additional Information Discharge Diet: As Tolerated, Cardiac Discharge Activity: Balance Activity w/Rest, Energy Conservation, No Lifting Over 10 Pounds Referrals: STEFFEN LIRA MD [Primary Care Provider] - 08/20/19 10:30 am Prescriptions: RX: Losartan Potassium [Cozaar 100 mg Tablet] 100 mg PO DAILY 30 Days #30 tablet Home Medications: RX: Amlodipine Besylate [Norvasc 10 mg Tablet] 10 mg PO DAILY 08/11/19 RX: Ergocalciferol (Vitamin D2) [Vitamin D2] 50 mcg PO MO@1000 08/11/19 RX: Ferrous Sulfate 324 mg PO BID 08/11/19 RX: Hydralazine HCl [Apresoline 50 mg Tablet] 50 mg PO TID 08/11/19 RX: Magnesium Oxide 400 mg PO DAILY 08/11/19 RX: Pantoprazole Sodium 40 mg PO BID 08/11/19 RX: Potassium Chloride 10 meq PO DAILY 08/11/19 RX: Cyclobenzaprine HCl [Flexeril 5 mg Tablet] 5 mg PO BIDP PRN 08/12/19 RX: Losartan Potassium [Cozaar 100 mg Tablet] 100 mg PO DAILY 30 Days #30 tablet 08/14/19 History of Present Illiness History of Present Illness: NARENDRA ALBERT is a 74 year old female past medical history of cocaine abuse, hypertension, COPD, chronic musculoskeletal pain with multiple surgeries, anemia, presented to ED complaining of worsening bilateral shoulder pain for the last 3 months. Patient has had multiple surgeries in the past, was doing fine until 3 months ago her dog was running in front of her and she fell on her own landing on her right shoulder. She has been treating her pain with Tylenol and high doses of ibuprofen OTC. She also saw Dr. Grey pain specialist and had some steroid injection in her back a month ago. In ED she was found to have WBC of 22,000, sodium 120.2, potassium 2.9, creatinine of 1.35. UDS positive for cocaine and marijuana. Patient denies any recent medication changes, herbal medication ingestion, any fever, chills, nausea, vomiting, diarrhea, constipation, abdominal pain or any urinary symptoms. Hospital Course Hospital Course: (1) Hyponatremia Significant improvement. Sodium 134.6 on day of discharge. Multifactorial. Acute on chronic. Likely a combination of excessive p.o. water intake, SIADH and HCTZ and Lasix. Urine osmolarity 282. Urine creatinine 3.2, urine sodium 121. Was admitted to telemetry, with seizure precaution, started on NS, with a goal of correction 8 mEq in 24 hours, p.o. water restriction, with sodium level every 8 hours. Nephrology consulted. Recommendations noted. (2) Hypokalemia Resolved. Replace as needed. BMP tomorrow. (3) Leukocytosis [place]. [id number] discharge down from 16,000 on admission. Leukocytosis with normal differential. No history of leukemia. No sign of any underlying infection. Patient did receive steroids for her back a month ago and likely this is caused by steroids. Received 1 dose of ceftriaxone in ED. CBC and vitals were monitored daily. (4) Cocaine abuse History of chronic cocaine abuse. UDS positive for cocaine and marijuana. Denies chest pain. Troponins negative. EKG no no acute changes. Monitor for withdrawal, avoid beta-blockers. Counseled on abstinence. (5) HTN (hypertension) Normotensive. Euvolemic. Home meds are: Metoprolol 25 mg p.o. daily. Losartan/hydrochlorothiazide 100-25 mg p.o. daily. Lasix 20 mg p.o. daily. Hydralazine 50 mg p.o. 3 times daily. Amlodipine 10 mg p.o. daily. Held metoprolol due to cocaine abuse. Held HCTZ due to electrolyte abnormalities. Held losartan due to recent SADAF. Held Lasix due to electrolyte abnormalities. Continued on amlodipine 10 mg daily and hydralazine 25 mg p.o. 3 times daily restarted losartan once SADAF resolved. Patient's SBP remained [id number] on these medications. Appointment was made for patient to follow-up with PCP for reevaluation of her BP and reconsultation of her meds. Discharged on hydralazine, losartan and amlodipine with SBPs 100-142. (6) Acute renal failure Resolved. Creatinine WNL. Acute on chronic renal failure. Likely caused by NSAID and Tylenol. Renal ultrasound unremarkable. Was a started on cautious volume resuscitation guided by volume status and electrolytes while avoiding nephrotoxic meds. (7) Chronic pain Has had multiple shoulder and back surgery. Sees pain specialist outpatient. Not on chronic opiates. Recently had a steroid injection in the back. Started on on low-dose Percocet, consult PT/OT. Avoid Tylenol, NSAIDs due to recent SADAF. Sees pain management doctor as outpatient. Was asked to follow-up with PCP and pain management doctor. (7) Chronic diastolic CHF Denies any history of CAD, likely due to uncontrolled HTN. Euvolemic. Did not seem to be on acute exacerbation Unfortunately patient's UDS was positive for cocaine and has history of cocaine abuse. Beta-blockers were held temporarily to avoid hypertensive crisis. Patient was advised on abstinence and was asked to follow-up with PCP for reinitiation of her beta-blockers. Patient did not look hypervolemic and her Lasix was held temporarily due to severe electrolyte abnormalities on admission, until evaluated by PCP on 08/20/2019 and restarted by PCP. She was counseled about importance of staying euvolemic due to underlying CHF and the importance of diuretics in the management of CHF. Physical Exam Vital Signs: Temp Pulse Resp BP Pulse Ox 98.4 F 105 H 18 125/75 99 08/14/19 12:51 08/14/19 12:51 08/14/19 12:51 08/14/19 12:51 08/14/19 12:51 Intake & Output 08/14/19 08/15/19 08/16/19 06:59 06:59 06:59 Intake Total 1760 Output Total 1974 Balance -215 Weight 54.6 kg Results Laboratory Results: WBC 10.9 10^3/uL (4.0-10.5) H 08/14/19 06:05 RBC 3.27 10^6/uL (3.72-5.28) L 08/14/19 06:05 Hgb 9.8 g/dL (12.0-15.5) L 08/14/19 06:05 Hct 29.0 % (36.0-47.0) L 08/14/19 06:05 MCV 89 fl (80-97) 08/14/19 06:05 MCH 30.0 pg (27.0-33.4) 08/14/19 06:05 MCHC 33.9 g/dL (32.0-36.0) 08/14/19 06:05 RDW 13.4 % (11.5-14.0) 08/14/19 06:05 Plt Count 384 10^3/uL (150-450) 08/14/19 06:05 Lymph % (Auto) 12.2 % (13-45) L 08/14/19 06:05 Whitman % (Auto) 5.7 % (3-13) 08/14/19 06:05 Eos % (Auto) 1.0 % (0-6) 08/14/19 06:05 Baso % (Auto) 0.6 % (0-2) 08/14/19 06:05 Absolute Neuts (auto) 8.8 10^3/uL (1.7-8.2) H 08/14/19 06:05 Absolute Lymphs (auto) 1.3 10^3/uL (0.5-4.7) 08/14/19 06:05 Absolute Monos (auto) 0.6 10^3/uL (0.1-1.4) 08/14/19 06:05 Absolute Eos (auto) 0.1 10^3/uL (0.0-0.6) 08/14/19 06:05 Absolute Basos (auto) 0.1 10^3/uL (0.0-0.2) 08/14/19 06:05 Total Counted 100 08/11/19 13:00 Seg Neutrophils % 80.5 % (42-78) H 08/14/19 06:05 Seg Neuts % (Manual) 90 % (42-78) H 08/11/19 13:00 Lymphocytes % (Manual) 8 % (13-45) L 08/11/19 13:00 Monocytes % (Manual) 2 % (3-13) L 08/11/19 13:00 Eosinophils % (Manual) 0 % (0-6) 08/11/19 13:00 Basophils % (Manual) 0 % (0-2) 08/11/19 13:00 Abs Neuts (Manual) 20.5 10^3/uL (1.7-8.2) H 08/11/19 13:00 Abs Lymphs (Manual) 1.8 10^3/uL (0.5-4.7) 08/11/19 13:00 Abs Monocytes (Manual) 0.5 10^3/uL (0.1-1.4) 08/11/19 13:00 Absolute Eos (Manual) 0.0 10^3/uL (0.0-0.6) 08/11/19 13:00 Abs Basophils (Manual) 0.0 10^3/uL (0.0-0.2) 08/11/19 13:00 Toxic Granulation 1+ 08/11/19 13:00 Toxic Vacuolation PRESENT 08/11/19 13:00 Platelet Comment ADEQUATE 08/11/19 13:00 Sodium 134.6 mmol/L (137-145) L 08/14/19 06:05 Potassium 4.2 mmol/L (3.6-5.0) 08/14/19 06:05 Chloride 100 mmol/L (98-107) 08/14/19 06:05 Carbon Dioxide 23 mmol/L (22-30) 08/14/19 06:05 Anion Gap 12 (5-19) 08/14/19 06:05 BUN 9 mg/dL (7-20) 08/14/19 06:05 Creatinine 0.62 mg/dL (0.52-1.25) 08/14/19 06:05 Est GFR ( Amer) > 60 (>60) 08/14/19 06:05 Est GFR (MDRD) Non-Af > 60 (>60) 08/14/19 06:05 Glucose 93 mg/dL (75-110) 08/14/19 06:05 Serum Osmolality 261 mOsm/kg (275-301) L 08/12/19 05:11 Calcium 10.3 mg/dL (8.4-10.2) H 08/14/19 06:05 Magnesium 1.5 mg/dL (1.6-2.3) L 08/14/19 06:05 Total Bilirubin 0.7 mg/dL (0.2-1.3) 08/11/19 13:00 Direct Bilirubin 0.3 mg/dL (0.0-0.4) 08/11/19 13:00 Neonat Total Bilirubin Not Reportable 08/11/19 13:00 Neonat Direct Bilirubin Not Reportable 08/11/19 13:00 Neonat Indirect Bili Not Reportable 08/11/19 13:00 AST 37 U/L (14-36) H 08/11/19 13:00 ALT 14 U/L (<35) 08/11/19 13:00 Alkaline Phosphatase 65 U/L (38-126) 08/11/19 13:00 Creatine Kinase 192 U/L (30-135) H 08/11/19 13:00 Troponin I < 0.012 ng/mL 08/11/19 13:00 Total Protein 7.9 g/dL (6.3-8.2) 08/11/19 13:00 Albumin 4.8 g/dL (3.5-5.0) 08/11/19 13:00 Urine Color STRAW 08/11/19 15:00 Urine Appearance CLEAR 08/11/19 15:00 Urine pH 7.0 (5.0-9.0) 08/11/19 15:00 Ur Specific [place] 1.005 08/11/19 15:00 Urine Protein NEGATIVE mg/dL (NEGATIVE) 08/11/19 15:00 Urine Glucose (UA) NEGATIVE mg/dL (NEGATIVE) 08/11/19 15:00 Urine Ketones NEGATIVE mg/dL (NEGATIVE) 08/11/19 15:00 Urine Blood NEGATIVE (NEGATIVE) 08/11/19 15:00 Urine Nitrite NEGATIVE (NEGATIVE) 08/11/19 15:00 Urine Bilirubin NEGATIVE (NEGATIVE) 08/11/19 15:00 Urine Urobilinogen NEGATIVE mg/dL (<2.0) 08/11/19 15:00 Ur Leukocyte Esterase NEGATIVE (NEGATIVE) 08/11/19 15:00 Urine WBC (Auto) 0 /HPF 08/11/19 15:00 Urine RBC (Auto) 0 /HPF 08/11/19 15:00 Squamous Epi Cells Auto <1 /HPF 08/11/19 15:00 Urine Mucus (Auto) RARE /LPF 08/11/19 15:00 Urine Osmolality 282 mOsm/kg (300-900) L 08/12/19 00:20 Urine Creatinine < 3.2 mg/dL (15-278) L 08/11/19 15:00 Urine Sodium 121 mmol/L (30-90) H 08/11/19 15:00 Urine Ascorbic Acid NEGATIVE (NEGATIVE) 08/11/19 15:00 Urine Opiates Screen NEGATIVE 08/11/19 15:00 Urine Methadone Screen NEGATIVE 08/11/19 15:00 Ur Barbiturates Screen NEGATIVE 08/11/19 15:00 Ur Phencyclidine Scrn NEGATIVE 08/11/19 15:00 Ur Amphetamines Screen NEGATIVE 08/11/19 15:00 U Benzodiazepines Scrn NEGATIVE 08/11/19 15:00 Urine Cocaine Screen UNCONFIRMED POSITIVE 08/11/19 15:00 U Marijuana (THC) Screen UNCONFIRMED POSITIVE 08/11/19 15:00 08/11/19 13:00 Troponin I < 0.012 Impressions: Chest X-Ray 08/11/19 12:49 IMPRESSION: No acute infiltrates Renal Ultrasound 08/11/19 17:11 IMPRESSION: No ultrasound abnormality of the kidneys. No hydronephrosis. The urinary bladder is decompressed and poorly visualized. Stroke Is this a Stroke Patient?: No Acute Heart Failure - Is this a Heart Failure Patient?: No
[2019-08-19] MEDS ORDERED: ERGOCALCIFEROL (VITAMIN D2) 50000 UNIT (1.25 MG) CAPSULE PO SCH (10:00)
== END 2019-08-14 14:55 | disposition home or self-care (01) | DRG 641 ==
LOC: ER 12:30 → EH 17:19 → 3W 19:43
PROVIDERS: ADMIT Internal Medicine; ATTEND Internal Medicine
DX: E87.1 Hypo-osmolality and hyponatremia (principal); N17.9 Acute kidney failure, unspecified; I50.32 Chronic diastolic (congestive) heart failure; E87.6 Hypokalemia; I11.0 Hypertensive heart disease with heart failure; G89.29 Other chronic pain; D64.9 Anemia, unspecified; T50.1X5A Adverse effect of loop [high-ceiling] diuretics, initial encounter; T50.2X5A Adverse effect of carbonic-anhydrase inhibitors, benzothiadiazides and other diuretics, initial encounter; T39.395A Adverse effect of other nonsteroidal anti-inflammatory drugs [NSAID], initial encounter; T39.1X5A Adverse effect of 4-Aminophenol derivatives, initial encounter; Y92.9 Unspecified place or not applicable; D72.829 Elevated white blood cell count, unspecified; F12.10 Cannabis abuse, uncomplicated; F14.10 Cocaine abuse, uncomplicated; Z82.49 Family history of ischemic heart disease and other diseases of the circulatory system; Z91.81 History of falling
CPT/HCPCS: 36415; 71046; 76770; 80048; 80053; 80307; 81001; 82550; 82570; 83735; 83930; 83935; 84300; 84484; 85025; 93005; 93010; 96365; 96366; 99285; J1650; J3480; J3490; J7030; J7620

== ENCOUNTER 2019-08-19 12:20 | Emergency (ER) | payer MEDICARE, BC ==
--- NOTE | 2019-08-19 12:49 | ER Document Report ---
ED Medical Screen (RME) - General Chief Complaint: Psych Problem Stated Complaint: PSYCH Time Seen by Provider: 08/19/19 12:43 Primary Care Provider: STEFFEN LIRA MD [Primary Care Provider] - Follow up as needed TRAVEL OUTSIDE OF THE [place] IN LAST 30 DAYS: No - HPI Notes: 08/19/19 12:47 Patient is a 74-year-old female with history of cocaine abuse, hypertension, COPD, chronic musculoskeletal pain with multiple surgeries, anemia with recent discharge from the hospital for electrolyte abnormalities and pain who presents per the direction of Dr. Lira for mental health evaluation. Significant other states that she has been hallucinating and roaming around the neighborhood as well as not being able to sit still since her discharge from the hospital. Last use of cocaine was 3 days ago. I have treated and performed a rapid initial assessment of this patient. A comprehensive ED assessment and evaluation of the patient, analysis of test results and completion of medical decision making process will be conducted by additional ED providers. PHYSICAL EXAMINATION: Psych/GENERAL: no acute distress. Tangential speech and is acting manic currently - Related Data Allergies/Adverse Reactions: No Known Allergies Allergy (Verified 08/11/19 12:43) Past Medical History - Social History Chew tobacco use (# tins/day): No - Past Medical History Cardiac Medical History: Reports: Hx Congestive Heart Failure, Hx Hypertension Pulmonary Medical History: Reports: Hx COPD, Hx Pneumonia Denies: Hx Tuberculosis Renal/ Medical History: Denies: Hx Peritoneal Dialysis Musculoskeltal Medical History: Reports Hx Arthritis, Reports Hx Musculoskeletal Deformity, Reports Hx Musculoskeletal Trauma Psychiatric Medical History: Reports: Hx Bipolar Disorder, Hx Depression Past Surgical History: Reports: Hx Breast Surgery - left breast, Hx Hysterectomy, Hx Orthopedic Surgery - back, neck, shoulder (03/24/15), Other - Lumpectomy, Exploratory laparotomy, - Immunizations Immunizations up to date: No Hx Diphtheria, Pertussis, Tetanus Vaccination: No History of Influenza Vaccine for 08/2017 - 01/2018 Season: No Influenza Administration Date for 08/2017 - 01/2018 Season: 08/20/17 Doctor's Discharge - Discharge Referrals: STEFFEN LIRA MD [Primary Care Provider] - Follow up as needed
--- NOTE | 2019-08-19 14:17 | PSYCHOLOGICAL NOTE ---
Psych Note - Psych Note Date seen by psych provider: 08/19/19 Time seen by psych provider: 13:45 - Discussion with ED Physician at 1345 for medication recommendations. Chart review at 1349. Psych Note: Presenting Problem: Saw PCM Dr. Janneth crawford AM who sent patient to ED for psych evaluation, psychosis, hallucinations, psychomotor agitation, roaming the neighborhood. Patient was medical admit from 08/11/19 to 08/15/19 for hyponatremia. She has no psychiatric medications listed as home medication. She has consistently been positive for Cocaine since 2013. UDS from medical inpatient was positive for Cocaine and Cannabis. Observed her lying in bed yelling at security and biting at the air. Diagnosis: Psychosis Cocaine Use Disorder, Severe Medication recommendations made by the psychiatric medication provider, Dr. Cely MD., includes: Add Haldol 5MG twice a day for psychosis/irritability/calming effect Add Cogentin 1MG daily to curb tremor side effects often associated with antipsychotic medications Impression/Plan: ED Physician requested medication recommendations to help manage patient's mood, behaviors and irritability. Consulted with Dr. Borges regarding the management and care of patient.
[2019-08-19 14:18] LABS: ABSOLUTE EOSINOPHILS # (AUTO) 0.1 10^3/uL (0.0-0.6); ABSOLUTE LYMPHOCYTES (AUTO) 2.4 10^3/uL (0.5-4.7); ABSOLUTE MONOCYTES (AUTO) 0.7 10^3/uL (0.1-1.4); ABSOLUTE NEUT (AUTO) 6.6 10^3/uL (1.7-8.2); BASOPHILS % (AUTO) 0.3 % (0-2); EOSINOPHILS % (AUTO) 0.9 % (0-6); HEMATOCRIT 30.2 % (36.0-47.0); HEMOGLOBIN 10.4 g/dL (12.0-15.5); LYMPHOCYTES % (AUTO) 24.2 % (13-45); MEAN CORPUSCULAR HEMOGLOBIN 30.9 pg (27.0-33.4); MEAN CORPUSCULAR HGB CONC 34.5 g/dL (32.0-36.0); MEAN CORPUSCULAR VOLUME 90 fl (80-97); MONOCYTES % (AUTO) 7.5 % (3-13); PLATELET COUNT 525 10^3/uL (150-450); RED BLOOD COUNT 3.37 10^6/uL (3.72-5.28); RED CELL DISTRIBUTION WIDTH 13.7 % (11.5-14.0); SEGMENTED NEUTROPHILS % (AUTO) 67.1 % (42-78); TOTAL CELLS COUNTED % (AUTO) 100 %; WHITE BLOOD COUNT 9.9 10^3/uL (4.0-10.5)
[2019-08-19 14:40] LABS: ACETAMINOPHEN < 10 ug/mL (10-30); ALBUMIN 4.5 g/dL (3.5-5.0); ALCOHOL < 10 mg/dL (NONE DETECTED); ALKALINE PHOSPHATASE 76 U/L (38-126); ANION GAP 16 (5-19); ASPARTATE AMINO TRANSFERASE 37 U/L (14-36); BILIRUBIN,DIRECT 0.2 mg/dL (0.0-0.4); BILIRUBIN,TOTAL 0.4 mg/dL (0.2-1.3); BLOOD UREA NITROGEN 11 mg/dL (7-20); CALCIUM 9.7 mg/dL (8.4-10.2); CARBON DIOXIDE 19 mmol/L (22-30); CHLORIDE 101 mmol/L (98-107); GLUCOSE 70 mg/dL (75-110); POTASSIUM 4.6 mmol/L (3.6-5.0); SALICYLATE < 1.0 mg/dL (2.0-20.0); TOTAL PROTEIN 7.3 g/dL (6.3-8.2)
--- NOTE | 2019-08-19 15:24 | ER Document Report ---
Entered by LENIN FINNEY SCRIBE 08/19/19 1345 Acting as scribe for:LIBERTAD MILNER MD ED Psych Disorder / Suicide - General Chief Complaint: Psych Problem Stated Complaint: PSYCH Time Seen by Provider: 08/19/19 12:43 Primary Care Provider: STEFFEN LIRA MD [Primary Care Provider] - Follow up as needed Mode of Arrival: Ambulatory Information source: Patient Notes: Patient is a 74 year old female that presents to the emergency department today acutely psychotic. The patient is unable to provide any meaningful history. According to nursing notes, the reports the patient has been "acting stupid" since discharge from here. Patient had a few day stay for hyponatremia and hypokalemia, discharged on 08/14. Patient admitted to "taking a hit of crack" to nurses. TRAVEL OUTSIDE OF THE [place] IN LAST 30 DAYS: No - Related Data Allergies/Adverse Reactions: No Known Allergies Allergy (Verified 08/11/19 12:43) Past Medical History - General Information source: Patient - Social History Smoking Status: Current Every Day Smoker Cigarette use (# per day): Yes Chew tobacco use (# tins/day): No Frequency of alcohol use: None Drug Abuse: None Lives with: Family Family History: Reviewed & Not Pertinent, CAD Patient has suicidal ideation: No Patient has homicidal ideation: No - Past Medical History Cardiac Medical History: Reports: Hx Congestive Heart Failure, Hx Hypertension Pulmonary Medical History: Reports: Hx COPD, Hx Pneumonia Musculoskeletal Medical History: Reports Hx Arthritis, Reports Hx Musculoskeletal Deformity, Reports Hx Musculoskeletal Trauma Psychiatric Medical History: Reports: Hx Bipolar Disorder, Hx Depression Past Surgical History: Reports: Hx Breast Surgery - left breast, Hx Hysterectomy, Hx Orthopedic Surgery - back, neck, shoulder (03/24/15), Other - Lumpectomy, Exploratory laparotomy, - Immunizations Immunizations up to date: No Hx Diphtheria, Pertussis, Tetanus Vaccination: No Hx Pneumococcal Vaccination: 11/20/12 Review of Systems - Review of Systems -: Yes ROS unobtainable due to patient's medical condition - acutely psychotic Physical Exam - Notes Notes: Physical Exam: General: Alert. HEENT: Normocephalic. Atraumatic. PERRLA. Extraocular movements intact. Oropharynx clear. Neck: Supple. Respiratory: No respiratory distress. Abdominal: Normal Inspection. No distension. Extremities: Post-op boot to LLE. Neurological: Normal cognition. AAOx4. Normal speech. Psychological: Flight of ideas. Manic. Psychotic. Paranoid. Delusions. Skin: Warm. Dry. Normal color. Course - Laboratory Result Diagrams: 08/19/19 14:00 08/19/19 14:00 Laboratory results interpreted by me: 08/19/19 08/19/19 14:00 14:00 RBC 3.37 L Hgb 10.4 L Hct 30.2 L Plt Count 525 H Sodium 135.9 L Carbon Dioxide 19 L Glucose 70 L AST 37 H Salicylates < 1.0 L Acetaminophen < 10 L - EKG Interpretation by Me EKG shows normal: Sinus rhythm, [place], Intervals, QRS Complexes. abnormal: ST-T Waves - Borderline anterior lateral T abnormalities Rate: Normal - 84 Rhythm: NSR Discharge - Discharge Clinical Impression: Manic episode, severe with psychotic symptoms, Tobacco abuse, Cocaine abuse Chronic pain Qualifiers: Chronic pain type: chronic pain syndrome Qualified Code(s): G89.4 - Chronic pain syndrome Condition: Stable Disposition: PSYCH HOSP/UNIT Referrals: STEFFEN LIRA MD [Primary Care Provider] - Follow up as needed Scribe Attestation: 08/19/19 17:19 I personally performed the services described in the documentation, reviewed and edited the documentation which was dictated to the scribe in my presence, and it accurately records my words and actions. I personally performed the services described in the documentation, reviewed and edited the documentation which was dictated to the scribe in my presence, and it accurately records my words and actions.
[2019-08-19] MEDS ORDERED: BENZTROPINE MESYLATE 1 MG TABLET PO ONE (15:25)
[2019-08-19] MEDS: HALOPERIDOL 5 MG TABLET PO SCH ×2 (15:42→19:32)
[2019-08-19 18:43] LABS: APPEARANCE,URINE SLIGHTLY-CLOUDY; BILIRUBIN,URINE NEGATIVE (NEGATIVE); COLOR,URINE YELLOW; GLUCOSE, URINE NEGATIVE (NEGATIVE); KETONES,URINE 20 mg/dL (NEGATIVE); LEUKOCYTE ESTERASE,URINE NEGATIVE (NEGATIVE); NITRITE,URINE NEGATIVE (NEGATIVE); PROTEIN,URINE 30 mg/dL (NEGATIVE); URINE SPECIFIC GRAVITY 1.014; UROBILINOGEN,URINE NEGATIVE mg/dL (<2.0)
[2019-08-19 18:59] LABS: URINE AMPHETAMINES SCREEN NEGATIVE; URINE BARBITURATES SCREEN NEGATIVE; URINE BENZODIAZEPINES SCREEN NEGATIVE; URINE COCAINE SCREEN NEGATIVE; URINE MARIJUANA (THC) SCREEN UNCONFIRMED POSITIVE; URINE METHADONE SCREEN NEGATIVE; URINE PHENCYCLIDINE SCREEN NEGATIVE
--- NOTE | 2019-08-20 00:27 | EKG REPORT ---
SEVERITY:- BORDERLINE ECG - SINUS RHYTHM BORDERLINE T ABNORMALITIES, ANT-LAT LEADS : Confirmed by: Morenita Tariq MD 20-Aug-2019 00:26:48
[2019-08-20] MEDS ORDERED: HALOPERIDOL LACTATE INJ 5 MG/1 ML VIAL IM ONE (07:21)
--- NOTE | 2019-08-20 07:42 | ER Document Report ---
Doctor's Note Notes: 08/20/19 07:41 Patient has developed substantial agitation, [id number] behavior, has become more of a threat to herself and staff. She is receiving 10 mg of IM Haldol, requiring restraint for her safety. [id number] encounter is performed after being placed in restraints. Situation is mitigated, she is much more calm, unharmed, medical evaluation is unremarkable. Plan to de-escalate as soon as possible.
[2019-08-20] MEDS: HALOPERIDOL 5 MG TABLET PO SCH (11:10)
--- NOTE | 2019-08-20 13:29 | PSYCHOLOGICAL NOTE ---
Psych Note - Psych Note Date seen by psych provider: 08/20/19 Time seen by psych provider: 07:15 - Observation and interaction at 0715. Also later spoke to and patient. Psych Note: Presenting Problem: Saw PCM Dr. Lagunas this AM who sent patient to ED for psych evaluation, psychosis, hallucinations, psychomotor agitation, roaming the neighborhood. Observed patient in the restroom refusing to go back to ED room. She was sitting down in the bathroom on ledge. She became verbally aggressive (yelling, cursing), was not able to be redirected and then became physically aggressive (swinging at medical staff and security). She required medications and restraints. Denzel came to visit and at bedside. Contact numbers: cell [phone], home [phone], work [phone]. He reported he has never seen patient like this. he noted patient has guardianship over their adult female granddaughter who is diagnosed with Autism. Patient admitted to cocaine use and made comments she would not stop. Medication recommendations made by the psychiatric medication provider, Dr. Cely MD., includes: Discontinue Haldol 5MG twice a day for psychosis/agitation (based on prior Head CT with neuro degenerative language) Discontinue Cogentin 1MG daily to curb tremor side effects often associated with antipsychotic medications (based on prior Head CT with neurodegenerative language) Add Depakote DR 250MG twice a day for mood stabilization (based on prior Head CT with neuro degenerative language) Impression/Plan: 24 Hour IVC Petition completed this morning after aggressive behaviors toward staff which then required medication and restraints. Making medication adjustments to help manage mood while also being mindful of possible neurodegenerative processes. Will hold another night and reassess in AM. Consulted with Dr. Borges regarding the management and care of patient. ED Physician in agreement with recommendations.
--- NOTE | 2019-08-20 13:38 | ER Document Report ---
Doctor's Note Notes: 08/20/19 13:36 Patient has been evaluated and mental health recommends DC of Haldol and Cogentin. They would like to add Depakote. These recommendations have been ordered. Patient states that she does not want to take any medications, but mental health and I have encouraged that she try to let the medications work. PHYSICAL EXAMINATION: GENERAL: No acute distress. HEAD: Normocephalic, atraumatic. EYES: PERRL, conjunctiva normal, all extraocular movements intact, sclera nonicteric ENT: Dry mucous membranes. NECK: Supple, no noticeable swelling, redness, rash. Normal range of motion. LUNGS: Equal breath sounds bilaterally and clear to auscultation. No wheezes rales or rhonchi. CARDIOVASCULAR: S1-S2, regular rate, regular rhythm. Radial pulses 2+, normal. ABDOMEN: Normoactive bowel sounds. Soft, nontender, no guarding, no rebound tenderness, and no masses palpated. PSYCH: Normal mood, normal affect. Will evaluate patient tomorrow.
[2019-08-20] MEDS ORDERED: DIVALPROEX SODIUM 250 MG TABLET.DR PO ONE (14:00)
[2019-08-20] MEDS: DIVALPROEX SODIUM 250 MG TABLET.DR PO SCH (18:21)
[2019-08-21] MEDS: DIVALPROEX SODIUM 250 MG TABLET.DR PO SCH ×2 (09:42→18:05)
--- NOTE | 2019-08-21 10:46 | PSYCHOLOGICAL NOTE ---
Psych Note - Psych Note Date seen by psych provider: 08/21/19 Time seen by psych provider: 07:53 - Chart review at 0753. Evaluation at 0817. APS report made at 1039. Coordianation with [facility] started at 1105. Psych Note: Presenting Problem: 24 Hour IVC after continued verbal and physical aggression as well as inability to be redirected. Saw PCM Dr. Lagunas this AM who sent patient to ED for psych evaluation, psychosis, hallucinations, psychomotor agitation, roaming the neighborhood. Medication adjustments made yesterday to accommodate for possible neurodegenerative processes while trying to manage mood. Today patient reported she was "not so good. I just need a tiny hit, I'm a crack head." She had constant hand movements and often touched her face or hair. Made APS report to Lucía Abdullahi (patient reportedly legal guardian of adult aged granddaughter with Autism). Daughter at bedside. Spoke to patient about recommendation for dual diagnosis tx. She agreed and gave verbal consent to link and send referral to [facility] for voluntary inpatient hospitalization. Coordinated with Elisha from [facility]. They denied her for her acuity. Diagnosis: Cocaine Use Disorder, Severe Concern for Mood or Depressive Disorder and prolonged Cocaine use as self me dication Concerns for Mild Vascular Neurocognitive Disorder Impression/Plan: Recommendation to complete full IVC and seek inpatient hospitalization since [facility] denied due to patient acuity. Today patient was not irritable/agitated or aggressive but had some psychomotor agitation (hands/arms) and reported feeling bad. Likely cocaine withdrawal and she has been using for prolonged period of time. Consulted with Dr. Borges regarding the management and care of patient. ED physician in agreement with recommendations.
[2019-08-21] MEDS ORDERED: ONDANSETRON 4 MG TAB.RAPDIS PO ONE (13:40)
[2019-08-21] MEDS ORDERED: ACETAMINOPHEN 325 MG TABLET PO ONE (14:13)
[2019-08-21] MEDS ORDERED: IBUPROFEN 600 MG TABLET PO ONE (14:20)
[2019-08-21] MEDS ORDERED: KETOROLAC TROMETHAMINE 60 MG/2 ML SDV IM ONE (14:35)
--- NOTE | 2019-08-21 14:44 | ER Document Report ---
Doctor's Note Notes: 08/21/19 14:42 PHYSICAL EXAMINATION: GENERAL: No acute distress. LUNGS: Equal breath sounds bilaterally and clear to auscultation. No wheezes rales or rhonchi. CARDIOVASCULAR: S1-S2, regular rate, regular rhythm. Radial pulses 2+, normal. ABDOMEN: Normoactive bowel sounds. Soft, mildly tender, no guarding, no rebo und tenderness, and no masses palpated. PSYCH: Flat affect, withdrawn Patient states that she has right shoulder pain, which is chronic. She normally takes ibuprofen. Patient states that she is also nauseous. She was given 8 milligrams of Zofran earlier. I assessed her and she is spitting more than vomiting. She is most likely going through cocaine withdrawals. She normally takes Advil for her pain. I will give her a dose of Toradol. Awaiting placement at [place].
[2019-08-21] MEDS ORDERED: (PENDING PHARMACY ID) (Ferrous Sulfate [Ferrous Sulfate] 324 MG) PO SCH (18:00)
[2019-08-21] MEDS ORDERED: (PENDING PHARMACY ID) (Potassium Chloride [Potassium Chloride] 10 MEQ) PO SCH (18:00)
[2019-08-21] MEDS: PANTOPRAZOLE SODIUM 40 MG TABLET.DR PO SCH (18:05)
[2019-08-21] MEDS: AMLODIPINE BESYLATE 10 MG TABLET PO SCH (18:05)
[2019-08-21] MEDS: FERROUS SULFATE 325 MG TABLET PO SCH (18:05)
[2019-08-21] MEDS: POTASSIUM CHLORIDE 10 MEQ CAPSULE.ER PO SCH (18:07)
[2019-08-21] MEDS ORDERED: DIPHENHYDRAMINE HCL 50 MG/ML VIAL IM ONE (23:28)
[2019-08-22] MEDS: LOSARTAN POTASSIUM 50 MG TABLET PO SCH (09:33)
[2019-08-22] MEDS: FERROUS SULFATE 325 MG TABLET PO SCH ×2 (09:34→17:50)
[2019-08-22] MEDS: MAGNESIUM OXIDE 400 MG TABLET PO SCH (09:34)
[2019-08-22] MEDS: DIVALPROEX SODIUM 250 MG TABLET.DR PO SCH ×2 (09:34→17:51)
[2019-08-22] MEDS: POTASSIUM CHLORIDE 10 MEQ CAPSULE.ER PO SCH ×2 (09:34→17:50)
[2019-08-22] MEDS: PANTOPRAZOLE SODIUM 40 MG TABLET.DR PO SCH ×2 (09:34→17:50)
[2019-08-22] MEDS: FLUTICASONE/VILANTEROL 200-25 MCG/DOSE IH SCH (09:58)
[2019-08-22] MEDS ORDERED: (PENDING PHARMACY ID) (Magnesium Oxide [Magnesium Oxide] 400 MG) PO SCH (10:00)
--- NOTE | 2019-08-22 11:48 | PSYCHOLOGICAL NOTE ---
Psych Note - Psych Note Date seen by psych provider: 08/22/19 Time seen by psych provider: 08:09 - Chart review at 0809. Evaluation at 0857. Psych Note: Presenting Problem: IVC after [facility] denied patient due to her acuity. Saw PCM Dr. Lagunas this AM who sent patient to ED for psych evaluation, psychosis, hallucinations, psychomotor agitation, roaming the neighborhood. Medication adjustments took place 2 days ago. Today patient had her blanket over her head, sitting at the bottom edge of bed with legs hanging over and feet touching floor, she was bent over touching her feet and looked as though she was going to fall over. When asked what she was doing she said "I don't know." She stated she felt "a little better." She presented altered and confused today. visited patient and made law of plan. Diagnosis: Cocaine Use Disorder, Severe Concern for Mood or Depressive Disorder and prolonged Cocaine use as self medication Concerns for Mild Vascular Neurocognitive Disorder Impression/Plan: Recommendation to maintain IVC. Patient with more euthymic mood and brighter affect today but still some confusion and disorientation. [facility] denied her yesterday. Today going to make other inpatient referrals. [facility] (formerly [facility]) denied patient saying her acuity was too much for their unit currently. If no placement by tomorrow will discharge with plan of care (now both [facility] and [facility] have denied). Consulted with Dr. Borges regarding the management and care of patient. ED Physician in agreement with recommendations.
[2019-08-22] MEDS: ALBUTEROL SULFATE HFA (90 MCG/PUFF) 200 PUFF/8.5 GM MDI IH PRN (13:16)
--- NOTE | 2019-08-22 14:17 | ER Document Report ---
Doctor's Note Notes: 08/22/19 14:16 PHYSICAL EXAMINATION: GENERAL: No acute distress. LUNGS: Equal breath sounds bilaterally and clear to auscultation. No wheezes rales or rhonchi. CARDIOVASCULAR: S1-S2, regular rate, regular rhythm. Radial pulses 2+, normal. ABDOMEN: Normoactive bowel sounds. Soft, mildly tender, no guarding, no rebo und tenderness, and no masses palpated. PSYCH: Flat affect, withdrawn Patient is waiting for placement at [place]. Vital signs are stable, no complaints medically when examining patient. Nursing notes reviewed. Patient appears to be medically stable. No concerns at this time. Mental health states that they will likely find placement for her tomorrow
[2019-08-22] MEDS: AMLODIPINE BESYLATE 10 MG TABLET PO SCH (17:50)
[2019-08-22] MEDS ORDERED: DIPHENHYDRAMINE HCL 50 MG/ML VIAL IM ONE (22:45)
[2019-08-23] MEDS ORDERED: DIAZEPAM 2 MG TABLET PO ONE (00:14)
[2019-08-23] MEDS: FERROUS SULFATE 325 MG TABLET PO SCH (10:50)
[2019-08-23] MEDS: PANTOPRAZOLE SODIUM 40 MG TABLET.DR PO SCH (10:50)
[2019-08-23] MEDS: DIVALPROEX SODIUM 250 MG TABLET.DR PO SCH (10:50)
[2019-08-23] MEDS: MAGNESIUM OXIDE 400 MG TABLET PO SCH (10:50)
[2019-08-23] MEDS: POTASSIUM CHLORIDE 10 MEQ CAPSULE.ER PO SCH (10:50)
[2019-08-23] MEDS: LOSARTAN POTASSIUM 50 MG TABLET PO SCH (10:50)
[2019-08-23] MEDS: FLUTICASONE/VILANTEROL 200-25 MCG/DOSE IH SCH (10:53)
[2019-08-23] MEDS: ALBUTEROL SULFATE HFA (90 MCG/PUFF) 200 PUFF/8.5 GM MDI IH PRN (10:57)
[2019-08-23 11:12] VITALS: BP 136/84
--- NOTE | 2019-08-23 16:41 | ER Document Report ---
Doctor's Note Notes: 08/23/19 13:37 PHYSICAL EXAMINATION: GENERAL: Well-appearing and in no acute distress. HEAD: Atraumatic, normocephalic. EYES: sclera anicteric, conjunctiva are normal. ENT: nares patent, moist mucous membranes. NECK: Normal range of motion, supple without lymphadenopathy LUNGS: CTAB and equal. No wheezes rales or rhonchi. HEART: Regular rate and rhythm without murmurs ABDOMEN: Soft, no tenderness. No guarding, no rebound EXTREMITIES: Normal range of motion, no pitting edema. No cyanosis. Tenderness to left knee joint, normal skin color and temperature overlying joint. Patient is walking boot to left ankle BACK: No midline tenderness, no CVA tenderness. NEUROLOGICAL: Cranial nerves grossly intact. Normal speech. Normal gait. PSYCH: Normal mood, normal affect. SKIN: Warm, Dry, normal turgor, no rashes or lesions noted Patient is awake alert sitting up watching TV. Patient is requesting discharge home so that she can be with her family. Patient is oriented and answers questions appropriately at this time. No confusion or hallucinations at this time. Reviewed patient's vital signs and diagnostic evaluation. Patient appears medically clear for discharge or transfer pending mental health recommendations. 08/23/19 1600 Mental health team was unable to get [facility]. Patient and her spouse are agreeable with discharge plan of care. Patient's evaluation was sent to her primary doctor, Dr. Lagunas, per the mental health team with recommendation for neurology referral. Patient does have a follow-up appointment with support in 3 days. Mental health team recommends starting Depakote to 50 mg p.o. twice daily. Consulted with Dr. Dunlap who is agreeable with this plan of care at this time.
--- NOTE | 2019-08-25 12:20 | PSYCHOLOGICAL NOTE ---
Psych Note - Psych Note Date seen by psych provider: 08/23/19 Time seen by psych provider: 07:25 Psych Note: Presenting Problem: IVC after [facility] denied patient due to her acuity. Saw PCM Dr. Lagunas this AM who sent patient to ED for psych evaluation, psychosis, hallucinations, psychomotor agitation, roaming the neighborhood. Patient has prolonged use of Cocaine, concerns for withdrawal and neurodegenerative processes per [address] (continued/prolonged cocaine use may be part of cause) and as a result concerns for mood. Patient presented more alert and oriented with less confusion/disorientation, mood was more euthymic with brighter affect, she was more steady on her feet, she denied SI/HI, she made fair eye contact, she was able to engage and carry on more dialogue conversation which was within normal limits for rate/tone/prosody. [facility] denied again. At this point patient has had 4 days or more of cocaine withdrawal, been in mood stabilizer for 3-4 days and is more oriented. Diagnosis: Polysubstance Use Cocaine Use Disorder, Severe Cannabis Use Disorder, Mild Concern for Mood or Depressive Disorder and prolonged Cocaine use as self medication Concerns for Mild Vascular Neurocognitive Disorder Impression/Plan: Patient is cleared from acute psychiatric services. Recommendation to rescind IVC. Patient presented more alert and oriented with less confusion/disorientation, mood was more euthymic with brighter affect, she was more steady on her feet, she denied SI/HI, she made fair eye contact, she was able to engage and carry on more dialogue conversation which was within normal limits for rate/tone/prosody. included in plan of care and provided transportation. Provided outpatient [facility] resource sheet which highlighted [facility] and [facility]. Encouraged walk in to [facility] Monday (08/26/19) morning to establish services. Recommended at least follow up with PCM Dr. Lagunas. Care coordination with Dr Lagunas took place via patient referral form and [address] faxed. Also provided with ED SW guardianship and assisted living packet. provided with pamphlet for [facility]. Consulted with Dr. Borges regarding the management and care of patient. ED Physician in agreement with recommendations.
== END 2019-08-23 17:08 | disposition home or self-care (01) ==
LOC: ER 12:20
DX: F30.2 Manic episode, severe with psychotic symptoms (principal); G89.4 Chronic pain syndrome; F14.10 Cocaine abuse, uncomplicated; F12.10 Cannabis abuse, uncomplicated; R41.82 Altered mental status, unspecified; F17.200 Nicotine dependence, unspecified, uncomplicated; I10 Essential (primary) hypertension; J44.9 Chronic obstructive pulmonary disease, unspecified; M79.10 Myalgia, unspecified site
CPT/HCPCS: 93005; 96376; 99285; 96374; 96375; 36415; 80307 ×4; 85025; 80053; 81001; 93010; A9270 ×17; J1200; J1885; J1630; J3490 ×5; S0119

== ENCOUNTER → 2019-12-16 | Outpatient (CLI) | payer MEDICARE, BC ==
[2019-12-16 12:58] LABS: APPEARANCE,URINE CLEAR; BILIRUBIN,URINE NEGATIVE (NEGATIVE); COLOR,URINE STRAW; GLUCOSE, URINE NEGATIVE (NEGATIVE); KETONES,URINE NEGATIVE (NEGATIVE); LEUKOCYTE ESTERASE,URINE NEGATIVE (NEGATIVE); NITRITE,URINE NEGATIVE (NEGATIVE); PROTEIN,URINE NEGATIVE (NEGATIVE); URINE SPECIFIC GRAVITY 1.005; UROBILINOGEN,URINE NEGATIVE mg/dL (<2.0)
[2019-12-16 13:23] LABS: ANION GAP 13 (5-19); BLOOD UREA NITROGEN 18 mg/dL (7-20); CALCIUM 9.6 mg/dL (8.4-10.2); CARBON DIOXIDE 26 mmol/L (22-30); CHLORIDE 86 mmol/L (98-107); GLUCOSE 75 mg/dL (75-110); POTASSIUM 4.3 mmol/L (3.6-5.0)
== END ==
LOC: OD 11:47
PROVIDERS: ATTEND Internal Medicine Nephrology
DX: N17.9 Acute kidney failure, unspecified (principal); E87.1 Hypo-osmolality and hyponatremia; E87.6 Hypokalemia; I10 Essential (primary) hypertension
CPT/HCPCS: 36415; 80048; 81001; 83735; 83930; 83935

== ENCOUNTER → 2019-12-20 | Outpatient (CLI) | payer MEDICARE, BC ==
[2019-12-20 09:57] LABS: ABSOLUTE BASOPHILS # (AUTO) 0.1 10^3/uL (0.0-0.2); ABSOLUTE EOSINOPHILS # (AUTO) 0.7 10^3/uL (0.0-0.6); ABSOLUTE NEUT (AUTO) 7.8 10^3/uL (1.7-8.2); BASOPHILS % (AUTO) 0.9 % (0-2); EOSINOPHILS % (AUTO) 6.3 % (0-6); HEMATOCRIT 33.2 % (36.0-47.0); HEMOGLOBIN 11.2 g/dL (12.0-15.5); LYMPHOCYTES % (AUTO) 17.3 % (13-45); MEAN CORPUSCULAR HEMOGLOBIN 29.9 pg (27.0-33.4); MEAN CORPUSCULAR HGB CONC 33.7 g/dL (32.0-36.0); MEAN CORPUSCULAR VOLUME 89 fl (80-97); MONOCYTES % (AUTO) 8.9 % (3-13); RED BLOOD COUNT 3.73 10^6/uL (3.72-5.28); RED CELL DISTRIBUTION WIDTH 13.7 % (11.5-14.0); SEGMENTED NEUTROPHILS % (AUTO) 66.6 % (42-78); TOTAL CELLS COUNTED % (AUTO) 100 %; WHITE BLOOD COUNT 11.6 10^3/uL (4.0-10.5)
[2019-12-20 10:23] LABS: PLATELET COUNT 309 10^3/uL (150-450)
[2019-12-20 10:45] LABS: ALBUMIN 4.4 g/dL (3.5-5.0); ALKALINE PHOSPHATASE 71 U/L (38-126); ANION GAP 15 (5-19); ASPARTATE AMINO TRANSFERASE 34 U/L (14-36); BILIRUBIN,DIRECT 0.3 mg/dL (0.0-0.4); BILIRUBIN,TOTAL 0.3 mg/dL (0.2-1.3); BLOOD UREA NITROGEN 20 mg/dL (7-20); CALCIUM 9.5 mg/dL (8.4-10.2); CARBON DIOXIDE 26 mmol/L (22-30); CHLORIDE 91 mmol/L (98-107); CHOLESTEROL 199.62 mg/dL (0-200); GLUCOSE 82 mg/dL (75-110); POTASSIUM 4.3 mmol/L (3.6-5.0); TOTAL PROTEIN 7.5 g/dL (6.3-8.2); TRIGLYCERIDES 51 mg/dL (<150)
[2019-12-20 10:58] LABS: DIRECT LDL 99 mg/dL (<100)
[2019-12-20 11:12] LABS: FREE T4 (FREE THYROXINE) 1.28 ng/dL (0.78-2.19)
[2019-12-20 11:26] LABS: THYROID STIMULATING HORMONE 3.74 uIU/mL (0.47-4.68)
[2019-12-20 11:30] LABS: ANION GAP 15 (5-19); BLOOD UREA NITROGEN 20 mg/dL (7-20); CALCIUM 9.5 mg/dL (8.4-10.2); CARBON DIOXIDE 26 mmol/L (22-30); CHLORIDE 91 mmol/L (98-107); GLUCOSE 82 mg/dL (75-110); POTASSIUM 4.3 mmol/L (3.6-5.0)
[2019-12-20 11:43] LABS: URIC ACID 4.9 mg/dL (2.5-7.5)
== END ==
LOC: OD 08:41
PROVIDERS: ATTEND Internal Medicine
DX: Z00.00 Encounter for general adult medical examination without abnormal findings (principal); N17.9 Acute kidney failure, unspecified; I10 Essential (primary) hypertension; E87.1 Hypo-osmolality and hyponatremia
CPT/HCPCS: 36415; 80053; 80061; 82306; 82533; 83935; 84439; 84443; 84550; 85025

== ENCOUNTER → 2020-07-31 | Outpatient (CLI) | payer MEDICARE, BC ==
--- NOTE | 2020-07-31 13:08 | RADIOLOGY REPORT (SQ) ---
EXAM DESCRIPTION: SHOULDER LEFT 2 OR MORE VIEWS IMAGES COMPLETED DATE/TIME: 07/31/2020 8:46 am REASON FOR STUDY: M19.012 PRIMARY OSTEOARTHRITIS, LEFT SHOULDER M19.012 PRIMARY OSTEOARTHRITIS, LEF T SHOULDER COMPARISON: None. NUMBER OF VIEWS: Three views. TECHNIQUE: Internal rotation, external rotation, and Y view images acquired of the left shoulder. LIMITATIONS: None. FINDINGS: MINERALIZATION: Mild osteopenia. BONES: No acute fracture. JOINTS: Moderate to moderate severe glenohumeral and acromioclavicular arthrosis. Marked severe dec rease in the acromial humeral distance may be related to underlying rotator cuff pathology. VISUALIZED LUNGS AND RIBS: No pneumothorax. No rib fracture. Marked dextroconvex scoliosis of the v isualized thoracic spine. SOFT TISSUES: No radiopaque foreign body. OTHER: Short left cervical rib versus prominent transverse processes. IMPRESSION: 1. No acute osseous findings. 2. Moderate to moderate severe glenohumeral and acromioclavicular arthrosis. 3. Additional findings as above. TECHNICAL DOCUMENTATION: JOB ID: [id number] 2010 [employer]- All Rights Reserved Reading location - IP/workstation name: [email or web address]
== END ==
LOC: RAD 08:21
PROVIDERS: ATTEND Internal Medicine
DX: M19.012 Primary osteoarthritis, left shoulder (principal)

== ENCOUNTER → 2020-11-11 | Outpatient (CLI) | payer MEDICARE, BC ==
--- NOTE | 2020-11-11 12:16 | RADIOLOGY REPORT (SQ) ---
EXAM DESCRIPTION: ANKLE LEFT COMPLETE IMAGES COMPLETED DATE/TIME: 11/11/2020 12:06 pm REASON FOR STUDY: (M19.072)PRIMARY OSTEOARTHRITIS, LEFT ANKLE AND FOOT M19.072 PRIMARY OSTEOARTHRIT IS, LEFT ANKLE AND FOOT COMPARISON: None. NUMBER OF VIEWS: Three views. TECHNIQUE: AP, lateral, and oblique without weight bearing radiographic images acquired of the left ankle. LIMITATIONS: None. FINDINGS: MINERALIZATION: Normal. BONES: No acute fracture or dislocation. No worrisome bone lesions. No significant osteophytes. JOINTS: No effusions. SOFT TISSUES: Diffuse soft tissue edema is noted. OTHER: No other significant finding. IMPRESSION: Soft tissue edema. No fracture. TECHNICAL DOCUMENTATION: JOB ID: [id number] 2010 [employer] (?)- All Rights Reserved Reading location - IP/workstation name: [email or web address]
== END ==
LOC: RAD 11:54
PROVIDERS: ATTEND Internal Medicine
DX: M19.072 Primary osteoarthritis, left ankle and foot (principal)

== ENCOUNTER → 2020-11-17 | Outpatient (CLI) | payer MEDICARE, BC ==
[2020-11-17 13:51] VITALS: BP 127/64
--- NOTE | 2020-11-17 13:51 | ER RDC ASSESSMENT REPORT ---
Intake - In the Last 14 days Have you traveled outside [place]?: No Have you been in close contact with someone CONFIRMED: Yes Worked in Healthcare?: No - Symptoms Subjective Fever([place] feverish): No Chills: No Muscule Aches: No Runny Nose: No Sore Throat: No Cough (New or worsening chronic cough): No Shortness of breath: No Nausea or Vomiting: No Headache: No Abdominal Pain: No Diarrhea(3 or more loose stools in last 24 hours): No - Do you have any of the following Chronic lung disease: Asthma or emphysema or COPD: Yes Cystic Fibrosis: No Diabetes: No High Blood Pressure: Yes Cardiovascular Disease: Yes Chronic Kidney Disease: No Chronic Liver Disease: No Chronic blood disorder like Sickle Cell Disease: No Weak immune system due to disease or medication: No Neurologic condition that limits movement: No Developmental delay - Moderate to Severe: No Morbid Obesity (>100 pounds over ideal weight): No - Objective Temperature: 98.4 F Pulse Rate: 81 Respiratory Rate: 16 Blood Pressure: 127/64 O2 Sat by Pulse Oximetry: 96 Objective: Given above, testing performed: covid Disposition: Home; Selfcare General - General Stated Complaint: Asymptomatic Covid test - HPI Notes: Patient presents to clinic for COVID-19 testing after coming in close contact with another COVID 19 positive individual. Patient is asymptomatic. They deny any cough, shortness of breath, fever, chills, muscle aches, rhinorrhea, sore throat, nausea or vomiting, headache, abdominal pain or diarrhea. Patient has no acute medical concerns. - Related Data Allergies/Adverse Reactions: acetaminophen [From Tylenol] Allergy (Verified 08/21/19 14:18) Past Medical History - General Information source: Patient - Social History Smoking Status: Never Smoker Family History: Reviewed & Not Pertinent, CAD - Past Medical History Cardiac Medical History: Reports: Hx Congestive Heart Failure, Hx Hypertension Pulmonary Medical History: Reports: Hx COPD, Hx Pneumonia Denies: Hx Tuberculosis EENT Medical History: Reports: None Neurological Medical History: Reports: None Endocrine Medical History: Reports: None Renal/ Medical History: Reports: None. Denies: Hx Peritoneal Dialysis Malignancy Medical History: Reports: None GI Medical History: Reports: None Musculoskeletal Medical History: Reports Hx Arthritis, Reports Hx Musculoskeletal Deformity, Reports Hx Musculoskeletal Trauma Psychiatric Medical History: Reports: Hx Bipolar Disorder, Hx Depression Traumatic Medical History: Reports: None Infectious Medical History: Reports: None Past Surgical History: Reports: Hx Breast Surgery - left breast, Hx Hysterectomy, Hx Orthopedic Surgery - back, neck, shoulder (03/24/15), Other - Lumpectomy, Exploratory laparotomy, Physical Exam - General General appearance: Appears well, Alert In distress: None Notes: PHYSICAL EXAMINATION: GENERAL: Well-appearing and in no acute distress. HEAD: Atraumatic, normocephalic. EYES: sclera anicteric, conjunctiva are normal. ENT: nares patent. Moist mucous membranes. NECK: Normal range of motion, supple without lymphadenopathy. LUNGS: No increased work of breathing. Lung sounds CTAB and equal. No wheezes rales or rhonchi. HEART: Regular rate and rhythm without murmurs. ABDOMEN: Soft, nontender, normal bowel sounds, no guarding. EXTREMITIES: Normal range of motion, no pitting edema. No cyanosis. NEUROLOGICAL: A&O x 3. Normal speech. PSYCH: Normal mood, normal affect. SKIN: Warm, Dry, normal turgor, no rashes or lesions noted Patient Education/Counseling Counseling/Education: Patient presents for COVID 19 testing after close exposure to another person who has tested positive for COVID 19. Patient is asymptomatic at this time. Patient does not have emergency worrying symptoms such as difficulty breathing, shortness of breath, chest pain, pressure, confusion or cyanosis. Patient appears suitable for discharge as vital signs are stable and patient is nontoxic in appearance. Good return precautions have been discussed with patient, patient verbalized understanding and is agreeable with discharge plan of care at this time. Guidance for worsening S/SX: As a person under investigation for Covid 19, the [place] department of Health and Human Services, division of public health advises you to adhere to the following guidance until your test results are reported to you. If your test result is positive, you will receive additional information from your provider and your local health department at that time. Remain at home until you are cleared by the health provider or public health authorities. Keep a log of visitors to your home, notify any visitors to your home of your isolation status. If you plan to move to a new address or leave the county, notify the local health department in your County. Call your doctor or seek care if you have an urgent medical need. Before seekin g medical care, call ahead to get instructions from the provider before arriving at the medical office clinic or hospital. Notify them that you are being tested for the virus that causes Covid 19 so that arrangements can be made, as necessary, to prevent transmission to others in the healthcare setting. Next, notify the local health department in your county. If a medical emergency arises and you need to call 911, inform the first responders that you are being tested for the virus that causes Covid 19. Next, notify the local health department in your county. RDC Discharge - Discharge Clinical Impression: Encounter for screening laboratory testing for COVID-19 virus in asymptomatic patient Condition: Good Disposition: Home; Selfcare
== END ==
LOC: RDC 12:08
PROVIDERS: ATTEND Registered Nurse
DX: U07.1 COVID-19 (principal)
CPT/HCPCS: 99201; U0003; G0463; C9803; 87635; 99211

== ENCOUNTER 2020-11-20 12:58 | Emergency (ER) | payer MEDICARE, BC ==
[2020-11-20] MEDS ORDERED: IPRATROPIUM/ALBUTEROL 0.5-2.5 MG/3 ML AMPUL NEB ONE (14:21)
--- NOTE | 2020-11-20 14:23 | ER Document Report ---
ED Medical Screen (RME) - General Stated Complaint: FATIGUE Time Seen by Provider: 11/20/20 14:14 Primary Care Provider: STEFFEN LIRA MD [Primary Care Provider] - Follow up as needed Notes: Patient is a 75-year-old female presents emergency department with fatigue and shortness of breath. She tested positive for COVID-19 on an outpatient basis. Patient has been using her inhaler, but continues to have shortness of breath. Patient quit smoking a few months ago. Reports a cough. Exam: Diminished breath sounds in all lung parmar. I have greeted and performed a rapid initial assessment of this patient. A comprehensive ED assessment and evaluation of the patient, analysis of test results and completion of medical decision making process will be conducted by an additional ED providers. TRAVEL OUTSIDE OF THE [place] IN LAST 30 DAYS: No - Related Data Allergies/Adverse Reactions: acetaminophen [From Tylenol] Allergy (Verified 08/21/19 14:18) Past Medical History - Past Medical History Cardiac Medical History: Reports: Hx Congestive Heart Failure, Hx Hypertension Pulmonary Medical History: Reports: Hx COPD, Hx Pneumonia Denies: Hx Tuberculosis Renal/ Medical History: Denies: Hx Peritoneal Dialysis Musculoskeltal Medical History: Reports Hx Arthritis, Reports Hx Musculoskeletal Deformity, Reports Hx Musculoskeletal Trauma Psychiatric Medical History: Reports: Hx Bipolar Disorder, Hx Depression Past Surgical History: Reports: Hx Breast Surgery - left breast, Hx Hysterectomy, Hx Orthopedic Surgery - back, neck, shoulder (03/24/15), Other - Lumpectomy, Exploratory laparotomy, - Immunizations Immunizations up to date: No Hx Diphtheria, Pertussis, Tetanus Vaccination: No Physical Exam - Vital signs Vitals: Temp Pulse Resp BP Pulse Ox 98.3 F 85 21 H 117/78 96 11/20/20 13:08 11/20/20 13:08 11/20/20 13:08 11/20/20 13:08 11/20/20 13:08 Course - Vital Signs Vital signs: Temp Pulse Resp BP Pulse Ox 98.3 F 85 21 H 117/78 96 11/20/20 13:08 11/20/20 13:08 11/20/20 13:08 11/20/20 13:08 11/20/20 13:08 Doctor's Discharge - Discharge Referrals: STEFFEN ILRA MD [Primary Care Provider] - Follow up as needed
--- NOTE | 2020-11-20 15:15 | RADIOLOGY REPORT (SQ) ---
EXAM DESCRIPTION: CHEST SINGLE VIEW IMAGES COMPLETED DATE/TIME: 11/20/2020 2:50 pm REASON FOR STUDY: shortness of breath COMPARISON: 08/11/2019. EXAM PARAMETERS: NUMBER OF VIEWS: One view. TECHNIQUE: Single frontal radiographic view of the chest acquired. RADIATION DOSE: NA LIMITATIONS: None. FINDINGS: LUNGS AND PLEURA: Hyperinflation. Chronic interstitial changes. No infiltrates, masses o r pneumothorax. No pleural effusion. MEDIASTINUM AND HILAR STRUCTURES: No masses. Contour normal. HEART AND VASCULAR STRUCTURES: Heart normal in size. Normal vasculature. BONES: No acute findings. Degenerative changes in the spine with scoliosis. Old rib fractures. HARDWARE: None in the chest. Hardware in the right shoulder. OTHER: No other significant finding. IMPRESSION: COPD. CHRONIC CHANGES. NO ACUTE RADIOGRAPHIC FINDING IN THE CHEST. TECHNICAL DOCUMENTATION: JOB ID: [id number] 2010 [employer]- All Rights Reserved Reading location - IP/workstation name: [email or web address]
--- NOTE | 2020-11-20 15:30 | ER Document Report ---
ED General - General Chief Complaint: Weakness Stated Complaint: FATIGUE Time Seen by Provider: 11/20/20 14:14 Primary Care Provider: STEFFEN LIRA MD [Primary Care Provider] - Follow up as needed TRAVEL OUTSIDE OF THE [place] IN LAST 30 DAYS: No - HPI Notes: 75-year-old female presents with fatigue, shortness of breath, nonproductive cough. She has been recently diagnosed with Covid. Her had Covid first. States that she became symptomatic on Monday, she was tested on Monday and called yesterday that she was positive. She has been using her inhaler. She has a history of COPD and has recently stopped smoking. She denies chest pain, abdominal pain, vomiting or diarrhea. - Related Data Allergies/Adverse Reactions: acetaminophen [From Tylenol] Allergy (Verified 08/21/19 14:18) Past Medical History - General Information source: Patient - Social History Smoking Status: Former Smoker Family History: CAD - Past Medical History Cardiac Medical History: Reports: Hx Congestive Heart Failure, Hx Hypertension Pulmonary Medical History: Reports: Hx COPD, Hx Pneumonia Denies: Hx Tuberculosis Renal/ Medical History: Denies: Hx Peritoneal Dialysis Musculoskeletal Medical History: Reports Hx Arthritis, Reports Hx Musculoskeletal Deformity, Reports Hx Musculoskeletal Trauma Psychiatric Medical History: Reports: Hx Bipolar Disorder, Hx Depression Past Surgical History: Reports: Hx Breast Surgery - left breast, Hx Hyst erectomy, Hx Orthopedic Surgery - back, neck, shoulder (03/24/15), Other - Lumpectomy, Exploratory laparotomy, - Immunizations Immunizations up to date: No Hx Diphtheria, Pertussis, Tetanus Vaccination: No Hx Pneumococcal Vaccination: 11/20/12 Review of Systems - Review of Systems Constitutional: denies: Fever EENT: No symptoms reported Cardiovascular: No symptoms reported Respiratory: Cough, Short of breath Gastrointestinal: denies: Abdominal pain, Diarrhea, Nausea, Vomiting Genitourinary: No symptoms reported Female Genitourinary: No symptoms reported Musculoskeletal: No symptoms reported Skin: No symptoms reported Hematologic/Lymphatic: No symptoms reported Neurological/Psychological: No symptoms reported Physical Exam - Vital signs Vitals: Temp Pulse Resp BP Pulse Ox 98.3 F 85 21 H 117/78 96 11/20/20 13:08 11/20/20 13:08 11/20/20 13:08 11/20/20 13:08 11/20/20 13:08 - General General appearance: Appears well, Alert In distress: None - HEENT Head: Normocephalic, Atraumatic Extraocular movements intact: Yes Pupils: PERRL Ears: Other - Hard of hearing Mucous membranes: Moist - Respiratory Respiratory status: No: Labored, Tachypnea Breath sounds: Other - Overall good air movement, some coarse sounds at bases - Cardiovascular Rhythm: Regular Heart sounds: Normal auscultation - Abdominal Tenderness: Nontender - Extremities General lower extremity: No: Edema - Neurological Neuro grossly intact: Yes Cognition: Normal Orientation: AAOx4 - Psychological Associated symptoms: Normal affect - Skin Skin Temperature: Warm Course - Re-evaluation Re-evalutation: 35-year-old female multiple medical problems here with positive Covid, shortness of breath/cough/fatigue. On exam she is alert and very well-appearing, she is overall good air movement with some coarse sounds at bases. She is currently receiving DuoNeb treatment during my evaluation. She is afebrile, not tachycardic, she is 96% on room air. Suspect that she is feeling symptoms c onsistent with her Covid infection. Will obtain laboratory evaluation to assure that no metabolic abnormality is concurrently present. Also check urine to assure no UTI is present. Will treat with IV dexamethasone and a dose of doxycycline as is likely causing COPD exacerbation. 11/20/20 16:37 No leukocytosis or left shift. Chronic stable anemia. Hyponatremia and hypochloremia present, she has a history of this, her mentation is in tact and not reflective of the level, have ordered 500 cc normal saline. No transaminitis. Creatinine within normal limits. Urine with small leuk esterase and 1+ bacteria, does not complain of UTI symptoms, sent for culture. 11/20/20 17:56 Patient is not vitamin D deficient. I went into reassess, patient reports she is much better and feels comfortable going home. I discussed with her buying a pulse ox, along with continued symptomatic control including prednisone and doxycycline. She verbalized understanding. Return precautions given, stable at time of discharge. - Vital Signs Vital signs: Temp Pulse Resp BP Pulse Ox 98.3 F 85 21 H 117/78 96 11/20/20 13:08 11/20/20 13:11/20/20 13:11/20/20 13:11/20/20 13:08 - Laboratory Results Result Diagrams: 11/20/20 15:45 11/20/20 15:45 Laboratory Results Interpreted: 11/20/20 11/20/20 11/20/20 14:21 15:20 15:45 Hgb 11.8 L Hct 32.5 L MCHC 36.3 H Sodium Chloride Carbon Dioxide Est GFR (MDRD) Non-Af Vitamin D 25-Hydroxy 89.6 H Urine Protein 30 H Ur Leukocyte Esterase SMALL H 11/20/20 15:45 Hgb Hct MCHC Sodium 123.1 L Chloride 92 L Carbon Dioxide 21 L Est GFR (MDRD) Non-Af 56 L Vitamin D 25-Hydroxy Urine Protein Ur Leukocyte Esterase Critical Laboratory Results Reviewed: No Critical Results - Radiology Results Critical Radiology Results Reviewed: No Critical Results Discharge - Discharge Clinical Impression: Respiratory tract infection due to COVID-19 virus, COPD exacerbation Disposition: HOME, SELF-CARE Additional Instructions: Please begin course of prednisone and doxycycline. You should take a multivitamin every day, be sure that includes zinc/vitamin C/vitamin D. Is also advisable to start a daily aspirin. Please use your inhaler as needed for shortness of breath. Please buy a pulse oximeter to measure your oxygen saturations, you may buy these at [facility]/etc., return to the emergency department for oxygen saturations 93% or less. Additionally return to the emergency department for any concerning worsening symptoms. Prescriptions: Prednisone [Deltasone 20 mg Tablet] 2 tab PO DAILY 5 Days #10 tablet Doxycycline Monohydrate 100 mg PO BID 7 Days #14 capsule Referrals: STEFFEN LIRA MD [Primary Care Provider] - Follow up as needed
[2020-11-20] MEDS ORDERED: DEXAMETHASONE SOD PHOSPHATE INJ 4 MG/1 ML VIAL IV ONE (15:48)
[2020-11-20] MEDS ORDERED: DOXYCYCLINE HYCLATE 100 MG TABLET PO ONE (15:49)
[2020-11-20 16:02] LABS: ABSOLUTE MONOCYTES (AUTO) 0.7 10^3/uL (0.1-1.4); BASOPHILS % (AUTO) 0.7 % (0-2); RED CELL DISTRIBUTION WIDTH 13.6 % (11.5-14.0); TOTAL CELLS COUNTED % (AUTO) 100 %
[2020-11-20 16:02] LABS: AMORPHOUS SEDIMENT,URINE TRACE /HPF; APPEARANCE,URINE CLOUDY; BILIRUBIN,URINE NEGATIVE (NEGATIVE); COLOR,URINE YELLOW; GLUCOSE, URINE NEGATIVE (NEGATIVE); KETONES,URINE NEGATIVE (NEGATIVE); LEUKOCYTE ESTERASE,URINE SMALL (NEGATIVE); NITRITE,URINE NEGATIVE (NEGATIVE); PROTEIN,URINE 30 mg/dL (NEGATIVE); URINE SPECIFIC GRAVITY 1.019; UROBILINOGEN,URINE NEGATIVE mg/dL (<2.0)
[2020-11-20 16:06] LABS: ABSOLUTE LYMPHOCYTES (AUTO) 1.7 10^3/uL (0.5-4.7); ABSOLUTE NEUT (AUTO) 3.2 10^3/uL (1.7-8.2); EOSINOPHILS % (AUTO) 0.4 % (0-6); HEMATOCRIT 32.5 % (36.0-47.0); HEMOGLOBIN 11.8 g/dL (12.0-15.5); LYMPHOCYTES % (AUTO) 29.4 % (13-45); MEAN CORPUSCULAR HEMOGLOBIN 31.3 pg (27.0-33.4); MEAN CORPUSCULAR HGB CONC 36.3 g/dL (32.0-36.0); MEAN CORPUSCULAR VOLUME 86 fl (80-97); MONOCYTES % (AUTO) 12.2 % (3-13); PLATELET COUNT 387 10^3/uL (150-450); RED BLOOD COUNT 3.78 10^6/uL (3.72-5.28); SEGMENTED NEUTROPHILS % (AUTO) 57.3 % (42-78); WHITE BLOOD COUNT 5.7 10^3/uL (4.0-10.5)
[2020-11-20 16:24] LABS: ALKALINE PHOSPHATASE 71 U/L (38-126); ANION GAP 10 (5-19); ASPARTATE AMINO TRANSFERASE 33 U/L (14-36); BILIRUBIN,DIRECT 0.2 mg/dL (0.0-0.4); BILIRUBIN,TOTAL 0.3 mg/dL (0.2-1.3); BLOOD UREA NITROGEN 19 mg/dL (7-20); CARBON DIOXIDE 21 mmol/L (22-30); CHLORIDE 92 mmol/L (98-107); GLUCOSE 98 mg/dL (75-110); POTASSIUM 4.8 mmol/L (3.6-5.0); TOTAL PROTEIN 7.1 g/dL (6.3-8.2)
[2020-11-20] MEDS ORDERED: NORMAL SALINE 500 ML IV ONE (16:31)
[2020-11-20 18:21] VITALS: BP 121/75
== END 2020-11-20 18:21 | disposition home or self-care (01) ==
LOC: ER 12:58
DX: U07.1 COVID-19 (principal); J98.8 Other specified respiratory disorders; J44.1 Chronic obstructive pulmonary disease with (acute) exacerbation; R53.1 Weakness; R53.83 Other fatigue; D64.9 Anemia, unspecified; I50.9 Heart failure, unspecified; I11.0 Hypertensive heart disease with heart failure
CPT/HCPCS: 94640; 99284; 96374; 36415; 87086; 85025; 87088; 80053; 81001; 82306; 71045; J1100; A9270; J7040